=== PATIENT | female | born 1945 | race Caucasian/White ===

== ENCOUNTER 2018-11-23 05:51 | Inpatient (IN) | payer OTHER ==
--- OUTSIDE RECORDS SUMMARY | 2018-11-23 06:02 | XMS REPORT ---
:1945 Author Organization e[employer]Works Care Team Providers Name Role Phone Kamlesh Najera Provider Role Unavailable Allergies No Known Allergies Problems Problem Type Condition Code Onset Dates Condition Status Problem Primary osteoarthritis of right knee M17.11 Active Problem Piriformis syndrome of left side G57.02 Active Problem Piriformis syndrome of right side G57.01 Active Medications No Known Medications Results No Known Results Summary Purpose eClinicalWorks Submission
--- OUTSIDE RECORDS SUMMARY | 2018-11-23 06:02 | XMS REPORT ---
:1945 Author Organization [employer] Care Team Providers Name Role Phone Kamlesh Najera Provider Role Unavailable Allergies, Adverse Reactions, Alerts Substance Reaction Event Type MORPHINE Info Not Available Drug Allergy Problems Problem Type Condition Code Onset Dates Condition Status Problem Primary osteoarthritis of right M17.11 Active knee Problem Piriformis syndrome of left side G57.02 Active Problem Piriformis syndrome of right side G57.01 Active Assessment Primary osteoarthritis of right M17.11 Active knee Assessment Pain in joint of right knee M25.561 Active Medications Medication Code System Code Instructions Start End Date Status Dosage Date [place] [facility] [id number] 5-325 MG Orally Active 1 tablet as every 6 hrs needed Nexium [facility] [id number] 40 MG Orally Active 1 capsule Once a day Results No Known Results Summary Purpose eClinicalWorks Submission
--- OUTSIDE RECORDS SUMMARY | 2018-11-23 06:02 | XMS REPORT ---
[...] syndrome of right side G57.01 Active Assessment Acute pain of right knee M25.561 Active Assessment Primary osteoarthritis of right M17.11 Active knee Medications Medication Code System Code Instructions Start End Date Status Dosage Date [place] [facility] 2001 [id number] 5-325 MG Orally Active 1 tablet as every 6 hrs needed Nexium [facility] 79307011432 40 MG Orally Active 1 capsule Once a day Results No Known Results Summary Purpose eClinicalWorks Submission
--- OUTSIDE RECORDS SUMMARY | 2018-11-23 06:03 | XMS REPORT ---
[...] syndrome of right side G57.01 Active Assessment Contusion of right foot, initial S90.31XA Active encounter Assessment Primary osteoarthritis of right M17.11 Active knee Assessment Pain, joint, foot, right M25.571 Active Medications Medication Code Code Instructions Start End Date Status Dosage System Date [place]taren [facility] [id number] 1 % Transdermal Active apply small qid amount to affected joint [place] [facility] [id number] 5-325 MG Orally Active 1 tablet as every 6 hrs needed Nexium [facility] [id number] 40 MG Orally Active 1 capsule Once a day Results No Known Results Summary Purpose eClinicalWorks Submission
--- OUTSIDE RECORDS SUMMARY | 2018-11-23 06:03 | XMS REPORT ---
[...] right M17.11 Active knee Medications Medication Code Code Instructions Start End Date Status Dosage System Date Voltaren [facility] [id number] 1 % Transdermal Active apply small qid amount to affected joint [place] [facility] [id number] 5-325 MG Orally Active 1 tablet as every 6 hrs needed Nexium [facility] [id number] 40 MG Orally Active 1 capsule Once a day Results No Known Results Summary Purpose eClinicalWorks Submission
[2018-11-23] MEDS ORDERED: Ringers Lactate 1,000 ML IV ONE ×2 (06:30→08:40)
[2018-11-23] MEDS ORDERED: VANCOMYCIN 1 GM/VIAL ONE (06:32)
[2018-11-23] MEDS ORDERED: MIDAZOLAM HCL 2 MG/2 ML INJ ONE (06:53)
[2018-11-23] MEDS ORDERED: LIDOCAINE 2% MPF 5 ML VIAL ONE ×2 (06:53)
[2018-11-23] MEDS ORDERED: PROPOFOL 200 MG/20 ML VIAL IV ONE (06:53)
[2018-11-23] MEDS ORDERED: FENTANYL CITR 100 MCG/2 ML ONE (06:53)
[2018-11-23] MEDS ORDERED: ROCURONIUM 50 MG/5 ML VIAL IV ONE (06:53)
[2018-11-23] MEDS ORDERED: NS 0.9% VIAL 10 ML ONE ×2 (06:55→08:12)
[2018-11-23] MEDS ORDERED: DEXAMETHASONE 10 MG/ML VIAL ONE (07:01)
[2018-11-23] MEDS ORDERED: ROPIVACAINE HCL 20 ML ONE (07:02)
[2018-11-23] MEDS ORDERED: ROPLVACAINE HCL 20 ML ONE (07:02)
[2018-11-23] MEDS ORDERED: BUPIVACA 0.5%/EPI 0.0005%/PF 30 ML VIAL ONE (07:18)
[2018-11-23] MEDS ORDERED: NA CHLORIDE 0.9% 250 ML ONE (07:34)
[2018-11-23] MEDS ORDERED: EPHEDRINE SULF 50 MG/ML VIAL ONE (07:59)
[2018-11-23] MEDS ORDERED: KETAMINE HCL 500 MG/5 ML VIAL ONE (07:59)
[2018-11-23] MEDS ORDERED: TRANEXAMIC ACID 1,000 MG in NA CHLORIDE 0.9% 50 ML IV ONE (08:00)
[2018-11-23] MEDS ORDERED: HYDROMORPHONE HCL 2 MG/ML inj ONE (08:09)
[2018-11-23] MEDS ORDERED: GLYCOPYRROLATE 0.2 MG/ML SYR ONE (09:37)
[2018-11-23] MEDS ORDERED: NEOSTIGMINE 1 MG/ML -10 ML VIAL ONE (09:38)
--- NOTE | 2018-11-23 10:19 | P.BOP ---
Preoperative diagnosis: right knee osteoarthritis Postoperative diagnosis: same Primary procedure: right total knee arthroplasty [employer] Associate: NONE,NONE Estimated blood loss: 20 cc Specimen: right knee bone remnants Findings: see dictation Anesthesia: General Complications: None Implants: Scott Persona Size 6 STD femur, D tibia, 10 mm CR poly Fluids & blood products: per anesthesia; TT: 74 mins @ 250 mmHg Transferred to: Recovery Room Condition: Good
[2018-11-23] MEDS ORDERED: DOCUSATE NA 100 MG CAP PO PRN (10:20)
[2018-11-23] MEDS ORDERED: ONDANSETRON 4 MG/2 ML VIAL IV PRN (10:20)
[2018-11-23] MEDS ORDERED: HYDROMORPHONE HCL 0.5 MG/0.5 ML INJ IV PRN (10:45)
[2018-11-23] MEDS: HYDROMORPHONE HCL 1 MG/ML INJ ONE ×2 (10:50→10:57)
[2018-11-23 10:57] LABS: Hematocrit 37.2 % (36.0-45.0)
--- NOTE | 2018-11-23 11:02 | RAD REPORT ---
EXAM DESCRIPTION: RAD - Knee Right 2 View - 11/23/2018 10:49 am CLINICAL HISTORY: Right knee surgery FINDINGS: Postoperative changes of a right knee arthroplasty. Prosthesis is in good position. No fracture or dislocation seen
[2018-11-23] MEDS: HYDROCODONE/APAP 7.5/325 MG TAB PO PRN ×3 (14:05→22:26)
[2018-11-23] MEDS ORDERED: CEFAZOLIN/NS 1gm 1 GM/50 ML BAG IVPB SCH (17:00)
[2018-11-23] MEDS: CEFAZOLIN/SWI 1gm 1 GM/10 ML SYR IV SCH (17:15)
--- NOTE | 2018-11-23 20:24 | P.OP ---
Preoperative diagnosis: right knee osteoarthritis Postoperative diagnosis: same Primary procedure: right total knee arthroplasty Anesthesia: general Estimated blood loss: 20 cc Specimen: right knee bone remnants Findings: see dictation Operative Technique: Indication For Procedure: Dennis is a 73-year-old female, who presented to my clinic with right knee pain due to right knee osteoarthritis. The patient failed conservative treatment measures including home exercises, corticosteroid injections and viscosupplementation injections. She reported continued pain that affect her activities of daily living. She was recommended for total knee arthoplasty. Description Of Procedure: After informed consent was obtained, the patient was identified in preop holding area. The right lower extremity was marked. The patient underwent a femoral nerve block performed by Anesthesia. She was then taken back to the operative room and transferred to the operating table in supine fashion and placed under general endotracheal anesthesia. The right lower extremity was then prepped and draped in usual sterile fashion. A time- out was initiated. Correct patient and procedure were confirmed and identified. The patient had received preoperative prophylactic antibiotics. The right lower extremity was exsanguinated and the tourniquet was inflated to 250 mmHg. Approximately, a 20 cm longitudinal incision was made over the anterior aspect of the knee centered over the patella. A standard median parapatellar approach was taken. The dissection was taken to the extensor mechanism. A median parapatellar arthrotomy was then performed. The patella was then everted and the fat pad and medial and lateral meniscus were excised. A lateral release was performed of the patella and osteophytes were removed using a rongeur. There was minimal cartilage wear on the undersurface of the patella and it was decided to not resurface the patella. Next, attention was taken to the femur, retractors were placed within the knee and the knee was held in flexion. A partial synovectomy was performed over the anterior aspect of the distal femur. A cutting block has been created preoperatively using MRI imaging and the block was then placed over the distal femur and then positioned and was stacked into place and pins were placed within the guide hole in the block. The distal femoral cutting guide was then placed over the pre-placed guide pin and the distal femur was cut after proper confirming using an [place] wing. After this was performed, the anterior-posterior distal femoral cuts were made as well as the chamfer cut without complication. MCL and lateral collateral were protected as well as patellar tendon with knee retractors. Bone remnants were then removed and sent to Pathology. Next attention was taken to the proximal tibia. The soft tissue medially was then elevated off the proximal tibia directly off bone using Bovie electrocautery. Pre-made cutting block was placed over the proximal tibia and once locked into position, pin were placed as well as the alignment william was used to ensure proper placement of the cutting guide. There was overall good alignment and position of the cutting guide. Pins were then placed. The cutting block was removed. The cutting guide was placed on the proximal tibia and again the nixon wing was then used to ensure proper depth of the cut. An osteotome then used to make cuts around the PCL and the saw was used to cut the proximal tibia and the proximal tibial cut was then removed with the meniscal grasper. Bone fragments were then removed and meniscectomies were completed. Next, the knee was held in 90 degrees of flexion and forward extension and a 10-mm guide was then selected and there was good overall fit and stability in flexion and extension. Next, the trials were placed, size 6 CR standard femur was placed and a size D tibia with a 10 mm poly. The knee was then ranged and had good stability, both in forward flexion and extension and had full range of motion. The knee was ranged and there was good stability of the patella as well as the rest of the knee. The tibia was marked with the Bovie electrocautery. The femur was drilled and once in proper position and the tibia was punched. Trial implants were then removed. The knee was then irrigated thoroughly with pulsed lavage normal saline. A 0.5% Marcaine with epinephrine was then used 30 cc for local anesthetic and to aid with postoperative pain control. The cement was prepared as well as the implant. Size D tibia was then placed followed by the size 6 standard CR femur. Excess cement was then removed using [place] elevator. A 10- mm trial poly was then placed and the knee was held in full extension as the cement hardened. Once the cement was completely hardened, the knee was ranged with good overall stability as well as good flexion and extension. Trial poly ethylene liner was removed and a final 10 mm CR poly was placed and locked in position. The knee was again irrigated thoroughly with normal saline. The tourniquet was let down. Hemostasis was achieved with Bovie electrocautery. The extensor mechanism was closed with #1 Vicryl in an interrupted fashion followed by #1 Vicryl in a running fashion. Fascia was then approximated using 0 Vicryl. Subcutaneous tissue was approximated used 2-0 Vicryl and the skin was approximated using a skin staple. Sterile dressings were applied. The patient was awakened and transferred to PACU in stable condition. Postoperative Plan: She will be weightbearing as tolerated. Physical therapy will be consulted to aid with mobilization and she will be admitted for pain management and blood pressure monitoring given her history of uncontrolled hypertension. She will stay at least 2 midnights while in the hospital. CPM machine will be placed in the PACU postoperatively. Complications: None Implants: Scott Persona Size 6 Standard CR femur, Size D Tibia, 10 mm poly Fluids & blood products: per anesthesia record; TT: 74 mins @ 250 mmHg Transferred to: Recovery Room Condition: Good
[2018-11-24] MEDS: CEFAZOLIN/SWI 1gm 1 GM/10 ML SYR IV SCH ×2 (00:25→07:54)
[2018-11-24] MEDS: HYDROCODONE/APAP 7.5/325 MG TAB PO PRN ×4 (03:29→20:01)
[2018-11-24] MEDS: PANTOPRAZOLE 40MG TABLET PO SCH (05:10)
[2018-11-24] MEDS: ENOXAPARIN 30 MG/0.3 ML SQ SCH ×2 (05:10→20:01)
[2018-11-24] MEDS: TRAMADOL HCL 50 MG TAB PO PRN ×4 (05:10→23:50)
[2018-11-24 06:06] LABS: Absolute Lymphocytes (CBC) 1.7 K/uL (0.7-4.9); Absolute Monocytes 1.6 K/uL (0.1-1.3); Absolute Neutrophil 6.6 K/uL (1.8-8.0); Basophils % 0.3 % (0-1.3); Lymphocytes % 17.4 % (15.3-44.8); MPV 8.9 fL (7.6-11.3); Monocytes % 16.3 % (3.3-12.3); RBC Red Blood Cell Count 4.08 M/uL (3.86-4.86)
[2018-11-24 06:25] LABS: BUN Blood Urea Nitrogen 11 mg/dL (7-18); Bicarbonate 25 mmol/L (21-32); Glucose Level 100 mg/dL (74-106); Potassium 4.4 mmol/L (3.5-5.1); Sodium Level 142 mmol/L (136-145)
[2018-11-24] MEDS: CELECOXIB 100 MG CAPSULE PO SCH (07:54)
--- NOTE | 2018-11-24 07:57 | P.PN ---
Subjective Date of Service: 11/24/18 Chief Complaint: s/p R TKA some breakthrough pain this AM as block has worn off; feels better with CPM moving Physical Examination - Vital Signs Temperature: 97.9 F Blood Pressure: 111/61 Pulse: 51 Respirations: 12 Pulse Ox (%): 94 - Physical Exam General: Alert, In no apparent distress Musculoskeletal: Other (RLE: dressing c/d/i; +EHL/FHL/GSC/TA; sensation grossly intact distally) - Studies Laboratory Data (last 24 hrs) 11/24/18 05:38: Sodium 142, Potassium 4.4, BUN 11, Creatinine 0.62, Glucose 100 11/24/18 05:38: WBC 10.1 D, Hgb 12.0, Hct 36.0, Plt Count 256 11/23/18 10:44: Hgb 12.4, Hct 37.2 Assessment And Plan - Plan Dennis is a 73 yo female s/p R TKA POD#1 -PT to continue to mobilize; WBAT RLE -H/H stable -pain control with [place], tramadol as needed -lovenox for DVT prophylaxis
[2018-11-24 08:06] LABS: Blood Morphology Comment NOT SEEN (NOT SEEN); Platelet Estimate ADEQ; Urine White Blood Cell Casts OK
[2018-11-24] MEDS: BRIMONIDINE TARTRATE EACH EYE SCH (09:00)
[2018-11-25] MEDS: HYDROCODONE/APAP 7.5/325 MG TAB PO PRN ×3 (04:04→14:52)
[2018-11-25] MEDS: PANTOPRAZOLE 40MG TABLET PO SCH (05:55)
[2018-11-25] MEDS: TRAMADOL HCL 50 MG TAB PO PRN ×3 (06:11→18:11)
[2018-11-25] MEDS: CELECOXIB 100 MG CAPSULE PO SCH (08:00)
[2018-11-25] MEDS: BRIMONIDINE TARTRATE EACH EYE SCH (08:00)
[2018-11-25] MEDS: ENOXAPARIN 30 MG/0.3 ML SQ SCH ×2 (08:00→21:08)
[2018-11-26] MEDS: PANTOPRAZOLE 40MG TABLET PO SCH (05:47)
[2018-11-26] MEDS: HYDROCODONE/APAP 7.5/325 MG TAB PO PRN ×2 (05:47→10:28)
[2018-11-26] MEDS: ENOXAPARIN 30 MG/0.3 ML SQ SCH (08:51)
[2018-11-26] MEDS: CELECOXIB 100 MG CAPSULE PO SCH (08:51)
[2018-11-26] MEDS: BRIMONIDINE TARTRATE EACH EYE SCH (08:52)
--- NOTE | 2018-11-26 10:04 | P.PN ---
Subjective Date of Service: 11/25/18 Chief Complaint: s/p R TKA Subjective: Working w/ PT some breakthrough pain this AM; states she is not ready to go home today; having difficulty getting up to use the bathroom Physical Examination - Vital Signs Temperature: 98.0 F Blood Pressure: 109/65 Pulse: 89 Respirations: 16 Pulse Ox (%): 93 - Physical Exam General: Alert, In no apparent distress Musculoskeletal: Other (LLE: dressing c/d/i; +EHL/FHL/GSC/TA; sensation grossly intact distally) - Studies Microbiology Data (last 24 hrs): 11/24/18 03:20 Clean Catch Urine [place] Count - Final 11/24/18 03:20 Clean Catch Urine - Final No growth. Assessment And Plan - Plan Dennis is a 73 yo female s/p R TKA POD#2 -PT to continue to mobilize; WBAT RLE -pain control with [place], tramadol as needed -lovenox for DVT prophylaxis -with difficulty with getting up, will consult inpatient rehab for possible placement
--- NOTE | 2018-11-26 10:07 | P.PN ---
Subjective Date of Service: 11/26/18 Chief Complaint: s/p R TKA Subjective: Ambulating, Improving, Working w/ PT Feeling better this AM. A lot of improvement with PT yesterday. Feels safe and ready to go home. Physical Examination - Vital Signs Temperature: 98.0 F Blood Pressure: 109/65 Pulse: 89 Respirations: 16 Pulse Ox (%): 93 - Physical Exam General: Alert, In no apparent distress Musculoskeletal: Other (RLE: incision c/d/i; +EHL/FHL/GSC/TA; sensation grossly intact distally) - Studies Microbiology Data (last 24 hrs): 11/24/18 03:20 Clean Catch Urine [place] Count - Final 11/24/18 03:20 Clean Catch Urine - Final No growth. Assessment And Plan - Plan Dennis is a 73 yo female s/p R TKA POD#3 -PT to continue to mobilize; WBAT RLE -pain control with [place], tramadol as needed -lovenox for DVT prophylaxis; begin Xarelto tomorrow -mobilizing better at this time; d/c home today with HHPT
--- NOTE | 2018-11-26 10:19 | P.DS ---
Admission Date: 11/23/18 Discharge Date: 11/26/18 Disposition: DC HOME/HOME HEALTH CARE Discharge Condition: GOOD Reason for Admission: s/p R TKA Consultations: none Procedures: right total knee arthroplasty Brief History of Present Illness: Dennis is a 73 yo female that underwent right total knee arthroplasty on 2018 without complication. She was admitted to the floor postoperatively for pain control, physical therapy and monitoring. Hospital Course: Dennis underwent R TKA on 11/23 and was admitted to the floor in stable condition. She has history of left upper extremity infection and nonunion and has weakness affecting her mobilization. Physical therapy was consulted and aided with mobilization postoperatively. She reported continued weakness and difficulty with getting out of bed on 11/25 and inpatient rehabilitation was consulted. We were informed that it would take at least 48 hours ( ) that it would take to have approval. She continued to work with physical therapy and on the morning of 11/26/2018 she reports significant improvement with strength and mobility and was ready for d/c home. Her pain is controlled at discharge and her vital signs have remained stable. She will begin Xarelto for DVT propylaxis on 11/27/2018 and has been taking Lovenox while in house. Vital Signs/Physical Exam: Temp Pulse Resp BP Pulse Ox 98.0 F 89 16 109/65 93 11/26/18 10:07 11/26/18 10:07 11/26/18 10:07 11/26/18 10:07 11/26/18 10:07 Laboratory Data at Discharge: WBC 10.1 K/uL (4.3-10.9) D 11/24/18 05:38 Hgb 12.0 g/dL (12.0-15.0) 11/24/18 05:38 Hct 36.0 % (36.0-45.0) 11/24/18 05:38 Plt Count 256 K/uL (152-406) 11/24/18 05:38 Sodium 142 mmol/L (136-145) 11/24/18 05:38 Potassium 4.4 mmol/L (3.5-5.1) 11/24/18 05:38 BUN 11 mg/dL (7-18) 11/24/18 05:38 Creatinine 0.62 mg/dL (0.55-1.3) 11/24/18 05:38 Glucose 100 mg/dL (74-106) 11/24/18 05:38 Home Medications: Brimonidine Tartrate [Lumify] 1 gtt EACH EYE DAILY 11/22/18 Esomeprazole Magnesium [Nexium] 20 mg PO DAILY 11/22/18 Hydrocodone Bit/Acetaminophen [Hydrocodon-Acetaminoph 7.5-325] 0.5 each PO Q6HP PRN 11/22/18 Promethazine HCl 25 mg PO TID PRN 11/24/18 Hydrocodone 7.5/APAP 325 [[place] 7.5/325 mg*] 1 tab PO Q4H PRN tab 11/26/18 Patient Discharge Instructions: change dressing to right knee as needed with aquacell dressing; begin Xarelto on 11.27.2018; WBAT RLE Diet: Regular Activity: Weight bearing as tolerated Followup: Kamlesh Najera MD [ACTIVE - CAN ADMIT] - 12/07/18
== END 2018-11-26 13:07 | disposition home health service (06) | DRG 470 ==
LOC: OR 05:51 → 2ND 10:21
PROVIDERS: ADMIT Orthopaedic Surgery Sports Medicine; ATTEND Orthopaedic Surgery Sports Medicine
PROC: 0SRC069 Replacement of Right Knee Joint with Oxidized Zirconium on Polyethylene Synthetic Substitute, Cemented, Open Approach (ICD-10-PCS; principal; 2018-11-23 07:30)
DX: M17.11 Unilateral primary osteoarthritis, right knee (principal)
CPT/HCPCS: 36415; 80048; 85014; 85018; 85025; 87086; 87088; 88305; 88311; 97110; 97116; 97139; 97162; 97530; J0690; J1100; J1170; J1650; J2250; J2704; J2710; J2795; J3010

== ENCOUNTER 2020-04-23 14:33 | Emergency (ER) | payer OTHER ==
--- OUTSIDE RECORDS SUMMARY | 2020-04-23 14:46 | XMS REPORT | Continuity of Care Document ---
:1945 Author Organization [facility] t Address [address] [place] [address] Care Team Providers Name Role Phone Pa Rodriguez MD Attending Clinician Thierry Harrison CRNA Attending Clinician 1, Lab Attending Clinician Unavailable Pa Rodriguez MD Admitting Clinician Problems Condition Condition Condition Status Onset Resolution Last Treating Co mments Source Name Details Category Date Date Treatment Clinician Date Primary Primary Problem Active [facility] osteoarthr osteoarthr Haydee kes - itis of itis of [facility] right [facility] Piriformis Piriformis Problem Active [facility] syndrome syndrome [facility] left of left [facility] side side [facility] Piriformis Piriformis Problem Active [facility] syndrome syndrome [facility] right of right [facility] a side side l [facility] Status Status Problem Active [facility] post total post total Haydee kes - right knee right knee Me moria replacemen replacemen l t t [facility] Aftercare Aftercare Problem Active [facility] following following [facility] - joint joint Memoria replacemen replacemen l t surgery t surgery Outp at ent Clinics Pain, Pain, Diagnosis Active [facility] joint, joint, [facility] - knee, knee, [facility] right right l [facility] Allergies, Adverse Reactions, Alerts Allergy Allergy Status Severity Reaction(s) Onset Inactive Treating Comm ents Source Name Type Date Date Clinician MORPHINE Adverse Active Info Not [facility] Reaction Available [facility] Medications Ordered Filled Start Stop Current Ordering Indication Dosage Frequency Signature Comments Components Source Medication Medication Date Date Medication? Clinician (SIG) Name Name Tramadol Tramadol 2019-0 2019- No Kamlesh [address] [facility] HCl HCl 7-15 03-15 [place] as needed [facility] 00:[facility]: 00:00 [facility] 00 :[facility] l [facility] Nexium Nexium Yes Kamlesh [address] [facility] Symbicort Symbicort Yes Kamlesh INAHLE [address] [facility] [place] PUFFS [facility] - TWICE A [facility] DAY l Outpati ent Clinics Methocarbam Methocarbam Yes Kamlesh TAKE [address] [facility] [place] TABLET BY [facility] - MOUTH Memoria EVERY 8 l HOURS Outpati NEEDED FOR ent MUSCLE Clinics SPASMS Ilevro Ilevro Yes Kamlesh LOCATION: [facility] LEFT EYE. [facility] - APPLY 1 Memoria DROP IN l SURGERY Outpati EYE AT ent BEDTIME Clinics FOR 2 WEEKS Xarelto Xarelto Yes Kamlesh TAKE [address] [facility] [place] TABLET BY [facility] - MOUTH [facility]oria EVERY DAY l WITH FOOD Outpati ent Clinics Amoxicillin Amoxicillin Yes Kamlesh TAKE [address] [facility] [place] CAPS BY [facility] - MOUTH 1 Memoria HOUR PRIOR l TO DENTAL Outpati PROCEDURE ent Clinics Durezol Durezol Yes Kamlesh PLEASE SEE [facility] ATTACHED [facility] - FOR Memoria DETAILED l DIRECTIONS Outpati ent Clinics Promethazin Promethazin Yes Kamlesh TAKE [address] [facility] e HCl e HCl [place] TABLET BY [facility] - MOUTH Memoria EVERY DAY l NEEDED Outpati ent Clinics Ofloxacin Ofloxacin Yes Kamlesh APPLY [address] [facility] [place] DROP 3 [facility] - TIMES A Memoria DAY FOR 1 l WEEK IN Outpati SURGERY ent EYE Clinics Hydrocodone Hydrocodone Yes Kamlesh (Schedule [facility] -Acetaminop -Acetaminop [place] II Drug) [facility]ukes - hen hen TAKE 1 Memoria TABLET BY l MOUTH Outpati EVERY DAY ent X 28 DAYS Clinics Procedures This patient has no known procedures. Encounters Start End Encounter Admission Attending Care Care Encounter Source Date/Time Date/Time Type Type Clinicians Facility Department ID 2019-11-16 2019-11-16 [facility] [id number] [facility] [address] 08:00:00 08:00:00 t [facility] 2019-08-17 2019-08-17 [facility] [id number] 08:50:00 11:10:00 Encounter Killian Stein [id number] Pa Berrios [id number] Surgical [id number] [place] 071 2019-07-13 2019-07-13 Hospital Michael, [facility] [id number] 09:06:00 11:35:00 Encounter Killian Stein [id number] Pa Berrios [id number] Surgical [id number] [place] [id number] 2019-07-13 2019-07-13 Anesthesia Harrison, [facility] [id number] 10:38:00 11:02:00 Gio Stein [id number] Yash [id number] Surgical [id number] [place] 020 2019-07-06 2019-07-06 Instrument Technician 1, Adc Lab [facility] [id number] 16:31:52 16:46:52 Visit Sarita [id number] Yash [id number] [place] [id number] 2019-05-15 2019-05-15 [facility] [id number] [facility] [address] 08:00:00 08:00:00 t [facility] 2019-03-30 2019-03-30 [facility] [id number] [facility] [address] 11:09:00 11:09:00 t [facility] Clinics 2019-02-13 2019-02-13 [facility] [id number] [address] 08:00:00 08:00:00 t [facility] Clinics 2019-01-05 2019-01-05 [facility] [id number] [address] 09:30:00 09:30:00 t [facility] 2019-01-02 2019-01-02 [facility] [id number] [address] 08:00:00 08:00:00 t [facility] 2018-12-19 2018-12-19 [facility] [id number] 16:26:00 16:26:00 t Bone [facility] 2018-12-19 2018-12-19 [facility] [id number] [address] 11:40:00 11:40:00 t [facility] 2018-12-15 2018-12-15 [facility] [id number] [address] 13:35:00 13:35:00 t [facility] 2018-12-12 2018-12-12 [facility] [id number] 08:30:00 08:30:00 t Bone [facility] 2018-12-08 2018-12-08 [facility] [id number] 08:39:00 08:39:00 t Bone [facility] 2018-12-07 2018-12-07 [facility] [id number] 09:40:00 09:40:00 t Bone [facility] 2018-12-07 2018-12-07 [facility] [id number] 08:00:00 08:00:00 t Bone [facility] 2018-11-03 2018-11-03 [facility] [id number] [address] 09:40:00 09:40:00 t Bone [facility] 2018-10-25 2018-10-25 [facility] [id number] 08:00:00 08:00:00 t Bone [facility] 2018-10-24 2018-10-24 [facility] [id number] 09:37:00 09:37:00 t Bone [facility] and [facility] 2018-10-24 2018-10-24 [facility] [id number] 08:25:00 08:25:00 t Bone [facility] 2018-10-20 2018-10-20 [facility] [id number] 13:30:00 13:30:00 t Bone [facility] 2018-08-22 2018-08-22 [facility] [id number] 11:03:00 11:03:00 t Bone [facility] 2018-08-18 2018-08-18 [facility] [id number] 15:59:00 15:59:00 t Bone [facility] 2018-08-15 2018-08-15 [facility] [id number] 08:00:00 08:00:00 t Bone [facility] 2018-02-17 2018-02-17 [facility] [id number] 09:00:00 09:00:00 t Bone [facility] Results This patient has no known results.
[2020-04-23 15:10] LABS: Absolute Lymphocytes (CBC) 1.8 K/uL (0.7-4.9); Basophils % 0.6 % (0-1.3); Lymphocytes % 15.8 % (15.3-44.8); MPV 8.7 fL (7.6-11.3)
[2020-04-23 15:11] LABS: Protime INR 0.99
[2020-04-23 15:21] LABS: Potassium 3.7 mmol/L (3.5-5.1)
[2020-04-23] MEDS ORDERED: FENTANYL CITR 100 MCG/2 ML ONE (15:22)
--- NOTE | 2020-04-23 16:29 | RAD REPORT ---
EXAM DESCRIPTION: CT - CTHCSPWOC - 04/23/2020 3:58 pm CLINICAL HISTORY: fallfall, head and neck injury, facial injury COMPARISON: <Comparisons> TECHNIQUE: Axial 5 mm thick images of the head were obtained. Axial 2 mm thick images of the cervic al spine were obtained with sagittal and coronal reconstruction images generated and reviewed. All CT scans are performed using dose optimization technique as appropriate and may include automated exposure control or mA/KV adjustment according to patient size. FINDINGS: No intracranial hemorrhage, mass, edema or acute intracranial finding. No suspicion for ac shahzad infarction. No extra-axial fluid collections. Atrophy changes are present primarily bifrontal. Ch ronic ischemic changes are mild. Mastoid air cells are clear. Orbits, facial bones and sinuses are se parately detailed. Cervical bodies are normal in height. There is a slight retrolisthesis of C4 on C5. C4-5 disc space n arrowing present. There is degenerative change at C6-7. No other significant disc space narrowing. Ad vanced degenerative change present at the dens anterior C1 level. Facet joint degenerative changes ar e present. Mild left foraminal encroachment at C3-4 with moderate bilateral foraminal stenosis at C4- 5 and on the left at C5-6. No fracture or acute bony abnormality. Central canal detail is inherently limited. No paraspinal mass or hematoma. IMPRESSION: No hemorrhage, edema or acute intracranial finding. Facial bones, sinuses and orbits ar e separately detailed. Prominent cervical spine degenerative change as detailed. No acute finding identifiable.
--- NOTE | 2020-04-23 16:32 | RAD REPORT ---
EXAM DESCRIPTION: CT - Facial Bones W/ Mpr - 04/23/2020 3:58 pm CLINICAL HISTORY: Fall, facial trauma COMPARISON: None. TECHNIQUE: Axial 2 millimeter thick images of the facial bones were obtained with sagittal and coron al reconstruction imaging. All CT scans are performed using dose optimization technique as appropriate and may include automated exposure control or mA/KV adjustment according to patient size. FINDINGS: Comminuted nasal bone fractures are present. No significant distraction or angulation. Brennan al septum is fractured at the anterior margin with the nasal bone. No significant nasal septum deviat ion. There is contusion and edema around the soft tissues of the nasal bone. Hemorrhage or edema stone ges are present in the nasal passages. Mucosal thickening is seen in the left maxillary sinus. There is a trace air-fluid level in the sinus but no evidence for a sinus wall fracture. . Bilateral antral window surgical defects are present. N o other facial bone fractures confirmed. Mastoid air cells are clear. No fracture of the skullbase. C ondyles of the mandible are normally positioned. No foreign body in the soft tissues. IMPRESSION: Comminuted nasal bone fractures and anterior nasal septum fracture. No displacement or a ngulation deformities. Trace air-fluid level in the left maxillary sinus with additional mucosal thickening. No sinus wall f racture identified.
--- NOTE | 2020-04-23 16:53 | RAD REPORT ---
EXAM DESCRIPTION: Nancy Single View04/23/2020 3:39 pm CLINICAL HISTORY: Chest pain COMPARISON: 2010 FINDINGS: The lungs are mildly hazy. This could simply represent prominence of overlying soft tissue or mild bilateral infiltrates. The heart is normal size. Aorta is tortuous/ectatic An avulsion fracture involves lateral aspect of t he left humeral head and neck.
--- NOTE | 2020-04-23 17:16 | RAD REPORT ---
EXAM DESCRIPTION: RAD - Forearm Left - 04/23/2020 3:40 pm CLINICAL HISTORY: fall;Pain;Deformity COMPARISON: None. FINDINGS: No prior imaging available or prior history of elbow and forearm deformities. Patient has underlying osteopenia. At the elbow joint there is near complete dislocation of the radial head. A large marginal spur is pr esent. There is remodeling of the articular surface with a flattened and broadened surface. Degenerat miguel change present at the humerus ulna articulation. Fusion or restricted movement is likely. Calcifi cations are present at the triceps attachment to the olecranon. No acute findings in the shaft of the radius. 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 The proximal ulna has tapered to a narrow diameter at the fracture site. The distal fracture has shown a cup like remodeling with marginal spurring. This creates a pseudoarthrosi s. This would suggest that the ulna may be fused at the elbow joint. There is angulation at the pseud oarthrosis with the baseline for the patient unknown. No foreign body or other soft tissue abnormality. IMPRESSION: No acute fractures seen. 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 Basel ine positioning is unknown. Significant degenerative change to the radial head with near complete dislocation from the humerus.
--- NOTE | 2020-04-23 17:17 | RAD REPORT ---
EXAM DESCRIPTION: RAD - Humerus Left - 04/23/2020 3:40 pm CLINICAL HISTORY: Fall, shoulder and arm pain COMPARISON: None. FINDINGS: Fracture of the left humerus greater tuberosity is present without distraction or angulati on. Fracture of the surgical neck is also suspected but not definitive. Bones are osteopenic. No pat hologic bone process seen. Elbow and proximal forearm findings are separately detailed. IMPRESSION: Left humerus greater tuberosity fracture without distraction. Suspected left humerus surgical neck fracture.
--- NOTE | 2020-04-23 18:53 | EDPHYS ---
Physician Documentation [facility] Name: Dennis Dawn Age: 74 yrs Sex: Female : 1945 Arrival Date: 04/23/2020 Time: 14:[address] Private MD: ED Physician Deni Feliz HPI: 04/23 14:56 This 74 yrs old Female presents to ER via Unassigned with complaints of fall. cp 14:56 Details of fall: The patient fell from an upright position, while walking, and struck a cp tile surface. Onset: The symptoms/episode began/occurred just prior to arrival. Associated injuries: The patient sustained injury to the head, contusion, left arm, decreased range of motion, deformity, painful injury. Patient reports fall while walking from bathroom at home. No reported LOC, denies syncope, denies chest pain. Historical: - Allergies: 15:00 Morphine; jl7 - Home Meds: 15:00 [place] 7.5-325 mg Oral tab 1 tab as needed [Active]; Nexium 40 mg Oral cpDR 1 cap once jl7 daily [Active]; - PMHx: 15:00 GERD; herniated disc in neck; hiatal hernia; jl7 - PSHx: 15:00 Hysterectomy; Tonsillectomy; Appendectomy; Cholecystectomy; Knee surgery; Mastectomy, jl7 Right; Mastectomy, Left; foot sx; arm sx; - Immunization history:: Adult Immunizations unknown. - Social history:: Smoking status: Patient denies any tobacco usage or history of. ROS: 14:58 Constitutional: Negative for fever. cp 14:58 Neck: Negative for stiffness. 14:58 Cardiovascular: Negative for chest pain, palpitations. 14:58 Respiratory: Negative for cough, shortness of breath, wheezing. 14:58 Back: Negative for pain at rest, pain with movement. 14:58 MS/extremity: Positive for injury or acute deformity, decreased range of motion, pain, of the left arm, Negative for paresthesias. 14:58 Neuro: Negative for altered mental status, headache, syncope, weakness. 14:58 All other systems are negative. Exam: 15:05 Constitutional: The patient appears in no acute distress, alert, awake, cp non-diaphoretic, non-toxic, well developed, well nourished. 15:05 Head/face: Noted is ecchymosis, that is mild, of the nose, swelling, that is mild, of cp the nose, tenderness, that is moderate, of the nose, Sinus tenderness, is not appreciated. 15:05 Eyes: Periorbital structures: appear normal, Pupils: equal, round, and reactive to light and accomodation, Extraocular movements: intact throughout, Conjunctiva: normal, no exudate, no injection, Lids and lashes: appear normal, bilaterally. 15:05 ENT: External ear(s): are unremarkable, Ear canal(s): are normal, clear, TM's: dullness, bilaterally, Nose: Nasal septum: is midline, bleeding, is noted from both nares, and is minimal, no septal hematoma is appreciated, Mouth: Lips: moist, Oral mucosa: moist, Posterior pharynx: Airway: no evidence of obstruction, patent, Dental exam: no acute changes. 15:05 Neck: C-spine: vertebral tenderness, is not appreciated, crepitus, is not appreciated, cp ROM/movement: is normal, is supple, without pain, no range of motions limitations. 15:05 Chest/axilla: Inspection: normal, Palpation: is normal, no crepitus, no tenderness. 15:05 Cardiovascular: Rate: normal, Rhythm: regular, Pulses: Pulses are 2+ in right radial artery and left radial artery. 15:05 Respiratory: the patient does not display signs of respiratory distress, Respirations: normal, no use of accessory muscles, no retractions, labored breathing, is not present, Breath sounds: are clear throughout, no decreased breath sounds, no stridor, no wheezing. 15:05 Abdomen/GI: Inspection: abdomen appears normal, Palpation: abdomen is soft and non-tender, in all quadrants. 15:05 Back: pain, is absent, ROM is normal. 15:05 Musculoskeletal/extremity: Extremities: grossly normal except: noted in the left shoulder: pain, tenderness, There is no evidence of deformity, noted in the left forearm: decreased ROM, deformity, pain, ROM: limited passive range of motion due to pain, in the left shoulder. 15:05 Neuro: Orientation: to person, place \T\ time. Mentation: is normal, Motor: moves all cp fours, strength is normal, Sensation: no obvious gross deficits. Vital Signs: 14:40 BP 137 / 91; Pulse 90; Resp 19; Temp 98.7; Pulse Ox 99% ; Weight 77.11 kg; jl7 15:30 BP 136 / 88; Pulse 90; Resp 15; Pulse Ox 100% ; jl7 17:00 BP 118 / 77; Pulse 99; Resp 17; Pulse Ox 100% ; jl7 17:44 BP 127 / 95; Pulse 98; Resp 15; Pulse Ox 100% ; jl7 18:30 BP 121 / 80; Pulse 90; Resp 17; Pulse Ox 100% ; jl7 Procedures: 19:30 Splinting: Splint applied to left arm using sling, posterior long arm orthoglass. cp applied by tech. Examined by me, post splint application: neurovascular intact, Patient tolerated well. MDM: 14:45 Patient medically screened. cp 16:00 Differential diagnosis: closed head injury, contusion, fracture, laceration, multiple cp trauma. 16:25 Physician consultation: Coleman De Santiago MD was contacted at 16:26, regarding consult, cp patient's condition, discussion of xray results for left forearm, wants patient splinted in position and will f/u in clinic in 2 days to discuss possible surgery for reduction of radial head and fracture of ulna. 18:52 Data reviewed: vital signs, nurses notes, lab test result(s), radiologic studies, plain cp films, I have discussed the patient's presentation/case with the attending Emergency Department Physician; and as a result, I will discharge patient. 04/23 14:44 Order name: Basic Metabolic Panel; Complete Time: 16:14 04/23 16:14 Interpretation: Normal except: CL 110; GLUC 112; BUN 22; GFR 58. 04/23 14:44 Order name: CBC with Diff; Complete Time: 16:14 04/23 14:44 Order name: CT Facial Bones W/O Con; Complete Time: 18:35 04/23 18:36 Interpretation: Report reviewed. 04/23 14:44 Order name: Type And Screen; Complete Time: 16:14 04/23 14:44 Order name: PT-INR; Complete Time: 16:14 04/23 14:44 Order name: Ptt, Activated; Complete Time: 16:14 04/23 14:44 Order name: CT Head C Spine; Complete Time: 18:35 04/23 18:36 Interpretation: Reviewed report. 04/23 14:44 Order name: Labs collected and sent; Complete Time: 15:02 04/23 14:44 Order name: XRAY Chest (1 view); Complete Time: 18:35 04/23 14:44 Order name: XRAY Humerus LEFT; Complete Time: 18:35 04/23 14:44 Order name: XRAY Forearm LEFT; Complete Time: 18:35 04/23 16:47 Order name: Upper Ext Wo Con W/ Mpr; Complete Time: 19:25 [facility] 04/23 16:30 Order name: Splint: posterior long left arm splint; Complete Time: 17:13 04/23 16:30 Order name: Sling; Complete Time: 17:13 Administered Medications: 15:21 Drug: fentaNYL (PF) 25 mcg Route: IVP; Site: right hand; jl7 15:40 Follow up: Response: No adverse reaction; Pain is decreased jl7 17:00 Drug: fentaNYL (PF) 25 mcg Route: IVP; Site: right hand; jl7 17:13 Follow up: Response: No adverse reaction; Pain is decreased jl7 Disposition: 04/24 06:01 Co-signature as Attending Physician, Deni Feliz MD. rn Disposition: 04/23/20 18:53 Discharged to Home. Impression: Monteggia's fracture of left ulna, Nondisplaced fracture of greater tuberosity of left humerus, Fracture of nasal bones, Fall on same level from slipping, tripping and stumbling. - Condition is Stable. - Discharge Instructions: Forearm Fracture, Fall Prevention in the Home, Humerus Fracture Treated With Immobilization, Nasal Fracture. - Prescriptions for Augmentin 875- 125 mg Oral Tablet - take 1 tablet by ORAL route every 12 hours for 10 days; 20 tablet. - Medication Reconciliation Form, Thank You Letter, Antibiotic Education, Prescription Opioid Use form. - Follow up: Gaby Lance MD; When: 2 - 3 days; Reason: nasal bone fracture. Follow up: Cloeman De Santiago MD; When: 1 - 2 days; Reason: left forearm fracture and left humerus fracture. - Problem is new. - Symptoms have improved. Signatures: Dispatcher [employer] EDDeni Burns MD MD rn Albert Castillo PA PA cp Leal, Jahala, RN RN jl7 Corrections: (The following items were deleted from the chart) 04/23 19:32 18:53 04/23/2020 18:53 Discharged to Home. Impression: Monteggia's fracture of left jl7 ulna; Nondisplaced fracture of greater tuberosity of left humerus; Fracture of nasal bones; Fall on same level from slipping, tripping and stumbling. Condition is Stable. Forms are Medication Reconciliation Form, Thank You Letter, Antibiotic Education, Prescription Opioid Use. Follow up: Gaby Lance; When: 2 - 3 days; Reason: nasal bone fracture. Follow up: Coleman De Santiago; When: 1 - 2 days; Reason: left forearm fracture and left humerus fracture. Problem is new. Symptoms have improved. cp
--- NOTE | 2020-04-23 18:53 | ER ---
Nurse's Notes [facility] Name: Dennis Dawn Age: 74 yrs Sex: Female : 1945 Arrival Date: 04/23/2020 Time: 14:[address] Private MD: Diagnosis: Monteggia's fracture of left ulna;Nondisplaced fracture of greater tuberosity of left humerus;Fracture of nasal bones;Fall on same level from slipping, tripping and stumbling Presentation: 04/23 14:40 Chief complaint: EMS states: Lost footing while trying to go to bathroom, fell and hit jl7 face and left shoulder/arm at 1330 today. Obvious deformity noted to left forearm, pt c/o left shoulder pain. Pt took Wall 7.5 mg/325 mg x2 REJECT [employer] F[employer]ER. 14:40 Method Of Arrival: EMS: [facility] jl7 14:40 Coronavirus screen: Client denies travel out of the [place] in the last 14 days. At this jl7 time, the client does not indicate any symptoms associated with coronavirus-19. Ebola Screen: No symptoms or risks identified at this time. Initial Sepsis Screen: Does the patient meet any 2 criteria? No. Patient's initial sepsis screen is negative. Does the patient have a suspected source of infection? No. Patient's initial sepsis screen is negative. Risk Assessment: Do you want to hurt yourself or someone else? Patient reports no desire to harm self or others. Onset of symptoms was April 23, 2020 at 13:30. Care prior to arrival: Splint applied. Transition of care: patient was not received from another setting of care. 14:40 Acuity: ZAYNAB 3 jl7 Triage Assessment: 14:40 General: Appears in no apparent distress. uncomfortable, Behavior is calm, cooperative, jl7 appropriate for age. Pain: Complains of pain in left arm. EENT: Nares with bleeding noted bilaterally. Neuro: Level of Consciousness is awake, alert, obeys commands, Oriented to person, place, time, situation. Cardiovascular: Patient's skin is warm and dry. Pulses are palpable in right radial artery and left radial artery. Respiratory: Airway is patent Respiratory effort is even, unlabored, Respiratory pattern is regular, symmetrical. Derm: Skin is pink, warm \T\ dry. Musculoskeletal: Swelling present in bridge of nose. Historical: - Allergies: 15:00 Morphine; jl7 - Home Meds: 15:00 Wall 7.5-325 mg Oral tab 1 tab as needed [Active]; Nexium 40 mg Oral cpDR 1 cap once jl7 daily [Active]; - PMHx: 15:00 GERD; herniated disc in neck; hiatal hernia; jl7 - PSHx: 15:00 Hysterectomy; Tonsillectomy; Appendectomy; Cholecystectomy; Knee surgery; Mastectomy, jl7 Right; Mastectomy, Left; foot sx; arm sx; - Immunization history:: Adult Immunizations unknown. - Social history:: Smoking status: Patient denies any tobacco usage or history of. Screenin:00 Abuse screen: Denies threats or abuse. Denies injuries from another. Nutritional jl7 screening: No deficits noted. Tuberculosis screening: No symptoms or risk factors identified. Fall Risk Fall in past 12 months (25 points). IV access (20 points). Total Bernal Fall Scale indicates High Risk Score (45 or more points). Fall prevention measures have been instituted. Side Rails Up X 2 Placed Close to Nursing Station Frequent Obs/Assessments Occuring As available patient and family educated on Fall Prevention Program and Strategies. Assessment: 14:40 General: See triage assessment. jl7 15:40 Reassessment: Patient appears in no apparent distress at this time. No changes from jl7 previously documented assessment. Patient and/or family updated on plan of care and expected duration. Pain level reassessed. Patient is alert, oriented x 3, equal unlabored respirations, skin warm/dry/pink. 16:40 Reassessment: Patient appears in no apparent distress at this time. No changes from jl7 previously documented assessment. Patient and/or family updated on plan of care and expected duration. Pain level reassessed. Patient is alert, oriented x 3, equal unlabored respirations, skin warm/dry/pink. 17:10 Reassessment: Splint and sling placed as ordered. jl7 18:00 Reassessment: Patient appears in no apparent distress at this time. No changes from jl7 previously documented assessment. Patient and/or family updated on plan of care and expected duration. Pain level reassessed. Patient is alert, oriented x 3, equal unlabored respirations, skin warm/dry/pink. Vital Signs: 14:40 BP 137 / 91; Pulse 90; Resp 19; Temp 98.7; Pulse Ox 99% ; Weight 77.11 kg; jl7 15:30 BP 136 / 88; Pulse 90; Resp 15; Pulse Ox 100% ; jl7 17:00 BP 118 / 77; Pulse 99; Resp 17; Pulse Ox 100% ; jl7 17:44 BP 127 / 95; Pulse 98; Resp 15; Pulse Ox 100% ; jl7 18:30 BP 121 / 80; Pulse 90; Resp 17; Pulse Ox 100% ; jl7 ED Course: 14:39 Patient arrived in ED. jl7 14:40 Arm band placed on right wrist. jl7 14:40 Patient has correct armband on for positive identification. Bed in low position. Call jl7 light in reach. Side rails up X2. groundwater monitoring technician on. Pulse ox on. NIBP on. Warm blanket given. 14:41 Albert Castillo PA is PHCP. cp 14:41 Deni Feliz MD is Attending Physician. cp 14:59 Triage completed. jl7 15:00 Sandra Dyer RN is Primary Nurse. jl7 15:02 Initial lab(s) drawn, by dc, sent to lab. T\T\S collected, blood band applied to patient. jl7 Inserted saline lock: 22 gauge in right hand, using aseptic technique. Blood collected. 15:40 XRAY Chest (1 view) In Process Unspecified. EDMS 15:40 XRAY Humerus LEFT In Process Unspecified. EDMS 15:40 XRAY Forearm LEFT In Process Unspecified. EDMS 15:59 CT Facial Bones W/O Con In Process Unspecified. EDMS 15:59 CT Head C Spine In Process Unspecified. EDMS 17:10 Nj wrap to left arm Orthoglass splint: posterior long arm splint applied to the left jp3 arm. Sling applied to left arm. 18:27 Upper Ext Wo Con W/ Mpr In Process Unspecified. EDMS 18:48 Gaby Lance MD is Referral Physician. cp 18:48 Coleman De Santiago MD is Referral Physician. cp 19:31 No provider procedures requiring assistance completed. IV discontinued, intact, jl7 bleeding controlled, No redness/swelling at site. Pressure dressing applied. Administered Medications: 15:21 Drug: fentaNYL (PF) 25 mcg Route: IVP; Site: right hand; jl7 15:40 Follow up: Response: No adverse reaction; Pain is decreased jl7 17:00 Drug: fentaNYL (PF) 25 mcg Route: IVP; Site: right hand; jl7 17:13 Follow up: Response: No adverse reaction; Pain is decreased jl7 Outcome: 18:53 Discharge ordered by MD. cp 19:31 Discharged to home via wheelchair, with family. jl7 19:31 Condition: stable 19:31 Discharge instructions given to patient, Instructed on discharge instructions, follow up and referral plans. medication usage, Demonstrated understanding of instructions, follow-up care, medications, Prescriptions given X 1. 19:32 Patient left the ED. jl7 Signatures: Dispatcher [employer] EDMS Albert Castillo PA PA cp Leal, Jahala, RN RN jl7 Mansoor Russell jp3 Corrections: (The following items were deleted from the chart) 17:15 17:14 Nj wrap to left arm Orthoglass splint: posterior long arm splint applied to the jp3 left arm. Shoulder immobilizer applied on left shoulder, Sling applied to left arm. jp3
--- NOTE | 2020-04-23 19:09 | RAD REPORT ---
EXAM DESCRIPTION: CT - Upper Ext Wo Con W/ Mpr - 04/23/2020 6:27 pm CLINICAL HISTORY: arm pain from fall COMPARISON: Forearm Left dated 04/23/2020 TECHNIQUE: Noncontrast 2 millimeter thick images of the left upper extremity were obtained primarily in a sagittal plane relative to the forearm. Axial and coronal reformatted images were generated and reviewed. The CT scan was performed using dose optimization techniques as appropriate to a performed exam incl uding one or more of the following: Automated exposure control, adjustment of the mA and/or kV accord ing to patient size (this includes techniques or standardized protocols for targeted exams where dose is matched to indication/reason for exam) and use of iterative reconstruction technique. FINDINGS: Left humerus from distal shaft elbow joint shows no acute fracture. Degenerative changes a re present at the humerus ulna articulation. Joint space is narrowed with sclerosis and marginal spur ring changes. No bony union across the joint. Fibrous union is possible. Correlation is needed with r sharon of motion. There is degenerative deformity of the articular surface radial head at the capitellum. The radial he ad has a flattened, broad articular surface with marginal spurring. The radial head is partially disl ocated from the capitellum. No fracture of the radius present. There is an ununited fracture proximal shaft of the ulna. The proximal fracture fragment shows taperi ng of the ulna near the fracture site. The distal fracture fragment has a broadened, cup like appeara nce. There is spurring along the margin. This has the appearance of, and may behave as, a pseudoarthr osis. No pathologic or destructive bone process. No foreign body in the soft tissues. IMPRESSION: Ununited fracture of the proximal ulna shaft as detailed.This has the appearance of, and may behave as, a pseudoarthrosis. Prominent degenerative change to the articular surface of the radial head with partial dislocation. N o acute radius finding. Prominent degenerative change at the humerus ulna articulation. No bony fusion of this joint though a fibrous union or restricted range of motion is possible.
[2020-04-23 20:13] VITALS: TEMP 98.7
[2020-04-23 20:15] VITALS: O2SAT 100
[2020-04-23 20:19] VITALS: BP 121/80
== END 2020-04-23 19:32 | disposition home or self-care (01) ==
LOC: ER 14:33
PROC: 2W39X1Z Immobilization of Left Upper Extremity using Splint (ICD-10-PCS; principal; 2020-04-23)
DX: S52.272A Monteggia's fracture of left ulna, initial encounter for closed fracture (principal); S42.255A Nondisplaced fracture of greater tuberosity of left humerus, initial encounter for closed fracture; S02.2XXA Fracture of nasal bones, initial encounter for closed fracture; W19.XXXA Unspecified fall, initial encounter; Y93.01 Activity, walking, marching and hiking; Y92.002 Bathroom of unspecified non-institutional (private) residence as the place of occurrence of the external cause; Z88.5 Allergy status to narcotic agent; Z90.13 Acquired absence of bilateral breasts and nipples
CPT/HCPCS: 85025; 80048; 36415; 86900; 86850; 85610; 86901; 85730; 70450; 72125; 70486; 73200; 76377 ×2; 71045; 73090; 73060; 29105; J3010; 96374; 99285

== ENCOUNTER 2021-10-03 12:50 | Emergency (ER) | payer OTHER ==
--- OUTSIDE RECORDS SUMMARY | 2021-10-03 12:54 | XMS REPORT | Continuity of Care Document ---
:1945 Author Organization [facility] t Address [address] [place] [address] Care Team Providers Name Role Phone PA RODRIGUEZ Attending Clinician Unavailable Kory LUKE Attending Clinician Unavailable Pa Rodriguez MD Attending Clinician Thierry Harrison CRNA Attending Clinician 1, Lab Attending Clinician Unavailable Doctor Unassigned, Name Attending Clinician Unavailable PA RODRIGUEZ Admitting Clinician Unavailable Pa Rodriguez MD Admitting Clinician Payers Payer Name Policy Type Policy Number Effective Date Expiration Date [place] [employer] [id number] 2018 00:00:00 Problems Condition Condition Condition Status Onset Resolution Last Treating Co mments Source Name Details Category Date Date Treatment Clinician Date Snake bite Snake bite Disease Active 2014-06 U nivers 0-01 ity of 00:00: [address] Right hand Right hand Disease Active 2014-06 U nivers pain pain 0-01 ity of 00:00: [address] Right Right Disease Active 2014-06 Univers wrist pain wrist pain 0-01 it y of 00:00: [address] Allergies, Adverse Reactions, Alerts Allergy Allergy Status Severity Reaction(s) Onset Inactive Treating Comm ents Source Name Type Date Date Clinician Morphine Propensi Active Nausea 2014-06 Univer s ty to and/or 0-01 ity of adverse Vomiting 00:00: [place] reaction 00 [facility] s Branch MORPHINE DRUG Active N/V 2014-06 [facility] ity of 00:00: 00 Medical [place] MORPHINE Adverse Active Info Not [facility] Reaction Available Jono inman [facility] ent Clinics Social History Social Habit Start Date Stop Date Quantity Comments Source Sex Assigned At [facility]it [facility] of [facility] Alcohol intake 2019-07-14 2019-07-14 University of 00:00:00 00:00:00 [facility] Tobacco Comment 2019-07-10 2019-07-[address] [facility] sity of 00:00:00 00:00:00 ago [facility] Smoking Status Start Date Stop Date Source Former smoker 2019-07-14 00:00:00 2019-07-14 00:00:00 [facility] ty of [facility] Never smoker [facility] Medications Ordered Filled Start Stop Current Ordering Indication Dosage Frequency Signature Comments Components Source Medication Medication Date Date Medication? Clinician (SIG) Name Name esomeprazol Yes 40mg Take 40 mg Univers e (NEXIUM) 2 by mouth ity o f 40 mg 17:10: daily. [place] capsule 11 [facility] water for 2019-0 Yes PRN, Univers irrigation 2 Starting ity o f irrigation 16:18: Yuliya [place] solution 08/17/19 at Medic al [facility], [place] Until Discontinu ed, Routine, Intra-op tetracaine 2019-0 Yes PRN, Univers (PONTOCAINE 2- Starting ity of ) 0.5 % 16:18: Yuliya [place] ophthalmic 08/17/19 at [facility] ical drops [facility], [place] Until Discontinu ed, Routine, Intra-op neomycin-po 2019-0 Yes PRN, [facility] lymyxin-dex - Starting ity of amethasone 16:18: Yuliya [place] (MAXITROL) 08/17/19 at [facility] 3.[address] [facility], [place] mg/g-10,000 Until unit/g-0.1 Discontinu % ed, ophthalmic Routine, ointment Intra-op lidocaine-e 2019-0 Yes PRN, [facility] pinephrine 08-17 Starting ity o f (XYLOCAINE 16:18: Yuliya [place] W/EPINEPHRI 08/17/19 at Me dical NE) 2 1018, Branch %-1:200,000 Until injection Discontinu ed, Routine, Intra-op gentamicin 2020-0 Yes PRN, Univers injection 08-17 Starting ity of 16:18: Yuliya [place] 00 08/17/19 at [facility] 1018, Branch Until Discontinu ed, TOAN, Intra-op EPINEPHrine 2020-0 Yes PRN, Univer s (PF) 08-17 Starting ity of 1:1,000 (1 16:17: Yuliya [place] mg/mL) 08/17/19 at [facility] (ADRENALIN 1017, Branch (PF)) Until injection Discontinu ed, Routine, Intra-op DUOVISC 2020-0 Yes PRN, Univers (DUOVISC 08-17 Starting ity of VISCO 16:17: Yuliya [place] ELASTIC) 3 08/17/19 at [facility] %-4 %(0.5 1017, Branch mL) 1 % Until (0.55 mL) Discontinu intraocular ed, injection Routine, Intra-op dexamethaso 2020-0 Yes PRN, Univer s ne 08-17 Starting ity of (DECADRON 16:17: Yuliya [place] PHOSPHATE) 08/17/19 at [facility] ical injection 1017, Branch Until Discontinu ed, Routine, Intra-op ceFAZolin 2020-0 Yes PRN, Univers (ANCEF) 08-17 Starting ity of injection 16:16: Yuliya [place] 00 08/17/19 at [facility] 1016, Branch Until Discontinu ed, TOAN, Intra-op bupivacaine 2020-0 Yes PRN, Univer s (preserv 08-17 Starting ity of free) 16:16: Yuliya [place] (SENSORCAIN 08/17/19 at [place] MPF) 0.75 1016, Branch % (7.5 Until mg/mL) Discontinu injection ed, Routine, Intra-op balanced 2020-0 Yes PRN, Univers salt irrig 08-17 Starting ity o f soln comb1 16:16: Yuliya [place] (BSS PLUS) 00 08/17/19 at [facility] ica ophthalmic 1016, Branch solution Until 500 mL bag Discontinu ed, Routine, Intra-op mydriatic 2020-0 2020- No .5mL 0.5 mL, Univ ers #5 08-17 Right Eye, ity of ophthalmic 15:00: 15:08 ONCE, 1 [place] solution 00 :00 dose, Yuliya Medica l 0.5 mL 08/17/19 at [place] syringe 0900, Routine, DSU Pre-op lactated 2020-0 2020- No 500mL at 20 [facility] s ringers IV 08-17 mL/hr, 500 it y of infusion 15:00: 15:22 mL, IV [place] 500 mL 00 :00 Infusion, [facility] ONCE, 1 [place] dose, Yuliya 08/17/19 at 0900, Routine, DSU Pre-op esomeprazol 2020-0 Yes 40mg Take 40 mg Univers e (NEXIUM) 23 by mouth ity o f 40 mg 17:35: daily. [place] capsule 21 [facility] esomeprazol 2020-0 Yes 40mg Take 40 mg Univers e (NEXIUM) 07-13 by mouth ity o f 40 mg 17:03: daily. [place] capsule 40 [facility] tetracaine 2020-0 Yes PRN, Univers (PONTOCAINE 07-13 Starting ity of ) 0.5 % 16:53: Yuliya [place] ophthalmic 07/13/19 at [facility] ica drops [facility] Until Discontinu ed, Routine, Intra-op water for 2020-0 Yes PRN, Univers irrigation 07-13 Starting ity o f irrigation 16:53: Yuliya [place] solution 07/13/19 at Medic al [facility] Until Discontinu ed, Routine, Intra-op sodium 2020-0 Yes PRN, Univers chloride 07-13 Starting ity of (NS) 16:52: Yuliya [place] injection 07/13/19 at [facility] gretchen 1052[facility] Until Discontinu ed, Routine, Intra-op neomycin-po 2020-0 Yes PRN, [facility] lymyxin-dex 07-13 Starting ity of amethasone 16:52: Yuliya [place] (MAXITROL) 07/13/19 at [facility] [address] [place] [address] mg/g-10,000 Until unit/g-0.1 Discontinu % ed, ophthalmic Routine, ointment Intra-op lidocaine-e 2020-0 Yes PRN, [facility] pinephrine 07-13 Starting ity o f (XYLOCAINE 16:52: Yuliya [place] W/EPINEPHRI 00 07/13/19 at [place]) 2 1052, Branch %-1:200,000 Until injection Discontinu ed, Routine, Intra-op gentamicin 2020-0 Yes PRN, Univers injection 07-13 Starting ity of 16:52: Yuliya [place] 00 07/13/19 at [facility] 1052, Branch Until Discontinu ed, TOAN, Intra-op EPINEPHrine 2020-0 Yes PRN, Univer s (PF) 07-13 Starting ity of 1:1,000 (1 16:51: Yuliya [place] mg/mL) 07/13/19 at [facility] (ADRENALIN 1051, Branch (PF)) Until injection Discontinu ed, Routine, Intra-op DUOVISC 2020-0 Yes PRN, Univers (DUOVISC 07-13 Starting ity of VISCO 16:51: Yuliya [place] ELASTIC) 3 07/13/19 at [facility] %-4 %(0.5 1051, Branch mL) 1 % Until (0.55 mL) Discontinu intraocular ed, injection Routine, Intra-op dexamethaso 2020-0 Yes PRN, Univer s ne 07-13 Starting ity of (DECADRON 16:51: Yuliya [place] PHOSPHATE) 07/13/19 at [facility] ical injection 1051, Branch Until Discontinu ed, Routine, Intra-op ceFAZolin 2020-0 Yes PRN, Univers (ANCEF) 07-13 Starting ity of injection 16:51: Yuliya [place] 00 07/13/19 at [facility] 1051, Branch Until Discontinu ed, TOAN, Intra-op bupivacaine 2020-0 Yes PRN, Univer s (preserv 07-13 Starting ity of free) 16:51: Yuliya [place] (SENSORCAIN 07/13/19 at [place] dicde E MPF) 0.75 1051, Branch % (7.5 Until mg/mL) Discontinu injection ed, Routine, Intra-op balanced 2020-0 Yes PRN, Univers salt irrig 07-13 Starting ity o f soln comb1 16:50: Yuliya [place] (BSS PLUS) 07/13/19 at [facility] ical ophthalmic 1050, Branch solution Until 500 mL bag Discontinu ed, Routine, Intra-op eye block 2019-0 2020- No CONTINUOUS U nivers syringe 11 1-23 01-23 PRN, ity of mL 16:45: 17:02 Starting [place] 00 :25 Yuliya Medical 07/13/19 at Branch 1045, Until Yuliya 07/13/19 at 1102, Intra-op propofol IV 2019- No ONCE INTRA Univers infusion 07-13 PROCEDURE, ity of 16:43: 17:02 Starting [place] 00 :25 Yuliya Medical 07/13/19 at Branch 1043, Until Yuliya 07/13/19 at 1102, Routine, Intra-op lidocaine 2019- No ONCE INTRA U nivers 1% 07-13 PROCEDURE, ity of (XYLOCAINE) 16:43: 17:02 Starting [place] 100 mg/10 00 :25 Yuliya Medical mL (1 %) 07/13/19 at [facility] h injection 1043, Until Yuliya 07/13/19 at 1102, Routine, Intra-op lactated 2019- No 500mL at 20 Univer s ringers IV 07-13 mL/hr, 500 it y of infusion 15:15: 16:35 mL, IV [place] 500 mL 00 :00 Infusion, Medical ONCE, 1 Branch dose, Yuliya 07/13/19 at 0915, Routine, DSU Pre-op Tramadol Tramadol 2018- No Kamlesh [address] HCl HCl 01-02 Najera as needed [facility] - 00:[facility]: 00:00 [facility]oria 00 :00 l Outpat[facility] ent Clinics esomeprazol 2014-06 Yes 40mg Take 40 mg Univers e (NEXIUM) 0-02 by mouth ity o f 40 mg 20:00: daily. [address] esomeprazol 2014-06 Yes 40mg Take 40 mg Univers e (NEXIUM) 0-02 by mouth ity o f 40 mg 20:00: daily. [place] capsule [address] [place] [address] esomeprazol 2014-06 Yes 40mg Take 40 mg Univers e (NEXIUM) 0-02 by mouth ity o f 40 mg 20:00: daily. [address] acetaminoph 2014-06 Yes 1{tbl} Take 1 Tab Univers en-codeine 0-02 by mouth ity o f (TYLENOL 00:00: every 4 [place] #3) 300-30 00 (four) Medical mg tablet hours as Branch needed for Pain (scale 4-6). acetaminoph 2014-06 Yes 1{tbl} Take 1 Tab Univers en-codeine 0-02 by mouth ity o f (TYLENOL 00:00: every 4 [place] #3) 300-30 00 (four) Medical mg tablet hours as Branch needed for Pain (scale 4-6). acetaminoph 2014-06 Yes 1{tbl} Take 1 Tab Univers en-codeine 0-02 by mouth ity o f (TYLENOL 00:00: every 4 [place] #3) 300-30 00 (four) Medical mg tablet hours as Branch needed for Pain (scale 4-6). acetaminoph 2014-06 2020- No 1{tbl} Take 1 Tab Univers en-codeine 0-02 01-22 by mouth ity of (TYLENOL 00:00: 00:00 every 4 [place] #3) 300-30 00 :00 (four) Medical mg tablet hours as Branch needed for Pain (scale 4-6). Nexium Nexium Yes Kamlesh 1 capsule [facility] [...] Clinics FOR 2 WEEKS Xarelto Xarelto Yes aKmlesh TAKE [address] Najera TABLET BY [...] [facility] -Acetaminop -Acetaminop Najera II Drug) Jono mccoy TAKE 1 Memoria TABLET BY l MOUTH Outpati EVERY DAY ent X 28 DAYS Clinics Vital Signs Vital Name Observation Time Observation Value Comments Source Systolic blood 2019-08-17 16:37:00 120 mm[Hg] Univer sity of pressure [facility] Diastolic blood 2019-08-17 16:37:00 66 mm[Hg] Unive rsity of pressure [facility] Heart rate 2019-08-17 16:37:00 78 /min Universi ty of [facility] Respiratory rate 2019-08-17 16:37:00 16 /min Univ ersity of [facility] Oxygen saturation in 2019-08-17 16:37:00 100 /min University of Arterial blood by [facility] Pulse oximetry Branch Body temperature 2019-08-17 16:30:00 36.89 Teodora Univ ersity of [facility] Body height 2019-08-15 02:23:00 162.6 cm [facility] [place] [facility] [place] Body weight 2019-08-15 02:23:00 77.111 kg [facility] [place] [facility] BMI 2019-08-15 02:23:00 29.17 kg/m2 Universi ty of [facility] Systolic blood 2019-08-17 16:37:00 120 mm[Hg] Univer sity of [facility] Diastolic blood 2019-08-17 16:37:00 66 mm[Hg] Unive rsity of [facility] Heart rate 2019-08-17 16:37:00 78 /min [facility] [place] [facility] Respiratory rate 2019-08-17 16:37:00 16 /min Univ ersity [facility] [place] [facility] Oxygen saturation in 2019-08-17 16:37:00 100 /min University of Arterial blood by [facility] Pulse oximetry Branch Body temperature 2019-08-17 16:30:00 36.89 Teodora Univ ersity of [facility] Body height 2019-08-15 02:23:00 162.6 cm [facility] [place] [facility] [place] Body weight 2019-08-15 02:23:00 77.111 kg [facility] [place] [facility] BMI 2019-08-15 02:23:00 29.17 kg/m2 Universi ty of [facility] Systolic blood 2019-07-13 17:17:00 144 mm[Hg] Univer sity of pressure [facility] Diastolic blood 2019-07-13 17:17:00 94 mm[Hg] Unive rsity of pressure [facility] Heart rate 2019-07-13 17:17:00 79 /min [facility] [place] [facility] Respiratory rate 2019-07-13 17:17:00 18 /min Univ ersity of [facility] Oxygen saturation in 2019-07-13 17:17:00 100 /min University of Arterial blood by [facility] gretchen Pulse oximetry Branch Body temperature 2019-07-13 17:07:00 36.56 Teodora Univ ersity [facility] [place] [facility] Body height 2019-07-12 18:00:00 162.6 cm [facility] [place] [facility] [place] Body weight 2019-07-12 18:00:00 77.111 kg [facility] [place] [facility] BMI 2019-07-12 18:00:00 29.18 kg/m2 [facility] [place] [facility] Systolic blood 2019-07-13 17:17:00 144 mm[Hg] Univer sity of pressure [facility] Diastolic blood 2019-07-13 17:17:00 94 mm[Hg] Unive rsity of pressure [facility] Heart rate 2019-07-13 17:17:00 79 /min [facility] [place] [facility] Respiratory rate 2019-07-13 17:17:00 18 /min Univ ersity [facility] [place] [facility] Oxygen saturation in 2019-07-13 17:17:00 100 /min University of Arterial blood by [facility] Pulse oximetry Branch Body temperature 2019-07-13 17:07:00 36.56 Teodora Univ ersity of [facility] Body height 2019-07-12 18:00:00 162.6 cm [facility] [place] [facility] Body weight 2019-07-12 18:00:00 77.111 kg [facility] [place] [facility] BMI 2019-07-12 18:00:00 29.18 kg/m2 [facility] [place] [facility] Procedures Procedure Date / Time Performed Performing Clinician [facility] e CONSENT/REFUSAL FOR 2019-08-16 15:08:04 Doctor Unassigned, No [facility] DIAGNOSIS AND [facility] Medical Branch TREATMENT ASSIGNMENT OF BENEFITS 2019-08-16 15:07:46 Doctor Unassigned, No [facility] Branch POTASSIUM SERUM 2019-07-13 15:55:00 Karley Michele [facility] COMP. METABOLIC PANEL 2019-07-06 22:51:00 Adrian Rodriguez [facility] ([id number]) [facility] CONSENT/REFUSAL FOR 2019-07-06 22:29:03 Doctor Unassigned, No Un [facility] DIAGNOSIS AND Name [facility] TREATMENT ASSIGNMENT OF BENEFITS 2019-07-06 22:28:43 Doctor Unassigned, No [facility] Encounters Start End Encounter Admission Attending Care Care Encounter Source Date/Time Date/Time Type Type Clinicians Facility Department ID 2021-07-16 [facility] [id number] [facility] [address] 13:13:58 [id number] [facility] ent Clinics 2021-04-17 Outpatient Thierry RODRIGUEZ [facility] T[place] [id number] Univers 10:47:31 ADRIAN [facility] 2020-12-02 2020-12-02 [id number]00 [facility] ent Clinics 2020-09-15 2020-09-15 Outpatient [facility] [id number] Univers 12:25:00 12:25:00 [facility] 2020-08-18 2020-08-18 Outpatient Thierry LUKE [facility] [id number] Univers 12:15:00 12:15:00 FLORI [facility] 2019-11-16 2019-11-16 [facility] [id number] 08:00:00 08:00:00 t [facility] [place] 2019-08-17 2019-08-17 [facility] [id number] 08:50:00 11:10:00 Encounter Adrian Stein [id number] Pa Berrios [id number] Surgical [id number] [place] 071 2019-08-17 2019-08-17 [facility] [id number] Univers 08:50:00 11:10:00 Encounter Adrian Stein [id number] ity Joseluis Ber[place] 4.2.7.2.686 [place] [id number] [place] [id number] [place] 2019-07-13 2019-07-13 [facility] [id number] 09:06:00 11:35:00 Encounter Adrian Sarita [id number] Pa Yash [id number] Surgical [id number] [place] [address] 2019-07-13 2019-07-13 [facility] [id number] Univers 09:06:00 11:35:00 Encounter Adrian Sarita [id number] ity of [place] [id number] [place] [id number] [address] 2019-07-13 2019-07-13 Anesthesia [place], [facility] [id number] [facility] 10:38:00 11:02:00 Gio Stein [id number] ity of [place] 4.2.7.2.686 [place] [id number] [facility] 020 [place] 2019-07-13 2019-07-13 Anesthesia [facility] [id number] 10:38:00 11:02:00 Gio Stein [id number] [place] [id number] Surgical [id number] [place] [address] 2019-07-06 2019-07-06 Accounting Manager 1, Adc Lab [facility] [id number] [facility] 16:31:52 16:46:52 Visit Adrian Rodriguez Pa Stein 350.1.1 3.10 ity of [place] 4.2.7.2.686 [place] [id number] [address] 2019-07-06 2019-07-06 Accounting Manager 1, Adc Lab [facility] 1.2.840.114 [id number] 16:31:52 16:46:52 Visit Sarita [id number] [place] 4.2.7.2.686 [place] [id number] [facility] 2019-07-06 2019-07-06 Orders Doctor ALEXANDR [id number] Univers 00:00:00 00:00:00 Only Unassigned, JADA [id number] ity of [place] [facility] 4.2.7.2.686 [place] [id number] [place] [address] Branch 2019-05-15 2019-05-15 [facility] [id number] 08:00:00 08:00:00 t [facility] of [facility] ent [facility] 2019-03-30 2019-03-30 [facility] [id number] 11:09:00 11:09:00 t Bone [facility] 2019-02-13 2019-02-13 [facility] [id number] 08:00:00 08:00:00 t Bone [facility] of [facility] ent [facility] 2019-01-05 2019-01-05 [facility] [id number] 09:30:00 09:30:00 t Bone [facility] [place] 2019-01-02 2019-01-02 [facility] [id number] 08:00:00 08:00:00 t Bone [facility] of [facility] ent [facility] 2018-12-19 2018-12-19 [facility] [id number] 16:26:00 16:26:00 t Bone [facility] [place] 2018-12-19 2018-12-19 [facility] [id number] 11:40:00 11:40:00 t Bone [facility] [place] 2018-12-15 2018-12-15 [facility] [id number] 13:35:00 13:35:00 t Bone [facility] [place] ent Clinics 2018-12-12 2018-12-12 [facility] [id number] 08:30:00 08:30:00 t Bone [facility] [place] ent Clinics 2018-12-08 2018-12-08 [facility] [id number] 08:39:00 08:39:00 t Bone [facility] [place] 2018-12-07 2018-12-07 [facility] [id number] 09:40:00 09:40:00 t Bone [facility] [place] 2018-12-07 2018-12-07 [facility] [id number] 08:00:00 08:00:00 t Bone [facility] [place] 2018-11-03 2018-11-03 [facility] [id number] 09:40:00 09:40:00 t Bone [facility] [place] 2018-10-25 2018-10-25 [facility] [id number] 08:00:00 08:00:00 t Bone [facility] of [facility] of [facility] ent [facility] 2018-10-24 2018-10-24 [facility] [id number] [facility] 09:37:00 09:37:00 t Bone [facility] of [facility] ent [facility] 2018-10-24 2018-10-24 [facility] [id number] 08:25:00 08:25:00 t Bone [facility] [place] ent Clinics 2018-10-20 2018-10-20 [facility] [id number] 13:30:00 13:30:00 t Bone [facility] [place] ent Clinics 2018-08-22 2018-08-22 [facility] [id number] 11:03:00 11:03:00 t Bone [facility] [place] ent Clinics 2018-08-18 2018-08-18 [facility]patient [facility] [id number] 15:59:00 15:59:00 t Bone [facility] [place] ent Clinics 2018-08-15 2018-08-15 [facility]patient [facility] [id number] 08:00:00 08:00:00 t Bone [facility] ent Clinics 2018-02-17 2018-02-17 Outpatient Ryan Davist [id number] 09:00:00 09:00:00 t Bone [facility] [place] Results Test Description Test Time Test Comments Results Result Comments Source POTASSIUM SERUM 2019-07-13 16:41:00 Test Item Value Reference Range Interpretation Comme nts K (test code = [id number]) 4.7 mmol/L 3.5-5 S light hemolysis Lab Interpretation (test code = 78955-9) Normal [place] [facility] (08642)2019-07-07 00:03:00 Test Item Value Reference Range Interpretation Comments NA (test code = 139 mmol/L 135-145 [id number]) K (test code = 5.7 mmol/L 3.5-5 H [id number]) CL (test code = 102 mmol/L 98-108 6407637441) CO2 TOTAL (test code = 22 mmol/L 23-31 L [id number]) AGAP (test code = 2-16 5998366389) BUN (test code = 24 mg/dL 7-23 H 5406747259) GLUCOSE (test code = 89 mg/dL 70-110 [id number]) CREATININE (test code = 0.64 mg/dL 0.5-1.04 [id number]) TOTAL BILI (test code = 0.4 mg/dL 0.1-1.6 7106073944) CALCIUM (test code = 10.4 mg/dL 8.6-10.6 [id number]) T PROTEIN (test code = 8.3 g/dL 6.3-8.2 H [id number]) ALBUMIN (test code = 4.8 g/dL 3.5-5 4690999532) ALK PHOS (test code = 137 U/L 34-122 H 1500863042) ALTv (test code = 34 U/L 5-35 1742-6) AST(SGOT) (test code = 45 U/L 13-40 H 5003500743) eGFR Calculation mL/min/1.73m2 (Non-) (test code = 0852171896) eGFR Calculation mL/min/1.73m2 () (test code = 3867691379) MAGALI (test code = MAGALI) Association of Glomerular Filtration Rate (GFR) and Staging of Kidney Disease* + --+ --+ ------+| GFR (mL/min/1.73 m2) ?| With Kidney Damage ?| ?Without Kidney Damage+ --------+ --------+ +| ?>90 ?| ?Stage one ?| ? Normal ?+ ---+ ---+ -------+| ?60-89 ?| ?Stage two ?| ? Decreased GFR ? + --+ --+ ------+| ?30-59 ?| ?Stage three ?| ? Stage three ? + --+ --+ ------+| ?15-29 ?| ?Stage four ? | ? Stage four ?+ ---+ ---+ -------+| ?<15 (or dialysis) ? ?| ?Stage five ? | ? Stage five ?+ ---+ ---+ -------+ *Each stage assumes the associated GFR level has been in effect for at least three months. ?Stages 1 to 5, with or without kidney disease, indicate chronic kidney disease. Notes: Determination of stages one and two (with eGFR >59mL/min/1.73 m2) requires estimation of kidney damage for at least three months as defined by structural or functional abnormalities of the kidney, manifested by either:Pathological abnormalities or Markers of kidney damage (including abnormalities in the composition of the blood or urine or abnormalities in imaging tests). Lab Interpretation Abnormal (test code = 13203-1) [facility]"
[2021-10-03] MEDS ORDERED: NA CHLORIDE 0.9% 1,000 ML ONE (13:31)
[2021-10-03 13:36] LABS: Absolute Lymphocytes (CBC) 2.2 K/uL (0.7-4.9); Hematocrit 36.9 % (36.0-45.0); Lymphocytes % 33.1 % (15.3-44.8); MPV 8.4 fL (7.6-11.3); RBC Red Blood Cell Count 4.17 M/uL (3.86-4.86)
[2021-10-03 13:51] LABS: ALT/SGPT 23 U/L (12-78); AST/SGOT 15 U/L (15-37); Albumin 3.2 g/dL (3.4-5.0); Alkaline Phosphatase 98 U/L (45-117); BUN Blood Urea Nitrogen 13 mg/dL (7-18); Bicarbonate 22 mmol/L (21-32); Bilirubin Total 0.8 mg/dL (0.2-1.0); Glucose Level 102 mg/dL (74-106); Lipase 170 U/L (73-393); Magnesium 1.7 mg/dL (1.8-2.4); Potassium 3.6 mmol/L (3.5-5.1); Protein, Total 6.9 g/dL (6.4-8.2); Sodium Level 140 mmol/L (136-145)
--- NOTE | 2021-10-03 13:55 | RAD REPORT ---
EXAM DESCRIPTION: CT - Head Brain Wo Cont - 10/03/2021 1:46 pm CLINICAL HISTORY: AMS Headache, drowsiness COMPARISON: Head Brain Wo Cont dated 01/16/2021; Facial Bones W/ Mpr dated 04/23/2020 TECHNIQUE: All CT scans are performed using dose optimization technique as appropriate and may inclu de automated exposure control or mA/KV adjustment according to patient size. FINDINGS: No intracranial hemorrhage, hydrocephalus or extra-axial fluid collection.Mild brain atrop hy.No areas of brain edema or evidence of midline shift. Mild mucosal thickening left maxillary antrum. The paranasal sinuses and mastoids are otherwise clear . The calvarium is intact. IMPRESSION: No acute intracranial abnormality.
[2021-10-03] MEDS ORDERED: Magnesium Sulfate 2gm IVPB 2 G/50 ML BAG IV ONE (14:10)
[2021-10-03 14:14] LABS: Urine Blood Negative (Negative); Urine Glucose Negative (Negative); Urine Protein Negative (Negative); Urine Specific Gravity 1.025 (1.005-1.030)
--- NOTE | 2021-10-03 15:31 | ER ---
Nurse's Notes [facility] Name: Dennis Dawn Age: 76 yrs Sex: Female : 1945 Arrival Date: 10/03/2021 Time: 12:53 Bed 6 Private MD: Diagnosis: Weakness;Hypomagnesemia Presentation: 10/03 12:54 Chief complaint: Patient states: pt presented with weakness. pt was seen for UTI. after rodriguez being d/c pt has been in bed not wanting to get up. Coronavirus screen: Vaccine status: Patient reports receiving the 2nd dose of the covid vaccine. Ebola Screen: Patient denies travel to an Ebola-affected area in the 21 days before illness onset. No acute neurological deficit is noted. Initial Sepsis Screen: Does the patient meet any 2 criteria? No. Patient's initial sepsis screen is negative. Does the patient have a suspected source of infection? No. Patient's initial sepsis screen is negative. Risk Assessment: Do you want to hurt yourself or someone else? Patient reports no desire to harm self or others. Onset of symptoms was October 03, 2021. 12:54 Method Of Arrival: EMS: [facility] 12:54 Acuity: ZAYNAB 3 rodriguez Triage Assessment: 14:39 General: Appears in no apparent distress. Behavior is calm, cooperative. rodriguez Historical: - Allergies: 12:59 Morphine; rodriguez - Home Meds: 12:59 Nexium 40 mg Oral cpDR 1 cap once daily [Active]; rodriguez - PMHx: 12:59 Chronic obstructive lung disease; GERD; herniated disc in neck; hiatal hernia; rodriguez - Immunization history:: Adult Immunizations up to date. - Social history:: Smoking status: Patient/guardian denies using tobacco. Screenin:59 Abuse screen: Denies threats or abuse. Denies injuries from another. Nutritional rodriguez screening: No deficits noted. Tuberculosis screening: No symptoms or risk factors identified. Fall Risk Gait- Weak (10 pts.). Assessment: 12:59 Pain: Denies pain. Neuro: No deficits noted. Cardiovascular: Reports lightheadedness. rodriguez Musculoskeletal: Reports weakness in right arm, left arm, right leg and left leg. Vital Signs: 12:54 BP 152 / 94; Pulse 61; Resp 18; Temp 97.4; Pulse Ox 100% ; Weight 72.57 kg; Height 5 rodriguez ft. 4 in. (162.56 cm); 14:36 BP 146 / 80; Pulse 62; Resp 17; Pulse Ox 99% on R/A; rodriguez 12:54 Body Mass Index 27.46 (72.57 kg, 162.56 cm) rodriguez NIH Stroke Scale Scores: 13:21 NIHSS Score: 2 [facility] ED Course: 12:53 Patient arrived in ED. 12:54 Arminda Nino FNP is [facility] 12:54 Emery Mena DO is Attending Physician. [facility] 12:57 Triage completed. rodriguez 12:58 Darby Deleon, RN is Primary Nurse. rodriguez 13:48 Head Brain Wo Cont In Process Unspecified. EDMS 14:15 Urine Microscopic Only Sent. rodriguez 14:39 Inserted saline lock: 20 gauge in right EJ, using aseptic technique. ,using aseptic rodriguez technique. placed by provider. 14:39 Arm band placed on. rodriguez 14:40 No provider procedures requiring assistance completed. rodriguez 14:40 Patient has correct armband on for positive identification. Bed in low position. rodriguez Administered Medications: 13:35 Drug: NS 0.9% 1000 ml Route: IV; Rate: 1 bolus; Site: Other; rodriguez 14:18 Drug: Magnesium Sulfate 1 grams Route: IVPB; Infused Over: 1 hrs; Site: Other; rodriguez Outcome: 15:30 Discharge ordered by . [facility] 16:27 Patient left the ED. NIH Stroke Scale - NIH Stroke Score Date: 10/03/2021 Time: 13:21 Total Score = 2 1a. Level of Consciousness (LOC) - 0(Alert) 1b. Level of Consciousness (LOC) (Month \T\ Age) - 0(Both) 1c. LOC Commands (Open \T\ Closes Eyes/Poultry Feed Supervisor) - 0(Both) 2. Best Gaze (Lateral Gaze Paresis) - 0(Normal) 3. Visual Field Loss - 0(No visual loss) 4. Facial Palsy - 0(Normal) 5a. Left Arm: Motor (10-second hold) - 0(No drift) 5b. Right Arm: Motor (10-second hold) - 0(No drift) 6a. Left Leg: Motor (5-second hold - always test supine) - 0(No drift) 6b. Right Leg: Motor (5-second hold - always test supine) - 0(No drift) 7. Limb Ataxia (finger/nose \T\ heel/wyatt - test with eyes open) - 0(Absent) 8. Sensory Loss (pinprick arms/legs/face) - 0(Normal) 9. Best Language: Aphasia (description/naming/reading) - 1(Mild to moderate aphasia) 10. Dysarthria (speech clarity - read or repeat words) - 1(Mild to Moderate) 11. Extinction and Inattention (visual/tactile/auditory/spatial/personal) - 0(No abnormality) Initials: [facility] Signatures: Dispatcher [employer] Bridgett Burrows RN RN iw Au-Stager, Heather, RN RN ha Kleinhenz, Jennifer, FNP HONEY LIQUEFIER [facility] Corrections: (The following items were deleted from the chart) 12:58 12:54 Chief complaint: Patient states: pt presented with weakness rodriguez jennifer
--- NOTE | 2021-10-03 15:31 | EDPHYS ---
Physician Documentation [facility] Name: Dennis Dawn Age: 76 yrs Sex: Female : 1945 Arrival Date: 10/03/2021 Time: 12:53 Bed 6 Private MD: ED Physician Emery Mena HPI: 10/03 13:21 This 76 yrs old Female presents to ER via EMS with complaints of Weakness. jh7 13:21 The patient presents to the emergency department with weakness of the entire body, jh7 generalized weakness, that is moderate, confusion. Onset: The symptoms/episode began/occurred this morning. 76-year-old female presents for weakness and altered mental status beginning this morning per . He states that she was discharged from the ER yesterday with a UTI, and was doing well last night. States that this morning she woke up confused and stating that she wanted to . He reports that she has not eaten anything today and feels dehydrated.. Historical: - Allergies: 12:59 Morphine; rodriguez - Home Meds: 12:59 Nexium 40 mg Oral cpDR 1 cap once daily [Active]; rodriguez - PMHx: 12:59 Chronic obstructive lung disease; GERD; herniated disc in neck; hiatal hernia; rodriguez - Immunization history:: Adult Immunizations up to date. - Social history:: Smoking status: Patient/guardian denies using tobacco. ROS: 13:21 Cardiovascular: Negative for chest pain, palpitations, and edema, Respiratory: Negative jh7 for shortness of breath, cough, wheezing, and pleuritic chest pain, Abdomen/GI: Negative for abdominal pain, nausea, vomiting, diarrhea, and constipation. 13:21 Constitutional: Positive for fatigue. 13:21 Neuro: Positive for altered mental status, weakness. 13:21 All other systems are negative. Exam: 13:21 Cardiovascular: Regular rate and rhythm with a normal S1 and S2. No gallops, murmurs, jh7 or rubs. Normal PMI, no JVD. No pulse deficits. Respiratory: Lungs have equal breath sounds bilaterally, clear to auscultation and percussion. No rales, rhonchi or wheezes noted. No increased work of breathing, no retractions or nasal flaring. Abdomen/GI: Soft, non-tender, with normal bowel sounds. No distension or tympany. No guarding or rebound. No evidence of tenderness throughout. 13:21 Constitutional: The patient appears alert, awake, restless. 13:21 Neuro: Orientation: to person, place \T\ time. Motor: is normal, Sensation: is normal. 13:21 Neuro: slight aphasia and dysarthria at baseline. Vital Signs: 12:54 BP 152 / 94; Pulse 61; Resp 18; Temp 97.4; Pulse Ox 100% ; Weight 72.57 kg; Height 5 rodriguez ft. 4 in. (162.56 cm); 14:36 BP 146 / 80; Pulse 62; Resp 17; Pulse Ox 99% on R/A; rodriguez 12:54 Body Mass Index 27.46 (72.57 kg, 162.56 cm) rodriguez NIH Stroke Scale Scores: 13:21 NIHSS Score: 2 [facility] MDM: 12:54 Patient medically screened. [facility] 15:32 Data reviewed: vital signs, nurses notes, lab test result(s), EKG, radiologic studies, [facility] CT scan. Data interpreted: laboratory monitor: rate is 62 beats/min, rhythm is normal sinus rhythm, Interpretation: normal rate, normal rhythm, Pulse oximetry: is 99 %. Interpretation: normal. ED course: The patient symptoms significantly improved after IV fluid administration. She was alert and oriented x4 and denied any pain. She denied any suicidal ideation, and just said that she felt like dying when she was feeling sick. Her labs and CT scan were unremarkable. The patient and were educated on signs and symptoms of when to return to the ER. She will follow-up with her PCP as discussed.. 10/03 13:15 Order name: Head Brain Wo Cont; Complete Time: 13:57 EDMS 10/03 13:15 Order name: CBC with Automated Diff; Complete Time: 13:50 EDMS 10/03 13:15 Order name: Comprehensive Metabolic Panel; Complete Time: 13:57 EDMS 10/03 13:15 Order name: Lipase; Complete Time: 13:57 EDMS 10/03 13:15 Order name: Magnesium; Complete Time: 13:57 EDMS 10/03 14:14 Order name: Urine Dipstick-Ancillary; Complete Time: 14:20 EDMS 10/03 13:06 Order name: IV Saline Lock; Complete Time: 13:36 [facility] 04/15 13:06 Order name: Labs collected and sent; Complete Time: 13:36 7 10/03 13:14 Order name: Urine Dipstick-Ancillary (obtain specimen); Complete Time: 14:15 jr Administered Medications: 13:35 Drug: NS 0.9% 1000 ml Route: IV; Rate: 1 bolus; Site: Other; rodriguez 14:18 Drug: Magnesium Sulfate 1 grams Route: IVPB; Infused Over: 1 hrs; Site: Other; Disposition: 18:27 Co-signature as Attending Physician, Emery GUZMAN was immediately available on-site ms3 in the Emergency Department for consultation in the care of the patient.. Disposition Summary: 10/03/21 15:30 Discharge Ordered Location: Home [facility] Problem: new [facility] Symptoms: have improved [facility] Condition: Stable [facility] Diagnosis - Weakness [facility] - Hypomagnesemia [facility] Followup: [facility] - With: Private Physician - When: 2 - 3 days - Reason: If symptoms return, Recheck today's complaints, Re-evaluation by your physician Discharge Instructions: - Discharge Summary Sheet [facility] - Hypomagnesemia [facility] - Weakness [facility] Forms: - Medication Reconciliation Form [facility] - Thank You Letter [facility] - Antibiotic Education [facility] - Prescription Opioid Use [facility] NIH Stroke Scale - NIH Stroke Score Date: 10/03/2021 Time: 13:21 Total Score = 2 1a. Level of Consciousness (LOC) - 0(Alert) 1b. Level of Consciousness (LOC) (Month \T\ Age) - 0(Both) 1c. LOC Commands (Open \T\ Closes Eyes/Personal Fitness Trainer) - 0(Both) 2. Best Gaze (Lateral Gaze Paresis) - 0(Normal) 3. Visual Field Loss - 0(No visual loss) 4. Facial Palsy - 0(Normal) 5a. Left Arm: Motor (10-second hold) - 0(No drift) 5b. Right Arm: Motor (10-second hold) - 0(No drift) 6a. Left Leg: Motor (5-second hold - always test supine) - 0(No drift) 6b. Right Leg: Motor (5-second hold - always test supine) - 0(No drift) 7. Limb Ataxia (finger/nose \T\ heel/wyatt - test with eyes open) - 0(Absent) 8. Sensory Loss (pinprick arms/legs/face) - 0(Normal) 9. Best Language: Aphasia (description/naming/reading) - 1(Mild to moderate aphasia) 10. Dysarthria (speech clarity - read or repeat words) - 1(Mild to Moderate) 11. Extinction and Inattention (visual/tactile/auditory/spatial/personal) - 0(No abnormality) Initials: jh7 Signatures: Dispatcher [employer] EDDiogo Mai PA PA jr8 Emery Mena, DO ms3 Darby Deleon RN RN ha Kleinhenz, Jennifer, MILLINERY TEACHER MILLINERY TEACHER jh7
[2021-10-03 17:06] VITALS: TEMP 97.4
[2021-10-03 17:08] VITALS: BP 146/80; O2SAT 99
== END 2021-10-03 16:27 | disposition home or self-care (01) ==
LOC: ER 12:50
DX: E83.42 Hypomagnesemia (principal); J44.9 Chronic obstructive pulmonary disease, unspecified; K21.9 Gastro-esophageal reflux disease without esophagitis; Z88.5 Allergy status to narcotic agent
CPT/HCPCS: 85025; 36415; 83735; 81003; 83690; 80053; 70450; 96374; 99284; J3475; J7030

== ENCOUNTER 2022-03-20 16:26 | Emergency (ER) | payer OTHER ==
--- OUTSIDE RECORDS SUMMARY | 2022-03-20 16:31 | XMS REPORT | Continuity of Care Document ---
:1945 Author Organization [facility] t Address [address] [place] [address] Care Team Providers Name Role Phone ADRIAN DAVIS Attending Clinician Unavailable Julian Mendez Attending Clinician FLORI LUKE Attending Clinician Unavailable Adrian Davis MD Attending Clinician Gio Harrison CRNA Attending Clinician 1, [facility] Attending Clinician Unavailable Doctor Unassigned, [place] Attending Clinician Unavailable ADRIAN DAVIS Admitting Clinician Unavailable Adrian Davis MD Admitting Clinician Payers Payer Name Policy Type Policy Number Effective Date Expiration Date S [facility] MEDICARE [id number] 2018 00:00:00 Problems Condition Condition Condition Status Onset Resolution Last Treating Co mments Source Name Details Category Date Date Treatment Clinician Date Snake bite Snake bite Disease Active 2014-06 U nivers 0-01 ity of 00:00: [place] [address] Medical Branch Right hand Right hand Disease Active 2014-06 U nivers pain pain 0-01 ity of 00:00: [place] [facility] Right Right Disease Active 2014-06 Univers wrist pain wrist pain 0-01 it y of 00:00: [place] [facility] Amnesia Amnesia Problem Active 2022-01-30 Me moria (finding) (finding) 04:44:55 l Active Rigoberto Problem 01/30/2022 [facility] Ataxia Ataxia Problem Active 2022-01-30 Oj deshaun (finding) (finding) 04:44:55 l Active Rigoberto Problem 01/30/2022 [facility] Dysarthria Dysarthri Problem Active 2022-01-30 Memoria (finding) a 04:44:55 l (finding) Quinn Active Problem 01/30/2022 [facility] Pseudobulb Problem Active 2022-01-30 M emoria ar affect Pseudobulb 04:44:55 l (finding) ar affect Herm narcisa (finding) Active Problem 01/30/2022 [facility] Anxiety Anxiety Problem Active 2022-01-30 Me moria (finding) (finding) 04:44:55 l Active Quinn Problem 01/30/2022 [facility] Allergies, Adverse Reactions, Alerts Allergy Allergy Status Severity Reaction(s) Onset Inactive Treating Comm ents Source Name Type Date Date Clinician Morphine Propensi Active Nausea 2014-06 Univer s ty to and/or 0-01 ity of adverse Vomiting 00:00: [place] reaction 00 Medical s Branch MORPHINE DRUG Active N/V 2014-06 Univers INGREDI 0-01 ity of 00:00: [place] 00 Medical Branch morphine morphine Active Memori a l Rigoberto MORPHINE Adverse Active Info Not Commo n Reaction Available [facility] Social History Social Habit Start Date Stop Date Quantity Comments Source Sex Assigned At [facility] Social History 2021-02-28 2021-02-28 [facility] Job sanchez 15:56:29 15:56:29 Alcohol intake 2019-07-14 2019-07-14 University of 00:00:00 00:00:00 [facility] Tobacco Comment 2019-07-10 2019-07-10 Quit 21 years Univer sity of 00:00:00 00:00:00 ago [facility] Smoking Status Start Date Stop Date Source Former smoker 2019-07-14 00:00:00 2019-07-14 00:00:00 [facility]i ty of [facility] Never smoker [facility] Medications Ordered Filled Start Stop Current Ordering Indication Dosage Frequency Signature Comments Components Source Medication Medication Date Date Medication? Clinician (SIG) Name Name Memantine Yes 10 mg = 1 Mem oria hydrochlori 2-01 tab, PO, l de 10 MG 16:31: BID, # 180 Her arndt Oral Tablet 00 tab, 1 [Namenda] Refill(s), Pharmacy: [id number], 157.48, cm, 04/07/21 13:22:00 CDT, Height, 77.273, kg, 04/07/21 13:22:00 CDT, Weight Paroxetine Yes 10 mg = 1 Me moria Hydrochlori 2-01 tab, PO, l de 10 MG 16:07: Daily, # Marla nn Oral Tablet 00 90 tab, 0 Refill(s) Memantine 2020-06 Yes 10 mg = 1 Mem oria hydrochlori 1-30 tab, PO, l de 10 MG 16:45: BID, # 180 Her arndt Oral Tablet 00 tab, 1 [Namenda] Refill(s), Pharmacy: [facility] #[id number], 157.48, cm, 04/07/21 13:22:00 CDT, Height, 77.273, kg, 04/07/21 13:22:00 CDT, Weight Memantine 2020-06 No 5 mg = 1 Oj deshaun hydrochlori 1-10 tab, PO, l de 5 MG 18:03: BID, # 180 Herm narcisa Oral Tablet 00 tab, 3 [Namenda] Refill(s), Pharmacy: [facility] #[id number], 157.48, cm, 04/07/21 13:22:00 CDT, Height, 77.273, kg, 04/07/21 13:22:00 CDT, Weight Memantine 2020-06 Yes 5 mg = 1 Oj deshaun hydrochlori 0-18 tab, PO, l de 5 MG 18:41: BID, # 60 Marla nn Oral Tablet 00 tab, 3 [Namenda] Refill(s), Pharmacy: [facility] #[id number], 157.48, cm, 04/07/21 13:22:00 CDT, Height, 77.273, kg, 04/07/21 13:22:00 CDT, Weight Symbicort Yes 2 puff, Memor ia 160/4.5 9-10 INHALER, l inhalation 15:45: BID, # 1 Her arndt aerosol 00 ea, 3 with Refill(s) adapter 24 HR 2020-0 Yes 25 mg = 1 Akosua mirabegron 9-10 tab, PO, l 25 MG 15:45: Daily, # Rigoberto Extended 00 30 tab, 5 Release Refill(s) Tablet [Myrbetriq] esomeprazol 2020-0 Yes 40mg Take 40 mg Univers e (NEXIUM) 08-17 by mouth ity o f 40 mg 17:10: daily. [place] capsule 11 [facility] water for 2019-0 Yes PRN, Univers irrigation 08-17 Starting ity o f irrigation 16:18: Yuliya [place] solution 08/17/[address] [facility] 1018, [facility] Until Discontinu ed, Routine, Intra-op tetracaine 2019-0 Yes PRN, Univers (PONTOCAINE 08-17 Starting ity of ) 0.5 % 16:18: Yuliya [place] ophthalmic 08/17/19 at [facility] ical drops 1018, [facility] Until Discontinu ed, Routine, Intra-op neomycin-po 2019-0 Yes [facility]17 Starting ity of amethasone 16:18: Yuliya [place] (MAXITROL) 08/17/19 at [facility] 3.5 1018, [facility] mg/g-10,000 Until unit/g-0.1 Discontinu % ed, ophthalmic Routine, ointment Intra-op lidocaine-e 2019-0 Yes PRN, Univer s pinephrine 08-17 Starting ity o f (XYLOCAINE 16:18: Yuliya [place] W/EPINEPHRI 08/17/19 at [facility]) 2 1018, [facility] %-1:200,000 Until injection Discontinu ed, Routine, Intra-op gentamicin 2020-0 Yes PRN, Univers injection 08-17 Starting ity of 16:18: Yuliya [place] 08/17/19 at [facility] 1018, [facility] Until Discontinu ed, TOAN, Intra-op EPINEPHrine 2020-0 Yes PRN, Univer s (PF) 08-17 Starting ity of 1:1,000 (1 16:17: Yuliya [place] mg/mL) 08/17/19 at [facility] (ADRENALIN 1017, Branch (PF)) Until injection Discontinu ed, Routine, Intra-op DUOVISC 2020-0 Yes PRN, Univers (DUOVISC 08-17 Starting ity of VISCO 16:17: [facility] ELASTIC) 3 00 08/17/19 at [facility] %-4 %(0.5 1017, Branch mL) 1 % Until (0.55 mL) Discontinu intraocular ed, injection Routine, Intra-op dexamethaso 2020-0 Yes PRN, [facility] [place] [facility] ne 08-17 Starting ity of (DECADRON 16:17: [facility] PHOSPHATE) 08/17/19 at [facility] injection 1017, [facility] Until Discontinu ed, Routine, Intra-op ceFAZolin 2020-0 Yes PRN, Univers (ANCEF) 08-17 Starting ity of injection 16:16: [facility] 00 08/17/19 at [place] [address], [facility] Until Discontinu ed, TOAN, Intra-op bupivacaine 2020-0 Yes PRN, [facility] [place] [facility] (preserv 08-17 Starting ity of free) 16:16: [facility] (SENSORCAIN 00 08/17/19 at Hi dical E MPF) 0.75 1016, Branch % (7.5 Until mg/mL) Discontinu injection ed, Routine, Intra-op balanced 2020-0 Yes PRN, Univers salt irrig 08-17 Starting ity o f soln comb1 16:16: [facility] (BSS PLUS) 00 08/17/19 at [facility] ophthalmic 1016, [facility] solution Until 500 mL bag Discontinu ed, Routine, Intra-op mydriatic 2019-0 2020- No .5mL 0.5 mL, [facility] ers #5 08-17 Right Eye, ity of ophthalmic 15:00: 15:08 ONCE, 1 Mele as solution 00 :00 dose, Yuliya Medica l 0.5 mL 08/17/19 at [facility] syringe 0900, Routine, DSU Pre-op lactated 2020-0 2020- No 500mL at 20 [facility] [place] [facility] ringers IV 08-17 mL/hr, 500 it y of infusion 15:00: 15:22 mL, IV [place] 500 mL 00 :00 Infusion, Medical ONCE, 1 Branch dose, Yuliya 08/17/19 at 0900, Routine, DSU Pre-op esomeprazol 2020-0 Yes 40mg Take 40 mg Univers e (NEXIUM) 07-13 by mouth ity o f 40 mg 17:35: daily. [place] capsule 21 [facility] esomeprazol 2020-0 Yes 40mg Take 40 mg Univers e (NEXIUM) 07-13 by mouth ity o f 40 mg 17:03: daily. [place] capsule 40 [facility] tetracaine 2020-0 Yes PRN, Univers (PONTOCAINE 07-13 Starting ity of ) 0.5 % 16:53: Yuliya [place] ophthalmic 07/13/19 at [facility] ical drops 1053, [facility] Until Discontinu ed, Routine, Intra-op water for 2019-0 Yes PRN, Univers irrigation 07-13 Starting ity o f irrigation 16:53: Yuliya [place] solution 07/13/19 at [facility] al 1053, [facility] Until Discontinu ed, Routine, Intra-op sodium 2020-0 Yes PRN, Univers chloride 07-13 Starting ity of (NS) 16:52: Yuliya [place] injection 07/13/19 at [facility] 1052, [facility] Until Discontinu ed, Routine, Intra-op neomycin-po 2019-0 Yes PRN, Univer s lymyxin-dex 07-13 Starting ity of amethasone 16:52: Yuliya [place] (MAXITROL) 07/13/19 at [facility] 3.5 1052, [facility] mg/g-10,000 Until unit/g-0.1 Discontinu % ed, ophthalmic Routine, ointment Intra-op lidocaine-e 2019-0 Yes PRN, Univer s pinephrine 07-13 Starting ity o f (XYLOCAINE 16:52: Yuliya [place] W/[facility]INEPHRI [facility]13/[facility] 1052, [facility] %-1:200,000 Until injection Discontinu ed, Routine, Intra-op gentamicin 2020-0 Yes PRN, Univers injection 07-13 Starting ity of 16:52: Yuliya [place] 07/13/19 at [facility] 1052, [facility] Until Discontinu ed, TOAN, Intra-op EPINEPHrine 2020-0 Yes PRN, Univer s (PF) 07-13 Starting ity of 1:1,000 (1 16:51: Yuliya [place] mg/mL) 07/13/19 at [facility] (ADRENALIN 1051, Branch (PF)) Until injection Discontinu ed, Routine, Intra-op DUOVISC 2020-0 Yes PRN, Univers (DUOVISC 07-13 Starting ity of VISCO 16:51: Yuliya [place] ELASTIC) 3 00 07/13/19 at [facility] %-4 %(0.5 1051, Branch mL) 1 % Until (0.55 mL) Discontinu intraocular ed, injection Routine, Intra-op dexamethaso 2020-0 Yes PRN, Univer s ne 07-13 Starting ity of (DECADRON 16:51: Yuliya [place] PHOSPHATE) 07/13/19 at [facility] injection 1051, Branch Until Discontinu ed, Routine, Intra-op ceFAZolin 2020-0 Yes PRN, Univers (ANCEF) 07-13 Starting ity of injection 16:51: Yuliya [place] 00 07/13/19 at [facility] 1051, Branch Until Discontinu ed, TOAN, Intra-op bupivacaine 2020-0 Yes PRN, Univer s (preserv 07-13 Starting ity of free) 16:51: Yuliya [place] (SENSORCAIN 00 07/13/19 at Hi dical E MPF) 0.75 1051, Branch % (7.5 Until mg/mL) Discontinu injection ed, Routine, Intra-op balanced 2020-0 Yes PRN, Univers salt irrig 07-13 Starting ity o f soln comb1 16:50: Yuliya [place] (BSS PLUS) 07/13/19 at [facility] ophthalmic 1050, Branch solution Until 500 mL bag Discontinu ed, Routine, Intra-op eye block 2020-0 2020- No CONTINUOUS U nivers syringe 11 07-13 PRN, ity of mL 16:45: 17:02 Starting [place] 00 :25 Yuliya Medical 07/13/19 at Branch 1045, Until Yuliya 07/13/19 at 1102, Intra-op propofol IV 2020-0 2020- No ONCE INTRA Univers infusion 07-13 PROCEDURE, ity of 16:43: 17:02 Starting [place] 00 :25 Yuliya Medical 07/13/19 at Branch 1043, Until Yuliya 07/13/19 at 1102, Routine, Intra-op lidocaine 2020-0 2020- No ONCE INTRA U nivers 1% 07-13 PROCEDURE, ity of (XYLOCAINE) 16:43: 17:02 Starting [place] 100 mg/10 00 :25 Yuliya Medical mL (1 %) 07/13/19 at [facility] h injection 1043, Until Yuliya 07/13/19 at 1102, Routine, Intra-op lactated 2019- No 500mL at 20 Univer s ringers IV 07-13 01-23 mL/hr, 500 it y of infusion 15:15: 16:35 mL, IV [place] 500 mL 00 :00 Infusion, Medical ONCE, 1 Branch dose, Yuliya 07/13/19 at 0915, Routine, DSU Pre-op Tramadol Tramadol 2019- No Kamlesh 1 tablet Common HCl HCl 7-15 09 Najera as needed Spirit 00:00: 00:00 - [facility] 00 :00 [facility] esomeprazol 2014-06 Yes 40mg Take 40 mg Univers e (NEXIUM) 0-02 by mouth ity o f 40 mg 20:00: daily. [place] capsule [address] [place] [address] esomeprazol 2014-06 Yes 40mg Take 40 mg Univers e (NEXIUM) 0-02 by mouth ity o f 40 mg 20:00: daily. [place] capsule [address] [place] [address] esomeprazol 2014-06 Yes 40mg Take 40 mg Univers e (NEXIUM) 0-02 by mouth ity o f 40 mg 20:00: daily. [place] capsule [address] [place] [address] acetaminoph 2014-06 Yes 1{tbl} Take 1 Tab Univers en-codeine 0-02 by mouth ity o f (TYLENOL 00:00: every 4 [place] #3) 300-30 00 (four) Medical mg tablet hours as Branch needed for Pain (scale 4-6). acetaminoph 2014-06 Yes 1{tbl} Take 1 Tab Univers en-codeine 0-02 by mouth ity o f (TYLENOL 00:00: every 4 [place] #3) 300-30 00 (four) Medical mg tablet hours as Branch needed for Pain (scale 4-6). acetaminoph 2014-06 Yes 1{tbl} Take 1 Tab Univers en-codeine 0-02 by mouth ity o f (TYLENOL 00:00: every 4 [place] #3) 300-30 00 (four) Medical mg tablet hours as Branch needed for Pain (scale 4-6). acetaminoph 2015-1 2020- No 1{tbl} Take 1 Tab Univers en-codeine 0-02 - by mouth ity of (TYLENOL 00:00: 00:00 every 4 [place] #3) 300-30 00 :00 (four) Medical mg tablet hours as Branch needed for Pain (scale 4-6). Nexium Nexium Yes Kamlesh 1 capsule Com mon [place] Spirit - [facility] Symbicort Symbicort Yes Kamlesh INAHLE 2 Common [place] PUFFS Spirit TWICE A - CHI DAY [facility] Methocarbam Methocarbam Yes Kamlesh TAKE 1 Common ol ol [place] TABLET BY Spirit MOUTH - [facility] EVERY [facility] HOURS [facility] NEEDED FOR Medical MUSCLE Center SPASMS Ilevro Ilevro Yes Kamlesh LOCATION: Com mon [place] LEFT EYE. Spirit APPLY 1 - CHI DROP IN [facility] EYE AT Medical BEDTIME Center FOR 2 WEEKS Xarelto Xarelto Yes Kamlesh TAKE 1 Comm on [place] TABLET BY Spirit MOUTH - CHI EVERY DAY St WITH FOOD [facility] Amoxicillin Amoxicillin Yes Kamlesh TAKE 4 Common [place] CAPS BY Spirit MOUTH 1 - CHI HOUR PRIOR St TO DENTAL [facility] Durezol Durezol Yes Kamlesh PLEASE SEE Common Najera ATTACHED Spirit FOR - CHI DETAILED [facility] Promethazin Promethazin Yes Kamlesh TAKE 1 Common e HCl e HCl [place] TABLET BY Spirit MOUTH - CHI EVERY DAY St NEEDED [facility] Ofloxacin Ofloxacin Yes Kamlesh APPLY 1 Common [place] DROP 3 Spirit TIMES A - CHI DAY FOR 1 St WEEK IN [facility] EYE Center Hydrocodone Hydrocodone Yes Kamlesh (Schedule Common -Acetaminop -Acetaminop [place]ajera II Drug) Spirit hen hen TAKE 1 - CHI TABLET BY St MOUTH [facility] EVERY DAY Medical X 28 DAYS Center Vital Signs Vital Name Observation Time Observation Value Comments Source Systolic blood 2019-08-17 16:37:00 120 mm[Hg] Univer sity of pressure [facility] Diastolic blood 2019-08-17 16:37:00 66 mm[Hg] Unive rsity of pressure [facility] Heart rate 2019-08-17 16:37:00 78 /min [facility] Respiratory rate 2019-08-17 16:37:00 16 /min [facility] saturation in 2019-08-17 16:37:00 100 /min [facility] Arterial blood by [facility] Pulse oximetry Branch Body temperature 2019-08-17 16:30:00 36.89 Teodora Univ ersity of [place] [facility] Body height 2019-08-15 02:23:00 162.6 cm Universi ty of [place] [facility] Body weight 2019-08-15 02:23:00 77.111 kg [facility]i ty [facility] [place] [facility] BMI 2019-08-15 02:23:00 29.17 kg/m2 [facility]i [facility] [place] [facility] Systolic blood 2019-08-17 16:37:00 120 mm[Hg] Univer sity of pressure [place] [facility] Diastolic blood 2019-08-17 16:37:00 66 mm[Hg] Unive rsity of pressure [place] [facility] Heart rate 2019-08-17 16:37:00 78 /min Universi ty of [facility] Branch Respiratory rate 2019-08-17 16:37:00 16 /min Univ ersity of [place] [facility] Oxygen saturation in 2019-08-17 16:37:00 100 /min University of Arterial blood by [facility] Pulse oximetry Branch Body temperature 2019-08-17 16:30:00 36.89 Teodora Univ ersity of [place] [facility] Body height 2019-08-15 02:23:00 162.6 cm Universi ty [facility] [place] [facility] Body weight 2019-08-15 02:23:00 77.111 kg [facility]i ty [facility] [place] [facility] BMI 2019-08-15 02:23:00 29.17 kg/m2 [facility]i ty [facility] [place] [facility] Systolic blood 2019-07-13 17:17:00 144 mm[Hg] Univer sity of pressure [facility] Branch Diastolic blood 2019-07-13 17:17:00 94 mm[Hg] Unive rsity of pressure [facility] Branch Heart rate 2019-07-13 17:17:00 79 /min Universi ty [facility] [place] [facility] Respiratory rate 2019-07-13 17:17:00 18 /min Univ ersity of [place] [facility] Oxygen saturation in 2019-07-13 17:17:00 100 /min University of Arterial blood by [facility] Pulse oximetry Branch Body temperature 2019-07-13 17:07:00 36.56 Teodora Univ ersity of [place] [facility] Body height 2019-07-12 18:00:00 162.6 cm Universi ty [facility] [place] [facility] Body weight 2019-07-12 18:00:00 77.111 kg [facility] BMI 2019-07-12 18:00:00 29.18 kg/m2 [facility] Systolic blood 2019-07-13 17:17:00 144 mm[Hg] Univer sity of pressure [facility] Diastolic blood 2019-07-13 17:17:00 94 mm[Hg] Unive rsity of pressure [facility] Heart rate 2019-07-13 17:17:00 79 /min [facility] Respiratory rate 2019-07-13 17:17:00 18 /min [facility] Oxygen saturation in 2019-07-13 17:17:00 100 /min [facility] Arterial blood by [facility] Pulse oximetry [facility] Body temperature 2019-07-13 17:07:00 36.56 Teodora [facility] Body height 2019-07-12 18:00:00 162.6 cm [facility] Body weight 2019-07-12 18:00:00 77.111 kg [facility] BMI 2019-07-12 18:00:00 29.18 kg/m2 [facility] Systolic (mm Hg) 2022-01-27 14:44:00 Oj rial Rigoberto Diastolic (mm Hg) 2022-01-27 14:44:00 Mem orial Rigoberto Heart Rate 2022-01-27 14:44:00 [facility] Rigoberto Respitory Rate 2022-01-27 14:44:00 Memori al [place] Systolic (mm Hg) 2021-07-22 15:41:00 Oj rial [place] Diastolic (mm Hg) 2021-07-22 15:41:00 Mem orial Rigoberto Heart Rate 2021-07-22 15:41:00 [facility] Rigoberto Respitory Rate 2021-07-22 15:41:00 Memori al [place] Systolic (mm Hg) 2021-05-20 16:43:00 Oj rial [place] Diastolic (mm Hg) 2021-05-20 16:43:00 Mem orial [place] Systolic (mm Hg) 2021-05-20 16:22:00 Oj rial Rigoberto Diastolic (mm Hg) 2021-05-20 16:22:00 Mem orial Rigoberto Heart Rate 2021-05-20 16:22:00 [facility] Rigoberto Respitory Rate 2021-05-20 16:22:00 Memori al [place] Systolic (mm Hg) 2021-04-07 18:14:00 Oj rial [place] Diastolic (mm Hg) 2021-04-07 18:14:00 Mem orial Rigoberto Heart Rate 2021-04-07 18:14:00 [facility] Quinn Respitory Rate 2021-04-07 18:14:00 Memori al Rigoberto Height 2021-04-07 18:14:00 157.48 cm [facility] Quinn Weight 2021-04-07 18:14:00 [facility] Rigoberto BMI Calculated 2021-04-07 18:14:00 Memori al [place] Systolic (mm Hg) 2021-02-28 15:27:00 Oj rial [place] Diastolic (mm Hg) 2021-02-28 15:27:00 Mem orial Quinn Heart Rate 2021-02-28 15:27:00 [facility] Rigoberto Respitory Rate 2021-02-28 15:27:00 Memori al [place] Height 2021-02-28 15:27:00 157.48 cm [facility] Quinn Weight 2021-02-28 15:27:00 [facility] Rigoberto BMI Calculated 2021-02-28 15:27:00 Memori al Quinn Procedures Procedure Date / Time Performing Clinician Source Performed CONSENT/REFUSAL FOR 2019-08-16 15:08:04 Doctor Unassigned, No [facility] [place] [facility] DIAGNOSIS AND TREATMENT Name Medical Branch ASSIGNMENT OF BENEFITS 2019-08-16 15:07:46 Doctor Unassigned, No [facility] POTASSIUM SERUM 2019-07-13 15:55:00 Karley Michele [facility] COMP. METABOLIC PANEL 2019-07-06 22:51:00 Adrian Davis [facility] ([id number]) Medical Branch CONSENT/REFUSAL FOR 2019-07-06 22:29:03 Doctor Unassigned, No Un iversity [facility] DIAGNOSIS AND TREATMENT Name Medical Branch ASSIGNMENT OF BENEFITS 2019-07-06 22:28:43 Doctor Unassigned, No [facility] Mastectomy [facility] Gallbladder operation [facility] Hyste[facility] Rafa n Encounters Start End Encounter Admission Attending Care Care Encounter Source Date/Time Date/Time Type Type Clinicians Facility Department ID 2022-01-09 Outpatient STLMLC STLMLC [id number] Common 08:35:01 [facility] 2021-07-16 Outpatient STLMLC STLMLC [id number] Common 13:13:[address] [facility] 2021-04-17 Outpatient Thierry DAVIS WAARLEEN CAMILO [id number] Univers 10:47:31 ADRIAN perez [facility] 2022-10-20 2022-10-20 Outpatient MHIE MHIE [id number] Memoria 09:45:00 09:45:00 05 storm CamposQuinn 2022-01-27 2022-01-28 Outpatient nullFlavo MNA [id number] Memoria 14:45:00 04:59:59 r Neurology 04 l Dewayne Franklin 2022-01-27 2022-01-27 Outpatient Vanessa MHMISCHER MHMISCHER [id number] 09:45:00 23:59:59 Julian Mckayla Marcial 2022-01-27 2022-01-27 Outpatient MHIE MHIE [id number] Memoria 09:45:00 09:45:00 04 storm CamposQuinn 2022-01-08 2022-01-08 ambulatory STLMLC STLMLC [id number] Common 00:00:00 00:00:00 [facility] 2021-10-16 2021-10-16 ambulatory STLMLC STLMLC [id number] Common 00:00:00 00:00:00 [facility] 2021-07-22 2021-07-23 Outpatient nullFlavo MNA [id number] Memoria 15:45:00 05:59:59 r Neurology 03 l Dewayne [place] 2021-07-22 2021-07-22 Outpatient RICHARD MendezMISCHER MHMISCHER [id number] 09:45:00 23:59:59 Julian Danita Marcial 2021-07-22 2021-07-22 Outpatient MHIE MHIE [id number] Memoria 09:45:00 09:45:00 03 storm [place] 2021-05-20 2021-05-21 Outpatient nullFlavo MNA [id number] Memoria 16:30:00 05:59:59 r Neurology 02 l Grannis Rigoberto 2021-05-20 2021-05-20 Outpatient Vanessa, MHMISCHER MHMISCHER [id number] 10:30:00 23:59:59 Julian 02 Aniket 2021-05-20 2021-05-20 Outpatient MHIE MHIE [id number] Memoria 10:30:00 10:30:00 02 storm [place] 2021-04-07 2021-04-08 Outpatient nullFlavo MNA [id number] Memoria 18:00:00 04:59:59 r Neurology 01 l Dewayne [place] 2021-04-07 2021-04-07 Outpatient Vanessa, MHMISCHER MHMISCHER [id number] 13:00:00 23:59:59 Julian 01 Aniket 2021-04-07 2021-04-07 Outpatient MHIE MHIE [id number] Memoria 13:00:00 13:00:00 01 storm [place] 2021-02-28 2021-03-01 Outpatient nullFlavo MNA [id number] Memoria 15:30:00 04:59:59 r Neurology 00 l Dewayne [place] 2021-02-28 2021-02-28 Outpatient Vanessa, MHMISCHER MHMISCHER [id number] 10:30:00 23:59:59 Julian 00 Aniket 2021-02-28 2021-02-28 Outpatient MHIE MHIE [id number] Memoria 10:30:00 10:30:00 00 storm Rigoberto 2020-12-02 2020-12-[address] [facility] [id number] Common 00:00:00 00:00:00 [facility] 2020-09-15 2020-09-15 Outpatient [facility] [id number] Univers 12:25:00 12:25:00 [facility] 2020-08-18 2020-08-18 Outpatient Thierry [facility] [id number] Univers 12:15:00 12:15:00 FLORI [facility] 2019-11-16 2019-11-16 [facility] [id number] Common 08:00:00 08:00:00 [facility] 2019-08-17 2019-08-17 [facility] [id number] Univers 08:50:00 11:10:00 Encounter Adrian Stein [id number] ity of [place] [id number] [place] [id number] [place] [id number] [facility] 2019-08-17 2019-08-17 [facility] [id number] 08:50:00 11:10:00 Encounter Adrian Stein [id number] [place] [id number] Surgical [id number] [place] [id number] 2019-07-13 2019-07-13 [facility] [id number] Univers 09:06:00 11:35:00 Encounter Adrian Stein 350.1.13.10 [place]y of [place].686 [place] [id number] [address] 2019-07-13 2019-07-13 [facility] 1.2.840.114 [id number] 09:06:00 11:35:00 Encounter Adrian Stein 350.1.13.10 [place] 4.2.7.2.686 Surgical [id number] [place] [address] 2019-07-13 2019-07-13 Anesthesia [facility] 1.2.840.114 [id number] Univers 10:38:00 11:02:00 Gio Stein 350.1.13.10 ity of [place] [id number] [address] 2019-07-13 2019-07-13 Anesthesia [facility] 1.2.840.114 [id number] 10:38:00 11:02:00 Gio Stein 350.1.13.10 [place] 4.2.7.2.686 Surgical [id number] [place] 020 2019-07-06 2019-07-06 [employer] 1, Adc Lab [facility] 1.2.840.114 [id number] Univers 16:31:52 16:46:52 Visit Adrian Davis 350.1.1 3.10 ity of [place] 4.2.7.2.686 [place] [id number] [facility] [address] 2019-07-06 2019-07-06 [place] [employer] Fighter 1, Adc Lab [facility] 1.2.840.114 [id number] 16:31:52 16:46:52 Visit Sarita 350.1.13.10 [place] 4.2.7.2.686 [place] [id number] [facility] 2019-07-06 2019-07-06 Orders Doctor ALEXANDR 1.2.840.114 [id number] Univers 00:00:00 00:00:00 Only Unassigned, JADA 350.1.13.10 ity of [facility] 4.2.7.2.686 [facility] [phone] [facility] [address] 2019-05-15 2019-05-15 [facility] [id number] Common 08:00:00 08:00:00 t [facility] 2019-03-30 2019-03-30 [facility] [id number] Common 11:09:00 11:09:00 t Bone Bone and Spiri t and Joint [facility] 2019-02-13 2019-02-13 [facility] [id number] Common 08:00:00 08:00:00 t Bone Bone and Spiri t and Joint [facility] 2019-01-05 2019-01-05 [facility] [id number] Common 09:30:00 09:30:00 t Bone Bone and Spiri t and Joint [facility] 2019-01-02 2019-01-02 [facility] [id number] Common 08:00:00 08:00:00 t Bone Bone and Spiri t and Joint [facility] 2018-12-19 2018-12-19 [facility] [id number] Common 16:26:00 16:26:00 t Bone Bone and Spiri t and Joint [facility] 2018-12-19 2018-12-19 [facility] [id number] Common 11:40:00 11:40:00 t Bone Bone and Spiri t and Joint [facility] 2018-12-15 2018-12-15 [facility] [id number] Common 13:35:00 13:35:00 t Bone Bone and Spiri t and Joint [facility] 2018-12-12 2018-12-12 [facility] [id number] Common 08:30:00 08:30:00 t Bone Bone and Spiri t and Joint [facility] 2018-12-08 2018-12-08 [facility] [id number] Common 08:39:00 08:39:00 t Bone Bone and Spiri t and Joint [facility] 2018-12-07 2018-12-07 [facility] [id number] Common 09:40:00 09:40:00 t Bone Bone and Spiri t and Joint [facility] 2018-12-07 2018-12-07 [facility] [id number] Common 08:00:00 08:00:00 t Bone Bone and Spiri t and Joint [facility] 2018-11-03 2018-11-03 [facility] [id number] Common 09:40:00 09:40:00 t Bone Bone and Spiri t and Joint [facility] 2018-10-25 2018-10-25 [facility] [id number] Common 08:00:00 08:00:00 t Bone Bone and Spiri t and Joint [facility] 2018-10-24 2018-10-24 [facility] [id number] Common 09:37:00 09:37:00 t Bone Bone and Spiri t and Joint [facility] 2018-10-24 2018-10-24 [facility] [id number] Common 08:25:00 08:25:00 t Bone Bone and Spiri t and Joint [facility] 2018-10-20 2018-10-20 [facility] [id number] Common 13:30:00 13:30:00 t Bone Bone and Spiri t and Joint [facility] 2018-08-22 2018-08-22 [facility] [id number] Common 11:03:00 11:03:00 t Bone Bone and Spiri t and Joint [facility] 2018-08-18 2018-08-18 [facility] [id number] Common 15:59:00 15:59:00 t Bone Bone and Spiri t and Joint [facility] 2018-08-15 2018-08-15 [facility] [id number] Common 08:00:00 08:00:00 t Bone Bone and Spiri t and Joint [facility] 2018-02-17 2018-02-17 [facility] [id number] Common 09:00:00 09:00:00 t Bone Bone and Spiri t and Joint [facility] Results Test Description Test Time Test Comments Results Result Comments Source [facility]EMIA [facility] 2021-03-01 13:39:00 Test Item Value Reference Range Interpretation Comme nts Vitamin B12 Lvl (test code = Vitamin B12 Lvl) 473 046-9617 [facility]2021-09-11 13:39:00 Test Item Value Reference Range Interpretation Comments Glucose Lvl (test code = Glucose Lvl) 99 65-99 [facility]2021-09-11 13:39:00 Test Item Value Reference Range Interpretation Comments BUN (test code = BUN) 16 7-25 [facility]2021-09-11 13:39:00 Test Item Value Reference Range Interpretation Comments Creatinine Lvl (test code = Creatinine 0.65 0.60-0.93 Lvl) [place] 038101-09-11 13:39:00 Test Item Value Reference Range Interpretation Comments eGFR NON-AFR. CITIZEN OF [place] (test code = 87 eGFR NON-AFR. CITIZEN OF [place]) [place] 038101-09-11 13:39:00 Test Item Value Reference Range Interpretation Comments eGFR (test code = eGFR 101 ) [place] 038101-09-11 13:39:00 Test Item Value Reference Range Interpretation Comments B/C Ratio (test code = B/C NOT APPLICABLE 6-22 Ratio) [place] 038101-09-11 13:39:00 Test Item Value Reference Range Interpretation Comments Sodium Lvl (test code = Sodium Lvl) 137 135-146 [place] 038101-09-11 13:39:00 Test Item Value Reference Range Interpretation Comments Potassium Lvl (test code = Potassium 4.2 3.5-5.3 Lvl) [place] 038101-09-11 13:39:00 Test Item Value Reference Range Interpretation Comments Chloride Lvl (test code = Chloride Lvl) 102 98-110 [place] 038101-09-11 13:39:00 Test Item Value Reference Range Interpretation Comments CO2 (test code = CO2) 22 20-32 [place] 038101-09-11 13:39:00 Test Item Value Reference Range Interpretation Comments Calcium Lvl (test code = Calcium Lvl) 9.2 8.6-10.4 [place] 038101-09-11 13:39:00 Test Item Value Reference Range Interpretation Comments Total Protein (test code = Total 6.9 6.1-8.1 Protein) [place] 038101-09-11 13:39:00 Test Item Value Reference Range Interpretation Comments Albumin Lvl (test code = Albumin Lvl) 3.9 3.6-5.1 [place] 038101-09-11 13:39:00 Test Item Value Reference Range Interpretation Comments Globulin (test code = Globulin) 3.0 1.9-3.7 [place] 038101-09-11 13:39:00 Test Item Value Reference Range Interpretation Comments A/G Ratio (test code = A/G Ratio) 1.3 1.0-2.5 [facility]2021-09-11 13:39:00 Test Item Value Reference Range Interpretation Comments Bili Total (test code = Bili Total) 0.9 0.2-1.2 [place] 038101-09-11 13:39:00 Test Item Value Reference Range Interpretation Comments Alk Phos (test code = Alk Phos) 111 37-153 [place] 038101-09-11 13:39:00 Test Item Value Reference Range Interpretation Comments ASPARTATE TRANSAMINASE (test code = 23 10-35 ASPARTATE TRANSAMINASE) [facility]2021-09-11 13:39:00 Test Item Value Reference Range Interpretation Comments ALANINE AMINOTRANSFERASE (test code = 20 6-29 ALANINE AMINOTRANSFERASE) [place] 734121-09-11 13:39:00 Test Item Value Reference Range Interpretation Comments WBC X 10x3 (test code = WBC X 10x3) 6.4 3.8-10.8 [place] 734121-09-11 13:39:00 Test Item Value Reference Range Interpretation Comments RBC X 10x6 (test code = RBC X 10x6) 4.32 3.80-5.10 [place] 734121-09-11 13:39:00 Test Item Value Reference Range Interpretation Comments Hgb (test code = Hgb) 12.6 11.7-15.5 [place] 734121-09-11 13:39:00 Test Item Value Reference Range Interpretation Comments Hct (test code = Hct) 38.5 35.0-45.0 [place] 734121-09-11 13:39:00 Test Item Value Reference Range Interpretation Comments MCV (test code = MCV) 89.1 80.0-100.0 [place] 734121-09-11 13:39:00 Test Item Value Reference Range Interpretation Comments MCH (test code = MCH) 29.2 pg 27.0-33.0 [place] 734121-09-11 13:39:00 Test Item Value Reference Range Interpretation Comments MCHC (test code = MCHC) 32.7 32.0-36.0 [place] 734121-09-11 13:39:00 Test Item Value Reference Range Interpretation Comments RDW (test code = RDW) 13.1 11.0-15.0 [facility]KblaqhiYPLTJSSCDR4209-24-40 13:39:00 Test Item Value Reference Range Interpretation Comments Platelet (test code = Platelet) 290 140-400 [facility] HospitalUnkuyznAEAPRBZKSP5250-71-68 13:39:00 Test Item Value Reference Range Interpretation Comments MPV (test code = MPV) 10.6 7.5-12.5 [facility] HospitalBsouqvlVAQELPBVLD6790-37-32 13:39:00 Test Item Value Reference Range Interpretation Comments Neutrophils # (test code = Neutrophils 3430 5525-5369 #) [facility] HospitalTeiqtmxAJWGINLRTF7468-91-16 13:39:00 Test Item Value Reference Range Interpretation Comments Lymphocytes # (test code = Lymphocytes 2061 850-3900 #) [facility] HospitalGbrfmjwHCBYUOUOQD6106-70-33 13:39:00 Test Item Value Reference Range Interpretation Comments Monocytes # (test code = Monocytes #) 646 200-950 [facility] HospitalReufybbAHGFMKWYWL0635-69-64 13:39:00 Test Item Value Reference Range Interpretation Comments Eosinophils # (test code = Eosinophils 192 15-500 #) [facility] HospitalCekkqbpKPLKEIIZUM6402-28-91 13:39:00 Test Item Value Reference Range Interpretation Comments Basophils # (test code 70 See_Comment [Aut omated message] The = Basophils #) system which generated this result tra nsmitted reference range : <=200. The reference r sharon was not used to int erpret this result as normal/abnormal . [facility] HospitalVjrvyfvFNDORCAZFJ8884-11-72 13:39:00 Test Item Value Reference Range Interpretation Comments Segs (test code = Segs) 53.6 [place] 734121-09-11 13:39:00 Test Item Value Reference Range Interpretation Comments Lymphocytes (test code = Lymphocytes) 32.2 [facility] HospitalEzkumjkTWHKHGVIIY7930-21-85 13:39:00 Test Item Value Reference Range Interpretation Comments Monocytes (test code = Monocytes) 10.1 [place] 734121-09-11 13:39:00 Test Item Value Reference Range Interpretation Comments Eosinophils (test code = Eosinophils) 3.0 [place] 734121-09-11 13:39:00 Test Item Value Reference Range Interpretation Comments Basophils (test code = Basophils) 1.1 [facility] HospitalAdpgdqjKTUADWTBPF2392-08-51 13:39:00 Test Item Value Reference Range Interpretation Comments Sed Rate (test code = Sed Rate) 22 [facility] YLZVU5287-84-21 16:41:00 Test Item Value Reference Range Interpretation Comments K (test code = 5724223601) 4.7 mmol/L 3.5-5 S light hemolysis Lab Interpretation (test Normal code = 47403-8) [facility]. METABOLIC PANEL (22557)2019-07-07 00:03:00 Test Item Value Reference Range Interpretation Comments NA (test code = 139 mmol/L 135-145 0184651534) K (test code = 5.7 mmol/L 3.5-5 H 1003205775) CL (test code = 102 mmol/L 98-108 9998317180) CO2 TOTAL (test code = 22 mmol/L 23-31 L 7748183191) AGAP (test code = 2-16 9059116568) BUN (test code = 24 mg/dL 7-23 H 5984883903) GLUCOSE (test code = 89 mg/dL 70-110 0120074680) CREATININE (test code = 0.64 mg/dL 0.5-1.04 1758940445) TOTAL BILI (test code = 0.4 mg/dL 0.1-1.6 9863901504) CALCIUM (test code = 10.4 mg/dL 8.6-10.6 8089345177) T PROTEIN (test code = 8.3 g/dL 6.3-8.2 H 8239296721) ALBUMIN (test code = 4.8 g/dL 3.5-5 0514360172) ALK PHOS (test code = 137 U/L 34-122 H 7692700631) ALTv (test code = 34 U/L 5-35 1742-6) AST(SGOT) (test code = 45 U/L 13-40 H 3744220289) eGFR Calculation mL/min/1.73m2 (Non-) (test code = 1583063519) eGFR Calculation mL/min/1.73m2 () (test code = 4085127406) MAGALI (test code = MAGALI) Association of [...] tests). Lab Interpretation Abnormal (test code = 12369-8) [facility]"
--- NOTE | 2022-03-20 17:49 | RAD REPORT ---
EXAM DESCRIPTION: CT - Head Brain Wo Cont - 03/20/2022 5:33 pm CLINICAL HISTORY: Weakness and low blood pressure. COMPARISON: Head Brain Wo Cont dated 10/03/2021; Head Brain Wo Cont dated 01/16/2021 TECHNIQUE: All CT scans are performed using dose optimization technique as appropriate and may inclu de automated exposure control or mA/KV adjustment according to patient size. FINDINGS: No intracranial hemorrhage, hydrocephalus or extra-axial fluid collection.No areas of brai n edema or evidence of midline shift. Cerebral atrophy. Air-fluid levels in the maxillary sinuses. The calvarium is intact. IMPRESSION: No acute intracranial abnormality.
[2022-03-20] MEDS ORDERED: NA CHLORIDE 0.9% 1,000 ML ONE (18:12)
[2022-03-20 18:53] LABS: Absolute Lymphocytes (CBC) 1.9 K/uL (0.7-4.9); Hematocrit 36.2 % (36.0-45.0); Lymphocytes % 25.2 % (15.3-44.8); MCV 88.5 fL (80-100); MPV 7.7 fL (7.6-11.3); RBC Red Blood Cell Count 4.09 M/uL (3.86-4.86)
[2022-03-20 19:06] LABS: Potassium 3.4 mmol/L (3.5-5.1); Troponin High Sensitivity 3.5 pg/mL (<58.9)
[2022-03-20 19:10] LABS: Urine Blood Negative (Negative); Urine Glucose Negative (Negative); Urine Protein Negative (Negative); Urine Specific Gravity 1.025 (1.005-1.030); Urine pH 6.5 (5.0-7.0)
--- NOTE | 2022-03-20 19:33 | ER ---
Nurse's Notes [facility] Name: Dennis Dawn Age: 76 yrs Sex: Female : 1945 Arrival Date: 03/20/2022 Time: 16:32 Bed 7 Private MD: Diagnosis: Muscle weakness (generalized) Presentation: 03/20 16:30 Chief complaint: EMS states: Brought in by EMS called for weakness. Has low BPs 95/60 db prior to arrival for EMS. Patient reports took husbands amitriptyline for restless leg syndrome. Patient appears sleepy. EMS reports BS138. Coronavirus screen: Vaccine status: Patient reports receiving the 2nd dose of the covid vaccine. Client denies travel out of the [place] in the last 14 days. At this time, the client does not indicate any symptoms associated with coronavirus-19. Ebola Screen: Patient negative for fever greater than or equal to 101.5 degrees Fahrenheit, and additional compatible Ebola Virus Disease symptoms Patient denies exposure to infectious person. Patient denies travel to an Ebola-affected area in the 21 days before illness onset. No symptoms or risks identified at this time. Initial Sepsis Screen: Does the patient meet any 2 criteria? No. Patient's initial sepsis screen is negative. Does the patient have a suspected source of infection? No. Patient's initial sepsis screen is negative. Risk Assessment: Do you want to hurt yourself or someone else? Patient reports no desire to harm self or others. Onset of symptoms was March 20, 2022. 16:30 Method Of Arrival: EMS: [facility] db 16:30 Acuity: ZAYNAB 2 db Triage Assessment: 16:30 General: Appears in no apparent distress. comfortable, Behavior is calm, cooperative, db drowsy, quiet. Pain: Denies pain. Historical: - Allergies: 16:30 Morphine; db - PMHx: 16:30 Chronic obstructive lung disease; GERD; herniated disc in neck; hiatal hernia; db - PSHx: 16:30 Cholecystectomy; db - Immunization history:: Client reports receiving the 2nd dose of the Covid vaccine. - Social history:: Smoking status: Patient denies any tobacco usage or history of. Patient/guardian denies using alcohol, street drugs, IV drugs. Screenin:45 Abuse screen: Denies threats or abuse. Denies injuries from another. Nutritional db screening: No deficits noted. Tuberculosis screening: No symptoms or risk factors identified. Fall Risk None identified. No fall in past 12 months (0 pts). No secondary diagnosis (0 pts). IV access (20 points). Ambulatory Aid- Crutches/Cane/Walker (15 pts). Gait- Weak (10 pts.). Mental Status- Oriented to own ability (0 pts). Total Bernal Fall Scale indicates High Risk Score (45 or more points). Assessment: 16:45 Reassessment: Patient appears in no apparent distress at this time. Patient is alert, db oriented x 3, equal unlabored respirations, skin warm/dry/pink. General: Appears in no apparent distress. comfortable, Behavior is calm, cooperative, drowsy, quiet. Pain: Denies pain. 17:30 Reassessment: Patient appears in no apparent distress at this time. No changes from db previously documented assessment. Patient is alert, oriented x 3, equal unlabored respirations, skin warm/dry/pink. 18:00 Reassessment: Patient appears in no apparent distress at this time. No changes from db previously documented assessment. 19:01 Reassessment: Patient appears in no apparent distress at this time. No changes from db previously documented assessment. Patient and/or family updated on plan of care and expected duration. Pain level reassessed. Patient is alert, oriented x 3, equal unlabored respirations, skin warm/dry/pink. General: Appears in no apparent distress. comfortable. Neuro: No deficits noted. Cardiovascular: No deficits noted. Respiratory: No deficits noted. GI: No deficits noted. : No deficits noted. 19:29 General: Appears in no apparent distress. comfortable, Behavior is calm, cooperative. aa9 Pain: Denies pain. Neuro: Level of Consciousness is awake, alert, obeys commands. Cardiovascular: No deficits noted. Respiratory: Airway is patent Respiratory effort is even, unlabored. Vital Signs: 16:30 BP 103 / 71; Pulse 102; Resp 15; Temp 98(O); Pulse Ox 98% on R/A; Weight 70.31 kg; db Height 5 ft. 2 in. (157.48 cm); Pain 0/10; 18:09 BP 94 / 68; Pulse 96; Resp 18; Pulse Ox 99% ; db 18:31 BP 116 / 67; Pulse 81; Resp 15; Pulse Ox 99% ; jl7 16:30 Body Mass Index 28.35 (70.31 kg, 157.48 cm) db ED Course: 16:30 Arm band placed on. db 16:32 Patient arrived in ED. eb 16:37 Lucia Soriano, RN is Primary Nurse. db 16:41 Triage completed. db 16:45 Patient has correct armband on for positive identification. Placed in gown. Bed in low db position. Call light in reach. Side rails up X 1. 17:05 Kar Resendiz is PHCP. jl9 17:05 Saud Blackwell MD is Attending Physician. jl9 18:00 Inserted saline lock: 22 gauge in right wrist, using aseptic technique. db 18:00 Initial lab(s) drawn, by ED staff, sent to lab. EKG done, by ED staff, reviewed by jl7 Saud Blackwell MD. 18:55 Straight cath inserted, using sterile technique, 16 Fr. Specimen obtained. Patient db tolerated well. puriwick placed after in and out catheter. Patient tolerated well. 18:55 Urine collected: straight cath specimen, clear. jl7 18:59 Primary Nurse role handed off by Lucia Soriano, RN as6 18:59 Pavan Friedman, WINSOME is Primary Nurse. as6 19:04 Report given to WINSOME Browne. db 19:04 SARS-COV-2 RT PCR (Document "Date of Onset" if Symptomatic) Sent. aa9 20:18 No provider procedures requiring assistance completed. IV discontinued, intact, aa9 bleeding controlled, No redness/swelling at site. Pressure dressing applied. Administered Medications: 18:17 Drug: NS 0.9% 1000 ml Route: IV; Rate: 1000 ml; Site: right wrist; db 19:05 Follow up: Response: No adverse reaction db 19:53 Drug: Potassium Effervescent Tablet 50 mEq Route: PO; as6 Medication: 16:45 VIS not applicable for this client. db Outcome: 19:32 Discharge ordered by . jl9 20:19 Discharged to home via wheelchair, with family. aa9 20:19 Condition: stable 20:19 Discharge instructions given to patient, family, Instructed on discharge instructions, follow up and referral plans. Demonstrated understanding of instructions, follow-up care. 20:19 Patient left the ED. aa9 Signatures: Sandra Dyer RN RN jl7 Bessie Luna Ashby, RN RN as6 Kar Resendiz jl9 Clover Dumont RN RN aa9 Lucia Soriano RN RN db Corrections: (The following items were deleted from the chart) 16:45 16:30 Chief complaint: EMS states: Brought in by EMS called for weakness. Has low BPs db 95/60 prior to arrival for EMS. Patient reports took husbands amitriptyline for restless leg syndrome. Patient appears sleepy db
--- NOTE | 2022-03-20 19:33 | EDPHYS ---
Physician Documentation [facility] Name: Dennis Dawn Age: 76 yrs Sex: Female : 1945 Arrival Date: 03/20/2022 Time: 16:32 Bed 7 Private MD: ED Physician Saud Blackwell HPI: 03/20 18:03 This 76 yrs old Female presents to ER via EMS with complaints of generalized jl9 weakness/ feeling sleepy. Patient took her husbands medication today for RLS and also did not check her BP today before taking her BP medication the states. . 18:03 Onset: The symptoms/episode began/occurred this morning. Severity of symptoms: Pain is jl9 currently a 0 / 10. The patient has experienced a previous episode. Historical: - Allergies: 16:30 Morphine; db - PMHx: 16:30 Chronic obstructive lung disease; GERD; herniated disc in neck; hiatal hernia; db - PSHx: 16:30 Cholecystectomy; db - Immunization history:: Client reports receiving the 2nd dose of the Covid vaccine. - Social history:: Smoking status: Patient denies any tobacco usage or history of. Patient/guardian denies using alcohol, street drugs, IV drugs. ROS: 18:03 Constitutional: Negative for fever, chills, and weight loss, Eyes: Negative for injury, jl9 pain, redness, and discharge, ENT: Negative for injury, pain, and discharge, Neck: Negative for injury, pain, and swelling, Cardiovascular: Negative for chest pain, palpitations, and edema, Respiratory: Negative for shortness of breath, cough, wheezing, and pleuritic chest pain, Abdomen/GI: Negative for abdominal pain, nausea, vomiting, diarrhea, and constipation, Back: Negative for injury and pain, : Negative for injury, bleeding, discharge, and swelling, MS/Extremity: Negative for injury and deformity, Skin: Negative for injury, rash, and discoloration. 18:03 Psych: Negative for depression, anxiety, suicide ideation, homicidal ideation, and hallucinations, Allergy/Immunology: Negative for hives, rash, and allergies, Endocrine: Negative for neck swelling, polydipsia, polyuria, polyphagia, and marked weight changes, Hematologic/Lymphatic: Negative for swollen nodes, abnormal bleeding, and unusual bruising. 18:03 Neuro: Positive for weakness. Exam: 18:04 Constitutional: This is a well developed, well nourished patient who is awake, alert, jl9 and in no acute distress. Head/Face: Normocephalic, atraumatic. Eyes: Pupils equal round and reactive to light, extra-ocular motions intact. Lids and lashes normal. Conjunctiva and sclera are non-icteric and not injected. Cornea within normal limits. Periorbital areas with no swelling, redness, or edema. ENT: Mucous membranes moist. Neck: Trachea midline, no thyromegaly or masses palpated, and no cervical lymphadenopathy. Supple, full range of motion without nuchal rigidity, or vertebral point tenderness. No Meningismus. Chest/axilla: Normal chest wall appearance and motion. Nontender with no deformity. No lesions are appreciated. Cardiovascular: Regular rate and rhythm with a normal S1 and S2. No gallops, murmurs, or rubs. Normal PMI, no JVD. No pulse deficits. Respiratory: Lungs have equal breath sounds bilaterally, clear to auscultation and percussion. No rales, rhonchi or wheezes noted. No increased work of breathing, no retractions or nasal flaring. Abdomen/GI: Soft, non-tender, with normal bowel sounds. No distension or tympany. No guarding or rebound. No evidence of tenderness throughout. Back: No spinal tenderness. No costovertebral tenderness. Full range of motion. Skin: Warm, dry with normal turgor. Normal color with no rashes, no lesions, and no evidence of cellulitis. MS/ Extremity: Pulses equal, no cyanosis. Neurovascular intact. Full, normal range of motion. Neuro: Awake and alert, GCS 15, oriented to person, place, time, and situation. Cranial nerves II-XII grossly intact. Motor strength 5/5 in all extremities. Sensory grossly intact. Cerebellar exam normal. Normal gait. Psych: Awake, alert, with orientation to person, place and time. Behavior, mood, and affect are within normal limits. Vital Signs: 16:30 BP 103 / 71; Pulse 102; Resp 15; Temp 98(O); Pulse Ox 98% on R/A; Weight 70.31 kg; db Height 5 ft. 2 in. (157.48 cm); Pain 0/10; 18:09 BP 94 / 68; Pulse 96; Resp 18; Pulse Ox 99% ; db 18:31 BP 116 / 67; Pulse 81; Resp 15; Pulse Ox 99% ; jl7 16:30 Body Mass Index 28.35 (70.31 kg, 157.48 cm) db MDM: 17:05 Patient medically screened. 17:08 Data reviewed: vital signs, nurses notes. Test interpretation: by ED physician or [facility] midlevel provider: ECG. 19:31 Counseling: I had a detailed discussion with the patient and/or guardian regarding: the [facility] historical points, exam findings, and any diagnostic results supporting the discharge/admit diagnosis, lab results, radiology results, the need for outpatient follow up, to return to the emergency department if symptoms worsen or persist or if there are any questions or concerns that arise at home. Response to treatment: the patient's symptoms have resolved after treatment, the patient's condition has returned to base line, the patient is now symptom free, Patient reports feeling much better and is asymptomatic. . 03/20 17:07 Order name: BMP [facility] 03/20 17:07 Order name: CBC with Diff [facility] 03/20 17:07 Order name: SARS-COV-2 RT PCR (Document "Date of Onset" if Symptomatic) [facility] 03/20 17:07 Order name: Troponin High Sensitivity [facility] 03/20 18:52 Order name: SARS-COV-2 RT PCR; Complete Time: 18:58 [facility] 03/20 18:59 Order name: CBC with Automated Diff; Complete Time: 19:05 [facility] 03/20 17:07 Order name: EKG; Complete Time: 17:07 [facility] 03/20 17:07 Order name: CT Head Brain wo Cont [facility] 03/20 17:50 Order name: CT; Complete Time: 17:55 [facility] 03/20 19:06 Order name: Basic Metabolic Panel; Complete Time: 19:27 [facility] 03/20 19:06 Order name: Troponin High Sensitivity; Complete Time: 19:27 [facility] 03/20 19:10 Order name: Urine Dipstick-Ancillary; Complete Time: 19:27 [facility] 03/20 17:07 Order name: Urine Dipstick-Ancillary (obtain specimen); Complete Time: 19:07 [facility] 03/20 18:19 Order name: Labs - recollect needed: recollect the cbc and chemistry/ hemolyzed; eb Complete Time: 18:37 Administered Medications: 18:17 Drug: NS 0.9% 1000 ml Route: IV; Rate: 1000 ml; Site: right wrist; db 19:05 Follow up: Response: No adverse reaction db 19:53 Drug: Potassium Effervescent Tablet 50 mEq Route: PO; as6 Disposition Summary: 03/20/22 19:32 Discharge Ordered Location: Home jl9 Condition: Stable jl9 Diagnosis - Muscle weakness (generalized) jl9 Followup: jl9 - With: Private Physician - When: 1 - 2 days - Reason: Recheck today's complaints, Continuance of care, Re-evaluation by your physician Discharge Instructions: - Discharge Summary Sheet jl9 - Weakness, [id number] jl9 Forms: - Medication Reconciliation Form jl9 - Thank You Letter jl9 - Antibiotic Education jl9 - Prescription Opioid Use jl9 Signatures: Dispatcher [employer] EDMS Brandon Reece, ZABRINA-C [employer]-Cla1 Bessie Luna Ashby, RN RN as6 Kar Resendiz jl9 Lucia Soriano RN RN db Corrections: (The following items were deleted from the chart) 19:31 18:03 This 76 yrs old Female presents to ER via EMS with complaints of jl9 generalized weakness. Patient took her husbands medication today for RLS and also did not check her BP today before taking her BP medication the states. . jl9
[2022-03-20] MEDS ORDERED: POTASSIUM 25 MEQ EFFERV TAB ONE (19:34)
[2022-03-21 08:43] VITALS: TEMP 98
[2022-03-21 08:44] VITALS: O2SAT 99
[2022-03-21 08:45] VITALS: BP 116/67
--- NOTE | 2022-03-22 07:46 | EKG ---
Test Date: 2022-03-20 Test Time: 16:46:12 Well Surveying Engineer: BERTO MEASUREMENT RESULTS: Intervals: Rate: 99 IA: 156 QRSD: 76 QT: 352 QTc: 451 [place]: P: 38 IA: 156 QRS: 209 T: 31 INTERPRETIVE STATEMENTS: Normal sinus rhythm Possible Right ventricular hypertrophy Possible Lateral infarct, age undetermined Inferior infarct, age undetermined Abnormal ECG Compared to ECG 10/02/2021 11:41:42 Myocardial infarct finding now present Sinus bradycardia no longer present Sinus arrhythmia no longer present Electronically Signed On 03-22-22 07:44:15 CDT by Jaxson Anderson
== END 2022-03-20 20:19 | disposition home or self-care (01) ==
LOC: ER 16:26
DX: M62.81 Muscle weakness (generalized) (principal); Z20.822 Contact with and (suspected) exposure to COVID-19; J44.9 Chronic obstructive pulmonary disease, unspecified; Z88.5 Allergy status to narcotic agent
CPT/HCPCS: 93005; 85025; 80048; 36415; 81003; 84484; 70450; 51702; 99284; U0003; J7030

== ENCOUNTER 2022-06-21 13:44 | Emergency (ER) | payer OTHER ==
--- OUTSIDE RECORDS SUMMARY | 2022-06-21 13:49 | XMS REPORT | Continuity of Care Document ---
:1945 Author Organization [facility] t Address [address] [place] [address] Care Team Providers Name Role Phone ADRIAN DAVIS Attending Clinician Unavailable Julian Mendez Attending Clinician FLORI LUKE Attending Clinician Unavailable Adrian Davis MD Attending Clinician Gio Harrison CRNA Attending Clinician 1, [facility] Attending Clinician Unavailable Doctor Unassigned, [place] Attending Clinician Unavailable ADRIAN DAVIS Admitting Clinician Unavailable Adrian Davis MD Admitting Clinician Payers Payer Name Policy Type Policy Number Effective Date Expiration Date S [facility] MEDICARE [id number] 2018 00:00:00 Problems Condition Condition Condition Status Onset Resolution Last Treating Co mments Source Name Details Category Date Date Treatment Clinician Date Snake bite Snake bite Disease Active 2014-06 U nivers 0-01 ity of 00:00: [facility] Right hand Right hand Disease Active 2014-06 U nivers pain pain 0-01 ity of 00:00: [facility] Right Right Disease Active 2014-06 Univers wrist pain wrist pain 0-01 it y of 00:00: [facility] Amnesia Amnesia Problem Active 2022-01-30 Me moria (finding) (finding) 04:44:55 l Active Rigoberto Problem 01/30/2022 [facility] Ataxia Ataxia Problem Active 2022-01-30 Oj deshaun (finding) (finding) 04:44:55 l Active Rigoberto Problem 01/30/2022 [facility] Dysarthria Dysarthri Problem Active 2022-01-30 Memoria (finding) a 04:44:55 l (finding) [place] Active Problem 01/30/2022 [facility] Pseudobulb Problem Active 2022-01-30 M emoria ar affect Pseudobulb 04:44:55 l (finding) ar affect Herm narcisa (finding) Active Problem 01/30/2022 [facility] Anxiety Anxiety Problem Active 2022-01-30 Me moria (finding) (finding) 04:44:55 l Active Rigoberto Problem 01/30/2022 [facility] [id number] Piriformis Problem Active Co mmon syndrome Spirit of right - [facility]I side [facility] [id number] Status Problem Active Commo n 105 post total [id number] Pain, Problem Active Commo n [id number] joint, Spirit shoulder, - [facility] right [facility] [id number] Piriformis Problem Active C ommon syndrome Spirit of left - CHI side [facility] [id number] Primary Problem Active Comm on osteoarthr Spirit itis of - [facility] right knee [facility] [id number] 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 [facility] [id number] Aftercare Problem Active Com wed Spirit joint - [facility] replacemen [facility] [id number] Acute pain Problem Active Com mon of right Spirit shoulder - CHI [facility] Allergies, Adverse Reactions, Alerts Allergy Allergy Status [...] morphine morphine Active Memori a l Rigoberto morphine morphine Active Unknown Commo n Spirit - [facility]I [facility] Social History Social Habit Start Date Stop Date Quantity Comments Source History of Common Spirit - Tobacco Use [facility] Sex Assigned At Common Sp jean claude - [facility] Social History 2021-02-28 2021-02-28 Pawan sanchez 15:56:29 15:56:29 Alcohol intake 2019-07-14 2019-07-14 University 00:00:00 00:00:00 [facility] Tobacco Comment 2019-07-10 2019-07-10 Quit 21 years Univer sity of 00:00:00 00:00:00 ago [facility] Smoking Status Start Date Stop Date Source Former Smoker 2022-01-09 00:00:00 2022-01-09 00:00:00 Common S pirit - [facility] Never smoker [facility] Medications Ordered Filled Start Stop Current Ordering Indication Dosage Frequency Signature Comments Components Source Medication Medication Date Date Medication? Clinician (SIG) Name Name Bupivicaine Bupivicaine No 2.5mg Common [place] - Spirit 00:00: - [facility] Kenalog Kenalog No 40mg Common (Triamcinol (Triamcinol 7-21 S pirit one) one) 00:00: - [facility] Lidocaine Lidocaine 0 No 10mg Com mon 10-16 Spirit 00:00: - [facility] Kenalog Kenalog No 40mg Common (Triamcinol (Triamcinol 4-28 S pirit one) one) 00:00: - [facility] Lidocaine Lidocaine 2021-0 No 10mg Com mon 10-16 Spirit 00:00: - [facility] Kenalog Kenalog No 40mg Common (Triamcinol (Triamcinol 4-28 S pirit one) one) 00:00: - [facility] Memantine Yes 10 mg = 1 Mem oria hydrochlori 2-01 tab, PO, l de 10 MG 16:31: BID, # 180 Her arndt Oral Tablet 00 tab, 1 [Namenda] Refill(s), Pharmacy: [facility] #[id number], 157.48, cm, 04/07/21 13:22:00 CDT, Height, 77.273, kg, 04/07/21 13:22:00 CDT, Weight Memantine 0 Yes 10 mg = 1 Mem oria hydrochlori 2-01 tab, PO, l de 10 MG 16:31: BID, # 180 Her arndt Oral Tablet 00 tab, 1 [Namenda] Refill(s), Pharmacy: [facility] #[id number], 157.48, cm, 04/07/21 13:22:00 CDT, Height, 77.273, kg, 04/07/21 13:22:00 CDT, Weight Paroxetine 0 Yes 10 mg = 1 Me moria Hydrochlori 2-01 tab, PO, l de 10 MG 16:07: Daily, # Marla nn Oral Tablet 00 90 tab, 0 Refill(s) Paroxetine Yes 10 mg = 1 Me moria Hydrochlori 2-01 tab, PO, l de 10 MG 16:07: Daily, # Marla nn Oral Tablet 00 90 tab, 0 Refill(s) Memantine 2020-06 Yes 10 mg = 1 Mem oria hydrochlori 1-30 tab, PO, l de 10 MG 16:45: BID, # 180 Her arndt Oral Tablet 00 tab, 1 [Namenda] Refill(s), Pharmacy: [facility] #[id number], 157.48, cm, 04/07/21 13:22:00 CDT, Height, 77.273, kg, 04/07/21 13:22:00 CDT, Weight Memantine 2020-06 Yes 10 mg = 1 Mem oria hydrochlori 1-30 tab, PO, l de 10 MG 16:45: BID, # 180 Her arndt Oral Tablet 00 tab, 1 [Namenda] Refill(s), Pharmacy: [facility] #[id number], 157.48, cm, 04/07/21 13:22:00 CDT, Height, 77.273, kg, 04/07/21 13:22:00 CDT, Weight Memantine 2020-06 No 5 mg = 1 Oj deshaun hydrochlori 1-10 tab, PO, l de 5 MG 18:03: BID, # 180 Herm narcisa Oral Tablet 00 tab, 3 [Namenda] Refill(s), Pharmacy: [facility] #[id number], 157.48, cm, 04/07/21 13:22:00 CDT, Height, 77.273, kg, 04/07/21 13:22:00 CDT, Weight Memantine 2020-06 No 5 mg = 1 Oj deshaun hydrochlori 1-10 tab, PO, l de 5 MG 18:03: BID, # 180 Herm narcisa Oral Tablet 00 tab, 3 [Namenda] Refill(s), Pharmacy: [facility] #[id number], 157.48, cm, 04/07/21 13:22:00 CDT, Height, 77.273, kg, 04/07/21 13:22:00 CDT, Weight Memantine 2020-06 Yes 5 mg = 1 Oj deshaun hydrochlori 0-18 tab, PO, l de 5 MG 18:41: BID, # 60 Marla nn Oral Tablet 00 tab, 3 [Namenda] Refill(s), Pharmacy: [facility] #[id number], 157.48, cm, 04/07/21 13:22:00 CDT, Height, 77.273, kg, 04/07/21 13:22:00 CDT, Weight Memantine 2020-06 Yes 5 mg = 1 Oj deshaun hydrochlori 0-18 tab, PO, l de 5 MG 18:41: BID, # 60 Marla nn Oral Tablet 00 tab, 3 [Namenda] Refill(s), Pharmacy: [facility] #[id number], 157.48, cm, 04/07/21 13:22:00 CDT, Height, 77.273, kg, 04/07/21 13:22:00 CDT, Weight Symbicort Yes 2 puff, Memor ia 160/4.5 9-10 INHALER, l inhalation 15:45: BID, # 1 Her arndt aerosol 00 ea, 3 with Refill(s) adapter 24 HR Yes 25 mg = 1 Memoria mirabegron 9-10 tab, PO, l 25 MG 15:45: Daily, # [place] Extended 00 30 tab, 5 Release Refill(s) Tablet [Myrbetriq] Symbicort Yes 2 puff, Memor ia 160/4.5 [...] ity o f 40 mg 17:10: daily. [place] capsule 11 [facility] Branch water for 2020-0 Yes PRN, Univers irrigation 08-17 Starting ity o f irrigation 16:18: Yuliya [place] solution 08/17/19 at [place] [id number], [place] Until Discontinu ed, Routine, Intra-op tetracaine 2019-0 Yes PRN, Univers (PONTOCAINE 08-17 Starting ity of ) 0.5 % 16:18: Yuliya [place] ophthalmic 08/17/[address] [facility] drops 1018, [place] Until Discontinu ed, Routine, Intra-op neomycin-po 2019-0 Yes PRN, Univer s lymyxin-dex 08-17 Starting ity of amethasone 16:18: Yuliya [place] (MAXITROL) 08/17/[address] [facility] 3.5 1018, [place] mg/g-10,000 Until unit/g-0.1 Discontinu % ed, ophthalmic Routine, ointment Intra-op lidocaine-e 2019-0 Yes PRN, Univer s pinephrine 08-17 Starting ity o f (XYLOCAINE 16:18: Yuliya [place] W/EPINEPHRI 08/17/19 at [facility]) 1018, [place] %-1:200,000 Until injection Discontinu ed, Routine, Intra-op gentamicin 2020-0 Yes PRN, Univers injection 08-17 Starting ity of 16:18: Yuliya [place] 08/17/19 at [place] [id number], [place] Until Discontinu ed, TOAN, Intra-op EPINEPHrine 2020-0 Yes PRN, Univer s (PF) 08-17 Starting ity of 1:1,000 (1 16:17: Yuliya [place] mg/mL) 08/17/19 at [facility] [place] [facility] (ADRENALIN 1017, [place] (PF)) Until injection Discontinu ed, Routine, Intra-op DUOVISC 2020-0 Yes PRN, Univers (DUOVISC 08-17 Starting ity of VISCO 16:17: [facility] ELASTIC) 3 00 08/17/[address] [facility] %-4 %(0.5 1017, Branch mL) 1 % Until (0.55 mL) Discontinu intraocular ed, injection Routine, Intra-op dexamethaso 2020-0 Yes PRN, Univer s ne 08-17 Starting ity of (DECADRON 16:17: [facility] PHOSPHATE) 00 08/17/[address] [facility] injection 1017, [place] Until Discontinu ed, Routine, Intra-op ceFAZolin 2020-0 Yes PRN, Univers (ANCEF) 08-17 Starting ity of injection 16:16: Yuliya [place] 00 08/17/19 at [facility] 1016, Branch Until Discontinu ed, TOAN, Intra-op bupivacaine 2020-0 Yes PRN, [facility] (preserv 08-17 Starting ity of free) 16:16: [facility] (SENSORCAIN 00 08/17/19 at [facility]) 0.75 1016, Branch % (7.5 Until mg/mL) Discontinu injection ed, Routine, Intra-op balanced 2020-0 Yes PRN, Univers salt irrig 08-17 Starting ity o f soln comb1 16:16: Yuliya [place] (BSS PLUS) 00 08/17/[address] [facility] ophthalmic 1016, Branch solution Until 500 mL bag Discontinu ed, Routine, Intra-op mydriatic 2019-0 2020- No .5mL 0.5 mL, [facility] ers #5 08-17 Right Eye, ity of ophthalmic 15:00: 15:08 ONCE, 1 [place] as solution 00 :00 dose, Yuliya Medica l 0.5 mL 08/17/19 at [place] syringe 0900, Routine, DSU Pre-op lactated 2020-0 2020- No 500mL at 20 [facility] ringers IV 08-17 mL/hr, 500 it y of infusion 15:00: 15:22 mL, IV [place] 500 mL 00 :00 Infusion, [facility] ONCE, 1 Branch dose, Yuliya 08/17/19 at 0900, Routine, DSU Pre-op esomeprazol 2020-0 Yes 40mg Take 40 mg Univers e (NEXIUM) 07-13 by mouth ity o f 40 mg 17:35: daily. [place] capsule 21 [facility] esomeprazol 2020-0 Yes 40mg Take 40 mg Univers e (NEXIUM) 07-13 by mouth ity o f 40 mg 17:03: daily. [place] capsule 40 [facility] tetracaine 2020-0 Yes PRN, Univers (PONTOCAINE 07-13 Starting ity of ) 0.5 % 16:53: Yuliya [place] ophthalmic 07/13/19 at [facility] ica drops 1053, [place] Until Discontinu ed, Routine, Intra-op water for 2020-0 Yes PRN, Univers irrigation 07-13 Starting ity o f irrigation 16:53: Yuliya [place] solution 07/13/[address] [facility] 1053, [place] Until Discontinu ed, Routine, Intra-op sodium 2020-0 Yes PRN, Univers chloride 07-13 Starting ity of (NS) 16:52: Yuliya [place] injection 07/13/19 at [facility] 1052, [place] Until Discontinu ed, Routine, Intra-op neomycin-po 2020-0 Yes PRN, Univer s lymyxin-dex 07-13 Starting ity of amethasone 16:52: Yuliya [place] (MAXITROL) 07/13/[address] [facility] 3.5 1052, [place] mg/g-10,000 Until unit/g-0.1 Discontinu % ed, ophthalmic Routine, ointment Intra-op lidocaine-e 2020-0 Yes PRN, Univer s pinephrine 07-13 Starting ity o f (XYLOCAINE 16:52: Yuliya [place] W/EPINEPHRI 07/13/19 at [facility]) 2 1052, [place] %-1:200,000 Until injection Discontinu ed, Routine, Intra-op gentamicin 2020-0 Yes PRN, Univers injection 07-13 Starting ity of 16:52: Yuliya [place] 07/13/19 at [facility] [place] [facility] 1052, [place] Until Discontinu ed, TOAN, Intra-op EPINEPHrine 2020-0 Yes PRN, Univer s (PF) 07-13 Starting ity of 1:1,000 (1 16:51: Yuliya [place] mg/mL) 07/13/19 at [facility] [place] [facility] (ADRENALIN 1051, [place] (PF)) Until injection Discontinu ed, Routine, Intra-op DUOVISC 2020-0 Yes PRN, Univers (DUOVISC 07-13 Starting ity of VISCO 16:51: Yuliya [place] ELASTIC) 3 07/13/[address] [facility] %-4 %(0.5 1051, Branch mL) 1 % Until (0.55 mL) Discontinu intraocular ed, injection Routine, Intra-op dexamethaso 2020-0 Yes PRN, Univer s ne 07-13 Starting ity of (DECADRON 16:51: Yuliya [place] PHOSPHATE) 07/13/[address] [facility] injection 1051, Branch Until Discontinu ed, Routine, Intra-op ceFAZolin 2020-0 Yes PRN, Univers (ANCEF) 07-13 Starting ity of injection 16:51: Yuliya [place] 00 07/13/19 at [facility] 1051, Branch Until Discontinu ed, TOAN, Intra-op bupivacaine 2020-0 Yes PRN, Univer s (preserv 07-13 Starting ity of free) 16:51: Yuliya [place] (SENSORCAIN 07/13/19 at [facility]) 0.75 1051, Branch % (7.5 Until mg/mL) Discontinu injection ed, Routine, Intra-op balanced 2020-0 Yes PRN, Univers salt irrig 07-13 Starting ity o f soln comb1 16:50: Yuliya [place] (BSS PLUS) 00 07/13/[address] [facility] ophthalmic 1050, Branch solution Until 500 mL bag Discontinu ed, Routine, Intra-op eye block 2020-0 2020- No CONTINUOUS U nivers syringe 11 07-13 PRN, ity of mL 16:45: 17:02 Starting [place] 00 :25 Yuliya Medical 07/13/19 at Branch 1045, Until Yuliya 07/13/19 at 1102, Intra-op propofol IV 2020-0 2020- No ONCE INTRA Univers infusion 07-13 PROCEDURE, ity of 16:43: 17:02 Starting [place] 00 :25 Yuliya Medical 07/13/19 at Branch 1043, Until Yuliya 07/13/19 at 1102, Routine, Intra-op lidocaine 2020-0 2020- No ONCE INTRA U nivers 1% 07-13 PROCEDURE, ity of (XYLOCAINE) 16:43: 17:02 Starting [place] 100 mg/10 00 :25 Yuliya Medical mL (1 %) 07/13/19 at [facility] h injection 1043, Until Yuliya 07/13/19 at 1102, Routine, Intra-op lactated 0 2020- No 500mL at 20 Univer s ringers IV 07-13 01-23 mL/hr, 500 it y of infusion 15:15: 16:35 mL, IV [place] 500 mL 00 :00 Infusion, Medical ONCE, 1 Branch dose, Yuliya 07/13/19 at 0915, Routine, DSU Pre-op Tramadol Tramadol 2019- No Kamlesh 1 tablet Common HCl HCl 7 09 [place] as needed Spirit 00:00: 00:00 - CHI 00 :00 [facility] LIDOCAINE LIDOCAINE 2017- No 10mg Com mon HCL 10MG/ML HCL 10MG/ML 1-26 S pirit 00:00: - CHI 00 [facility] Betamethaso Betamethaso 2018-1 No 1mL Common ne Sodium ne Sodium 1-26 Spiri t Phosphate Phosphate 00:00: - C HI 00 [facility] LIDOCAINE LIDOCAINE 2017-1 No 10mg Com mon HCL 10MG/ML HCL 10MG/ML 1-26 S pirit 00:00: - CHI 00 [facility] Betamethaso Betamethaso 2018-1 No 1mL Common ne Sodium ne Sodium 1-26 Spiri t Phosphate Phosphate 00:00: - C HI 00 [facility] Betamethaso Betamethaso 2018-0 No 1mL Common ne Sodium ne Sodium 8-30 Spiri t Phosphate Phosphate 00:00: - C HI 00 [facility] LIDOCAINE LIDOCAINE 2018-0 No 10ug Com mon HCL 10MG/ML HCL 10MG/ML 8-30 S pirit 00:00: - CHI 00 [facility] LIDOCAINE LIDOCAINE 2018-0 No 10ug Com mon HCL 10MG/ML HCL 10MG/ML 8-30 S pirit 00:00: - CHI 00 [facility] Betamethaso Betamethaso 2018-0 No 1mL Common ne Sodium ne Sodium 8-30 Spiri t Phosphate Phosphate 00:00: - C HI 00 [facility] esomeprazol 2015- Yes 40mg Take 40 mg Univers e (NEXIUM) 0-02 by mouth ity o f 40 mg 20:00: daily. [place] capsule Medical [place] esomeprazol 2014-06 Yes 40mg Take 40 mg Univers e (NEXIUM) 0-02 by mouth ity o f 40 mg 20:00: daily. [place] capsule [facility] esomeprazol 2014-06 Yes 40mg Take 40 mg Univers e (NEXIUM) 0-02 by mouth ity o f 40 mg 20:00: daily. [facility] [place] [facility] acetaminoph 2014-06 Yes 1{tbl} Take 1 Tab Univers en-codeine 0-02 by mouth ity o f (TYLENOL 00:00: every 4 [place] #3) 300-30 00 (four) Medical mg tablet hours as Branch needed for Pain (scale 4-6). [facility] 2014-06 Yes 1{tbl} Take 1 Tab Univers en-codeine 0-02 by mouth ity o f (TYLENOL 00:00: every 4 [place] #3) 300-30 00 (four) Medical mg tablet hours as Branch needed for Pain (scale 4-6). [facility] 2014-06 Yes 1{tbl} Take 1 Tab Univers en-codeine 0-02 by mouth ity o f (TYLENOL 00:00: every 4 [place] #3) 300-30 00 (four) Medical mg tablet hours as Branch needed for Pain (scale 4-6). [facility] 2014-06 2020- No 1{tbl} Take 1 Tab Univers en-codeine 0-02 -22 by mouth ity of (TYLENOL 00:00: 00:00 every 4 [place] #3) 300-30 00 :00 (four) Medical mg tablet hours as Branch needed for Pain (scale 4-6). Nexium Nexium Yes Kamlesh 1 capsule Com mon [place] Spirit - CHI [facility] Symbicort Symbicort Yes Kamlesh GRUBBS 2 Common [place] PUFFS Spirit TWICE A - CHI DAY [facility] Methocarbam Methocarbam Yes Kamlesh TAKE 1 Common ol ol [place] TABLET BY Spirit MOUTH - CHI EVERY [facility] HOURS [facility] NEEDED FOR [facility] SPASMS Ilevro Ilevro Ruba [place] LOCATION: Com mon [place] LEFT EYE. Spirit APPLY 1 - CHI DROP IN [facility] EYE AT [facility] BEDTIME Center FOR 2 WEEKS Xarelto Xarelto Yes Kamlesh TAKE 1 Comm on [place] TABLET BY Spirit MOUTH - CHI EVERY DAY St WITH FOOD [facility] Amoxicillin Amoxicillin Yes Kamlesh TAKE 4 Common [place] CAPS BY Spirit MOUTH 1 - CHI HOUR PRIOR St TO DENTAL [facility] Durezol Durezol Yes Kamlesh PLEASE SEE Common [place] ATTACHED Spirit FOR - CHI DETAILED St DIRECTIONS [facility] Promethazin Promethazin Yes Kamlesh TAKE 1 Common e HCl e HCl [place] TABLET BY Spirit MOUTH - CHI EVERY DAY St NEEDED [facility] Ofloxacin Ofloxacin Yes Kamlesh APPLY 1 Common [place] DROP 3 Spirit TIMES A - CHI DAY FOR [address] [facility] SURGERY [facility] EYE Center Hydrocodone Hydrocodone Yes Kamlesh (Schedule Common -Acetaminop -Acetaminop [place] II Drug) Spirit hen hen TAKE 1 - CHI TABLET BY St MOUTH [facility] EVERY DAY Medical X 28 DAYS Center Zinc Zinc No Zinc Symbicort Symbicort No Symbicort Vit D-Vit Vit D-Vit No Vit D-Vit E-Safflower E-Safflower E-Safflowe Oil Oil r Oil Meloxicam Meloxicam No Meloxicam Probiotic Probiotic No Probiotic Mupirocin Mupirocin No Mupirocin Promethazin Promethazin No Promethazi e HCl e HCl ne HCl Biotin Biotin No Biotin Triamcinolo Triamcinolo No Triamcinol ne ne one Acetonide Acetonide Acetonide HYDROcodone HYDROcodone No HYDROcodon -Acetaminop -Acetaminop e-Acetamin hen 7.5-325 hen 7.5-325 ophen MG MG 7.5-325 MG Cephalexin Cephalexin No Cephalexin Myrbetriq Myrbetriq No Myrbetriq Amoxicillin Amoxicillin No Amoxicilli -Pot -Pot n-Pot Clavulanate Clavulanate Clavulanat e Fish Oil + Fish Oil + No Fish Oil + D3 D3 D3 Metoprolol Metoprolol No Metoprolol Succinate Succinate Succinate NexIUM 40 NexIUM 40 No 1{capsu QD NexIUM 40 MG MG le} MG Triamcinolo Triamcinolo No Triamcinol ne ne one Acetonide Acetonide Acetonide Vit D-Vit Vit D-Vit No Vit D-Vit E-Safflower E-Safflower E-Safflowe Oil Oil r Oil Cephalexin Cephalexin No Cephalexin Zinc Zinc No Zinc Probiotic Probiotic No Probiotic Mupirocin Mupirocin No Mupirocin Promethazin Promethazin No Promethazi e HCl e HCl ne HCl Symbicort Symbicort No Symbicort NexIUM 40 NexIUM 40 No 1{capsu QD NexIUM 40 MG MG le} MG Biotin Biotin No Biotin Metoprolol Metoprolol No Metoprolol Succinate Succinate Succinate Amoxicillin Amoxicillin No Amoxicilli -Pot -Pot n-Pot Clavulanate Clavulanate Clavulanat e HYDROcodone HYDROcodone No HYDROcodon -Acetaminop -Acetaminop e-Acetamin hen 7.5-325 hen 7.5-325 ophen MG MG 7.5-325 MG Fish Oil + Fish Oil + No Fish Oil + D3 D3 D3 Meloxicam Meloxicam No Meloxicam Myrbetriq Myrbetriq No Myrbetriq Vital Signs Vital Name Observation Time Observation Value Comments Source height 2022-01-08 09:45:00 64 [in_i] [facility] weight 2022-01-08 09:45:00 162 [lb_av] [facility] bmi 2022-01-08 09:45:00 27.8 kg/m2 [facility] blood pressure 2022-01-08 09:45:00 124 mm[Hg] Common Spirit - systolic [facility] blood pressure 2022-01-08 09:45:00 82 mm[Hg] Common [facility] - diastolic [facility] height 2021-10-16 14:00:00 64 [in_i] Common [facility] weight 2021-10-16 14:00:00 162 [lb_av] Common [facility] bmi 2021-10-16 14:00:00 27.8 kg/m2 Common [facility] blood pressure 2021-10-16 14:00:00 126 mm[Hg] Common [facility] - systolic [facility] blood pressure 2021-10-16 14:00:00 84 mm[Hg] Common [facility] - diastolic [facility] Systolic blood 2019-08-17 16:37:00 120 mm[Hg] Univer sity of pressure [place] [facility] Diastolic blood 2019-08-17 16:37:00 66 mm[Hg] Unive rsity of pressure [place] [facility] Heart rate 2019-08-17 16:37:00 78 /min [facility] [place] [facility] Respiratory rate 2019-08-17 16:37:00 16 /min Univ ersity of [place] [facility] Oxygen saturation in 2019-08-17 16:37:00 100 /min University of Arterial blood by [place] [employer] gretchen Pulse oximetry Branch Body temperature 2019-08-17 16:30:00 36.89 Teodora Univ ersity of [place] [facility] Body height 2019-08-15 02:23:00 162.6 cm [facility] [place] [facility] Body weight 2019-08-15 02:23:00 77.111 kg [facility] [place] [facility] BMI 2019-08-15 02:23:00 29.17 kg/m2 [facility] [place] [facility] Systolic blood 2019-08-17 16:37:00 120 mm[Hg] Univer sity of pressure [place] [facility] Diastolic blood 2019-08-17 16:37:00 66 mm[Hg] Unive rsity of pressure [place] [facility] Heart rate 2019-08-17 16:37:00 78 /min [facility] [place] [facility] Respiratory rate 2019-08-17 16:37:00 16 /min Univ ersity of [place] [facility] Oxygen saturation in 2019-08-17 16:37:00 100 /min University of Arterial blood by [place] [employer] gretchen Pulse oximetry Branch Body temperature 2019-08-17 16:30:00 36.89 Teodora Univ ersity of [place] [facility] Body height 2019-08-15 02:23:00 162.6 cm [facility] [place] [facility] Body weight 2019-08-15 02:23:00 77.111 kg [facility] [place] [facility] BMI 2019-08-15 02:23:00 29.17 kg/m2 [facility] [place] [facility] Systolic blood 2019-07-13 17:17:00 144 mm[Hg] Univer sity of pressure [place] [facility] Diastolic blood 2019-07-13 17:17:00 94 mm[Hg] Unive rsity of pressure [place] [facility] Heart rate 2019-07-13 17:17:00 79 /min [facility] [place] [facility] Respiratory rate 2019-07-13 17:17:00 18 /min Univ ersity of [facility] Oxygen saturation in 2019-07-13 17:17:00 100 /min University of Arterial blood by [facility] Pulse oximetry Branch Body temperature 2019-07-13 17:07:00 36.56 Teodora [facility] ersity of [place] [facility] [place] Body height 2019-07-12 18:00:00 162.6 cm Universi ty [facility] [place] [facility] [place] Body weight 2019-07-12 18:00:00 77.111 kg [facility] [place] [facility] BMI 2019-07-12 18:00:00 29.18 kg/m2 [facility] [place] [facility] Systolic blood 2019-07-13 17:17:00 144 mm[Hg] Univer sity of [facility] Diastolic blood 2019-07-13 17:17:00 94 mm[Hg] Unive rsity of pressure [facility] Heart rate 2019-07-13 17:17:00 79 /min [facility] Respiratory rate 2019-07-13 17:17:00 18 /min [facility] ersity of [facility] Oxygen saturation in 2019-07-13 17:17:00 100 /min [facility] of Arterial blood by [facility] Pulse oximetry Branch Body temperature 2019-07-13 17:07:00 36.56 Teodora [facility]ity of [facility] Body height 2019-07-12 18:00:00 162.6 cm [facility] Body weight 2019-07-12 18:00:00 77.111 kg [facility] BMI 2019-07-12 18:00:00 29.18 kg/m2 [facility] Systolic (mm Hg) 2022-01-27 14:44:00 [facility] [place] Diastolic (mm Hg) 2022-01-27 14:44:00 [facility] [place] Heart Rate 2022-01-27 14:44:00 [facility] [place] Respitory Rate 2022-01-27 14:44:00 Memori [facility] Systolic (mm Hg) 2021-07-22 15:41:00 [facility] [place] Diastolic (mm Hg) 2021-07-22 15:41:00 [facility] Heart Rate 2021-07-22 15:41:00 [facility] [place] Respitory Rate 2021-07-22 15:41:00 [facility] [place] Systolic (mm Hg) 2021-05-20 16:43:00 Oj [facility] Diastolic (mm Hg) 2021-05-20 16:43:00 [facility] [place] Systolic (mm Hg) 2021-05-20 16:22:00 Oj rial [facility] Diastolic (mm Hg) 2021-05-20 16:22:00 [facility] [place] Heart Rate 2021-05-20 16:22:00 [facility] [place] Respitory Rate 2021-05-20 16:22:00 [facility] [place] Systolic (mm Hg) 2021-04-07 18:14:00 Oj [facility] Diastolic (mm Hg) 2021-04-07 18:14:00 [facility] [place] Heart Rate 2021-04-07 18:14:00 [facility] Respitory Rate 2021-04-07 18:14:00 [facility] [place] Height 2021-04-07 18:14:00 157.48 cm [facility] Weight 2021-04-07 18:14:00 [facility] BMI Calculated 2021-04-07 18:14:00 [facility] [place] Systolic (mm Hg) 2021-02-28 15:27:00 [facility] Diastolic (mm Hg) 2021-02-28 15:27:00 Mem [facility] Heart Rate 2021-02-28 15:27:00 [facility] Respitory Rate 2021-02-28 15:27:00 [facility] [place] Height 2021-02-28 15:27:00 157.48 cm [facility] Weight 2021-02-28 15:27:00 [facility] BMI Calculated 2021-02-28 15:27:00 [facility] [place] Procedures Procedure Date / Time Performing Clinician Source Performed CONSENT/REFUSAL FOR 2019-08-16 15:08:04 Doctor Unassigned, No [facility] DIAGNOSIS AND TREATMENT Name Medical Branch ASSIGNMENT OF BENEFITS 2019-08-16 15:07:46 Doctor Unassigned, No [facility] Name [facility] POTASSIUM SERUM 2019-07-13 15:55:00 Karley Michele [facility] COMP. METABOLIC PANEL 2019-07-06 22:51:00 Adrian Davis [facility] ([id number]) Medical Branch CONSENT/REFUSAL FOR 2019-07-06 22:29:03 Doctor Unassigned, No Un [facility] DIAGNOSIS AND TREATMENT Name [facility] ASSIGNMENT OF BENEFITS 2019-07-06 22:28:43 Doctor Unassigned, No [facility] Name [facility] Mastectomy [facility] [place] Gallbladder operation [facility] H ermann Hysterectomy [facility] Knee replacement [facility] n Encounters Start End Encounter Admission Attending Care Care Encounter Source Date/Time Date/Time Type Type Clinicians Facility Department ID 2022-01-[address] [facility] [id number] Common 08:35:01 [facility] 2021-07-[address] [facility] [id number] Common 13:13:58 [id number] [facility] 2021-04-17 Outpatient Thierry DAVIS MTARLEEN CAMILO [id number] Univers 10:47:31 ADRIAN perez [facility] 2022-10-20 2022-10-20 Outpatient MHIE MHIE [id number] Memoria 09:45:00 09:45:00 05 storm [place] 2022-10-20 2022-10-20 Outpatient MHIE MHIE [id number] Memoria 09:45:00 09:45:00 05 storm [place] 2022-01-27 2022-01-28 Outpatient nullFlavo MNA [id number] Memoria 14:45:00 04:59:59 r Neurology 04 l Dewayne [place] 2022-01-27 2022-01-28 Outpatient nullFlavo MNA [id number] Memoria 14:45:00 04:59:59 r Neurology 04 l Dewayne [place] 2022-01-27 2022-01-27 Outpatient YI Mendez MHMISCHER [id number] 09:45:00 23:59:59 Julian 04 Aniket 2022-01-27 2022-01-27 Outpatient MHIE MHIE [id number] Memoria 09:45:00 09:45:00 04 [place] 2022-01-08 2022-01-[address] [facility] [id number] mmon 00:00:00 00:00:00 VISIT EST Spir it PT LEVEL 3 - [facility] 2021-10-16 2021-10-16 OFFICE [facility] [id number] Co mmon 00:00:00 00:00:00 VISIT EST Spir it PT LEVEL 3 - [facility] 2021-07-22 2021-07-23 Outpatient nullFlavo MNA [id number] Memoria 15:45:00 05:59:59 r Neurology 03 tsorm [place] 2021-07-22 2021-07-23 Outpatient nullFlavo MNA [id number] Memoria 15:45:00 05:59:59 r Neurology 03 l Dewayne [place] 2021-07-22 2021-07-22 Outpatient Vanessa MHMISCHER MHMISCHER [id number] 09:45:00 23:59:59 Julian 03 Aniket 2021-07-22 2021-07-22 Outpatient MHIE MHIE [id number] Memoria 09:45:00 09:45:00 03 storm [place] 2021-05-20 2021-05-21 Outpatient nullFlavo MNA [id number] Memoria 16:30:00 05:59:59 r Neurology 02 storm [place] 2021-05-20 2021-05-21 Outpatient nullFlavo MNA [id number] Memoria 16:30:00 05:59:59 r Neurology 02 [place] 2021-05-20 2021-05-20 Outpatient RICHARD MendezARSCHER MISCHER [id number] 10:30:00 23:59:59 Julian 02 Aniket 2021-05-20 2021-05-20 Outpatient MHIE MHIE [id number] Memoria 10:30:00 10:30:00 02 [place] 2021-04-07 2021-04-08 Outpatient nullFlavo MNA [id number] Memoria 18:00:00 04:59:59 r Neurology 01 storm [place] 2021-04-07 2021-04-08 Outpatient nullFlavo MNA [id number] Memoria 18:00:00 04:59:59 r Neurology 01 storm [place] 2021-04-07 2021-04-07 Outpatient Vanessa MHMISCHER MHMISCHER [id number] 13:00:00 23:59:59 Julian Aniket 2021-04-07 2021-04-07 Outpatient MHIE MHIE [id number] Memoria 13:00:00 13:00:00 01 l Rigoberto 2021-02-28 2021-03-01 Outpatient nullFlavo MNA [id number] Memoria 15:30:00 04:59:59 r Neurology 00 l Dewayne Camposann 2021-02-28 2021-03-01 Outpatient nullFlavo MNA [id number] Memoria 15:30:00 04:59:59 r Neurology 00 l Dewayne Rigoberto 2021-02-28 2021-02-28 Outpatient Vanessa, MISCHER MHMISCHER [id number] 10:30:00 23:59:59 Julian 00 Aniket 2021-02-28 2021-02-28 Outpatient MHIE MHIE [id number] Memoria 10:30:00 10:30:00 00 l Rigoberto 2020-12-02 2020-12-02 Outpatient STLMLC STLMLC [id number] Common 00:00:00 00:00:00 Spirit - [facility] 2020-09-15 2020-09-15 Outpatient [facility] [id number] Univers 12:25:00 12:25:00 [facility] 2020-08-18 2020-08-18 Outpatient Thierry LUKE, [facility] [id number] Univers 12:15:00 12:15:00 FLORI [facility] 2019-11-16 2019-11-16 [facility] [id number] Common 08:00:00 08:00:00 t Bone Bone and Spiri t and Joint Joint - [facility] 2019-08-17 2019-08-17 [facility] [id number] 08:50:00 11:10:00 Encounter Adrian Stein [id number] [place] 4.2.7.2.686 Surgical [id number] Marydel 071 2019-08-17 2019-08-17 [facility] [id number] Univers 08:50:00 11:10:00 Encounter Adrian Stein [id number] [place] [id number] [facility] 071 [place] 2019-07-13 2019-07-13 [facility] [id number] Univers 09:06:00 11:35:00 Encounter Adrian Stein [id number] [place]y [place] [id number] [address] 2019-07-13 2019-07-13 [facility] 1.2.840.114 [id number] 09:06:00 11:35:00 Encounter Adrian Stein 350.1.13.10 [place] 4.2.7.2.686 Surgical [id number] [place] [address] 2019-07-13 2019-07-13 Anesthesia Harrison, [facility] 1.2.840.114 [id number] [facility] 10:38:00 11:02:00 Gio Stein 350.1.13.10 [place]y [place] [id number] [facility] 020 [place] 2019-07-13 2019-07-13 Anesthesia [facility] 1.2.840.114 [id number] 10:38:00 11:02:00 Gio Stein 350.1.13.10 [place] 4.2.7.2.686 Surgical [id number] [place] [address] 2019-07-06 2019-07-06 Insole Doubler 1, Adc Lab [facility] 1.2.840.114 [id number] [facility] 16:31:52 16:46:52 Visit MichaelAdrian geiger 350.1.1 3.10 [place] [id number] [address] 2019-07-06 2019-07-06 Insole Doubler 1, Adc Lab [facility] 1.2.840.114 [id number] 16:31:52 16:46:52 Visit Sarita 350.1.13.10 [place] 4.2.7.2.686 [place] [id number] [facility] 2019-07-06 2019-07-06 Orders Doctor ALEXANDR 1.2.840.114 [id number] Univers 00:00:00 00:00:00 Only Unassigned, JADA 350.1.13.10 ity [place] [facility] 4.2.7.2.686 [place] [id number] [place] [address] Branch 2019-05-15 2019-05-15 Outpatient [facility] [id number] Common 08:00:00 08:00:00 t Bone Bone and Spiri t and Joint Joint - [facility] 2019-03-30 2019-03-30 [facility] [id number] Common 11:09:00 11:09:00 t Bone Bone and Spiri t and Joint Joint - [facility] 2019-02-13 2019-02-13 Out[facility] [id number] Common 08:00:00 08:00:00 t Bone Bone and Spiri t and Joint Joint - [facility] 2019-01-05 2019-01-05 Out[facility] [id number] Common 09:30:00 09:30:00 t Bone Bone and Spiri t and Joint Joint - [facility] 2019-01-02 2019-01-02 Out[facility] [id number] Common 08:00:00 08:00:00 t Bone Bone and Spiri t and Joint Joint - [facility] 2018-12-19 2018-12-19 Out[facility] [id number] Common 16:26:00 16:26:00 t Bone Bone and Spiri t and Joint Joint - [facility] 2018-12-19 2018-12-19 [facility] [id number] Common 11:40:00 11:40:00 t Bone Bone and Spiri t and Joint Joint - [facility] 2018-12-15 2018-12-15 [facility] [id number] Common 13:35:00 13:35:00 t Bone Bone and Spiri t and Joint [facility] - [facility] 2018-12-12 2018-12-12 Out[facility] [id number] Common 08:30:00 08:30:00 t Bone Bone and Spiri t and Joint Joint - [facility] 2018-12-08 2018-12-08 Out[facility] [id number] Common 08:39:00 08:39:00 t Bone Bone and Spiri t and Joint Joint - [facility] 2018-12-07 2018-12-07 Out[facility] [id number] Common 09:40:00 09:40:00 t Bone Bone and Spiri t and Joint Joint - [facility] 2018-12-07 2018-12-07 [facility] [id number] Common 08:00:00 08:00:00 t Bone Bone and Spiri t and Joint Joint - [facility] 2018-11-03 2018-11-03 Out[facility] [id number] Common 09:40:00 09:40:00 t Bone Bone and Spiri t and Joint Joint - [facility] 2018-10-25 2018-10-25 Out[facility] [id number] Common 08:00:00 08:00:00 t Bone Bone and Spiri t and Joint Joint - [facility] 2018-10-24 2018-10-24 Out[facility] [id number] Common 09:37:00 09:37:00 t Bone Bone and Spiri t and Joint [facility] - [facility] 2018-10-24 2018-10-24 Out[facility] [id number] Common 08:25:00 08:25:00 t Bone Bone and Spiri t and Joint Joint - [facility] 2018-10-20 2018-10-20 Out[facility] [id number] Common 13:30:00 13:30:00 t Bone Bone and Spiri t and Joint Joint - [facility] 2018-08-22 2018-08-22 Out[facility] [id number] Common 11:03:00 11:03:00 t Bone Bone and Spiri t and Joint Joint - [facility] 2018-08-18 2018-08-18 Out[facility] [id number] Common 15:59:00 15:59:00 t Bone Bone and Spiri t and Joint Joint - [facility] 2018-08-15 2018-08-15 Out[facility] [id number] Common 08:00:00 08:00:00 t Bone Bone and Spiri t and Joint Joint - [facility] 2018-02-17 2018-02-17 Outpatient [facility] [id number] Common 09:00:00 09:00:00 t Bone Bone and Spiri t and Joint Joint - [facility] Results Test Description Test Time Test Comments Results Result Comments Source HEMATOLOGY 2021-03-01 13:39:00 Test Item Value Reference Range Interpretation Comme nts Neutrophils # (test code = Neutrophils #) 3430 7305-[address] [facility] [facility]mucpqmDQJLDXPQVJ6508-55-75 13:39:00 Test Item Value Reference Range Interpretation Comments Lymphocytes # (test code = Lymphocytes 2061 850-3900 #) [facility] HospitalCcucownCUGCBRPCQO9265-17-05 13:39:00 Test Item Value Reference Range Interpretation Comments Monocytes # (test code = Monocytes #) 646 200-[address] [facility] [facility] HospitalTjreahhCBYPNEJMEW3010-68-29 13:39:00 Test Item Value Reference Range Interpretation Comments Eosinophils # (test code = Eosinophils 192 15-500 #) [facility] HospitalPmusfppQKFULMXGUL9899-42-28 13:39:00 Test Item Value Reference Range Interpretation Comments Basophils # (test code 70 See_Comment [Aut omated message] The = Basophils #) system which generated this result tra nsmitted reference range : <=200. The reference r sharon was not used to int erpret this result as normal/abnormal . [facility] HospitalOaqbetfMYLWTJQTFV0176-60-89 13:39:00 Test Item Value Reference Range Interpretation Comments Segs (test code = Segs) 53.6 [place] 937511-09-11 13:39:00 Test Item Value Reference Range Interpretation Comments Lymphocytes (test code = Lymphocytes) 32.2 [place] 937511-09-11 13:39:00 Test Item Value Reference Range Interpretation Comments Monocytes (test code = Monocytes) 10.1 [place] 937511-09-11 13:39:00 Test Item Value Reference Range Interpretation Comments Eosinophils (test code = Eosinophils) 3.0 [place] 937511-09-11 13:39:00 Test Item Value Reference Range Interpretation Comments Basophils (test code = Basophils) 1.1 [place] 15[address]-09-11 13:39:00 Test Item Value Reference Range Interpretation Comments Sed Rate (test code = Sed Rate) 22 [facility]2021-09-11 13:39:00 Test Item Value Reference Range Interpretation Comments Vitamin B12 Lvl (test code = Vitamin 573 116-3171 B12 Lvl) [place] 634501-09-11 13:39:00 Test Item Value Reference Range Interpretation Comments Glucose Lvl (test code = Glucose Lvl) 99 65-99 [place] 634501-09-11 13:39:00 Test Item Value Reference Range Interpretation Comments BUN (test code = BUN) 16 7-25 [place] 634501-09-11 13:39:00 Test Item Value Reference Range Interpretation Comments Creatinine Lvl (test code = Creatinine 0.65 0.60-0.93 Lvl) [place] 634501-09-11 13:39:00 Test Item Value Reference Range Interpretation Comments eGFR NON-AFR. CANADIAN (test code = 87 eGFR NON-AFR. CANADIAN) [place] 634501-09-11 13:39:00 Test Item Value Reference Range Interpretation Comments eGFR (test code = eGFR 101 ) [place] 634501-09-11 13:39:00 Test Item Value Reference Range Interpretation Comments B/C Ratio (test code = B/C NOT APPLICABLE 12-10 Ratio) [place] 634501-09-11 13:39:00 Test Item Value Reference Range Interpretation Comments Sodium Lvl (test code = Sodium Lvl) 137 135-146 [place] 448751-09-11 13:39:00 Test Item Value Reference Range Interpretation Comments Vitamin B12 Lvl (test code = Vitamin 052 653-4868 B12 Lvl) [place] 634501-09-11 13:39:00 Test Item Value Reference Range Interpretation Comments Glucose Lvl (test code = Glucose Lvl) 99 65-99 [place] 634501-09-11 13:39:00 Test Item Value Reference Range Interpretation Comments BUN (test code = BUN) 16 7-25 [place] 634501-09-11 13:39:00 Test Item Value Reference Range Interpretation Comments Creatinine Lvl (test code = Creatinine 0.65 0.60-0.93 Lvl) [place] 634501-09-11 13:39:00 Test Item Value Reference Range Interpretation Comments eGFR NON-AFR. CANADIAN (test code = 87 eGFR NON-AFR. [place]DIAN) [place] 634501-09-11 13:39:00 Test Item Value Reference Range Interpretation Comments eGFR (test code = eGFR 101 ) [place] 634501-09-11 13:39:00 Test Item Value Reference Range Interpretation Comments B/C Ratio (test code = B/C NOT APPLICABLE 622 Ratio) [place] 634501-09-11 13:39:00 Test Item Value Reference Range Interpretation Comments Sodium Lvl (test code = Sodium Lvl) 137 135-146 [place] 634501-09-11 13:39:00 Test Item Value Reference Range Interpretation Comments Potassium Lvl (test code = Potassium 4.2 3.5-5.3 Lvl) [place] 634501-09-11 13:39:00 Test Item Value Reference Range Interpretation Comments Chloride Lvl (test code = Chloride Lvl) 102 98-110 [place] 634501-09-11 13:39:00 Test Item Value Reference Range Interpretation Comments CO2 (test code = CO2) 22 20-32 [place] 634501-09-11 13:39:00 Test Item Value Reference Range Interpretation Comments Calcium Lvl (test code = Calcium Lvl) 9.2 8.6-10.4 [place] 634501-09-11 13:39:00 Test Item Value Reference Range Interpretation Comments Potassium Lvl (test code = Potassium 4.2 3.5-5.3 Lvl) [place] 634501-09-11 13:39:00 Test Item Value Reference Range Interpretation Comments Total Protein (test code = Total 6.9 6.1-8.1 Protein) [place] 634501-09-11 13:39:00 Test Item Value Reference Range Interpretation Comments Albumin Lvl (test code = Albumin Lvl) 3.9 3.6-5.1 [place] 634501-09-11 13:39:00 Test Item Value Reference Range Interpretation Comments Globulin (test code = Globulin) 3.0 1.9-3.7 [place] 634501-09-11 13:39:00 Test Item Value Reference Range Interpretation Comments A/G Ratio (test code = A/G Ratio) 1.3 1.0-2.5 [place] 634501-09-11 13:39:00 Test Item Value Reference Range Interpretation Comments Bili Total (test code = Bili Total) 0.9 0.2-1.2 [place] 634501-09-11 13:39:00 Test Item Value Reference Range Interpretation Comments Alk Phos (test code = Alk Phos) 111 37-153 [place] 634501-09-11 13:39:00 Test Item Value Reference Range Interpretation Comments ASPARTATE TRANSAMINASE (test code = 23 10-35 ASPARTATE TRANSAMINASE) [place] 634501-09-11 13:39:00 Test Item Value Reference Range Interpretation Comments ALANINE AMINOTRANSFERASE (test code = 20 6-29 ALANINE AMINOTRANSFERASE) [place] 937511-09-11 13:39:00 Test Item Value Reference Range Interpretation Comments WBC X 10x3 (test code = WBC X 10x3) 6.4 3.8-10.8 [place] 937511-09-11 13:39:00 Test Item Value Reference Range Interpretation Comments RBC X 10x6 (test code = RBC X 10x6) 4.32 3.80-5.10 [place] 937511-09-11 13:39:00 Test Item Value Reference Range Interpretation Comments Hgb (test code = Hgb) 12.6 11.7-15.5 [place] 937511-09-11 13:39:00 Test Item Value Reference Range Interpretation Comments Hct (test code = Hct) 38.5 35.0-45.0 [place] [address]-09-11 13:39:00 Test Item Value Reference Range Interpretation Comments MCV (test code = MCV) 89.1 80.0-100.[address] [facility] HospitalJycjwudLQYKMPJTQA9429-94-39 13:39:00 Test Item Value Reference Range Interpretation Comments MCH (test code = MCH) 29.2 pg 27.0-33.[address] [facility] HospitalNopjllmUFATWXDOAM8111-66-78 13:39:00 Test Item Value Reference Range Interpretation Comments MCHC (test code = MCHC) 32.7 32.0-36.[address] [facility] HospitalEqslkweORQNHCAGKB8246-92-93 13:39:00 Test Item Value Reference Range Interpretation Comments RDW (test code = RDW) 13.1 11.0-15.[address] [facility] [facility] HospitalDpmzsbdORCSERVJKS3359-88-57 13:39:00 Test Item Value Reference Range Interpretation Comments Platelet (test code = Platelet) 290 140-[address] [facility] HospitalJcdrjqoAZWSKSILOB6325-46-80 13:39:00 Test Item Value Reference Range Interpretation Comments MPV (test code = MPV) 10.6 7.5-12.[address] [facility] [facility] HospitalCawnqbhLFDAQGSIIE5645-06-79 13:39:00 Test Item Value Reference Range Interpretation Comments Neutrophils # (test code = Neutrophils 3430 3900-1498 #) [facility] HospitalZrpdlqiKIXIPRGOBT9641-17-53 13:39:00 Test Item Value Reference Range Interpretation Comments Lymphocytes # (test code = Lymphocytes 2061 850-3900 #) [facility] HospitalOehtoecNZXHQLHKAO0395-85-97 13:39:00 Test Item Value Reference Range Interpretation Comments Monocytes # (test code = Monocytes #) 646 200-[address] [facility] [facility] HospitalDfwboqsHQFRZRVYKS7923-62-70 13:39:00 Test Item Value Reference Range Interpretation Comments Eosinophils # (test code = Eosinophils 192 15-500 #) [facility] HospitalVzxqveaKQKVZVRSVL2216-09-86 13:39:00 Test Item Value Reference Range Interpretation Comments Basophils # (test code 70 See_Comment [Aut omated message] The = Basophils #) system which generated this result tra nsmitted reference range : <=200. The reference r sharon was not used to int erpret this result as normal/abnormal . [facility] HospitalMuetmweEERZOGKUHQ8280-90-47 13:39:00 Test Item Value Reference Range Interpretation Comments Segs (test code = Segs) 53.6 [place] [address]-09-11 13:39:00 Test Item Value Reference Range Interpretation Comments Lymphocytes (test code = Lymphocytes) 32.2 [place] 937511-09-11 13:39:00 Test Item Value Reference Range Interpretation Comments Monocytes (test code = Monocytes) 10.1 [place] 937511-09-11 13:39:00 Test Item Value Reference Range Interpretation Comments Eosinophils (test code = Eosinophils) 3.0 [place] 937511-09-11 13:39:00 Test Item Value Reference Range Interpretation Comments Basophils (test code = Basophils) 1.1 [place] 937511-09-11 13:39:00 Test Item Value Reference Range Interpretation Comments Sed Rate (test code = Sed Rate) 22 [place] 634501-09-11 13:39:00 Test Item Value Reference Range Interpretation Comments Chloride Lvl (test code = Chloride Lvl) 102 98-110 [facility]2021-09-11 13:39:00 Test Item Value Reference Range Interpretation Comments CO2 (test code = CO2) 22 20-32 [facility]2021-09-11 13:39:00 Test Item Value Reference Range Interpretation Comments Calcium Lvl (test code = Calcium Lvl) 9.2 8.6-10.4 [facility]2021-09-11 13:39:00 Test Item Value Reference Range Interpretation Comments Total Protein (test code = Total 6.9 6.1-8.1 Protein) [facility]2021-09-11 13:39:00 Test Item Value Reference Range Interpretation Comments Albumin Lvl (test code = Albumin Lvl) 3.9 3.6-5.1 [facility]2021-09-11 13:39:00 Test Item Value Reference Range Interpretation Comments Globulin (test code = Globulin) 3.0 1.9-3.7 [place] 634501-09-11 13:39:00 Test Item Value Reference Range Interpretation Comments A/G Ratio (test code = A/G Ratio) 1.3 1.0-2.5 [place] 634501-09-11 13:39:00 Test Item Value Reference Range Interpretation Comments Bili Total (test code = Bili Total) 0.9 0.2-1.2 [place] 634501-09-11 13:39:00 Test Item Value Reference Range Interpretation Comments Alk Phos (test code = Alk Phos) 111 37-153 [facility]2021-09-11 13:39:00 Test Item Value Reference Range Interpretation Comments ASPARTATE TRANSAMINASE (test code = 23 10-35 ASPARTATE TRANSAMINASE) [place] 634501-09-11 13:39:00 Test Item Value Reference Range Interpretation Comments ALANINE AMINOTRANSFERASE (test code = 20 6-29 ALANINE AMINOTRANSFERASE) [facility] [id number] 13:39:00 Test Item Value Reference Range Interpretation Comments WBC X 10x3 (test code = WBC X 10x3) 6.4 3.8-10.8 [place] [id number] 13:39:00 Test Item Value Reference Range Interpretation Comments RBC X 10x6 (test code = RBC X 10x6) 4.32 3.80-5.[address] [facility] [id number] 13:39:00 Test Item Value Reference Range Interpretation Comments Hgb (test code = Hgb) 12.6 11.7-15.[address] [facility] HospitalEecgodhFHHCCSKHHD9813-04-03 13:39:00 Test Item Value Reference Range Interpretation Comments Hct (test code = Hct) 38.5 35.0-45.[address] [facility] [id number] 13:39:00 Test Item Value Reference Range Interpretation Comments MCV (test code = MCV) 89.1 80.0-100.0 [place] [id number] 13:39:00 Test Item Value Reference Range Interpretation Comments MCH (test code = MCH) 29.2 pg 27.0-33.[address] [facility] [id number] 13:39:00 Test Item Value Reference Range Interpretation Comments MCHC (test code = MCHC) 32.7 32.0-36.0 [place] [id number] 13:39:00 Test Item Value Reference Range Interpretation Comments RDW (test code = RDW) 13.1 11.0-15.0 [place] [id number] 13:39:00 Test Item Value Reference Range Interpretation Comments Platelet (test code = Platelet) 290 140-[address] [facility] [id number] 13:39:00 Test Item Value Reference Range Interpretation Comments MPV (test code = MPV) 10.6 7.5-12.5 [facility] [id number] 16:41:00 Test Item Value Reference Range Interpretation Comments K (test code = 4240338441) 4.7 mmol/L 3.5-5 S light hemolysis Lab Interpretation (test Normal code = 14221-5) [facility]. METABOLIC PANEL (29306)2019-07-07 00:03:00 Test Item Value Reference Range Interpretation Comments NA (test code = 139 mmol/L 135-145 0137613816) K (test code = 5.7 mmol/L 3.5-5 H 5046295555) CL (test code = 102 mmol/L 98-108 4851804977) CO2 TOTAL (test code = 22 mmol/L 23-31 L 1950208757) AGAP (test code = 2-16 8926949740) BUN (test code = 24 mg/dL 7-23 H 8744573211) GLUCOSE (test code = 89 mg/dL 70-110 2497184479) CREATININE (test code = 0.64 mg/dL 0.5-1.04 9651167941) TOTAL BILI (test code = 0.4 mg/dL 0.1-1.4 3285643462) CALCIUM (test code = 10.4 mg/dL 8.6-10.6 5622876106) T PROTEIN (test code = 8.3 g/dL 6.3-8.2 H 2863189559) ALBUMIN (test code = 4.8 g/dL 3.5-5 6724767290) ALK PHOS (test code = 137 U/L 34-122 H 8553348276) ALTv (test code = 34 U/L 5-35 1742-6) AST(SGOT) (test code = 45 U/L 13-40 H 3626462633) eGFR Calculation mL/min/1.73m2 (Non-) (test code = 2211284374) eGFR Calculation mL/min/1.73m2 () (test code = 4644031067) MAGALI (test code = MAGALI) Association of [...] tests). Lab Interpretation Abnormal (test code = 01910-3) [facility]"
[2022-06-21] MEDS ORDERED: ACETAMINOPHEN 325 MG TABLET ONE (14:16)
--- NOTE | 2022-06-21 15:06 | RAD REPORT ---
EXAM DESCRIPTION: CT - CTHCSPWOC - 06/21/2022 2:34 pm CLINICAL HISTORY: fall, head injury COMPARISON: Head C Spine Mpr Wo Con dated 04/23/2020 TECHNIQUE: Axial 5 mm thick images of the head were obtained. Axial 2 mm thick images of the cervic al spine were obtained with sagittal and coronal reconstruction images generated and reviewed. All CT scans are performed using dose optimization technique as appropriate and may include automated exposure control or mA/KV adjustment according to patient size. FINDINGS: No intracranial hemorrhage, mass, edema or acute intracranial finding. No acute cortical b ased infarction, cortical edema or sulcal effacement. Mild to moderate bifrontal atrophy changes are present. Ventricles are in proportion to any volume loss. Chronic ischemic changes in the cerebral wh ite matter are minimal. No extra-axial fluid collections. Mastoid air cells are clear. There appear t o be postsurgical changes to the right-side mastoid air cells. Mucosal thickening with minimal air-fl uid level seen in the left maxillary sinus. Facial bones, orbits and sinuses are separately detailed. Moderate-sized right supraorbital scalp hematoma. Underlying bone is intact. Cervical bodies are normal in height. There is minimal anterior subluxation of C2 on C3 secondary to prominent facet joint degenerative change. Alignment is otherwise normal. C3-4 through C6-7 disc spac es are narrowed. Endplate spurring is seen. Bony foraminal encroachment is minimal. No fracture or ac shahzad bony abnormality. Central canal detail is inherently limited. No paraspinal mass or hematoma. IMPRESSION: No hemorrhage, edema or acute intracranial finding identifiable. Moderately large right lateral super orbital scalp hematoma present with underlying bone intact. Faci al bones, orbits and sinuses are separately detailed. Cervical spine degenerative change with no acute finding.
--- NOTE | 2022-06-21 15:12 | RAD REPORT ---
EXAM DESCRIPTION: CT - Orbits Wo Con W/ Mpr - 06/21/2022 2:33 pm CLINICAL HISTORY: Fall, facial trauma COMPARISON: CT head and cervical same date TECHNIQUE: Axial 2 mm thick images of the orbits were obtained. Coronal and sagittal reformatted geraldine ges were reviewed. All CT scans are performed using dose optimization technique as appropriate and may include automated exposure control or mA/KV adjustment according to patient size. FINDINGS: A moderately large scalp hematoma is seen along the superolateral right periorbital soft t issues. Underlying bone is intact. No globe or orbital content abnormality identifiable. Bony orbits are intact. Mucosal thickening seen in the left maxillary sinus. A small air-fluid level is present. The air-fluid level is not suspected to be trauma related. No displaced nasal bone fracture. Imaged p ortions of the facial bones are intact. Left mandibular condyle abuts the articular eminence rather t harper the fossa. This positioning was seen on prior imaging as well. No acute mastoid air cell finding. Right-side mastoid air cells are very small there is a normal vari ant or has surgically altered. No acute process seen. IMPRESSION: Moderately large right superior lateral supraorbital scalp hematoma with intact underlyi ng bone. No globe or orbital content injury identifiable.
--- NOTE | 2022-06-21 15:26 | ER ---
Nurse's Notes [facility] Name: Dennis Dawn Age: 76 yrs Sex: Female : 1945 Arrival Date: 06/21/2022 Time: 13:44 Bed 16 Private MD: Diagnosis: facial contusion;frequent falls Presentation: 06/21 14:01 Chief complaint: EMS states: client fell in the bathroom and hit her head. no LOC, no kc6 blood thinners. Care prior to arrival: IV initiated. 22 GA, in the right hand. Mechanism of Injury: Fall from standing position. Trauma event details: Injury occurred in the [facility], Injury occurred: at home. Injury occurred: June 21, 2022. 14:01 Acuity: ZAYNAB 3 kc6 14:01 Method Of Arrival: EMS: [facility] kc6 14:11 Coronavirus screen: Vaccine status: Patient reports receiving the 2nd dose of the covid kc6 vaccine. At this time, the client does not indicate any symptoms associated with coronavirus-19. Ebola Screen: No symptoms or risks identified at this time. Initial Sepsis Screen: Does the patient meet any 2 criteria? No. Patient's initial sepsis screen is negative. Does the patient have a suspected source of infection? No. Patient's initial sepsis screen is negative. Risk Assessment: Do you want to hurt yourself or someone else? Patient reports no desire to harm self or others. Onset of symptoms was June 21, 2022. Trauma Activation: Alert Physician: ED Physician; Name: Tray; Notified At: ; Arrived At: Physician: General Surgeon; Name: ; Notified At: ; Arrived At: Physician: Radiology; Name: ; Notified At: ; Arrived At: Physician: Respiratory; Name: ; Notified At: ; Arrived At: Physician: Lab; Name: ; Notified At: ; Arrived At: Historical: - Allergies: 14:00 Morphine; kc6 - Home Meds: 14:16 omeprazole 40 mg oral cpDR [Active]; promethazine 25 mg oral tab [Active]; aspirin 81 kc6 mg oral cap [Active]; Myrbetriq 25 mg oral Tb24 [Active]; paroxetine 10mg [Active]; sucralfate 1 gram oral tab [Active]; losartan 50 mg oral tab [Active]; memantine 10 mg oral tab [Active]; - PMHx: 14:00 Chronic obstructive lung disease; GERD; herniated disc in neck; hiatal hernia; kc6 Hypertensive disorder; Gastroesophageal reflux disease; osteomyelitis; 14:16 Anxiety; kc6 - PSHx: 14:00 Cholecystectomy; kc6 - Immunization history: Last tetanus immunization: - up to date. - Social history:: Smoking status: Patient denies any tobacco usage or history of. Screenin:10 Abuse screen: Denies threats or abuse. Denies injuries from another. Tuberculosis kc6 screening: No symptoms or risk factors identified. 14:12 [facility] ED Fall Risk Assessment (Adult) History of falling in the last 3 months, kc6 including since admission Yes- single mechanical fall (1 pt) Confusion or Disorientation No (0 pts) Intoxicated or Sedated No (0 pts) Impaired Gait No (0 pts) Mobility Assist Device Used No (0 pt) Altered Elimination No (0 pt) Score/Fall Risk Level 0 - 2 = Low Risk Oriented to surroundings, Maintained a safe environment, Educated pt \T\ family on fall prevention, incl call for assistance when getting out of bed, Assessed \T\ reinforced patient's understanding of fall precautions, Provided non-skid footwear, Hourly rounding (assess needs \T\ fall precautionary measures) done, Used ambulatory aids as needed (educated on \T\ assisted with), Used gait belt as appropriate. Nutritional screening: No deficits noted. Primary Survey: 14:06 NO uncontrolled hemorrhage observed. A: The client is awake and alert. The airway is kc6 patent. Airway: patent, No supplemental oxygen in use on arrival. Oral cavity: clear, Trachea midline. Breathing/Chest: Spontaneous respiratory effort, equal unlabored respirations, breath sounds clear bilaterally, regular pattern, symmetrical chest rise and fall. Circulation: No external hemorrhage present. Regular and strong central pulse, skin warm/dry/normal color. Disability Pupils are equal, round, reactive to light and accommodation. Exposure/Environment: There is no evidence of uncontrolled external bleeding. No obvious injuries are noted at this time. A warming method has been applied: A warm blanket has been provided to the patient. Reassessment Breathing: Spontaneous respiratory effort, equal unlabored respirations, breath sounds clear bilaterally, regular pattern with symmetrical chest rise and fall. Circulation: No external hemorrhage noted. Regular and strong central pulse, skin warm/dry/normal color. Disability: Pupils Pupils are equal, round, reactive to light and accomodation. Secondary Survey: 14:08 HEENT: Head Other bruise noted to the right forehead Eyes: No injury or deformity kc6 noted. to bilateral eyes. Ears: clear bilaterally. Nose: clear to bilateral nares. Throat: No injury or deformity noted. is clear. Gastrointestinal: No deficits noted. : No signs and/or symptoms were reported regarding the genitourinary system. Musculoskeletal: No signs and/or symptoms reported regarding the musculoskeletal system. Assessment: 13:42 General: Appears in no apparent distress. comfortable, Behavior is calm, cooperative, kc6 appropriate for age. Pain: Complains of pain in right forehead. Neuro: Parisi Agitation-Sedation Scale (RASS): 0 - Alert and Calm Level of Consciousness is awake, alert, obeys commands, Oriented to person, place, time, situation, Appropriate for age. EENT: No signs and/or symptoms were reported regarding the EENT system. Cardiovascular: Heart tones S1 S2 present Capillary refill < 3 seconds. Respiratory: Airway is patent Trachea midline Respiratory effort is even, unlabored, Respiratory pattern is regular, symmetrical, Breath sounds are clear bilaterally. GI: No signs and/or symptoms were reported involving the gastrointestinal system. : No signs and/or symptoms were reported regarding the genitourinary system. Derm: No signs and/or symptoms reported regarding the dermatologic system. Skin is intact, Skin is pink, warm \T\ dry. Musculoskeletal: No signs and/or symptoms reported regarding the musculoskeletal system. Circulation, motion, and sensation intact. Capillary refill < 3 seconds, Range of motion: intact in all extremities. Injury Description: Bruise sustained to right forhead. 14:42 Reassessment: Patient appears in no apparent distress at this time. No changes from kc6 previously documented assessment. Patient and/or family updated on plan of care and expected duration. Pain level reassessed. Patient is alert, oriented x 3, equal unlabored respirations, skin warm/dry/pink. Vital Signs: 14:09 BP 126 / 73; Pulse 60; Resp 18 S; Temp 97.9(O); Pulse Ox 98% on R/A; Weight 77.11 kg kc6 (R); Height 5 ft. 4 in. (162.56 cm) (R); Pain 6/10; 14:09 Body Mass Index 29.18 (77.11 kg, 162.56 cm) kc6 Redmon Coma Score: 14:09 Eye Response: spontaneous(4). Verbal Response: oriented(5). Motor Response: obeys kc6 commands(6). Total: 15. Trauma Score (Adult): 14:09 Eye Response: spontaneous(1); Verbal Response: oriented(1); Motor Response: obeys kc6 commands(2); Systolic BP: 50 to 75 mm Hg(2); Respiratory Rate: 10 to 29 per min(4); Haresh Score: 15; Trauma Score: 10 NIH Stroke Scale Scores: 14:38 NIHSS Score: 3 en ED Course: 13:44 Patient arrived in ED. rn 13:44 Deni Feliz MD is Attending Physician. rn 13:47 Bessie Yu PA is PHCP. en 13:59 Belén Cedeno, WINSOME is Primary Nurse. kc6 14:04 Triage completed. kc6 14:11 Maintain EMS IV. Dressing intact. Good blood return noted. Site clean \T\ dry. Gauge \T\ christina 6 site: 22G right hand. Patient maintains SpO2 saturation greater than 95% on room air. 14:11 Arm band placed on. kc6 14:11 Patient has correct armband on for positive identification. Bed in low position. Call kc6 light in reach. Side rails up X2. 14:12 Thermoregulation: warm blanket given to patient. kc6 14:35 Orbits Wo Con W/ Mpr In Process Unspecified. EDMS 14:36 CT Head C Spine In Process Unspecified. EDMS 15:48 No provider procedures requiring assistance completed. IV discontinued, intact, kc6 bleeding controlled, No redness/swelling at site. Pressure dressing applied. Administered Medications: 14:21 Drug: Tylenol 650 mg Route: PO; kc6 15:49 Follow up: Response: No adverse reaction kc6 Medication: 15:48 VIS not applicable for this client. kc6 Outcome: 15:26 Discharge ordered by . en 15:48 Discharged to home via wheelchair, with significant other. kc6 15:48 Condition: stable 15:48 Discharge instructions given to patient, significant other, Instructed on discharge instructions, Demonstrated understanding of instructions. 15:48 Patient's length of stay was not longer than 2 hours. kc6 15:49 Patient left the ED. kc6 NIH Stroke Scale - NIH Stroke Score Date: 06/21/2022 Time: 14:38 Total Score = 3 1a. Level of Consciousness (LOC) - 0(Alert) 1b. Level of Consciousness (LOC) (Month \T\ Age) - 0(Both) 1c. LOC Commands (Open \T\ Closes Eyes/Customs Investigator) - 0(Both) 2. Best Gaze (Lateral Gaze Paresis) - 0(Normal) 3. Visual Field Loss - 0(No visual loss) 4. Facial Palsy - 1(Minor Paralysis) 5a. Left Arm: Motor (10-second hold) - 0(No drift) 5b. Right Arm: Motor (10-second hold) - 0(No drift) 6a. Left Leg: Motor (5-second hold - always test supine) - 0(No drift) 6b. Right Leg: Motor (5-second hold - always test supine) - 0(No drift) 7. Limb Ataxia (finger/nose \T\ heel/wyatt - test with eyes open) - 0(Absent) 8. Sensory Loss (pinprick arms/legs/face) - 0(Normal) 9. Best Language: Aphasia (description/naming/reading) - 1(Mild to moderate aphasia) 10. Dysarthria (speech clarity - read or repeat words) - 1(Mild to Moderate) 11. Extinction and Inattention (visual/tactile/auditory/spatial/personal) - 0(No abnormality) Initials: en Signatures: Dispatcher [employer] EDDeni Burns MD MD rn Newkirk, Elizabeth, PA PA en Campbell, Kaitlyn RN RN kc6
--- NOTE | 2022-06-21 15:26 | EDPHYS ---
Physician Documentation [facility] Name: Dennis Dawn Age: 76 yrs Sex: Female : 1945 Arrival Date: 06/21/2022 Time: 13:44 Bed 16 Private MD: ED Physician Deni Feliz HPI: 06/21 14:30 This 76 yrs old Female presents to ER via EMS with complaints of fall. 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 Pt has a h/o HTN, GERD , ambulates with en a walker. She got tangled in her feet this morning and fell to the ground. Hit her head on the ground. No LOC. Called EMS for assistance via life alert. Reports right sided YU with bruising around eye. No neck or back pain. Denies vision changes, N/V. No pain in neck, back, or extremities. Denies preceding pre-syncopal sxs. . Historical: - Allergies: 14:00 Morphine; kc6 - Home Meds: 14:16 omeprazole 40 mg oral cpDR [Active]; promethazine 25 mg oral tab [Active]; aspirin 81 kc6 mg oral cap [Active]; Myrbetriq 25 mg oral Tb24 [Active]; paroxetine 10mg [Active]; sucralfate 1 gram oral tab [Active]; losartan 50 mg oral tab [Active]; memantine 10 mg oral tab [Active]; - PMHx: 14:00 Chronic obstructive lung disease; GERD; herniated disc in neck; hiatal hernia; kc6 Hypertensive disorder; Gastroesophageal reflux disease; osteomyelitis; 14:16 Anxiety; kc6 - PSHx: 14:00 Cholecystectomy; kc6 - Immunization history: Last tetanus immunization: - up to date. - Social history:: Smoking status: Patient denies any tobacco usage or history of. ROS: 14:30 Constitutional: Negative for fever, chills, and weight loss. en 14:30 Eyes: Positive for right periorbital bruising and swelling, Negative for blurry vision. 14:30 Neck: Negative for pain with movement. 14:30 Cardiovascular: Negative for chest pain, palpitations. 14:30 Respiratory: Negative for cough, dyspnea on exertion, shortness of breath. 14:30 Back: Negative for decreased range of motion. 14:30 MS/extremity: Negative for decreased range of motion, pain, swelling. 14:30 Neuro: Positive for headache, Negative for loss of consciousness, syncope, near syncope. 14:30 All other systems are negative. Exam: 14:30 Constitutional: This is a well developed, well nourished patient who is awake, alert, en and in no acute distress. 14:30 Constitutional: The patient appears in no acute distress, alert, awake. 14:30 Head/face: Right sided periorbital swelling and ecchymosis with TTP. . 14:30 Eyes: Periorbital structures: swelling, ecchymosis, Pupils: equal, round, and reactive to light and accomodation, Extraocular movements: intact throughout, Conjunctiva: no acute changes. 14:30 Neck: ROM/movement: no acute changes, limited range of motion, is not appreciated. 14:30 Chest/axilla: Inspection: normal, Palpation: tenderness, is not appreciated. 14:30 Cardiovascular: Rate: normal, Pulses: no pulse deficits are appreciated, Heart sounds: normal. 14:30 Respiratory: the patient does not display signs of respiratory distress, Respirations: normal, Breath sounds: are clear throughout. 14:30 Abdomen/GI: Inspection: abdomen appears normal, Bowel sounds: normal. 14:30 Back: pain, is absent, ROM is normal, vertebral tenderness, is not appreciated. 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 14:30 Skin: small skin tear to right wrist. 14:30 Neuro: GCS 15, NIH 3 with mild right facial droop (normal per patient) and slurred speech (also at baseline per pt and EMS) At baseline. . 14:38 Neuro: Orientation: appropriate for stated age, no acute changes, to person, place \\T\\ en time. Mentation: appropriate for stated age, Motor: Vital Signs: 14:09 BP 126 / 73; Pulse 60; Resp 18 S; Temp 97.9(O); Pulse Ox 98% on R/A; Weight 77.11 kg [facility] (R); Height 5 ft. 4 in. (162.56 cm) (R); Pain 6/10; 14:09 Body Mass Index 29.18 (77.11 kg, 162.56 cm) kc6 NIH Stroke Scale Scores: 14:38 NIHSS Score: 3 en Haresh Coma Score: 14:09 Eye Response: spontaneous(4). Verbal Response: oriented(5). Motor Response: obeys kc6 commands(6). Total: 15. Trauma Score (Adult): 14:09 Eye Response: spontaneous(1); Verbal Response: oriented(1); Motor Response: obeys kc6 commands(2); Systolic BP: 50 to 75 mm Hg(2); Respiratory Rate: 10 to 29 per min(4); Wilson Score: 15; Trauma Score: 10 MDM: 13:44 Patient medically screened. rn 14:10 Patient medically screened. en 14:38 Differential diagnosis: closed head injury, C spine fracture, facial fracture. en Mechanical fall without pre-syncopal sxs. Labs were considered but not warranted at this time. Data reviewed: vital signs, nurses notes, old medical records, Pt reports frequent fall and ambulates with a walker. No previous CVA noted in chart. radiologic studies, CT scan. ED course: Additional hx obtained from EMS that reports pt's speech and limited ROM on left are at baseline. . 15:24 ED course: 1500: CT head interpretation" No acute intracranial finding. Will await RADS en read. ED course: CT head, orbits, c-spine reviewed and negative. Will d/c home with fall precautions. 06/21 13:50 Order name: CT Head C Spine; Complete Time: 15:23 en 06/21 14:02 Order name: Orbits Wo Con W/ Mpr; Complete Time: 15:23 EDMS Administered Medications: 14:21 Drug: Tylenol 650 mg Route: PO; kc6 15:49 Follow up: Response: No adverse reaction kc6 Disposition: 15:52 Co-signature as Attending Physician, Deni Feliz MD. rn Disposition Summary: 06/21/22 15:26 Discharge Ordered Location: Home en Problem: new en Symptoms: are unchanged en Condition: Stable en Diagnosis - facial contusion en - frequent falls en Followup: en - With: Private Physician - When: As needed - Reason: Discharge Instructions: - Discharge Summary Sheet en - Facial or Scalp Contusion en - Fall Prevention in the Home, Adult en Forms: - Medication Reconciliation Form en - Thank You Letter en - Antibiotic Education en - Prescription Opioid Use en NIH Stroke Scale - NIH Stroke Score Date: 06/21/2022 Time: 14:38 Total Score = 3 1a. Level of Consciousness (LOC) - 0(Alert) 1b. Level of Consciousness (LOC) (Month \\T\\ Age) - 0(Both) 1c. LOC Commands (Open \\T\\ Closes Eyes/Legal Biller) - 0(Both) 2. Best Gaze (Lateral Gaze Paresis) - 0(Normal) 3. Visual Field Loss - 0(No visual loss) 4. Facial Palsy - 1(Minor Paralysis) 5a. Left Arm: Motor (10-second hold) - 0(No drift) 5b. Right Arm: Motor (10-second hold) - 0(No drift) 6a. Left Leg: Motor (5-second hold - always test supine) - 0(No drift) 6b. Right Leg: Motor (5-second hold - always test supine) - 0(No drift) 7. Limb Ataxia (finger/nose \\T\\ heel/wyatt - test with eyes open) - 0(Absent) 8. Sensory Loss (pinprick arms/legs/face) - 0(Normal) 9. Best Language: Aphasia (description/naming/reading) - 1(Mild to moderate aphasia) 10. Dysarthria (speech clarity - read or repeat words) - 1(Mild to Moderate) 11. Extinction and Inattention (visual/tactile/auditory/spatial/personal) - 0(No abnormality) Initials: en Signatures: Dispatcher [employer] EDMS Deni Feliz MD MD rn Newkirk, Elizabeth, PA PA en Campbell, Kaitlyn, RN RN kc6 Corrections: (The following items were deleted from the chart) 14:02 13:55 Orbit W/Wo ordered. EDMS EDMS 14:40 14:30 Neuro: GCS 15, NIH not applicable. residual right sided weakness and en facial droop from previous CVA. At baseline. 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 Pt has a h/o CVA with en residual weakness and ambulates with a walker. She got tangled in her feet this morning and fell to the ground. Hit her head on the ground. No LOC. Called EMS for assistance via life alert. Reports right sided YU with bruising around eye. No neck or back pain. Denies vision changes, N/V. No pain in neck, back, or extremities. Denies preceding pre-syncopal sxs. . en 14:44 14:30 Neuro: GCS 15, NIH 3 with mild right facial droop (normal per patient) en and slurred speech (also at baseline per pt and EMS) residual right sided weakness and facial droop from previous CVA. At baseline. , en
[2022-06-21 15:53] VITALS: BP 126/73; TEMP 97.9; O2SAT 98
== END 2022-06-21 15:49 | disposition home or self-care (01) ==
LOC: ER 13:44
DX: S00.83XA Contusion of other part of head, initial encounter (principal); R29.6 Repeated falls; I10 Essential (primary) hypertension; J44.9 Chronic obstructive pulmonary disease, unspecified; Z88.5 Allergy status to narcotic agent
CPT/HCPCS: 70450; 70480; 72125; 76377; 99284

== ENCOUNTER 2022-08-03 14:12 | Inpatient (IN) | payer OTHER ==
--- OUTSIDE RECORDS SUMMARY | 2022-08-03 14:17 | XMS REPORT | Continuity of Care Document ---
:1945 Author Organization [facility] t Address [address] [place] [address] Care Team Providers Name Role Phone ADRIAN DAVIS Attending Clinician Unavailable Julian Mendez Attending Clinician FLORI LUKE Attending Clinician Unavailable Adrian Davis MD Attending Clinician Gio Harrison CRNA Attending Clinician 1, [facility] Attending Clinician Unavailable Doctor Unassigned, [place] Attending Clinician Unavailable ADRIAN DAVIS Admitting Clinician Unavailable Adrian Davis MD Admitting Clinician Payers Payer Name Policy Type Policy Number Effective Date Expiration Date S [facility] MEDICARE [id number] 2018 00:00:00 Problems Condition Condition Condition Status Onset Resolution Last Treating Co mments Source Name Details Category Date Date Treatment Clinician Date Snake bite Snake bite Disease Active 2014-06 U nivers 0-01 ity of 00:00: [address] Right hand Right hand Disease Active 2014-06 U nivers pain pain 0-01 ity of 00:00: [place] [address] Medical Branch Right Right Disease Active 2014-06 Univers wrist pain wrist pain 0-01 it y of 00:00: [place] [facility] Amnesia Amnesia Problem Active 2022-01-30 Me moria (finding) (finding) 04:44:55 l Active Rigoberto Problem 01/30/2022 [facility] Ataxia Ataxia Problem Active 2022-01-30 Oj deshaun (finding) (finding) 04:44:55 l Active Rigoberto Problem 01/30/2022 [facility] Dysarthria Dysarthri Problem Active 2022-01-30 Memoria (finding) a 04:44:55 l (finding) [place] Active Problem 01/30/2022 [facility] Pseudobulb Problem Active 2022-01-30 M emoria ar affect Pseudobulb 04:44:55 l (finding) ar affect Herm narcisa (finding) Active Problem 01/30/2022 [facility] Anxiety Anxiety Problem Active 2022-01-30 Me moria (finding) (finding) 04:44:55 l Active Rigoberto Problem 01/30/2022 [facility] [id number] Piriformis Problem Active Co mmon syndrome Spirit of right - [facility] side [facility] [id number] Status Problem Active Commo n 105 post total [id number] Pain, Problem Active Commo n [id number] joint, Spirit shoulder, - [facility] right [facility] [id number] Piriformis Problem Active C ommon syndrome Spirit of left - [facility] side [facility] [id number] Primary Problem Active Comm on osteoarthr Spirit itis of - [facility] right knee [facility] [id number] 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 [facility] [id number] Aftercare Problem Active Com wed following Spirit [id number] Acute pain Problem Active Com mon of right Spirit shoulder - [facility] Allergies, Adverse Reactions, Alerts Allergy Allergy Status Severity Reaction(s) Onset Inactive Treating Comm ents Source Name Type Date Date Clinician Morphine Propensi Active Nausea 2014-06 Univer s ty to and/or 0-01 ity of adverse Vomiting 00:00: [place] reaction 00 Medical s Branch MORPHINE DRUG Active N/V 2014-06 Univers INGREDI 0-01 ity of 00:00: [place] 00 Medical Branch morphine morphine Active Unknown Commo n Spirit - [facility] morphine morphine Active Memori a l [place] Social History Social Habit Start Date Stop Date Quantity Comments Source History of Common Spirit - Tobacco Use [facility] Sex Assigned At Common Sp jean claude - [facility] Social History 2021-02-28 2021-02-28 Pawan sanchez 15:56:29 15:56:29 Alcohol intake 2019-07-14 2019-07-14 University 00:00:00 00:00:00 [facility] Tobacco Comment 2019-07-10 2019-07-10 Quit 21 years Univer sity of 00:00:00 00:00:00 ago [facility] Smoking Status Start Date Stop Date Source Former Smoker 2022-01-09 00:00:00 2022-01-09 00:00:00 Common S pirit - [facility] Never smoker [facility] Medications Ordered Filled Start Stop Current Ordering Indication Dosage Frequency Signature Comments Components Source Medication Medication Date Date Medication? Clinician (SIG) Name Name Bupivicaine Bupivicaine No 2.5mg Common Lowman Lowman - Spirit 00:00: - [facility] Kenalog Kenalog No 40mg Common (Triamcinol (Triamcinol 7-21 S pirit one) one) 00:00: - [facility] Lidocaine Lidocaine 0 No 10mg Com 10-16 Spirit 00:00: [facility] Kenalog Kenalog No 40mg Common (Triamcinol (Triamcinol 4-28 S pirit one) one) 00:00: - [facility] Lidocaine Lidocaine 0 No 10mg Com 10-16 Spirit 00:00: - [facility] Kenalog Kenalog No 40mg Common (Triamcinol (Triamcinol 4-28 S pirit one) one) 00:00: - [facility] Memantine Yes 10 mg = 1 Mem oria hydrochlori 2-01 tab, PO, l de 10 MG 16:31: BID, # 180 Her arndt Oral Tablet 00 tab, 1 [Namenda] Refill(s), Pharmacy: [facility] #[id number], 157.48, cm, 04/07/21 13:22:00 CDT, Height, 77.273, kg, 04/07/21 13:22:00 CDT, Weight Memantine Yes 10 mg = 1 Mem oria hydrochlori 2-01 tab, PO, l de 10 MG 16:31: BID, # 180 Her arndt Oral Tablet 00 tab, 1 [Namenda] Refill(s), [id number], 157.48, cm, 04/07/21 13:22:00 CDT, Height, 77.273, kg, 04/07/21 13:22:00 CDT, Weight Memantine Yes 10 mg = 1 Mem oria hydrochlori 2-01 tab, PO, l de 10 MG 16:31: BID, # 180 Her arndt Oral Tablet 00 tab, 1 [Namenda] Refill(s), Pharmacy: [facility] #[id number], 157.48, cm, 04/07/21 13:22:00 CDT, Height, 77.273, kg, 04/07/21 13:22:00 CDT, Weight Paroxetine Yes 10 mg = 1 Me moria Hydrochlori 2-01 tab, PO, l de 10 MG 16:07: Daily, # Marla nn Oral Tablet 00 90 tab, 0 Refill(s) Paroxetine 0 Yes 10 mg = 1 Me moria Hydrochlori 2-01 tab, PO, l de 10 MG 16:07: Daily, # Marla nn Oral Tablet 00 90 tab, 0 Refill(s) Paroxetine 0 Yes 10 mg = 1 Me moria Hydrochlori 2-01 tab, PO, l de 10 MG 16:07: Daily, # Marla nn Oral Tablet 00 90 tab, 0 Refill(s) Memantine 2020-06 Yes 10 mg = 1 Mem oria hydrochlori 1-30 tab, PO, l de 10 MG 16:45: BID, # 180 Her arndt Oral Tablet 00 tab, 1 [Namenda] Refill(s), Pharmacy: [facility] #[id number], 157.48, cm, 04/07/21 13:22:00 CDT, Height, 77.273, kg, 04/07/21 13:22:00 CDT, Weight Memantine 2020-06 Yes 10 mg = 1 Mem oria hydrochlori 1-30 tab, PO, l de 10 MG 16:45: BID, # 180 Her arndt Oral Tablet 00 tab, 1 [Namenda] Refill(s), Pharmacy: [facility] #[id number], 157.48, cm, 04/07/21 13:22:00 CDT, Height, 77.273, kg, 04/07/21 13:22:00 CDT, Weight Memantine 2020-06 Yes 10 mg = 1 Mem oria hydrochlori 1-30 tab, PO, l de 10 MG 16:45: BID, # 180 Her arndt Oral Tablet 00 tab, 1 [Namenda] Refill(s), Pharmacy: [facility] #[id number], 157.48, cm, 04/07/21 13:22:00 CDT, Height, 77.273, kg, 04/07/21 13:22:00 CDT, Weight Memantine 2020-06 No 5 mg = 1 Oj deshaun hydrochlori 1-10 tab, PO, l de 5 MG 18:03: BID, # 180 Herm narcisa Oral Tablet 00 tab, 3 [Namenda] Refill(s), Pharmacy: [facility] #[id number], 157.48, cm, 04/07/21 13:22:00 CDT, Height, 77.273, kg, 04/07/21 13:22:00 CDT, Weight Memantine 2020-06 No 5 mg = 1 Oj deshaun hydrochlori 1-10 tab, PO, l de 5 MG 18:03: BID, # 180 Herm narcisa Oral Tablet 00 tab, 3 [Namenda] Refill(s), Pharmacy: [facility] #[id number], 157.48, cm, 04/07/21 13:22:00 CDT, Height, 77.273, kg, 04/07/21 13:22:00 CDT, Weight Memantine 2020-06 No 5 mg = 1 Oj deshaun hydrochlori 1-10 tab, PO, l de 5 MG 18:03: BID, # 180 Herm narcisa Oral Tablet 00 tab, 3 [Namenda] Refill(s), Pharmacy: [facility] #6704, 157.48, cm, 04/07/21 13:22:00 CDT, Height, 77.273, kg, 04/07/21 13:22:00 CDT, Weight Memantine 2020-06 Yes 5 mg = 1 Oj deshaun hydrochlori 0-18 tab, PO, l de 5 MG 18:41: BID, # 60 Marla nn Oral Tablet 00 tab, 3 [Namenda] Refill(s), Pharmacy: [facility] #6704, 157.48, cm, 04/07/21 13:22:00 CDT, Height, 77.273, kg, 04/07/21 13:22:00 CDT, Weight Memantine 2020-06 Yes 5 mg = 1 Oj deshaun hydrochlori 0-18 tab, PO, l de 5 MG 18:41: BID, # 60 Marla nn Oral Tablet 00 tab, 3 [Namenda] Refill(s), Pharmacy: [facility] #6704, 157.48, cm, 04/07/21 13:22:00 CDT, Height, 77.273, kg, 04/07/21 13:22:00 CDT, Weight Memantine 2020-06 Yes 5 mg = 1 Oj deshaun hydrochlori 0-18 tab, PO, l de 5 MG 18:41: BID, # 60 Marla nn Oral Tablet 00 tab, 3 [Namenda] Refill(s), Pharmacy: [facility] #6704, 157.48, cm, 04/07/21 13:22:00 CDT, Height, 77.273, kg, 04/07/21 13:22:00 CDT, Weight Symbicort Yes 2 puff, Memor ia 160/4.5 9-10 INHALER, l inhalation 15:45: BID, # 1 Her arndt aerosol 00 ea, 3 with Refill(s) adapter 24 HR Yes 25 mg = 1 Memoria mirabegron 9-10 tab, PO, l 25 MG 15:45: Daily, # [place] Extended 00 30 tab, 5 Release Refill(s) Tablet [Myrbetriq] Symbicort Yes 2 puff, Memor ia 160/4.5 9-10 INHALER, l inhalation 15:45: BID, # 1 Her arndt aerosol 00 ea, 3 with Refill(s) adapter 24 HR Yes 25 mg = 1 Memoria mirabegron 9-10 tab, PO, l 25 MG 15:45: Daily, # Rigoberto Extended 30 tab, 5 Release Refill(s) Tablet [Myrbetriq] Symbicort Yes 2 puff, Memor ia 160/4.5 9-10 INHALER, l inhalation 15:45: BID, # 1 Her arndt aerosol 00 ea, 3 with Refill(s) adapter 24 HR Yes 25 mg = 1 Memoria mirabegron 9-10 tab, PO, l 25 MG 15:45: Daily, # [place] Extended 30 tab, 5 Release Refill(s) Tablet [Myrbetriq] esomeprazol Yes 40mg Take 40 mg Univers e (NEXIUM) 08-17 by mouth ity o f 40 mg 17:10: daily. [address] water for 2019-0 Yes PRN, Univers irrigation 08-17 Starting ity o f irrigation 16:18: Yuliya [place] solution 08/17/19 at [place] [address], [place] Until Discontinu ed, Routine, Intra-op tetracaine 2019-0 Yes PRN, Univers (PONTOCAINE 08-17 Starting ity of ) 0.5 % 16:18: [facility] ophthalmic 08/17/19 at [facility] drops [facility], [place] Until Discontinu ed, Routine, Intra-op neomycin-po 2019-0 Yes PRN, [facility] lymyxin-dex 08-17 Starting ity of amethasone 16:18: [facility] (MAXITROL) 08/17/19 at [facility] 3.5 [facility], [place] mg/g-10,000 Until unit/g-0.1 Discontinu % ed, ophthalmic Routine, ointment Intra-op lidocaine-e 2019-0 Yes PRN, [facility] pinephrine 08-17 Starting ity o f (XYLOCAINE 16:18: Yuliya [place] W[facility]PHRI [facility], [place] %-1:200,000 Until injection Discontinu ed, Routine, Intra-op gentamicin 2019-0 Yes PRN, Univers injection 08-17 Starting ity of 16:18: [facility] 08/17/19 at Medical 1018, Branch Until Discontinu ed, TOAN, Intra-op EPINEPHrine 2020-0 Yes PRN, [facility] 08-17 Starting ity of 1:1,000 (1 16:17: Yuliya [place] mg/mL) 08/17/19 at [facility] (ADRENALIN 1017, Branch (PF)) Until injection Discontinu ed, Routine, Intra-op DUOVISC 2020-0 Yes PRN, Univers (DUOVISC 08-17 Starting ity of VISCO 16:17: Yuliya [place] ELASTIC) 3 08/17/19 at [facility] %-4 %(0.5 1017, Branch mL) 1 % Until (0.55 mL) Discontinu intraocular ed, injection Routine, Intra-op dexamethaso 2020-0 Yes PRN, [facility] [facility] s ne 08-17 Starting ity of (DECADRON 16:17: [facility] PHOSPHATE) 08/17/19 at [facility] ica injection 1017, [place] Until Discontinu ed, Routine, Intra-op ceFAZolin 2020-0 Yes PRN, Univers (ANCEF) 08-17 Starting ity of injection 16:16: Yuliya [place] 00 08/17/19 at [facility] 1016, Branch Until Discontinu ed, TOAN, Intra-op bupivacaine 2020-0 Yes PRN, [facility] [facility] s (preserv 08-17 Starting ity of free) 16:16: Yuliya [place] (SENSORCAIN 00 08/17/19 at [facility]fl E MPF) 0.75 1016, Branch % (7.5 Until mg/mL) Discontinu injection ed, Routine, Intra-op balanced 2020-0 Yes PRN, Univers salt irrig 08-17 Starting ity o f soln comb1 16:16: Yuliya [place] (BSS PLUS) 00 08/17/19 at [facility] ica ophthalmic 1016, [place] solution Until 500 mL bag Discontinu ed, Routine, Intra-op mydriatic 2020-0 2020- No .5mL 0.5 mL, Univ ers #5 08-17 Right Eye, ity of ophthalmic 15:00: 15:08 ONCE, 1 [place] as solution 00 :00 dose, Yuliya Medica l 0.5 mL 08/17/19 at [place] syringe 0900, Routine, DSU Pre-op lactated 2020-0 2020- No 500mL at [address] [place] [address] ringers IV 08-17 02-27 mL/hr, 500 it y of infusion 15:00: 15:22 mL, IV [place] 500 mL 00 :00 Infusion, [facility] ONCE, 1 [place] dose, Yuliya 08/17/19 at 0900, Routine, DSU Pre-op esomeprazol 2020-0 Yes 40mg Take 40 mg Univers e (NEXIUM) 23 by mouth ity o f 40 mg 17:35: daily. [place] capsule 21 [facility] esomeprazol 2020-0 Yes 40mg Take 40 mg Univers e (NEXIUM) 07-13 by mouth ity o f 40 mg 17:03: daily. [place] capsule 40 [facility] tetracaine 2020-0 Yes PRN, Univers (PONTOCAINE 07-13 Starting ity of ) 0.5 % 16:53: Yuliya [place] ophthalmic 07/13/19 at [facility] drops 1053, [place] Until Discontinu ed, Routine, Intra-op water for 2020-0 Yes PRN, Univers irrigation 07-13 Starting ity o f irrigation 16:53: [facility] solution 07/13/19 at [facility] al 1053, [place] Until Discontinu ed, Routine, Intra-op sodium 2020-0 Yes PRN, Univers chloride 07-13 Starting ity of (NS) 16:52: Yuliya [place] injection 07/13/19 at [facility] 1052, [place] Until Discontinu ed, Routine, Intra-op neomycin-po 2020-0 Yes PRN, [facility] lymyxin-dex 07-13 Starting ity of amethasone 16:52: [facility] (MAXITROL) 07/13/19 at [facility] 3.5 1052, [place] mg/g-10,000 Until unit/g-0.1 Discontinu % ed, ophthalmic Routine, ointment Intra-op lidocaine-e 2020-0 Yes PRN, [facility] pinephrine 07-13 Starting ity o f (XYLOCAINE 16:52: [facility] W/EPINEPHRI 07/13/[facility] 2 1052, Branch %-1:200,000 Until injection Discontinu ed, Routine, Intra-op gentamicin 2020-0 Yes PRN, Univers injection - Starting ity of 16:52: Yuliya [place] 07/13/19 at [facility] 1052, Branch Until Discontinu ed, OTAN, Intra-op EPINEPHrine 2020-0 Yes PRN, Univer s (PF) 07-13 Starting ity of 1:1,000 (1 16:51: Yuliya [place] mg/mL) 07/13/19 at [facility] (ADRENALIN 1051, Branch (PF)) Until injection Discontinu ed, Routine, Intra-op DUOVISC 2020-0 Yes PRN, Univers (DUOVISC 07-13 Starting ity of VISCO 16:51: Yuliya [place] ELASTIC) 3 07/13/19 at [facility] %-4 %(0.5 1051, Branch mL) 1 % Until (0.55 mL) Discontinu intraocular ed, injection Routine, Intra-op dexamethaso 2020-0 Yes PRN, Univer s ne 07-13 Starting ity of (DECADRON 16:51: Yuliya [place] PHOSPHATE) 00 07/13/19 at [facility] ical injection 1051, Branch Until Discontinu ed, Routine, Intra-op ceFAZolin 2020-0 Yes PRN, Univers (ANCEF) 07-13 Starting ity of injection 16:51: Yuliya [place] 00 07/13/19 at [facility] 1051, Branch Until Discontinu ed, TOAN, Intra-op bupivacaine 2020-0 Yes PRN, Univer s (preserv 07-13 Starting ity of free) 16:51: Yuliya [place] (SENSORCAIN 00 07/13/19 at Ut dical E MPF) 0.75 1051, Branch % (7.5 Until mg/mL) Discontinu injection ed, Routine, Intra-op balanced 2020-0 Yes PRN, Univers salt irrig 07-13 Starting ity o f soln comb1 16:50: Yuliya [place] (BSS PLUS) 00 07/13/19 at [facility] ica ophthalmic 1050, [place] solution Until 500 mL bag Discontinu ed, Routine, Intra-op eye block 2020-0 2020- No CONTINUOUS U nivers syringe 11 07-13 PRN, ity of mL 16:45: 17:02 Starting [place] 00 :25 Yulyia Medical 07/13/19 at Branch 1045, Until Yuliya [...] Yuliya Medical mL (1 %) 07/13/19 at [facility] h injection 1043, Until Yuliya 07/13/19 at 1102, Routine, Intra-op lactated 2019- No 500mL at 20 Univer s ringers IV 07-13 mL/hr, 500 it y of infusion 15:15: 16:35 mL, IV [place] 500 mL 00 :00 Infusion, Medical ONCE, 1 Branch dose, Yuliya 07/13/19 at 0915, Routine, DSU Pre-op Tramadol Tramadol 2019- No Kamlesh 1 tablet Common HCl HCl 7-15 03-15 [place] as needed Spirit 00:00: 00:00 - [facility] 00 :00 [facility] LIDOCAINE LIDOCAINE 2017- No 10mg Com mon HCL 10MG/ML HCL 10MG/ML 1-26 S pirit 00:00: - [facility] Betamethaso Betamethaso 2017-1 No 1mL Common ne Sodium ne Sodium 1-26 Spiri t Phosphate Phosphate 00:00: - C HI [facility] LIDOCAINE LIDOCAINE 2017- No 10mg Com mon HCL 10MG/ML HCL 10MG/ML 1-26 S pirit 00:00: - [facility] Betamethaso Betamethaso 2018-1 No 1mL Common ne Sodium ne Sodium 1-26 Spiri t Phosphate Phosphate 00:00: - C [place] 00 [facility] Betamethaso Betamethaso 2017-0 No 1mL Common ne Sodium ne Sodium 8-30 Spiri t Phosphate Phosphate 00:00: - C [place] 00 [facility] LIDOCAINE LIDOCAINE 2017-0 No 10ug Com mon HCL 10MG/ML HCL 10MG/ML 8-30 S pirit 00:00: - [facility] LIDOCAINE LIDOCAINE 2017- No 10ug Com mon HCL 10MG/ML HCL 10MG/ML 8-30 S pirit 00:00: - CHI 00 [facility] Betamethaso Betamethaso 2018-0 No 1mL Common ne Sodium ne Sodium 8-30 Spiri t Phosphate Phosphate 00:00: - C [place] 00 [facility] esomeprazol 2014-06 Yes 40mg Take 40 mg Univers e (NEXIUM) 0-02 by mouth ity o f 40 mg 20:00: daily. [facility] esomeprazol 2014-06 Yes 40mg Take 40 mg Univers e (NEXIUM) 0-02 by mouth ity o f 40 mg 20:00: daily. [facility] esomeprazol 2014-06 Yes 40mg Take 40 mg Univers e (NEXIUM) 0-02 by mouth ity o f 40 mg 20:00: daily. [address] acetaminoph 2014-06 Yes 1{tbl} Take 1 Tab Univers en-codeine 0-02 by mouth ity o f (TYLENOL 00:00: every 4 [place] #3) 300-30 00 (four) Medical mg tablet hours as Branch needed for Pain (scale 4-6). acetaminoph 2014-06 Yes 1{tbl} Take 1 Tab Univers en-codeine 0-02 by mouth ity o f (TYLENOL 00:00: every 4 [place] #3) 300-30 00 (four) Medical mg tablet hours as Branch needed for Pain (scale 4-6). acetaminoph 2014-06 Yes 1{tbl} Take 1 Tab Univers en-codeine 0-02 by mouth ity o f (TYLENOL 00:00: every 4 [place] #3) 300-30 00 (four) Medical mg tablet hours as Branch needed for Pain (scale 4-6). acetaminoph 2014-06 2020- No 1{tbl} Take 1 Tab Univers en-codeine 0-02 -22 by mouth ity of (TYLENOL 00:00: 00:00 every 4 [place] #3) 300-30 00 :00 (four) Medical mg tablet hours as Branch needed for Pain (scale 4-6). Nexium Nexium Yes Kamlesh 1 capsule Com mon [place] Spirit - [facility] Symbicort Symbicort Yes Kamlesh GRUBBS 2 Common [place] PUFFS Spirit TWICE A - CHI DAY [facility] Methocarbam Methocarbam Yes Kamlesh TAKE 1 Common ol ol [place] TABLET BY Spirit MOUTH - [facility] EVERY [facility]RS [facility] NEEDED FOR Medical MUSCLE Center SPASMS Ilevro Ilevro Yes Kamlesh LOCATION: Com mon [place] LEFT EYE. Spirit APPLY 1 - CHI DROP IN SURGERY [facility] EYE AT Medical BEDTIME Center FOR 2 WEEKS Xarelto Xarelto Yes Kamlesh TAKE 1 Comm on [place] TABLET BY Spirit MOUTH - CHI EVERY DAY St WITH FOOD [facility] Amoxicillin Amoxicillin Yes Kamlesh TAKE 4 Common [place] CAPS BY Spirit MOUTH 1 - CHI HOUR PRIOR St TO DENTAL [facility] Durezol Durezol Yes Kamlesh PLEASE SEE Common [place] ATTACHED Spirit FOR - CHI DETAILED [facility] Promethazin Promethazin Yes Kamlesh TAKE 1 Common e HCl e HCl [place] TABLET BY Spirit MOUTH - CHI EVERY DAY St NEEDED [facility] Ofloxacin Ofloxacin Yes Kamlesh APPLY 1 Common [place] DROP 3 Spirit TIMES A - CHI DAY FOR 1 St WEEK IN [facility] Hydrocodone Hydrocodone Yes Kamlesh (Schedule Common -Acetaminop -Acetaminop [place] II Drug) Sunday hen hen TAKE 1 - CHI TABLET BY St MOUTH [facility] EVERY DAY Medical X 28 DAYS Center [...] Comments Source height 2022-01-08 09:45:00 64 [in_i] [facility] weight 2022-01-08 09:45:00 162 [lb_av] [facility] bmi 2022-01-08 09:45:00 27.8 kg/m2 Common S [facility] blood pressure 2022-01-08 09:45:00 124 mm[Hg] Common Spirit - systolic [facility] blood pressure 2022-01-08 09:45:00 82 mm[Hg] Common Spirit - diastolic [facility] height 2021-10-16 14:00:00 64 [in_i] [facility] weight 2021-10-16 14:00:00 162 [lb_av] [facility] bmi 2021-10-16 14:00:00 27.8 kg/m2 [facility] blood pressure 2021-10-16 14:00:00 126 mm[Hg] Common Spirit - systolic [facility] blood pressure 2021-10-16 14:00:00 84 mm[Hg] Common Spirit - diastolic [facility] Systolic blood 2019-08-17 16:37:00 120 mm[Hg] Univer sity of pressure [facility] Diastolic blood 2019-08-17 16:37:00 66 mm[Hg] Unive rsity of pressure [facility] Heart rate 2019-08-17 16:37:00 78 /min [facility] [place] [facility] Respiratory rate 2019-08-17 16:37:00 16 /min Univ ersity of [facility] Oxygen saturation in 2019-08-17 16:37:00 100 /min University of Arterial blood by [facility] gretchen Pulse oximetry Branch Body temperature 2019-08-17 16:30:00 36.89 Teodora Univ ersity of [place] [facility] Body height 2019-08-15 02:23:00 162.6 cm [facility] [place] [facility] Body weight 2019-08-15 02:23:00 77.111 kg [facility] [place] [facility] BMI 2019-08-15 02:23:00 29.17 kg/m2 [facility] [place] [facility] Systolic blood 2019-08-17 16:37:00 120 mm[Hg] Univer sity of pressure [facility] Diastolic blood 2019-08-17 16:37:00 66 mm[Hg] Unive rsity of pressure [place] [facility] Heart rate 2019-08-17 16:37:00 78 /min [facility] [place] [facility] Respiratory rate 2019-08-17 16:37:00 16 /min Univ ersity [facility] [place] [facility] Oxygen saturation in 2019-08-17 16:37:00 100 /min University of Arterial blood by [place] Medi gretchen Pulse oximetry Branch Body temperature 2019-08-17 16:30:00 36.89 Teodora Univ ersity [facility] [place] [facility] Body height 2019-08-15 02:23:00 162.6 cm [facility] [place] [facility] Body weight 2019-08-15 02:23:00 77.111 kg [facility] [place] [facility] BMI 2019-08-15 02:23:00 29.17 kg/m2 Universi ty of [facility] Systolic blood 2019-07-13 17:17:00 144 mm[Hg] Univer sity of pressure [place] [facility] Diastolic blood 2019-07-13 17:17:00 94 mm[Hg] Unive rsity of pressure [place] [facility] Heart rate 2019-07-13 17:17:00 79 /min [facility] [place] [facility] Respiratory rate 2019-07-13 17:17:00 18 /min Univ ersity of [place] [facility] Oxygen saturation in 2019-07-13 17:17:00 100 /min University of Arterial blood by [facility] Pulse oximetry Branch Body temperature 2019-07-13 17:07:00 36.56 Teodora Univ [facility] [place] [facility] Body height 2019-07-12 18:00:00 162.6 cm [facility] [place] [facility] Body weight 2019-07-12 18:00:00 77.111 kg [facility] [place] [facility] BMI 2019-07-12 18:00:00 29.18 kg/m2 [facility] [place] [facility] Systolic blood 2019-07-13 17:17:00 144 mm[Hg] Univer sity of pressure [place] [facility] Diastolic blood 2019-07-13 17:17:00 94 mm[Hg] Unive rsity of pressure [place] [facility] Heart rate 2019-07-13 17:17:00 79 /min [facility] [place] [facility] Respiratory rate 2019-07-13 17:17:00 18 /min Univ ersity [facility] [place] [facility] Oxygen saturation in 2019-07-13 17:17:00 100 /min [facility] Arterial blood by [facility] Pulse oximetry Branch Body temperature 2019-07-13 17:07:00 36.56 [facility] Body height 2019-07-12 18:00:00 162.6 cm [facility] Body weight 2019-07-12 18:00:00 77.111 kg [facility] BMI 2019-07-12 18:00:00 29.18 kg/m2 [facility] Systolic (mm Hg) 2022-01-27 14:44:00 Oj mendez [place] Diastolic (mm Hg) 2022-01-27 14:44:00 Mem [facility] Heart Rate 2022-01-27 14:44:00 [facility] Respitory Rate 2022-01-27 14:44:00 Memori al [facility]to Systolic (mm Hg) 2021-07-22 15:41:00 Oj rial [place] Diastolic (mm Hg) 2021-07-22 15:41:00 Mem orial Rigoberto Heart Rate 2021-07-22 15:41:00 [facility] Respitory Rate 2021-07-22 15:41:00 Memori al Rigboerto Systolic (mm Hg) 2021-05-20 16:43:00 Oj rial [place] Diastolic (mm Hg) 2021-05-20 16:43:00 Mem orial [place] Systolic (mm Hg) 2021-05-20 16:22:00 Oj rial [place] Diastolic (mm Hg) 2021-05-20 16:22:00 Mem orial Rigoberto Heart Rate 2021-05-20 16:22:00 [facility] [place] Respitory Rate 2021-05-20 16:22:00 Memori al Rigoberto Systolic (mm Hg) 2021-04-07 18:14:00 Oj rial [place] Diastolic (mm Hg) 2021-04-07 18:14:00 Mem orial [facility]oberto Heart Rate 2021-04-07 18:14:00 [facility] [place] Respitory Rate 2021-04-07 18:14:00 Memori al [place] Height 2021-04-07 18:14:00 157.48 cm [facility] Weight 2021-04-07 18:14:00 [facility] BMI Calculated 2021-04-07 18:14:00 Memori al [facility]to Systolic (mm Hg) 2021-02-28 15:27:00 Oj rial Rigoberto Diastolic (mm Hg) 2021-02-28 15:27:00 Mem orial Rigoberto Heart Rate 2021-02-28 15:27:00 [facility] [place] Respitory Rate 2021-02-28 15:27:00 Memori al [place] Height 2021-02-28 15:27:00 157.48 cm [facility] Weight 2021-02-28 15:27:00 [facility] BMI Calculated 2021-02-28 15:27:00 Memori al Rig[facility]to Procedures Procedure Date / Time Performing Clinician Source Performed CONSENT/REFUSAL FOR 2019-08-16 15:08:04 Doctor Unassigned, No Un [facility] DIAGNOSIS AND TREATMENT Name Medical Branch ASSIGNMENT OF BENEFITS 2019-08-16 15:07:46 Doctor Unassigned, No [facility] POTASSIUM SERUM 2019-07-13 15:55:00 Karley Michele [facility] COMP. METABOLIC PANEL 2019-07-06 22:51:00 Adrian Davis [facility] ([id number]) [facility] CONSENT/REFUSAL FOR 2019-07-06 22:29:03 Doctor Unassigned, No [facility] DIAGNOSIS AND TREATMENT Name [facility] Branch ASSIGNMENT OF BENEFITS 2019-07-06 22:28:43 Doctor Unassigned, No [facility] Mastectomy [facility] Gallbladder operation [facility] Knee replacement [facility] Encounters Start End Encounter Admission Attending Care Care Encounter Source Date/Time Date/Time Type Type Clinicians Facility Department ID 2022-07-24 [facility] [id number] Common 10:18:00 [id number] [facility] 2022-01-09 [facility] [id number] Common 08:35:01 [id number] [facility] 2021-07-16 [facility] [id number] Common 13:13:58 [id number] [facility] 2021-04-17 Outpatient Thierry [facility] TON [id number] Univers 10:47:31 ADRIAN [facility] 2022-10-20 2022-10-20 Outpatient MHIE MHIE [id number] Memoria 09:45:00 09:45:00 05 storm [place] 2022-10-20 2022-10-20 Outpatient MHIE MHIE [id number] Memoria 09:45:00 09:45:00 05 storm [place] 2022-01-27 2022-01-28 Outpatient nullFlavo MNA [id number] Memoria 14:45:00 04:59:59 r Neurology 04 l Dewayne Emigrant 2022-01-27 2022-01-28 Outpatient nullFlavo MNA [id number] Memoria 14:45:00 04:59:59 r Neurology 04 l Dewayne [place]igrant 2022-01-27 2022-01-27 Outpatient YI Mendez MISCHER [id number] 09:45:00 23:59:59 Julian 04 Aniket 2022-01-27 2022-01-27 Outpatient MHIE MHIE [id number] Memoria 09:45:00 09:45:00 04 storm [place] 2022-01-08 2022-01-08 OFFICE STLMLC STLMLC [id number] Co mmon 00:00:00 00:00:00 VISIT EST Spir it PT LEVEL 3 - [facility] 2021-10-16 2021-10-16 OFFICE STLMLC STLC [id number] Co mmon 00:00:00 00:00:00 VISIT EST Spir it PT LEVEL 3 - [facility] 2021-07-22 2021-07-23 Outpatient nullFlavo MNA [id number] Memoria 15:45:00 05:59:59 r Neurology 03 storm Woodsonjadyn Camposann 2021-07-22 2021-07-23 Outpatient nullFlavo MNA [id number] Memoria 15:45:00 05:59:59 r Neurology 03 storm Woodson Rigoberto 2021-07-22 2021-07-22 Outpatient FROILAN MendezSCHHERIBERTO MISCHER [id number] 09:45:00 23:59:59 Julian Danita Marcial 2021-07-22 2021-07-22 Outpatient MHIE MHIE [id number] Memoria 09:45:00 09:45:00 03 storm [place] 2021-05-20 2021-05-21 Outpatient nullFlavo MNA [id number] Memoria 16:30:00 05:59:59 r Neurology 02 storm Woodson Rigoberto 2021-05-20 2021-05-21 Outpatient nullFlavo MNA [id number] Memoria 16:30:00 05:59:59 r Neurology 02 storm Woodson Rigoberto 2021-05-20 2021-05-20 Outpatient RICHARD MendezMISCHER MHMISCHER [id number] 10:30:00 23:59:59 Julian Bry Marcial 2021-05-20 2021-05-20 Outpatient MHIE MHIE [id number] Memoria 10:30:00 10:30:00 02 storm Rigoberto 2021-04-07 2021-04-08 Outpatient nullFlavo MNA [id number] Memoria 18:00:00 04:59:59 r Neurology 01 l Dewayne [place] 2021-04-07 2021-04-08 Outpatient nullFlavo MNA [id number] Memoria 18:00:00 04:59:59 r Neurology 01 l Dewayne [place] 2021-04-07 2021-04-07 Outpatient FROILAN MendezSCHER MISCHER [id number] 13:00:00 23:59:59 Julian 01 Aniket 2021-04-07 2021-04-07 Outpatient MHIE MHIE [id number] Memoria 13:00:00 13:00:00 01 storm [place] 2021-02-28 2021-03-01 Outpatient nullFlavo MNA [id number] Memoria 15:30:00 04:59:59 r Neurology 00 l Dewayne [place] 2021-02-28 2021-03-01 Outpatient nullFlavo MNA [id number] Memoria 15:30:00 04:59:59 r Neurology 00 l Dewayne Camposann 2021-02-28 2021-02-28 [id number] 10:30:00 23:59:59 Julian 00 Aniket 2021-02-28 2021-02-28 Outpatient MHIE MHIE [id number] Memoria 10:30:00 10:30:00 00 storm [place] 2020-12-02 2020-12-02 Outpatient STLMLC STLMLC [id number] Common 00:00:00 00:00:00 Spirit - [facility] 2020-09-15 2020-09-15 Outpatient [facility] [id number] Univers 12:25:00 12:25:00 [facility] 2020-08-18 2020-08-18 Outpatient Thierry [facility] [id number] Univers 12:15:00 12:15:00 [facility] 2019-11-16 2019-11-16 [facility] [id number] Common 08:00:00 08:00:00 t Bone Bone and Spiri t and Joint [facility] 2019-08-17 2019-08-17 [facility] [id number] Univers 08:50:00 11:10:00 Encounter Adrian Stein [id number] [place] [id number] [address] 2019-08-17 2019-08-17 [facility] [id number] 08:50:00 11:10:00 Encounter Adrian Stein [id number] [place] 4.2.7.2.686 Surgical [id number] [place] [address] 2019-07-13 2019-07-13 [facility] [id number] Univers 09:06:00 11:35:00 Encounter Adrian Stein [id number] [place] [id number] [address] 2019-07-13 2019-07-13 [facility] [id number] 09:06:00 11:35:00 Encounter Adrian Stein [id number] [place] 4.2.7.2.686 Surgical [id number] [place] [address] 2019-07-13 2019-07-13 Anesthesia [facility] 1.2.840.114 [id number] Univers 10:38:00 11:02:00 Gio Stein 350.1.13.10 [place]y [place] [id number] [address] 2019-07-13 2019-07-13 Anesthesia [facility] 1.2.840.114 [id number] 10:38:00 11:02:00 Gio Stein 350.1.13.10 [place] 4.2.7.2.686 Surgical [id number] [place] 020 2019-07-06 2019-07-06 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2.7.2.686 [facility] [id number] [facility] 009 Branch 2019-05-15 2019-05-15 Outpatient Brazedouard Del Rosario [id number] Common 08:00:00 08:00:00 t Bone Bone and Spiri t and Joint [facility] - [facility] 2019-03-30 2019-03-30 [facility] [id number] Common 11:09:00 11:09:00 t Bone Bone and Spiri t and Joint Joint - [facility] 2019-02-13 2019-02-13 [facility] [id number] Common 08:00:00 08:00:00 t Bone Bone and Spiri t and Joint Joint - [facility] 2019-01-05 2019-01-05 [facility] [id number] Common 09:30:00 09:30:00 t Bone Bone and Spiri t and Joint [facility] - [facility] 2019-01-02 2019-01-02 [facility] [id number] Common 08:00:00 08:00:00 t Bone Bone and Spiri t and Joint [facility] - [facility] 2018-12-19 2018-12-19 Outpatient [facility] [id number] Common 16:26:00 16:26:00 t Bone Bone and Spiri t and Joint [facility] - [facility] 2018-12-19 2018-12-19 [facility] [id number] Common 11:40:00 11:40:00 t Bone Bone and Spiri t and Joint [facility] - [facility] 2018-12-15 2018-12-15 [facility] [id number] Common 13:35:00 13:35:00 t Bone Bone and Spiri t and Joint Joint - [facility] 2018-12-12 2018-12-12 [facility] [id number] Common 08:30:00 08:30:00 t Bone Bone and Spiri t and Joint [facility] - [facility] 2018-12-08 2018-12-08 Out[facility] [id number] Common 08:39:00 08:39:00 t Bone Bone and Spiri t and Joint [facility] - [facility] 2018-12-07 2018-12-07 Out[facility] [id number] Common 09:40:00 09:40:00 t Bone Bone and Spiri t and Joint [facility] - [facility] 2018-12-07 2018-12-07 [facility] [id number] Common 08:00:00 08:00:00 t Bone Bone and Spiri t and Joint [facility] - [facility] 2018-11-03 2018-11-03 [facility] [id number] Common 09:40:00 09:40:00 t Bone Bone and Spiri t and Joint [facility] - [facility] 2018-10-25 2018-10-25 [facility] [id number] Common 08:00:00 08:00:00 t Bone Bone and Spiri t and Joint Joint - [facility] 2018-10-24 2018-10-24 [facility] [id number] Common 09:37:00 09:37:00 t Bone Bone and Spiri t and Joint Joint - [facility] 2018-10-24 2018-10-24 [facility] [id number] Common 08:25:00 08:25:00 t Bone Bone and Spiri t and Joint Joint - [facility] 2018-10-20 2018-10-20 [facility] [id number] Common 13:30:00 13:30:00 t Bone Bone and Spiri t and Joint [facility] - [facility] 2018-08-22 2018-08-22 [facility] [id number] Common 11:03:00 11:03:00 t Bone Bone and Spiri t and Joint [facility] - [facility] 2018-08-18 2018-08-18 [facility] [id number] Common 15:59:00 15:59:00 t Bone Bone and Spiri t and Joint [facility] - [facility] 2018-08-15 2018-08-15 [facility] [id number] Common 08:00:00 08:00:00 t Bone Bone and Spiri t and Joint [facility] - [facility] 2018-02-17 2018-02-17 Out[facility] [id number] Common 09:00:00 09:00:00 t Bone Bone and Spiri t and Joint [facility] - [facility] Results Test Description Test Time Test Comments Results Result Comments Source CHEM PANEL 2021-03-01 13:39:00 Test Item Value Reference Range Interpretation Comme nts Glucose Lvl (test code = Glucose Lvl) 99 65-99 [facility]7213-79-14 13:39:00 Test Item Value Reference Range Interpretation Comments Basophils # (test code 70 See_Comment [Aut omated message] The = Basophils #) system which generated this result tra nsmitted reference range : <=200. The reference r sharon was not used to int erpret this result as normal/abnormal . [facility] Paso[facility]vaeclkTDZQLTVTPY7645-12-76 13:39:00 Test Item Value Reference Range Interpretation Comments Segs (test code = Segs) 53.6 [place] 209511-09-11 13:39:00 Test Item Value Reference Range Interpretation Comments Lymphocytes (test code = Lymphocytes) 32.2 [place] 676001-09-11 13:39:00 Test Item Value Reference Range Interpretation Comments BUN (test code = BUN) 16 7-25 [place] [address]-09-11 13:39:00 Test Item Value Reference Range Interpretation Comments Monocytes (test code = Monocytes) 10.1 [place] 209511-09-11 13:39:00 Test Item Value Reference Range Interpretation Comments Eosinophils (test code = Eosinophils) 3.0 [place] [address]-09-11 13:39:00 Test Item Value Reference Range Interpretation Comments Basophils (test code = Basophils) 1.1 [place] 209511-09-11 13:39:00 Test Item Value Reference Range Interpretation Comments Sed Rate (test code = Sed Rate) 22 [place] 676001-09-11 13:39:00 Test Item Value Reference Range Interpretation Comments Creatinine Lvl (test code = Creatinine 0.65 0.60-0.93 Lvl) [place] 676001-09-11 13:39:00 Test Item Value Reference Range Interpretation Comments eGFR NON-AFR. MAURITIAN (test code = 87 eGFR NON-AFR. MAURITIAN) [place] 676001-09-11 13:39:00 Test Item Value Reference Range Interpretation Comments eGFR (test code = eGFR 101 ) [place] 676001-09-11 13:39:00 Test Item Value Reference Range Interpretation Comments B/C Ratio (test code = B/C NOT APPLICABLE 12-10 Ratio) [place] 676001-09-11 13:39:00 Test Item Value Reference Range Interpretation Comments Sodium Lvl (test code = Sodium Lvl) 137 135-146 [place] 676001-09-11 13:39:00 Test Item Value Reference Range Interpretation Comments Potassium Lvl (test code = Potassium 4.2 3.5-5.3 Lvl) [place] 676001-09-11 13:39:00 Test Item Value Reference Range Interpretation Comments Chloride Lvl (test code = Chloride Lvl) 102 98-110 [place] 676001-09-11 13:39:00 Test Item Value Reference Range Interpretation Comments CO2 (test code = CO2) 22 20-32 [place] 676001-09-11 13:39:00 Test Item Value Reference Range Interpretation Comments Calcium Lvl (test code = Calcium Lvl) 9.2 8.6-10.4 [place] 676001-09-11 13:39:00 Test Item Value Reference Range Interpretation Comments Total Protein (test code = Total 6.9 6.1-8.1 Protein) [place] 676001-09-11 13:39:00 Test Item Value Reference Range Interpretation Comments Albumin Lvl (test code = Albumin Lvl) 3.9 3.6-5.1 [place] 676001-09-11 13:39:00 Test Item Value Reference Range Interpretation Comments Globulin (test code = Globulin) 3.0 1.9-3.7 [place] 676001-09-11 13:39:00 Test Item Value Reference Range Interpretation Comments A/G Ratio (test code = A/G Ratio) 1.3 1.0-2.5 [place] 676001-09-11 13:39:00 Test Item Value Reference Range Interpretation Comments Bili Total (test code = Bili Total) 0.9 0.2-1.2 [place] 676001-09-11 13:39:00 Test Item Value Reference Range Interpretation Comments Alk Phos (test code = Alk Phos) 111 37-153 [place] 676001-09-11 13:39:00 Test Item Value Reference Range Interpretation Comments ASPARTATE TRANSAMINASE (test code = 23 10-35 ASPARTATE TRANSAMINASE) [place] 676001-09-11 13:39:00 Test Item Value Reference Range Interpretation Comments ALANINE AMINOTRANSFERASE (test code = 20 6-29 ALANINE AMINOTRANSFERASE) [place] 209511-09-11 13:39:00 Test Item Value Reference Range Interpretation Comments WBC X 10x3 (test code = WBC X 10x3) 6.4 3.8-10.8 [place] 209511-09-11 13:39:00 Test Item Value Reference Range Interpretation Comments RBC X 10x6 (test code = RBC X 10x6) 4.32 3.80-5.10 [place] 209511-09-11 13:39:00 Test Item Value Reference Range Interpretation Comments Hgb (test code = Hgb) 12.6 11.7-15.5 [facility]IptqpdpZFUQKCZAXF9383-65-67 13:39:00 Test Item Value Reference Range Interpretation Comments Hct (test code = Hct) 38.5 35.0-45.0 [facility] PasoAfkpseqCZVPLBGYNT2943-29-00 13:39:00 Test Item Value Reference Range Interpretation Comments MCV (test code = MCV) 89.1 80.0-100.0 [facility] PasoGzkutepJCCRQHKHHO1631-88-63 13:39:00 Test Item Value Reference Range Interpretation Comments MCH (test code = MCH) 29.2 pg 27.0-33.0 [facility] PasoAalyjutIBTMORTCSZ3476-59-67 13:39:00 Test Item Value Reference Range Interpretation Comments MCHC (test code = MCHC) 32.7 32.0-36.0 [facility] PasoCcclaevETHNGDOQUC4415-08-63 13:39:00 Test Item Value Reference Range Interpretation Comments RDW (test code = RDW) 13.1 11.0-15.0 [facility] PasoRgluzfyWGAZVVBARD4174-17-54 13:39:00 Test Item Value Reference Range Interpretation Comments Platelet (test code = Platelet) 290 140-400 [facility] PasoNlmmguzJAAJHMPTCZ4984-11-59 13:39:00 Test Item Value Reference Range Interpretation Comments MPV (test code = MPV) 10.6 7.5-12.5 [facility]2021-09-11 13:39:00 Test Item Value Reference Range Interpretation Comments Vitamin B12 Lvl (test code = Vitamin 532 753-1862 B12 Lvl) [facility]2021-09-11 13:39:00 Test Item Value Reference Range Interpretation Comments Glucose Lvl (test code = Glucose Lvl) 99 65-99 [facility]2021-09-11 13:39:00 Test Item Value Reference Range Interpretation Comments BUN (test code = BUN) 16 7-25 [facility] PasoVmvzlayASZMVBFMAU2870-55-41 13:39:00 Test Item Value Reference Range Interpretation Comments Neutrophils # (test code = Neutrophils 3430 2934-5185 #) [facility]2021-09-11 13:39:00 Test Item Value Reference Range Interpretation Comments Creatinine Lvl (test code = Creatinine 0.65 0.60-0.93 Lvl) [facility]2021-09-11 13:39:00 Test Item Value Reference Range Interpretation Comments eGFR NON-AFR. MAURITIAN (test code = 87 eGFR NON-AFR. MAURITIAN) [place] 676001-09-11 13:39:00 Test Item Value Reference Range Interpretation Comments eGFR (test code = eGFR 101 ) [place] 676001-09-11 13:39:00 Test Item Value Reference Range Interpretation Comments B/C Ratio (test code = B/C NOT APPLICABLE 6-22 Ratio) [place] 676001-09-11 13:39:00 Test Item Value Reference Range Interpretation Comments Sodium Lvl (test code = Sodium Lvl) 137 135-146 [place] 676001-09-11 13:39:00 Test Item Value Reference Range Interpretation Comments Potassium Lvl (test code = Potassium 4.2 3.5-5.3 Lvl) [facility]2021-09-11 13:39:00 Test Item Value Reference Range Interpretation Comments Chloride Lvl (test code = Chloride Lvl) 102 98-110 [facility]2021-09-11 13:39:00 Test Item Value Reference Range Interpretation Comments CO2 (test code = CO2) 22 20-32 [place] 676001-09-11 13:39:00 Test Item Value Reference Range Interpretation Comments Calcium Lvl (test code = Calcium Lvl) 9.2 8.6-10.4 [place] 676001-09-11 13:39:00 Test Item Value Reference Range Interpretation Comments Total Protein (test code = Total 6.9 6.1-8.1 Protein) [facility]673[facility] 13:39:00 Test Item Value Reference Range Interpretation Comments Lymphocytes # (test code = Lymphocytes 2061 850-3900 #) [facility]2021-09-11 13:39:00 Test Item Value Reference Range Interpretation Comments Albumin Lvl (test code = Albumin Lvl) 3.9 3.6-5.1 [facility]2021-09-11 13:39:00 Test Item Value Reference Range Interpretation Comments Globulin (test code = Globulin) 3.0 1.9-3.7 [place] 676001-09-11 13:39:00 Test Item Value Reference Range Interpretation Comments A/G Ratio (test code = A/G Ratio) 1.3 1.0-2.5 [place] 676001-09-11 13:39:00 Test Item Value Reference Range Interpretation Comments Bili Total (test code = Bili Total) 0.9 0.2-1.2 [place] 676001-09-11 13:39:00 Test Item Value Reference Range Interpretation Comments Alk Phos (test code = Alk Phos) 111 37-153 [facility]2021-09-11 13:39:00 Test Item Value Reference Range Interpretation Comments ASPARTATE TRANSAMINASE (test code = 23 10-35 ASPARTATE TRANSAMINASE) [place] 676001-09-11 13:39:00 Test Item Value Reference Range Interpretation Comments ALANINE AMINOTRANSFERASE (test code = 20 6-29 ALANINE AMINOTRANSFERASE) [place] 209511-09-11 13:39:00 Test Item Value Reference Range Interpretation Comments WBC X 10x3 (test code = WBC X 10x3) 6.4 3.8-10.8 [place] 209511-09-11 13:39:00 Test Item Value Reference Range Interpretation Comments RBC X 10x6 (test code = RBC X 10x6) 4.32 3.80-5.10 [place] 209511-09-11 13:39:00 Test Item Value Reference Range Interpretation Comments Hgb (test code = Hgb) 12.6 11.7-15.5 [place] 209511-09-11 13:39:00 Test Item Value Reference Range Interpretation Comments Monocytes # (test code = Monocytes #) 646 200-950 [facility] PasoBfakjbwFEUYIVBDIS3051-15-96 13:39:00 Test Item Value Reference Range Interpretation Comments Hct (test code = Hct) 38.5 35.0-45.0 [place] 209511-09-11 13:39:00 Test Item Value Reference Range Interpretation Comments MCV (test code = MCV) 89.1 80.0-100.0 [place] 209511-09-11 13:39:00 Test Item Value Reference Range Interpretation Comments MCH (test code = MCH) 29.2 pg 27.0-33.0 [place] 209511-09-11 13:39:00 Test Item Value Reference Range Interpretation Comments MCHC (test code = MCHC) 32.7 32.0-36.0 [facility] PasoQyaccnuTKMIGOYMFR6441-12-96 13:39:00 Test Item Value Reference Range Interpretation Comments RDW (test code = RDW) 13.1 11.0-15.0 [facility] PasoEpsvuixSFMSMHCOEB9601-61-72 13:39:00 Test Item Value Reference Range Interpretation Comments Platelet (test code = Platelet) 290 140-400 [facility] PasoUngekplGOMVNXCRGM1736-49-32 13:39:00 Test Item Value Reference Range Interpretation Comments MPV (test code = MPV) 10.6 7.5-12.5 [facility] PasoZovgduoZRNLEFFJWY5527-09-19 13:39:00 Test Item Value Reference Range Interpretation Comments Neutrophils # (test code = Neutrophils 3430 2127-9625 #) [facility] PasoNkagtwoHAJTBKRSMU1819-50-87 13:39:00 Test Item Value Reference Range Interpretation Comments Lymphocytes # (test code = Lymphocytes 2061 850-3900 #) [facility] PasoUtevfugYONMBBVPVM0573-48-79 13:39:00 Test Item Value Reference Range Interpretation Comments Monocytes # (test code = Monocytes #) 646 200-950 [facility] PasoXkzksutWWKRYQHVCR5054-38-75 13:39:00 Test Item Value Reference Range Interpretation Comments Eosinophils # (test code = Eosinophils 192 15-500 #) [facility] PasoFqjyiqxIIQLSTAFSU6092-99-43 13:39:00 Test Item Value Reference Range Interpretation Comments Basophils # (test code 70 See_Comment [Aut omated message] The = Basophils #) system which generated this result tra nsmitted reference range : <=200. The reference r sharon was not used to int erpret this result as normal/abnormal . [facility] PasoEjzqpfiSZYKRKZSMD9624-95-41 13:39:00 Test Item Value Reference Range Interpretation Comments Segs (test code = Segs) 53.6 [facility] PasoQndeieaSCPCKVOKRU0074-38-39 13:39:00 Test Item Value Reference Range Interpretation Comments Lymphocytes (test code = Lymphocytes) 32.2 [place] 209511-09-11 13:39:00 Test Item Value Reference Range Interpretation Comments Monocytes (test code = Monocytes) 10.1 [facility] PasoPqvbsoqJLDTMDTZNQ6349-73-42 13:39:00 Test Item Value Reference Range Interpretation Comments Eosinophils (test code = Eosinophils) 3.0 [facility] PasoEunqtcfYFEZZKFZWO3878-61-28 13:39:00 Test Item Value Reference Range Interpretation Comments Basophils (test code = Basophils) 1.1 [facility] PasoEonfykvNFUSLMRKKS5645-84-61 13:39:00 Test Item Value Reference Range Interpretation Comments Sed Rate (test code = Sed Rate) 22 [facility] PasoXoavmdhKVFLXDGXHC4450-50-52 13:39:00 Test Item Value Reference Range Interpretation Comments Eosinophils # (test code = Eosinophils 192 15-500 #) [facility] PasoXviyvvnSGQHHRUKAW5995-82-59 13:39:00 Test Item Value Reference Range Interpretation Comments Basophils # (test code 70 See_Comment [Aut omated message] The = Basophils #) system which generated this result tra nsmitted reference range : <=200. The reference r sharon was not used to int erpret this result as normal/abnormal . [facility] PasoRnqhjglGWHCUYYIRS9584-90-72 13:39:00 Test Item Value Reference Range Interpretation Comments Segs (test code = Segs) 53.6 [facility] PasoQhjjupuKBZYBRJPPO8265-07-95 13:39:00 Test Item Value Reference Range Interpretation Comments Lymphocytes (test code = Lymphocytes) 32.2 [facility] PasoXoyyjpzCWXJTEGYDW7554-65-31 13:39:00 Test Item Value Reference Range Interpretation Comments Monocytes (test code = Monocytes) 10.1 [facility] PasoCjsixilREUFPZTBJB9532-13-48 13:39:00 Test Item Value Reference Range Interpretation Comments Eosinophils (test code = Eosinophils) 3.0 [facility] PasoWyiozmiLNQMBIWRPQ1646-98-35 13:39:00 Test Item Value Reference Range Interpretation Comments Basophils (test code = Basophils) 1.1 [facility] PasoUttulrpONTOMHAPRI7107-30-61 13:39:00 Test Item Value Reference Range Interpretation Comments Sed Rate (test code = Sed Rate) 22 [facility]2021-09-11 13:39:00 Test Item Value Reference Range Interpretation Comments Vitamin B12 Lvl (test code = Vitamin 368 524-5557 B12 Lvl) [facility]2021-09-11 13:39:00 Test Item Value Reference Range Interpretation Comments Glucose Lvl (test code = Glucose Lvl) 99 65-99 [facility]2021-09-11 13:39:00 Test Item Value Reference Range Interpretation Comments BUN (test code = BUN) 16 7-25 [facility]2021-09-11 13:39:00 Test Item Value Reference Range Interpretation Comments Creatinine Lvl (test code = Creatinine 0.65 0.60-0.93 Lvl) [place] 676001-09-11 13:39:00 Test Item Value Reference Range Interpretation Comments eGFR NON-AFR. MAURITIAN (test code = 87 eGFR NON-AFR. MAURITIAN) [place] 676001-09-11 13:39:00 Test Item Value Reference Range Interpretation Comments eGFR (test code = eGFR 101 ) [place] 676001-09-11 13:39:00 Test Item Value Reference Range Interpretation Comments B/C Ratio (test code = B/C NOT APPLICABLE 6-22 Ratio) [place] 676001-09-11 13:39:00 Test Item Value Reference Range Interpretation Comments Sodium Lvl (test code = Sodium Lvl) 137 135-146 [place] 676001-09-11 13:39:00 Test Item Value Reference Range Interpretation Comments Potassium Lvl (test code = Potassium 4.2 3.5-5.3 Lvl) [place] 676001-09-11 13:39:00 Test Item Value Reference Range Interpretation Comments Chloride Lvl (test code = Chloride Lvl) 102 98-110 [place] 676001-09-11 13:39:00 Test Item Value Reference Range Interpretation Comments CO2 (test code = CO2) 22 20-32 [place] 676001-09-11 13:39:00 Test Item Value Reference Range Interpretation Comments Calcium Lvl (test code = Calcium Lvl) 9.2 8.6-10.4 [place] 676001-09-11 13:39:00 Test Item Value Reference Range Interpretation Comments Total Protein (test code = Total 6.9 6.1-8.1 Protein) [place] 676001-09-11 13:39:00 Test Item Value Reference Range Interpretation Comments Albumin Lvl (test code = Albumin Lvl) 3.9 3.6-5.1 [place] 676001-09-11 13:39:00 Test Item Value Reference Range Interpretation Comments Globulin (test code = Globulin) 3.0 1.9-3.7 [place] 676001-09-11 13:39:00 Test Item Value Reference Range Interpretation Comments A/G Ratio (test code = A/G Ratio) 1.3 1.0-2.5 [facility]2021-09-11 13:39:00 Test Item Value Reference Range Interpretation Comments Bili Total (test code = Bili Total) 0.9 0.2-1.2 [facility]2021-09-11 13:39:00 Test Item Value Reference Range Interpretation Comments Alk Phos (test code = Alk Phos) 111 37-153 [facility]2021-09-11 13:39:00 Test Item Value Reference Range Interpretation Comments ASPARTATE TRANSAMINASE (test code = 23 10-35 ASPARTATE TRANSAMINASE) [place] 676001-09-11 13:39:00 Test Item Value Reference Range Interpretation Comments ALANINE AMINOTRANSFERASE (test code = 20 6-29 ALANINE AMINOTRANSFERASE) [place] 209511-09-11 13:39:00 Test Item Value Reference Range Interpretation Comments WBC X 10x3 (test code = WBC X 10x3) 6.4 3.8-10.8 [place] 209511-09-11 13:39:00 Test Item Value Reference Range Interpretation Comments RBC X 10x6 (test code = RBC X 10x6) 4.32 3.80-5.10 [place] 209511-09-11 13:39:00 Test Item Value Reference Range Interpretation Comments Hgb (test code = Hgb) 12.6 11.7-15.5 [place] 209511-09-11 13:39:00 Test Item Value Reference Range Interpretation Comments Hct (test code = Hct) 38.5 35.0-45.0 [place] 209511-09-11 13:39:00 Test Item Value Reference Range Interpretation Comments MCV (test code = MCV) 89.1 80.0-100.0 [place] 209511-09-11 13:39:00 Test Item Value Reference Range Interpretation Comments MCH (test code = MCH) 29.2 pg 27.0-33.0 [place] 209511-09-11 13:39:00 Test Item Value Reference Range Interpretation Comments MCHC (test code = MCHC) 32.7 32.0-36.0 [place] 209511-09-11 13:39:00 Test Item Value Reference Range Interpretation Comments RDW (test code = RDW) 13.1 11.0-15.0 [facility] PasoOzdkuxeAMTUEHRHMM8626-18-63 13:39:00 Test Item Value Reference Range Interpretation Comments Platelet (test code = Platelet) 290 140-400 [facility]2021-09-11 13:39:00 Test Item Value Reference Range Interpretation Comments Vitamin B12 Lvl (test code = Vitamin 850 854-3391 B12 Lvl) [facility] PasoFxncdsxSITCGOGJAW9068-63-50 13:39:00 Test Item Value Reference Range Interpretation Comments MPV (test code = MPV) 10.6 7.5-12.5 [facility] PasoOykgszmYGLNPCPKOM3844-87-29 13:39:00 Test Item Value Reference Range Interpretation Comments Neutrophils # (test code = Neutrophils 3430 6105-1456 #) [facility] PasoQpriromYPDBHHDKZK5433-99-89 13:39:00 Test Item Value Reference Range Interpretation Comments Lymphocytes # (test code = Lymphocytes 2061 850-3900 #) [facility] PasoAnnqiolYGTVPOELGS1247-47-70 13:39:00 Test Item Value Reference Range Interpretation Comments Monocytes # (test code = Monocytes #) 646 200-950 [facility] PasoWmrgqbbCXPDRJQYNA6680-40-86 13:39:00 Test Item Value Reference Range Interpretation Comments Eosinophils # (test code = Eosinophils 192 15-500 #) [facility] [place] [place]2020-01-23 16:41:00 Test Item Value Reference Range Interpretation Comments K (test code = 8683933130) 4.7 mmol/L 3.5-5 S light hemolysis Lab Interpretation (test Normal code = 03852-4) [facility]. METABOLIC PANEL (85957)2019-07-07 00:03:00 Test Item Value Reference Range Interpretation Comments NA (test code = 139 mmol/L 135-145 5875192726) K (test code = 5.7 mmol/L 3.5-5 H 2190395709) CL (test code = 102 mmol/L 98-108 2092927636) CO2 TOTAL (test code = 22 mmol/L 23-31 L 9045158228) AGAP (test code = 2-16 2245790576) BUN (test code = 24 mg/dL 7-23 H 8353299118) GLUCOSE (test code = 89 mg/dL 70-110 4075191774) CREATININE (test code = 0.64 mg/dL 0.5-1.04 0869029534) TOTAL BILI (test code = 0.4 mg/dL 0.1-1.4 2219503693) CALCIUM (test code = 10.4 mg/dL 8.6-10.6 2443133380) T PROTEIN (test code = 8.3 g/dL 6.3-8.2 H 9367015099) ALBUMIN (test code = 4.8 g/dL 3.5-5 5879880299) ALK PHOS (test code = 137 U/L 34-122 H 1720665794) ALTv (test code = 34 U/L 5-35 1742-6) AST(SGOT) (test code = 45 U/L 13-40 H 4000639317) eGFR Calculation mL/min/1.73m2 (Non-) (test code = 5461843633) eGFR Calculation mL/min/1.73m2 () (test code = 4422940038) MAGALI (test code = MAGALI) Association of [...] tests). Lab Interpretation Abnormal (test code = 56188-0) [facility]"
[2022-08-03] MEDS ORDERED: NA CHLORIDE 0.9% 500 ML ONE ×2 (14:43→18:07)
[2022-08-03 15:00] LABS: Absolute Lymphocytes (CBC) 0.9 K/uL (0.7-4.9); Hematocrit 36.3 % (36.0-45.0); Lymphocytes % 9.5 % (15.3-44.8); MCV 86.6 fL (80-100); MPV 7.7 fL (7.6-11.3); RBC Red Blood Cell Count 4.19 M/uL (3.86-4.86)
[2022-08-03 15:02] LABS: Urine Blood Trace-intact (Negative); Urine Glucose Negative (Negative); Urine Protein Negative (Negative); Urine Specific Gravity 1.015 (1.005-1.030)
[2022-08-03 15:15] LABS: Urine Bacteria None Seen /HPF (<20); Urine Crystals Unidentified Few /HPF (None Seen); Urine Mucus Slight /HPF (None Seen); Urine RBC <5 /HPF (None Seen)
[2022-08-03 15:19] LABS: Albumin 3.1 g/dL (3.4-5.0); Potassium 3.9 mmol/L (3.5-5.1)
--- NOTE | 2022-08-03 15:44 | RAD REPORT ---
EXAM DESCRIPTION: RAD - Chest Single View - 08/03/2022 3:12 pm CLINICAL HISTORY: Cough. Fever. History of hypertension COMPARISON: 06/03/2022 TECHNIQUE: PA and lateral views of the chest were obtained. FINDINGS: The lungs are clear. The overlying soft tissues slightly limiting evaluation along the cos tophrenic angles. Heart size is normal and central vasculature is within normal limits. No plueral ef fusion or pneumothorax seen. No acute bony finding noted. IMPRESSION: No acute cardiopulmonary process.
[2022-08-03 16:02] LABS: SARS-COV-2 RT PCR POSITIVE (NEGATIVE)
--- NOTE | 2022-08-03 17:34 | EDPHYS ---
Physician Documentation [facility] Name: Dennis Dawn Age: 77 yrs Sex: Female : 1945 Arrival Date: 08/03/2022 Time: 14:16 Bed 3 Private MD: ED Physician Deni Feliz HPI: 08/03 15:29 This 77 yrs old Female presents to ER via EMS with complaints of Fever. rn 15:29 The patient reports fever, that was measured at 102 degrees Fahrenheit. Onset: The rn symptoms/episode began/occurred this morning. Modifying factors: there are no obvious modifying factors. Associated signs and symptoms: Pertinent positives: chills, cough, diarrhea, runny nose, Pertinent negatives: abdominal pain, skin rash, vomiting. Severity of symptoms: At their worst the symptoms were moderate in the emergency department the symptoms are unchanged. The patient has not experienced similar symptoms in the past. The patient has not recently seen a physician. Historical: - Allergies: 14:29 Morphine; jl7 - Home Meds: 14:29 memantine 10 mg Oral tab [Active]; losartan 50 mg Oral tab [Active]; sucralfate 1 gram jl7 Oral tab [Active]; paroxetine 10mg [Active]; Myrbetriq 25 mg Oral Tb24 [Active]; promethazine 25 mg Oral tab [Active]; omeprazole 40 mg Oral cpDR [Active]; - PMHx: 14:29 Anxiety; Chronic obstructive lung disease; Gastroesophageal reflux disease; GERD; jl7 herniated disc in neck; hiatal hernia; Hypertensive disorder; osteomyelitis; - Immunization history:: Adult Immunizations unknown. - Social history:: Smoking status: Patient denies any tobacco usage or history of. - Family history:: not pertinent. - Hospitalizations: : No recent hospitalization is reported. 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 Exam: 15:29 Constitutional: This is a well developed, well nourished patient who is awake, alert, rn and in no acute distress. Head/Face: Normocephalic, atraumatic. ENT: dry MM Cardiovascular: Tachycardic, regular. No pulse deficits. Respiratory: + mild tachypnea, no retractions. Abdomen/GI: Soft, non-tender Skin: Warm, dry MS/ Extremity: Pulses equal, no cyanosis. Neuro: Awake, answers all questions, + slurred speech ( reports baseline after head injury in past), moves all 4 extremities with 4/5 strength, sensation intact. 15:41 ECG was reviewed by the Attending Physician. rn Vital Signs: 14:21 BP 129 / 83; Pulse 113; Resp 24; Temp 99.8; Pulse Ox 97% ; Weight 77.5 kg (M); jl7 19:02 BP 126 / 86; Pulse 102; Temp 98.5(O); Pulse Ox 100% on R/A; jl7 20:00 BP 135 / 89; Pulse 105; Resp 16; Pulse Ox 94% ; vc1 MDM: 14:16 Patient medically screened. rn 17:26 Differential diagnosis: viral Infection, bacterial infection, URI, bronchitis, rn pneumonia. Data reviewed: vital signs, nurses notes, lab test result(s), radiologic studies, and as a result, I will admit patient. Consideration of Admission/Observation Patient was admitted/placed on observation. Escalation of care including admission/observation considered. Management of patient was discussed with the following:. Counseling: I had a detailed discussion with the patient and/or guardian regarding: the historical points, exam findings, and any diagnostic results supporting the discharge/admit diagnosis, lab results, radiology results, the need for further work-up and treatment in the hospital. Response to treatment: the patient's symptoms have mildly improved after treatment, and as a result, I will admit patient. ED course: Pt with COVID, no pneumonia, but still abnormal vitals with tachypnea, COPD exacerbation, will admit to hospitalist service. . 08/03 14:22 Order name: Blood Culture Adult (2) rn 08/03 14:22 Order name: CBC with Diff rn 08/03 14:22 Order name: CMP rn 08/03 14:22 Order name: Lactate w/ 2H reflex if indic. rn 08/03 14:22 Order name: Protime (+inr) rn 08/03 14:22 Order name: Ptt, Activated rn 08/03 14:22 Order name: Urine Culture rn 08/03 14:22 Order name: Urine Microscopic Only rn 08/03 14:22 Order name: COVID-19/FLU A+B rn 08/03 14:22 Order name: BNP rn 08/03 15:02 Order name: Urine Dipstick-Ancillary; Complete Time: 15:17 EDWI 08/03 15:03 Order name: CBC with Automated Diff; Complete Time: 15:17 EDWI 08/03 15:08 Order name: Protime (+INR); Complete Time: 15:17 EDMS 08/03 15:08 Order name: PTT, Activated Partial Thromb; Complete Time: 15:17 EDWI 08/03 14:22 Order name: Chest Single View XRAY rn 08/03 14:22 Order name: EKG; Complete Time: 14:23 rn 08/03 14:22 Order name: Accucheck; Complete Time: 16:42 rn 08/03 14:22 Order name: Cardiac monitoring; Complete Time: 15:00 rn 08/03 15:15 Order name: Urine Microscopic Only; Complete Time: 15:17 EDWI 08/03 15:22 Order name: Comprehensive Metabolic Panel; Complete Time: 16:25 EDWI 08/03 15:22 Order name: NT PRO-BNP; Complete Time: 16:25 EDWI 08/03 15:24 Order name: Lactate w/ 2H reflex if indic.; Complete Time: 16:25 EDWI 08/03 15:45 Order name: RAD; Complete Time: 16:25 EDWI 08/03 16:02 Order name: COVID-19/FLU A+B; Complete Time: 16:25 EDWI 08/03 14:22 Order name: EKG - Nurse/Tech; Complete Time: 15:21 rn 08/03 14:22 Order name: IV Saline Lock - Large Bore; Complete Time: 15:00 rn 08/03 14:22 Order name: Labs collected and sent; Complete Time: 15:00 rn 08/03 14:22 Order name: O2 Per Protocol; Complete Time: 15:00 rn 08/03 14:22 Order name: O2 Sat Monitoring; Complete Time: 15:00 rn 08/03 14:22 Order name: Urine Dipstick-Ancillary (obtain specimen); Complete Time: 15:00 rn 08/03 14:22 Order name: Vital Signs; Complete Time: 15:00 rn EC:41 Rate is 101 beats/min. Rhythm is regular. QRS [place] is Normal. [place] interval is normal. rn QRS interval is normal. QT interval is normal. No Q waves. T waves are Normal. No ST changes noted. Clinical impression: Sinus tachycardia. Interpreted by me. Reviewed by me. 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 1000 mg PO once iw 14:42 Drug: NS 0.9% 500 ml Route: IV; Rate: bolus; Site: right forearm; ss 15:21 Follow up: IV Status: Completed infusion; IV Intake: 500ml ss 18:25 Drug: SOLU-Medrol (methylPrednisoLONE) 125 mg Route: IVP; Site: right antecubital; ss 18:25 Drug: Xopenex (levalbuterol) 1.25 mg Route: Inhalation; ss 18:25 Drug: NS 0.9% 500 ml Route: IV; Rate: bolus; Site: right antecubital; ss Disposition Summary: 08/03/22 17:33 Hospitalization Ordered Provider: Clemente Yadav rn Condition: Stable rn Problem: new rn Symptoms: have improved rn Bed/Room Type: Standard rn Hospitalization Status: Observation(08/03/22 17:34) rn Location: Telemetry/MedSurg (observation)(08/03/22 17:34) rn Room Assignment: [facility](08/03/22 18:58) Diagnosis - SARS-associated coronavirus as the cause of diseases classified elsewhere rn - COPD/ Chronic obstructive pulmonary disease with acute lower respiratory infection rn - Dehydration rn - Muscle weakness (generalized) rn Forms: - Medication Reconciliation Form rn - SBAR form rn Signatures: Dispatcher [employer] EDMS Joann Ellison RN RN mw Deni Feliz MD MD rn Smirch, Shelby, RN RN ss Sandra Dyer RN RN Bridgett Jack RN iw Corrections: (The following items were deleted from the chart) 14:32 14:29 PSHx: Cholecystectomy; jl7 kiki7 15:21 14:22 Owen ordered. rn ss 17:34 17:33 Inpatient Admission rn rn 17:34 17:33 Telemetry/MedSurg (Inpatient) ruthie hendricks 17:34 17:33 ruthie hendricks 18:58 17:34 rn ran
--- NOTE | 2022-08-03 17:34 | ER ---
Nurse's Notes [facility] Name: Dennis Dawn Age: 77 yrs Sex: Female : 1945 Arrival Date: 08/03/2022 Time: 14:16 Bed 3 Private MD: Diagnosis: SARS-associated coronavirus as the cause of diseases classified elsewhere;COPD/ Chronic obstructive pulmonary disease with acute lower respiratory infection;Dehydration;Muscle weakness (generalized) Presentation: 08/03 14:21 Chief complaint: EMS states: Toned out for fever at home, 102.4, caregiver gave 1 gram jl7 Tylenol PO, temp 98.6 for EMS, "bgl was good." VSS. Coronavirus screen: diarrhea, fever, Client presents with at least one sign or symptom that may indicate coronavirus-19. Ebola Screen: No symptoms or risks identified at this time. Initial Sepsis Screen: Does the patient meet any 2 criteria? RR > 20 per min. HR > 90 bpm. Yes Does the patient have a suspected source of infection? No. Patient's initial sepsis screen is negative. Risk Assessment: Do you want to hurt yourself or someone else? Patient reports no desire to harm self or others. Onset of symptoms is unknown. Care prior to arrival: None. 14:21 Method Of Arrival: EMS: [facility] 14:21 Acuity: ZAYNAB 3 jl7 Historical: - Allergies: 14:29 Morphine; jl7 - Home Meds: 14:29 memantine 10 mg Oral tab [Active]; losartan 50 mg Oral tab [Active]; sucralfate 1 gram jl7 Oral tab [Active]; paroxetine 10mg [Active]; Myrbetriq 25 mg Oral Tb24 [Active]; promethazine 25 mg Oral tab [Active]; omeprazole 40 mg Oral cpDR [Active]; - PMHx: 14:29 Anxiety; Chronic obstructive lung disease; Gastroesophageal reflux disease; GERD; jl7 herniated disc in neck; hiatal hernia; Hypertensive disorder; osteomyelitis; - Immunization history:: Adult Immunizations unknown. - Social history:: Smoking status: Patient denies any tobacco usage or history of. - Family history:: not pertinent. - Hospitalizations: : No recent hospitalization is reported. Screenin:10 Abuse screen: Denies threats or abuse. Denies injuries from another. Nutritional ss screening: No deficits noted. Tuberculosis screening: Never had TB. Assessment: 15:00 General: Appears uncomfortable, Behavior is cooperative, anxious, Pt states, "I have a ss pee problem! I need to pee!" assisted patient onto bedpan. Family member remains at bedside. . General: Reports fever for 12-24 hours. Neuro: Level of Consciousness is awake, alert, obeys commands. Respiratory: Airway is patent Respiratory effort is even, unlabored. GI: Patient currently denies nausea, vomiting. Derm: Skin is flushed. 15:10 Reassessment: assisted patient onto bedpan. CC urine sample obtained. ss 15:30 Reassessment: placed patient on bedpan again. offered pure wick. Pt states OK. ss 17:15 Reassessment: Patient appears in no apparent distress at this time. Patient and/or ss family updated on plan of care and expected duration. Pain level reassessed. 18:30 Reassessment: Patient states feeling better. Respiratory: Airway is patent Respiratory ss effort is even, unlabored. : No signs and/or symptoms were reported regarding the genitourinary system. 20:24 Reassessment: Patient and/or family updated on plan of care and expected duration. Pain vc1 level reassessed. Patient is alert, oriented x 3, equal unlabored respirations, skin warm/dry/pink. 20:26 Reassessment: attempted to call report. No one answered will try again. vc1 Vital Signs: 14:21 BP 129 / 83; Pulse 113; Resp 24; Temp 99.8; Pulse Ox 97% ; Weight 77.5 kg (M); jl7 19:02 BP 126 / 86; Pulse 102; Temp 98.5(O); Pulse Ox 100% on R/A; jl7 20:00 BP 135 / 89; Pulse 105; Resp 16; Pulse Ox 94% ; vc1 ED Course: 14:16 Patient arrived in ED. rn 14:16 Deni Feliz MD is Attending Physician. rn 14:29 Triage completed. jl7 14:29 Arm band placed on right wrist. jl7 14:45 Inserted saline lock: 20 gauge in right antecubital area, using aseptic technique. ss ,using aseptic technique. Insertion by WINSOME Urias Blood collected. 15:00 Smirch, Jenae, RN is Primary Nurse. ss 15:00 Patient has correct armband on for positive identification. Bed in low position. Call ss light in reach. 15:43 EKG done, by ED staff, reviewed by Deni Feliz MD. em1 17:32 Clemente Yadav MD is Hospitalizing Provider. rn 19:41 No provider procedures requiring assistance completed. Patient admitted, IV remains in ss place. 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 ss Intake: 15:21 IV: 500ml; Total: 500ml. ss Outcome: 17:33 Decision to Hospitalize by Provider. rn 19:41 Instructed on the need for admit. ss 22:01 Admitted to Tele accompanied by nurse, via stretcher, Report called to nadeem wise 22:01 Condition: good 22:01 Patient left the ED. vc1 Signatures: Deni Feliz MD MD rn Martinez, Eric em1 Jenae Parekh RN RN Sandra Dyer RN RN jl7 Lalito Allan mw2 Yue rFanco RN RN vc1 Bridgett Tong RN iw Corrections: (The following items were deleted from the chart) 14:32 14:29 PSHx: Cholecystectomy; lee howard
[2022-08-03] MEDS ORDERED: METHYLPREDNISOLONE 125 MG INJ ONE (18:07)
[2022-08-03] MEDS ORDERED: LEVALBUTEROL 1.25 MG/3 ML NEB ONE (18:07)
--- NOTE | 2022-08-03 18:48 | P.HP ---
Certification for Inpatient Patient admitted to: Inpatient With expected LOS: <2 Midnights Patient will require the following post-hospital care: None Practitioner: I am a practitioner with admitting privileges, knowledge of patient current condition, hospital course, and medical plan of care. Services: Services provided to patient in accordance with Admission requirements found in Title 42 Section 412.3 of the Code of Federal Regulations <Lisseth Chandler - Last Filed: 08/03/22 19:46> Patient History Date of Service: 08/03/22 Primary Care Provider: Rossy Reason for admission: Covid, Fever, COPD History of Present Illness: Patient is a 77-year-old female with past medical history of COPD, hypertension, GERD, and dementia who presented to the emergency department via EMS after requisition approver called for fever of 102.6. Tylenol was given prior to arrival and temp was 99.8 upon arrival to emergency department. She was noted to be tachycardic and tachypneic as well. Patient reports fever, chills, mild shortness of breath, and diarrhea. She denies any abdominal pain, nausea, or vomiting. Her chest x-ray is negative. Labs are significant for sodium 133, AST 309, ALT 283, alk phos 193, BNP 513, COVID-positive. Urine negative. In the emergency department, she was treated with Solu-Medrol, breathing treatment, and 1 L of fluid. ED provider wishes to admit patient for further management. Home medications list reviewed: Yes - Past Medical/Surgical History Diabetic: No -: Hypertension -: COPD -: GERD -: Dementia -: Right total knee -: Left forearm Psychosocial/ Personal History: Patient is . - Family History Family History: Reviewed- Non-Contributory - Social History Smoking Status: Former smoker Alcohol use: No CD- Drugs: No Caffeine use: No Place of Residence: Home <Lisseth Chandler - Last Filed: 08/03/22 19:46> Date of Service: 08/04/22 <Clemente Yadav - Last Filed: 08/04/22 19:23> Allergies morphine Allergy (Verified 11/23/18 07:01) severe n/v Home Medications: Brimonidine Tartrate [Lumify] 1 gtt EACH EYE DAILY 11/22/18 Esomeprazole Magnesium [Nexium] 20 mg PO DAILY 11/22/18 Hydrocodone Bit/Acetaminophen [Hydrocodon-Acetaminoph 7.5-325] 0.5 each PO Q6HP PRN 11/22/18 Promethazine HCl 25 mg PO TID PRN 11/24/18 Hydrocodone 7.5/APAP 325 [[place] 7.5/325 mg*] 1 tab PO Q4H PRN tab 11/26/18 Review of Systems General: Fever, Chills Respiratory: Shortness of Breath Gastrointestinal: Diarrhea <Lisseth Chandler - Last Filed: 08/03/22 19:46> Physical Examination - Vital Signs Temperature: 99.8 F Blood Pressure: 129/83 Pulse: 113 Respirations: 24 Pulse Ox (%): 97 (room air) - Physical Exam General: Alert, In no apparent distress HEENT: Atraumatic, EOMI, Sclerae nonicteric Neck: Supple, 2+ carotid pulse no bruit Respiratory: Clear to auscultation bilaterally, Normal air movement Cardiovascular: Regular rate/rhythm, Normal S1 S2 Gastrointestinal: Normal bowel sounds, No tenderness Musculoskeletal: No tenderness Integumentary: No rashes Neurological: Normal speech, Dementia - Studies Laboratory Data (last 24 hrs) 08/03/22 14:43: PT 11.0, INR 1.00, APTT 27.3 08/03/22 14:43: Sodium 133 L, Potassium 3.9, BUN 11, Creatinine 0.56, Glucose 107 H, Total Bilirubin 1.0, AST 309 H*, ALT 283 H, Alkaline Phosphatase 193 H 08/03/22 14:43: WBC 9.20, Hgb 12.3, Hct 36.3, Plt Count 282 <Lisseth Chandler - Last Filed: 08/03/22 19:46> - Studies Microbiology Data (last 24 hrs): 08/03/22 14:30 Blood - Blood Blood Culture Gram Stain - Final <Clemente Yadav - Last Filed: 08/04/22 19:23> Assessment and Plan - Problems (Diagnosis) (1) COVID-19 Current Visit: Yes Status: Acute (2) Hypertension Current Visit: Yes Status: Chronic Qualifiers: Hypertension type: primary hypertension Qualified Code(s): I10 - Essential (primary) hypertension (3) COPD (chronic obstructive pulmonary disease) Current Visit: Yes Status: Chronic Qualifiers: COPD type: unspecified COPD Qualified Code(s): J44.9 - Chronic obstructive pulmonary disease, unspecified (4) GERD (gastroesophageal reflux disease) Current Visit: Yes Status: Chronic Qualifiers: Esophagitis presence: without esophagitis Qualified Code(s): K21.9 - Gastro-esophageal reflux disease without esophagitis (5) Elevated liver enzymes Current Visit: Yes Status: Acute - Plan Patient is admitted for further management of COVID-19 superimposed on COPD with associated fever. Saturating appropriately on room air. Chest xray negative. Meeting sepsis criteria with tachycardia, tachypnea, and source being covid- though viral. Lactate negative. BP stable. Blood cultures obtained. Continue supportive measures with IV hydration, antitussives, breathing treatments, antipyretics. Vitamin C and zinc daily. Liver enzymes are elevated. Patient denies any abdominal pain. No tenderness on exam. No history of liver disease. Will recheck in AM. Monitor and replete electrolytes per protocol. Reconcile and continue home medications. VTE prophylaxis. Full code. Discharge Plan: Home Plan to discharge in: 48 Hours - Advance Directives Does patient have a Living Will: No Does patient have a Durable POA for Healthcare: No - Code Status/Comfort Care Code Status Assessed: Yes Code Status: Full Code Physician Review: Patient Assessed, Agree with Above Assessment and Plan Critical Care: No Time Spent Managing Pts Care (In Minutes): 50 <Lisseth Chandler - Last Filed: 08/03/22 19:46> Physician Review: Patient Assessed, Agree with Above Assessment and Plan <Clemente Yadav - Last Filed: 08/04/22 19:23>
[2022-08-03] MEDS ORDERED: IPRATROPIUM BROM 0.5MG/2.5ML NEB PRN (22:24)
[2022-08-03] MEDS ORDERED: BENZONATATE 100 MG CAP PO PRN (22:24)
[2022-08-03] MEDS ORDERED: ALBUTEROL 2.5 MG/3 ML NEB SOL NEB PRN (22:24)
[2022-08-03] MEDS ORDERED: ONDANSETRON 4 MG/2 ML VIAL IV PRN (22:24)
[2022-08-03] MEDS: NA CHLORIDE 0.9% 1,000 ML IV SCH (23:03)
[2022-08-03] MEDS: ACETAMINOPHEN 500 MG TAB PO PRN (23:12)
[2022-08-03 23:50] VITALS: BMI 29.3
[2022-08-04 05:31] LABS: Absolute Lymphocytes (CBC) 0.7 K/uL (0.7-4.9); Hematocrit 34.8 % (36.0-45.0); Lymphocytes % 10.7 % (15.3-44.8); MCV 86.7 fL (80-100); MPV 7.8 fL (7.6-11.3); RBC Red Blood Cell Count 4.01 M/uL (3.86-4.86)
[2022-08-04 05:57] LABS: Albumin 2.8 g/dL (3.4-5.0); Bilirubin Total 0.6 mg/dL (0.2-1.0); Magnesium 2.1 mg/dL (1.6-2.4); Phosphorus 3.2 mg/dL (2.5-4.9); Potassium 3.9 mmol/L (3.5-5.1); Protein, Total 6.4 g/dL (6.4-8.2)
--- NOTE | 2022-08-04 08:32 | RAD REPORT ---
EXAM DESCRIPTION: CTAbdomen Pelvis Wo Contrast - 08/04/2022 8:22 am CLINICAL HISTORY: gram negative bacteremia - unclear source COMPARISON: Abdomen Pelvis W Contrast dated 03/24/2016 TECHNIQUE: CT of the abdomen and pelvis was performed without contrast. All CT scans are performed using dose optimization technique as appropriate and may include automated exposure control or mA/KV adjustment according to patient size. FINDINGS: Lower chest: Bilateral breast prostheses. Small hiatal hernia. Liver: No acute abnormality or suspicious lesions. Biliary: Pneumobilia. Cholecystectomy. Dilated common bile duct measuring 14 millimeters, previously 8 millimeters. Stomach: No significant focal abnormality. Duodenum: No significant focal abnormality. Pancreas: No significant abnormality. Spleen: No significant abnormality. Adrenal: Unchanged small bilateral adrenal nodules which are benign. Kidney/ureter: No hydronephrosis. No renal calculi. Retroperitoneum: No retroperitoneal adenopathy. Vascular: No aneurysm. Bowel: No significant focal abnormality. Diverticulosis. No evidence of acute diverticulitis. Peritoneum: No ascites or free air. Bladder: Grossly unremarkable. Reproductive: No adnexal masses. Hysterectomy. Bones: No acute fracture. Other: n/a IMPRESSION: Increased biliary duct dilatation compared with 03/24/2016. Pneumobilia is again identif ied. Correlate with LFTs. If abnormal or additional evaluation is required, suggest MRCP. Otherwise, no definite findings to explain a gram-negative bacteremia.
--- NOTE | 2022-08-04 08:39 | P.CNS ---
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 Tylenol was given prior to arrival and temp was 99.8 upon arrival to emergency department. She was noted to be tachycardic and tachypneic as well. Patient reports fever, chills, mild shortness of breath, and diarrhea. She denies any abdominal pain, nausea, or vomiting. Her chest x- ray is negative. Labs are significant for sodium 133, AST 309, ALT 283, alk phos 193, BNP 513, COVID-positive. Urine negative. In the emergency department, she was treated with Solu-Medrol, breathing treatment, and 1 L of fluid. On 08/03 BC: Positive with Gram Neg Domingo. ID has been consulted for IV antibiotics recommendations and management for possible bacteremia Allergies morphine Allergy (Verified 11/23/18 07:01) severe n/v Home Medications: Brimonidine Tartrate [Lumify] 1 gtt EACH EYE DAILY 11/22/18 Esomeprazole Magnesium [Nexium] 20 mg PO DAILY 11/22/18 Hydrocodone Bit/Acetaminophen [Hydrocodon-Acetaminoph 7.5-325] 0.5 each PO Q6HP PRN 11/22/18 Promethazine HCl 25 mg PO TID PRN 11/24/18 Hydrocodone 7.5/APAP 325 [[place] 7.5/325 mg*] 1 tab PO Q4H PRN tab 11/26/18 - Past Medical/Surgical History Diabetic: No -: Hypertension -: COPD -: GERD -: Dementia -: Right total knee -: Left forearm Psychosocial/ Personal History: Patient is . - Social History Alcohol use: No CD- Drugs: No Caffeine use: No Place of Residence: Home Review of Systems 10-point ROS is otherwise unremarkable Physical Examination Temp Pulse Resp BP Pulse Ox 96.9 F 86 18 114/71 99 08/04/22 04:00 08/04/22 04:00 08/04/22 04:00 08/04/22 04:00 08/04/22 04:00 General: Alert, In no apparent distress, Demented (was able to follow commands) Respiratory: Crackles/rales (basal, b/l) Cardiovascular: No edema, Normal S1 S2 Gastrointestinal: Normal bowel sounds Musculoskeletal: No swelling, No tenderness Integumentary: No rashes, No breakdown Neurological: Normal speech, Normal tone, Normal affect, Dementia (was able to follow commands) Laboratory Data (last 24 hrs) 08/03/22 14:43: PT 11.0, INR 1.00, APTT 27.3 08/03/22 14:43: Sodium 133 L, Potassium 3.9, BUN 11, Creatinine 0.56, Glucose 107 H, Total Bilirubin 1.0, AST 309 H*, ALT 283 H, Alkaline Phosphatase 193 H 08/03/22 14:43: WBC 9.20, Hgb 12.3, Hct 36.3, Plt Count 282 Acetaminophen (Acetaminophen 500 Mg Tab) 1,000 mg PO Q6H PRN PRN Reason: TEMP > 100' F Last Admin: 08/03/22 23:12 Dose: 1,000 mg Albuterol Sulfate (Albuterol 2.5 Mg/3 Ml Neb Yesenia) 2.5 mg NEB Q6HP PRN PRN Reason: SHORTNESS OF BREATH Ascorbic Acid (Ascorbic Acid 500 Mg Tablet) 500 mg PO DAILY [facility] Benzonatate (Benzonatate 100 Mg Cap) 100 mg PO TID PRN PRN Reason: COUGH Sodium Chloride (Ns 1000 Ml Ivbag) 1,000 mls @ 75 mls/hr IV .[id number] [facility] Last Admin: 08/03/22 23:03 Dose: 1,000 mls Piperacillin Sod/Tazobactam (Sod 3.375 gm/ Sodium Chloride) 100 mls @ 25 mls/hr IV Q8HR [facility]; Protocol Ipratropium [place] (Ipratropium Brom 0.5mg/2.5ml) 0.5 mg NEB [id number] PRN PRN Reason: SHORTNESS OF BREATH Ondansetron HCl (Ondansetron 4 Mg/2 Ml Vial) 4 mg IV Q6HP PRN PRN Reason: NAUSEA / VOMITING Potassium Chloride (Potassium Cl Sa 10 Meq Tab) 20 meq PO 1X ONE Stop: 08/04/22 09:01 Sodium Chloride (Flush Normal Saline 10 Ml) 10 ml IV BID [facility] Last Admin: 02/13/23 23:03 Dose: 10 ml Zinc Sulfate (Zinc Sulfate 220 Mg Cap) 220 mg PO DAILY [facility] Microbiology 08/03/22 14:30 Blood - Blood Aerobic Blood Culture - Preliminary 08/03/22 14:30 Blood - Blood Blood Culture Gram Stain - Final Imagings Data: CTAbdomen Pelvis Wo Contrast - 08/04/2022 FINDINGS: Lower chest: Bilateral breast prostheses. Small hiatal hernia. Liver: No acute abnormality or suspicious lesions. Biliary: Pneumobilia. Cholecystectomy. Dilated common bile duct measuring 14 millimeters, previously 8 millimeters. Stomach: No significant focal abnormality. Duodenum: No significant focal abnormality. Pancreas: No significant abnormality. Spleen: No significant abnormality. Adrenal: Unchanged small bilateral adrenal nodules which are benign. Kidney/ureter: No hydronephrosis. No renal calculi. Retroperitoneum: No retroperitoneal adenopathy. Vascular: No aneurysm. Bowel: No significant focal abnormality. Diverticulosis. No evidence of acute diverticulitis. Peritoneum: No ascites or free air. Bladder: Grossly unremarkable. Reproductive: No adnexal masses. Hysterectomy. Bones: No acute fracture. Other: n/a IMPRESSION: Increased biliary duct dilatation compared with 03/24/2016. Pneumobilia is again identified. Correlate with LFTs. If abnormal or additional evaluation is required, suggest MRCP. Otherwise, no definite findings to explain a gram-negative bacteremia. RAD - Chest Single View - 08/03/2022 FINDINGS: The lungs are clear. The overlying soft tissues slightly limiting evaluation along the costophrenic angles. Heart size is normal and central vasculature is within normal limits. No plueral effusion or pneumothorax seen. No acute bony finding noted. IMPRESSION: No acute cardiopulmonary process. - Problems (1) Positive blood cultures Current Visit: Yes Status: Acute Plan: Cultures: - 08/03 BC: Gram Neg Domingo positive: Pending for cultures - 08/03 UC: Pending Antibiotics: - Current on IV Zosyn (08/04- ) Recommendations: - Continue IV Zosyn - ID will recommend the antibiotics drug of choice when cultures are available Conclusions/Impression: - COVID-19 - Blood cultures Gram Neg Domingo positive: Pending for cultures - Hypertension - COPD (chronic obstructive pulmonary disease) - GERD (gastroesophageal reflux disease) - Elevated liver enzymes - Hypertension - COPD - GERD - Dementia ID will closely monitor the patient for signs of infection with fever and WBC trends Case has been discussed with Woodrow Paul Thank you Dr. Yadav for consultation
[2022-08-04] MEDS ORDERED: POTASSIUM CL SA 10 MEQ TAB PO ONE (09:00)
[2022-08-04] MEDS: ASCORBIC ACID 500 MG TABLET PO SCH (10:01)
[2022-08-04] MEDS: PIPER TAZO 3.375 GM in NA CHLORIDE 0.9% 100 ML IV SCH ×2 (10:01→17:23)
[2022-08-04] MEDS: ZINC SULFATE 220 MG CAP PO SCH (10:01)
[2022-08-04] MEDS ORDERED: ALBUTEROL 2.5 MG/3 ML NEB SOL NEB PRN (12:00)
[2022-08-04] MEDS: NA CHLORIDE 0.9% 1,000 ML IV SCH (14:41)
--- NOTE | 2022-08-04 17:13 | EKG ---
Test Date: 2022-08-03 Test Time: 15:25:32 Hoe Worker: JORGITO MEASUREMENT RESULTS: Intervals: Rate: 101 NJ: 184 QRSD: 84 QT: 352 QTc: 456 [place]: P: 51 NJ: 184 QRS: 192 T: 29 INTERPRETIVE STATEMENTS: Sinus tachycardia Possible Lateral infarct, age undetermined Inferior-posterior infarct, age undetermined Abnormal ECG Compared to ECG 03/20/2022 16:46:12 Sinus rhythm no longer present Myocardial infarct finding still present Myocardial infarct finding still present Electronically Signed On 08-04-22 17:09:36 SKIN DIVING TEACHER by Joselo Taylor
--- NOTE | 2022-08-04 19:27 | P.PN ---
Subjective Date of Service: 08/04/22 Primary Care Provider: Rossy Chief Complaint: Covid, Fever, COPD No acute events since admission. She reports that her breathing is improved, but her cough is persistent. She denies any chest pain, abdominal pain, or palpitations. Review of Systems 10-point ROS is otherwise unremarkable Respiratory: Cough, Dry, Shortness of Breath Physical Examination - Vital Signs Temperature: 97.7 F Blood Pressure: 125/73 Pulse: 73 Respirations: 18 Pulse Ox (%): 96 - Physical Exam General: Alert, In no apparent distress, Oriented x3 HEENT: Atraumatic, EOMI, Sclerae nonicteric Neck: JVD not distended Respiratory: Clear to auscultation bilaterally, Diminished Cardiovascular: No edema, Regular rate/rhythm, Normal S1 S2, No gallops, No rubs, No murmurs Gastrointestinal: Normal bowel sounds, Soft and benign, Non-distended, No tenderness, No rebound, No guarding Musculoskeletal: No clubbing Integumentary: No rashes Neurological: Normal speech, Normal affect - Studies Microbiology Data (last 24 hrs): 08/03/22 14:30 Blood - Blood Blood Culture Gram Stain - Final Assessment And Plan - Plan # Possible Sepsis secondary to Gram-Negative Bacteremia - however, cannot exclude Viral Sepsis due to COVID-19 Infection # Elevated Liver Enzymes - possible due to COVID-19? She meets sepsis criteria based on HR > 90 bpm and RR > 20 breaths/min and the suspected source is bacteremia. - Sepsis order set was initiated - Initial Lactate was 1.2, trend - Blood cultures drawn before antibiotics were given - Broad spectrum antibiotics started: Piperacillin-Tazobactam - In regards to fluids: - 30 mL/kg of IV fluids was not administered given SBP > 90, MAP > 65, lactic acid < 4 - Infectious Diseases consulted - recommendations appreciated - Chest x-ray = "no acute cardiopulmonary process." - Urinalysis = not suspicious for infection - CT abdomen/pelvis = pending - PRN guaifenesin, benzonatate - Incentive spirometry # Chronic Obstructive Pulmonary Disease # Hypertension # Gastroesophageal Reflux Disease - Reconcile home medications once verified Clemente Yadav M.D.
[2022-08-04] MEDS ORDERED: guaiFENesin 100 MG/5 ML UCUP PO PRN (19:32)
--- NOTE | 2022-08-04 20:23 | RAD REPORT ---
EXAM DESCRIPTION: US - Abdomen Exam Limited - 08/04/2022 8:05 pm CLINICAL HISTORY: elevated LFTs COMPARISON: ABDOMINAL EXAM COMPLETE dated 07/15/2010 FINDINGS: Cholecystectomy. The common bile duct is mildly prominent measuring 11-12 mm. The liver demonstrates no findings of intrahepatic biliary dilatation. Normal appearance to right kid mati. IMPRESSION: Cholecystectomy with mildly prominent common bile duct.
[2022-08-05] MEDS: PIPER TAZO 3.375 GM in NA CHLORIDE 0.9% 100 ML IV SCH ×3 (00:15→16:55)
[2022-08-05 09:07] LABS: Absolute Lymphocytes (CBC) 1.7 K/uL (0.7-4.9); Hematocrit 34.1 % (36.0-45.0); Lymphocytes % 20.6 % (15.3-44.8); MCV 87.6 fL (80-100); MPV 7.7 fL (7.6-11.3); RBC Red Blood Cell Count 3.89 M/uL (3.86-4.86)
[2022-08-05 09:20] LABS: Bilirubin Total 0.8 mg/dL (0.2-1.0); Potassium 3.6 mmol/L (3.5-5.1); Protein, Total 6.6 g/dL (6.4-8.2)
--- NOTE | 2022-08-05 09:55 | P.PN ---
Subjective Date of Service: 08/05/22 Primary Care Provider: Rossy Chief Complaint: Covid, Fever, COPD Patient lying in bed with no major event upon examination Physical Examination - Vital Signs Temperature: 97.2 F Blood Pressure: 130/72 Pulse: 80 Respirations: 17 Pulse Ox (%): 98 - Physical Exam General: Alert, In no apparent distress, Demented Respiratory: Crackles/rales (b/l basal) Cardiovascular: No edema, Normal S1 S2 Gastrointestinal: Normal bowel sounds Musculoskeletal: Other (left arm deformity POA) Integumentary: No rashes, No breakdown Neurological: Normal speech, Normal tone, Normal affect, Dementia - Studies Acetaminophen (Acetaminophen 500 Mg Tab) 1,000 mg PO Q6H PRN PRN Reason: TEMP > 100' F Last Admin: 08/03/22 23:12 Dose: 1,000 mg Albuterol Sulfate (Albuterol 2.5 Mg/3 Ml Neb Yes[place]) 2.5 mg NEB [id number] PRN PRN Reason: SHORTNESS OF BREATH Ascorbic Acid (Ascorbic Acid 500 Mg Tablet) 500 mg PO DAILY [facility] Last Admin: 08/04/22 10:01 Dose: 500 mg Benzonatate (Benzonatate 100 Mg Cap) 100 mg PO TID PRN PRN Reason: COUGH Last Admin: 08/04/22 10:03 Dose: 100 mg Guaifenesin (Guaifenesin 100 Mg/5 Ml [place]) 100 mg PO QID PRN PRN Reason: COUGH Sodium Chloride (Ns 1000 Ml Ivbag) 1,000 mls @ 75 mls/hr IV .[id number] [facility] Last Admin: 08/04/22 14:41 Dose: 1,000 mls Piperacillin Sod/Tazobactam (Sod 3.375 gm/ Sodium Chloride) 100 mls @ 25 mls/hr IV Q8HR [facility]; Protocol Last Admin: 08/05/22 00:15 Dose: 100 mls Ipratropium [place] (Ipratropium Brom 0.5mg/2.5ml) 0.5 mg NEB [id number] PRN PRN Reason: SHORTNESS OF BREATH Ondansetron HCl (Ondansetron 4 Mg/2 Ml Vial) 4 mg IV Q6HP PRN PRN Reason: NAUSEA / VOMITING Sodium Chloride (Flush Normal Saline 10 Ml) 10 ml IV BID [facility] Last Admin: 08/04/22 21:00 Dose: 10 ml Zinc Sulfate (Zinc Sulfate 220 Mg Cap) 220 mg PO DAILY [facility] Last Admin: 08/04/22 10:01 Dose: 220 mg Microbiology 08/03/22 15:00 Catheterized Urine [place] Count - Preliminary BETWEEN 10,000 & 100,000 CFU/ML 08/03/22 15:00 Catheterized Urine - Preliminary MIXED CHRISTIANO. 08/03/22 14:30 Blood - Blood Aerobic Blood Culture - Preliminary 08/03/22 14:30 Blood - Blood Blood Culture Gram Stain - Final 08/03/22 14:30 Blood - Blood Anaerobic Blood Culture - Preliminary No growth in 24 hours. 08/03/22 14:43 Blood - Blood Aerobic Blood Culture - Preliminary No growth in 24 hours. 08/03/22 14:43 Blood - Blood Anaerobic Blood Culture - Preliminary No growth in 24 hours. Microbiology Data (last 24 hrs): 08/03/22 14:30 Blood - Blood Blood Culture Gram Stain - Final Assessment And Plan - Current Problems (Diagnosis) (1) Positive blood cultures Current Visit: Yes Status: Acute Plan: Cultures: - 08/03 BC: Gram Neg Domingo positive: No growth @ 24 hrs - 08/03 UC: Mixed christiano Antibiotics: - Current on IV Zosyn (08/04- ) Recommendations: - Stop IV Zosyn - Switch to PO Cefdinir for total of 7 days - Plan - COVID-19 - Blood cultures Gram Neg Domingo positive: No growth @ 24 hrs - Hypertension - COPD (chronic obstructive pulmonary disease) - GERD (gastroesophageal reflux disease) - Elevated liver enzymes - Hypertension - COPD - GERD - Dementia ID will closely monitor the patient for signs of infection with fever and WBC trends Case has been discussed with Dr. Zuleta, N Physician Review: Patient Assessed, Agree with Above Assessment and Plan
[2022-08-05] MEDS ORDERED: POTASSIUM CL SA 10 MEQ TAB PO ONE (10:32)
[2022-08-05] MEDS: ZINC SULFATE 220 MG CAP PO SCH (11:33)
[2022-08-05] MEDS: ASCORBIC ACID 500 MG TABLET PO SCH (11:33)
[2022-08-05] MEDS: NA CHLORIDE 0.9% 1,000 ML IV SCH ×2 (11:44→14:24)
[2022-08-05] MEDS: ACETAMINOPHEN 500 MG TAB PO PRN (12:18)
--- NOTE | 2022-08-05 14:49 | RAD REPORT ---
EXAM DESCRIPTION: MRI - Cholangiogram - 08/05/2022 11:45 am CLINICAL HISTORY: biliary dilitation on CT COMPARISON: Abdomen Exam Limited dated 08/04/2022; Abdomen Pelvis Wo Contrast dated 08/04/2022 TECHNIQUE: Multiplanar multisequence MRI of the abdomen performed without IV contrast. Acquired ser ies include heavily T2 weighted thin cut MRCP images. FINDINGS: Gallbladder has been surgically removed. The liver, spleen, and included aspects of the kidneys are unremarkable. A stable left adrenal ovoid 1.5 centimeter nodule, not well characterized on this exam, and could rep resent a small adenoma. No significant intrahepatic biliary ductal dilation. Moderate dilation of the common bile duct, as we ll as the common hepatic and right and left hepatic ducts, with the common bile duct measuring up to 1.8 centimeter in caliber. Filling defects noted along the mid to distal common bile duct, the larges t measuring 7 millimeter suggestive of nonobstructing stones. No other suspicious masses in the abdomen or adenopathy. The included aspects of the lower lungs are unremarkable on MRI. Partially visualized breast implants . IMPRESSION: Dilated extrahepatic bile ducts as above. Common bile duct measures up to 1.8 centimeter in caliber. Nonobstructing filling defects along the mid to distal common bile duct largest measuring 7 millimete r suggestive of stones. Status post cholecystectomy. Incompletely characterized left adrenal 1.5 centimeter nodule, grossly stable since prior CT, and cou ld represent a small adenoma.
--- NOTE | 2022-08-05 18:36 | P.PN ---
Subjective Date of Service: 08/05/22 Primary Care Provider: Rossy Chief Complaint: Covid, Fever, COPD No acute events since admission. She reports that her breathing continues to improve. She denies any chest pain, abdominal pain, nausea, vomiting, or palpitations. Review of Systems 10-point ROS is otherwise unremarkable General: Malaise Physical Examination - Vital Signs Temperature: 97.7 F Blood Pressure: 143/83 Pulse: 71 Respirations: 17 Pulse Ox (%): 97 - Studies Microbiology Data (last 24 hrs): 08/03/22 14:30 Blood - Blood Blood Culture Gram Stain - Final Assessment And Plan - Plan - Physical Exam General: Alert, In no apparent distress, Oriented x3 HEENT: Atraumatic, Sclerae nonicteric Neck: JVD not distended Respiratory: Clear to auscultation bilaterally, Diminished Cardiovascular: No edema, Regular rate/rhythm, No gallops, No rubs, No murmurs Gastrointestinal: Normal bowel sounds, Soft, Non-distended, No tenderness Musculoskeletal: No clubbing Integumentary: No rashes. No jaundice Neurological: Normal speech, Normal affect # Possible Sepsis secondary to Gram-Negative Bacteremia - however, cannot ex clude Viral Sepsis due to COVID-19 Infection # Elevated Liver Enzymes - possible due to COVID-19? She meets sepsis criteria based on HR > 90 bpm and RR > 20 breaths/min and the suspected source is bacteremia. - Sepsis order set was initiated - Initial Lactate was 1.2, trend - Blood cultures drawn before antibiotics were given - Broad spectrum antibiotics started: Piperacillin-Tazobactam - In regards to fluids: - 30 mL/kg of IV fluids was not administered given SBP > 90, MAP > 65, lactic acid < 4 - Infectious Diseases consulted - recommendations appreciated - Chest x-ray = "no acute cardiopulmonary process." - Urinalysis = not suspicious for infection - CT abdomen/pelvis = "increased biliary duct dilatation compared with 03/24/2016. Pneumobilia is again identified. Correlate with LFTs. If abnormal or additional evaluation is required, suggest MRCP. Otherwise, no definite findings to explain a gram-negative bacteremia." - Abdominal ultrasound = "cholecystectomy with mildly prominent common bile duct." - MRCP = pending - PRN guaifenesin, benzonatate - Incentive spirometry # Chronic Obstructive Pulmonary Disease # Hypertension # Gastroesophageal Reflux Disease - Reconcile home medications once verified Clemente Yadav M.D.
--- NOTE | 2022-08-05 23:10 | P.DS ---
Admission Date: 08/03/22 Discharge Date: 08/06/22 Primary Care Provider: Rossy Disposition: TRANSFER TO [facility] Discharge Condition: FAIR Reason for Admission: Covid, Fever, COPD Procedures: Chest x-ray 08/03/2022 FINDINGS: The lungs are clear. The overlying soft tissues slightly limiting evaluation along the costophrenic angles. Heart size is normal and central vasculature is within normal limits. No plueral effusion or pneumothorax seen. No acute bony finding noted. IMPRESSION: No acute cardiopulmonary process. CT abdomen pelvis 08/04/2022 FINDINGS: Lower chest: Bilateral breast prostheses. Small hiatal hernia. Liver: No acute abnormality or suspicious lesions. Biliary: Pneumobilia. Cholecystectomy. Dilated common bile duct measuring 14 millimeters, previously 8 millimeters. Stomach: No significant focal abnormality. Duodenum: No significant focal abnormality. Pancreas: No significant abnormality. Spleen: No significant abnormality. Adrenal: Unchanged small bilateral adrenal nodules which are benign. Kidney/ureter: No hydronephrosis. No renal calculi. Retroperitoneum: No retroperitoneal adenopathy. Vascular: No aneurysm. Bowel: No significant focal abnormality. Diverticulosis. No evidence of acute diverticulitis. Peritoneum: No ascites or free air. Bladder: Grossly unremarkable. Reproductive: No adnexal masses. Hysterectomy. Bones: No acute fracture. Other: n/a IMPRESSION: Increased biliary duct dilatation compared with 03/24/2016. Pneumobilia is again identified. Correlate with LFTs. If abnormal or additional evaluation is required, suggest MRCP. Otherwise, no definite findings to explain a gram-negative bacteremia. Abdominal ultrasound 08/04/2022 FINDINGS: Cholecystectomy. The common bile duct is mildly prominent measuring 11-12 mm. The liver demonstrates no findings of intrahepatic biliary dilatation. Normal appearance to right kidney. IMPRESSION: Cholecystectomy with mildly prominent common bile duct. MRCP 08/05/2022 FINDINGS: Gallbladder has been surgically removed. The liver, spleen, and included aspects of the kidneys are unremarkable. A stable left adrenal ovoid 1.5 centimeter nodule, not well characterized on this exam, and could represent a small adenoma. No significant intrahepatic biliary ductal dilation. Moderate dilation of the common bile duct, as well as the common hepatic and right and left hepatic ducts, with the common bile duct measuring up to 1.8 centimeter in caliber. Filling defects noted along the mid to distal common bile duct, the largest measuring 7 millimeter suggestive of nonobstructing stones. No other suspicious masses in the abdomen or adenopathy. The included aspects of the lower lungs are unremarkable on MRI. Partially visualized breast implants. IMPRESSION: Dilated extrahepatic bile ducts as above. Common bile duct measures up to 1.8 centimeter in caliber. Nonobstructing filling defects along the mid to distal common bile duct largest measuring 7 millimeter suggestive of stones. Status post cholecystectomy. Incompletely characterized left adrenal 1.5 centimeter nodule, grossly stable since prior CT, and could represent a small adenoma. 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 Tylenol was given prior to arrival and temp was 99.8 upon arrival to emergency department. She was noted to be tachycardic and tachypneic as well. Patient reports fever, chills, mild shortness of breath, and diarrhea. She denies any abdominal pain, nausea, or vomiting. Her chest x-ray is negative. Labs are significant for sodium 133, AST 309, ALT 283, alk phos 193, BNP 513, COVID-positive. Urine negative. In the emergency department, she was treated with Solu-Medrol, breathing treatment, and 1 L of fluid. ED provider wishes to admit patient for further management. Hospital Course: Patient was admitted with COVID-19, fever. She is found to be bacteremic 1 out of 4 bottles with gram-negative rods, her urine was negative for signs of infection. She was also noted to have elevated LFTs. CT abdomen pelvis showed increasing biliary duct dilatation when compared to CT in 2016, pneumobilia is again identified. MRCP was then performed which showed dilated CBD, wagner docholithiasis. Case was discussed with GI services, in the setting of fever, gram-negative bacteremia, choledocholithiasis patient needs evaluation for cholangitis with ERCP. For this reason transfer was initiated evening of 08/05/[address] with [facility]. Parker graciously excepted the patient to the hospitalist service for further GI consultation/ERCP. Patient's daughter Tianna dodge. Patient stable at this time for transfer. Continue with care at [facility]. # Possible Sepsis secondary to Gram-Negative Bacteremia with possible cholangitis- however, cannot exclude Viral Sepsis due to COVID-19 Infection # Elevated Liver Enzymes - possible due vs cholangitis She meets sepsis criteria based on HR > 90 bpm and RR > 20 breaths/min and the suspected source is bacteremia. - Sepsis order set was initiated - Initial Lactate was 1.2, trend - Blood cultures drawn before antibiotics were given - Broad spectrum antibiotics started: Piperacillin-Tazobactam - In regards to fluids: - 30 mL/kg of IV fluids was not administered given SBP > 90, MAP > 65, lactic acid < 4 - Infectious Diseases consulted - recommendations appreciated - Chest x-ray = "no acute cardiopulmonary process." - Urinalysis = not suspicious for infection - CT abdomen/pelvis = "increased biliary duct dilatation compared with 03/24/2016. Pneumobilia is again identified. Correlate with LFTs. If abnormal or additional evaluation is required, suggest MRCP. Otherwise, no definite findings to explain a gram-negative bacteremia." - Abdominal ultrasound = "cholecystectomy with mildly prominent common bile duct." - MRCP = dilated CBD, choledocholithiasis - PRN guaifenesin, benzonatate - Incentive spirometry # Chronic Obstructive Pulmonary Disease # Hypertension # Gastroesophageal Reflux Disease - Reconcile home medications once verified Vital Signs/Physical Exam: Temp Pulse Resp BP Pulse Ox 97.2 F 80 17 130/72 98 08/05/22 20:43 08/05/22 20:43 08/05/22 20:43 08/05/22 20:43 08/05/22 20:43 General: Alert, In no apparent distress, Oriented x3 HEENT: Atraumatic, PERRLA, EOMI Neck: Supple, JVD not distended Respiratory: Clear to auscultation bilaterally, Normal air movement Cardiovascular: No edema, Regular rate/rhythm, Normal S1 S2 Capillary refill: <2 Seconds Gastrointestinal: Normal bowel sounds, No tenderness Musculoskeletal: No tenderness Integumentary: No rashes Neurological: Normal speech, Normal tone, Normal affect Laboratory Data at Discharge: WBC 8.00 K/uL (4.3-10.9) 08/05/22 08:31 Hgb 11.4 g/dL (12.0-15.0) L 08/05/22 08:31 Hct 34.1 % (36.0-45.0) L 08/05/22 08:31 Plt Count 300 K/uL (152-406) 08/05/22 08:31 PT 11.0 SECONDS (9.5-12.5) 08/03/22 14:43 INR 1.00 08/03/22 14:43 APTT 27.3 SECONDS (24.3-36.9) 08/03/22 14:43 Sodium 140 mmol/L (136-145) 08/05/22 08:31 Potassium 3.6 mmol/L (3.5-5.1) 08/05/22 08:31 BUN 11 mg/dL (7-18) 08/05/22 08:31 Creatinine 0.63 mg/dL (0.55-1.02) 08/05/22 08:31 Glucose 106 mg/dL (74-106) 08/05/22 08:31 Phosphorus 3.2 mg/dL (2.5-4.9) 08/04/22 05:04 Magnesium 2.1 mg/dL (1.6-2.4) 08/04/22 05:04 Total Bilirubin 0.8 mg/dL (0.2-1.0) 08/05/22 08:31 AST 68 U/L (15-37) H 08/05/22 08:31 ALT 161 U/L (13-56) H 08/05/22 08:31 Alkaline Phosphatase 151 U/L (45-117) H 08/05/22 08:31 Triglycerides 143 mg/dL (<150) 08/05/22 08:31 Cholesterol 236 mg/dL (<200) H 08/05/22 08:31 HDL Cholesterol 54 mg/dL (40-60) 08/05/22 08:31 Cholesterol/HDL Ratio 4.37 08/05/22 08:31 Home Medications: Brimonidine Tartrate [Lumify] 1 gtt EACH EYE DAILY 11/22/18 Esomeprazole Magnesium [Nexium] 20 mg PO DAILY 11/22/18 Hydrocodone Bit/Acetaminophen [Hydrocodon-Acetaminoph 7.5-325] 0.5 each PO Q6HP PRN 11/22/18 Promethazine HCl 25 mg PO TID PRN 11/24/18 Hydrocodone 7.5/APAP 325 [[place] 7.5/325 mg*] 1 tab PO Q4H PRN tab 11/26/18 Physician Discharge Instructions: Continue with care at [facility] Diet: NPO Followup: NONE,NONE [Primary Care Provider] - Time spent managing pt's care (in minutes): 35
[2022-08-06 00:41] VITALS: O2SAT 98
[2022-08-06 00:42] VITALS: BP 138/66; TEMP 97.9
== END 2022-08-06 01:28 | disposition short-term general hospital (02) | DRG 871 ==
LOC: ER 14:12 → ERHOLD 18:42 → 4TH 20:49
PROVIDERS: ADMIT Internal Medicine; ATTEND Internal Medicine
DX: A41.89 Other specified sepsis (principal); U07.1 COVID-19; K80.30 Calculus of bile duct with cholangitis, unspecified, without obstruction; K21.9 Gastro-esophageal reflux disease without esophagitis; E86.0 Dehydration; J44.9 Chronic obstructive pulmonary disease, unspecified; I10 Essential (primary) hypertension; A41.50 Gram-negative sepsis, unspecified; F03.90 Unspecified dementia, unspecified severity, without behavioral disturbance, psychotic disturbance, mood disturbance, and anxiety; R74.8 Abnormal levels of other serum enzymes; Z88.5 Allergy status to narcotic agent; Z87.891 Personal history of nicotine dependence; Z79.899 Other long term (current) drug therapy
CPT/HCPCS: 0240U; 36415; 71045; 74176; 74181; 76705; 80053; 80061; 81003; 81015; 83605; 83735; 83880; 84100; 85025; 85610; 85730; 86803; 87040; 87077; 87086; 87088; 87186; 87205; 92523; 93005; 94760; 96361; 96374; 99285; J2543; J2930; J7030; J7040; J7614

== ENCOUNTER 2022-08-30 05:09 | Emergency (ER) | payer OTHER ==
--- OUTSIDE RECORDS SUMMARY | 2022-08-30 05:15 | XMS REPORT | Continuity of Care Document ---
:1945 Author Organization [facility] t Address [address] [address] [place] [id number] Care Team Providers Name Role Phone ADRIAN DAVIS UNIQUE Attending Clinician Unavailable DAVIS POP Attending Clinician Unavailable DONALD KATZ Attending Clinician Unavailable TIERA ROCA Attending Clinician Unavailable Keith GUEVARA, Tiera Arceo Attending Clinician [phone] Leoncio Roach MD Attending Clinician [phone] Donald Katz MD Attending Clinician Verito Ralph MD Attending Clinician Polo Blancas Attending Clinician Davis Pop MD Attending Clinician Steven Elena MD Attending Clinician Gaby Hall Attending Clinician Sal Louis MD Attending Clinician SAL LOUIS Attending Clinician Unavailable Julian Mendez Attending Clinician FLORI LUKE Attending Clinician Unavailable Adrian Davis MD Attending Clinician Gio Harrison CRNA Attending Clinician 1, [facility] Attending Clinician Unavailable Doctor Unassigned, [place] Attending Clinician Unavailable ADRIAN DAVIS Admitting Clinician Unavailable LEONCIO ROACH Admitting Clinician Unavailable Adrian Davis MD Admitting Clinician Payers Payer Name Policy Type Policy Number Effective Date Expiration Date S noel [employer] MEDICARE [id number] 2018 00:00:00 [facility] [id number] 2022 2022 ADVANTAGE 00:00:00 00:00:00 HMO-POS-UHC UNITED MEDICARE [id number] 2022 HMO 00:00:00 Problems Condition Condition Condition Status Onset Resolution Last Treating Co mments Source Name Details Category Date Date Treatment Clinician Date Cholangiti Cholangiti Disease Active [facility] 00 [place] Gram-negat Gram-negat Disease Active [facility] miguel miguel 2-16 [facility] bacteremia bacteremia 00:00: Sd dical 00 [place] Choledocho Choledocho Disease Active [facility] lithiasis lithiasis 2-16 [facility] 00:[facility]: Medical 00 [place] COVID-19 COVID-19 Disease [facility] 00 [place] Snake bite Snake bite Disease Active 2014-06 U nivers 0-01 ity of 00:00: [address] Right hand Right hand Disease Active 2014-06 U nivers pain pain 0-01 ity of 00:00: [address] Branch Right Right Disease Active 2014-06 Univers wrist pain wrist pain 0-01 it y of 00:00: [address] [id number] Piriformis Problem Active Co mmon syndrome Spirit of right - [facility] side [facility] [id number] 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 [facility] [id number] Aftercare Problem Active Com wed Spirit joint - [facility] replacemen [facility] t [facility] [id number] Acute pain Problem Active Com wed of right Spirit shoulder - [facility] Amnesia Amnesia Problem Active 2022-01-30 Me moria (finding) (finding) 04:44:55 l Active Rigoberto Problem 01/30/2022 [facility] Ataxia Ataxia Problem Active 2022-01-30 Oj deshaun (finding) (finding) 04:44:55 l Active Rigoberto Problem 01/30/2022 [facility] Dysarthria Dysarthri Problem Active 2022-01-30 Memoria (finding) a 04:44:55 l (finding) Rigoberto Active Problem 01/30/2022 [facility] Pseudobulb Pseudobul Problem Active 2022-01-30 Memoria ar affect bar affect 04:44:55 l (finding) (finding) Herm narcisa Active Problem 01/30/2022 [facility] Anxiety Anxiety Problem Active 2022-01-30 Me moria (finding) (finding) 04:44:55 l Active [place] Problem 01/30/2022 [facility] Allergies, Adverse Reactions, Alerts Allergy Allergy Status Severity Reaction(s) Onset Inactive Treating Comm ents Source Name Type Date Date Clinician EGG Allergy Active Med [facility]ching [facility] MORPHINE Allergy Active Med Nausea [facility] Egg Propensi Active Itching [facility] to 2-16 [facility] adverse 00:00: Medical reaction 00 Center s Morphine Propensi Active Nausea Only [facility] ty to 2-16 [facility] adverse 00:00: Medical reaction 00 Center s Morphine Propensi Active Nausea 2014-06 Univer s ty to and/or 0-01 ity of adverse Vomiting 00:00: [place] reaction 00 Medical s Branch MORPHINE DRUG Active N/V 2014-06 [facility] ity of 00:00: [place] 00 [facility] morphine morphine Active Unknown Commo n Spirit - [facility] morphine morphine Active Albinoonesimo inman Rigoberto Social History Social Habit Start Date Stop Date Quantity Comments Source History of Common Spirit - Tobacco Use [facility] Social History 2021-02-28 2021-02-28 [facility] Job olsonnarcisa 15:56:29 15:56:29 Alcohol intake 2019-07-14 2019-07-14 [facility] 00:00:00 00:00:00 [facility] Tobacco Comment 2019-07-10 2019-07-10 Quit 21 years Univer sity of 00:00:00 00:00:00 ago [facility] Sex Ass[birth year] At [birth year] [facility] 00:00:00 00:00:00 [facility] Smoking Status Start Date Stop Date Source Former smoker 2022-08-06 00:00:00 2022-08-06 00:00:00 [facility] Never smoker [facility] Medications Ordered Filled Start Stop Current Ordering Indication Dosage Frequency Signature Comments Components Source Medication Medication Date Date Medication? Clinician (SIG) Name Name brimonidine Yes 1[drp] [id number] Place [address] (ALPHAGAN) 2- [id number] drop into [facility] 0.2 % 13:22: 3D both eyes Medical ophthalmic 20 3 (three) Cent er solution times daily. esomeprazol Yes 20mg QD Take [address] e (NexIUM) 2-19 by mouth [facility] 20 MG 13:22: daily. Medical capsule 20 Center promethazin Yes 25mg Take [address] e 2-19 by mouth [facility] (PHENERGAN) 13:22: every 8 Med ical 25 MG 20 (eight) Center tablet hours as needed for Nausea. acetaminoph 2023- Yes 650mg Take [address] en 2-14 tablets [facility] (TYLENOL) 00:00: 23:59 (650 mg Medi gretchen 325 MG 00 :00 total) by Center tablet mouth every 4 (four) hours as needed for up to 360 days. levoFLOXaci 2022- No 500mg QD Take [address] n 08-09 tablet [facility] (LEVAQUIN) 00:00: 23:59 (500 mg Med ical 500 MG 00 :00 total) by Center tablet mouth daily for 5 days. metroNIDAZO 2022- No 500mg [id number] Take [address] LE (FLAGYL) 08-09 [id number] tablet [facility] 500 MG 00:00: 23:59 3D (500 mg Medical tablet 00 :00 total) by Center mouth 3 (three) times daily for 5 days. nirmatrelvi 2022- No 3{tbl} Q.5D Take [address] r-ritonavir 08-09 tablets by CITLALI Mccray, 00:00: 23:59 mouth 2 Medical (Paxlovid) 00 :00 (two) Center 300 mg (150 times mg x 2)-100 daily for mg tablet 2 days therapy Each dose pack 3 contains 2 tablet nirmatrelv ir (pink) tablets 150 mg (Total dose 300 mg) and 1 ritonavir (white) tablet 00 mg. Take with or without food.. Bupivicaine Bupivicaine No 2.5mg Common Sarles Sarles 7- Spirit 00:00: - [facility] Kenalog Kenalog No 40mg Common (Triamcinol (Triamcinol 7-21 S pirit one) one) 00:00: - [facility] Lidocaine Lidocaine No 10mg Com 10-16 Spirit 00:00: - [facility] Kenalog Kenalog No 40mg Common (Triamcinol (Triamcinol 4-28 S pirit one) one) 00:00: - [facility] Lidocaine Lidocaine 0 No 10mg Com mon 10-16 Spirit 00:00: - [facility] Kenalog Kenalog No 40mg Common (Triamcinol (Triamcinol 4-28 S pirit one) one) 00:00: - [facility] Memantine Yes 10 mg = 1 Mem oria hydrochlori 2-01 tab, PO, l de 10 MG 16:31: BID, # 180 Her arndt Oral Tablet 00 tab, 1 [Namenda] Refill(s), [id number], 157.48, cm, 04/07/21 13:22:00 CDT, Height, 77.273, kg, 04/07/21 13:22:00 CDT, Weight Memantine 2-0 Yes 10 mg = 1 Mem oria hydrochlori 2-01 tab, PO, l de 10 MG 16:31: BID, # 180 Her arndt Oral Tablet 00 tab, 1 [Namenda] Refill(s), [id number], 157.48, cm, 04/07/21 13:22:00 CDT, Height, 77.273, kg, 04/07/21 13:22:00 CDT, Weight Memantine 2-0 Yes 10 mg = 1 Mem oria hydrochlori 2-01 tab, PO, l de 10 MG 16:31: BID, # 180 Her arndt Oral Tablet 00 tab, 1 [Namenda] Refill(s), Pharmacy: [facility] #[id number], 157.48, cm, 04/07/21 13:22:00 CDT, Height, 77.273, kg, 04/07/21 13:22:00 CDT, Weight Memantine 2-0 Yes 10 mg = 1 Mem oria hydrochlori 2-01 tab, PO, l de 10 MG 16:31: BID, # 180 Her arndt Oral Tablet 00 tab, 1 [Namenda] Refill(s), [id number], 157.48, cm, 04/07/21 13:22:00 CDT, Height, 77.273, kg, 04/07/21 13:22:00 CDT, Weight Memantine 2-0 Yes 10 mg = 1 Mem oria hydrochlori 2-01 tab, PO, l de 10 MG 16:31: BID, # 180 Her arndt Oral Tablet 00 tab, 1 [Namenda] Refill(s), Pharmacy: [facility] #[id number], 157.48, cm, 04/07/21 13:22:00 CDT, Height, 77.273, kg, 04/07/21 13:22:00 CDT, Weight Paroxetine 0 Yes 10 mg = 1 Me moria Hydrochlori 2-01 tab, PO, l de 10 MG 16:07: Daily, # Marla nn Oral Tablet 00 90 tab, 0 Refill(s) Paroxetine 2021-0 Yes 10 mg = 1 Me moria Hydrochlori 2-01 tab, PO, l de 10 MG 16:07: Daily, # Marla nn Oral Tablet 00 90 tab, 0 Refill(s) Paroxetine 2021-0 Yes 10 mg = 1 Me moria Hydrochlori 2-01 tab, PO, l de 10 MG 16:07: Daily, # Marla nn Oral Tablet 00 90 tab, 0 Refill(s) Paroxetine 2021-0 Yes 10 mg = 1 Me moria Hydrochlori 2-01 tab, PO, l de 10 MG 16:07: Daily, # Marla nn Oral Tablet 00 90 tab, 0 Refill(s) Paroxetine 2021-0 Yes 10 mg = 1 Me moria Hydrochlori 2-01 tab, PO, l de 10 MG 16:07: Daily, # Marla nn Oral Tablet 00 90 tab, 0 Refill(s) Memantine 2020-06 Yes 10 mg = 1 Mem oria hydrochlori 1-30 tab, PO, l de 10 MG 16:45: BID, # 180 Her arndt Oral Tablet 00 tab, 1 [Namenda] Refill(s), Pharmacy: [facility] #[id number], 157.48, cm, 04/07/21 13:22:00 CDT, Height, 77.273, kg, 04/07/21 13:22:00 CDT, Weight Memantine 2020-06 Yes 10 mg = 1 Mem oria hydrochlori 1-30 tab, PO, l de 10 MG 16:45: BID, # 180 Her arndt Oral Tablet 00 tab, 1 [Namenda] Refill(s), Pharmacy: [facility] #[id number], 157.48, cm, 04/07/21 13:22:00 CDT, Height, 77.273, kg, 04/07/21 13:22:00 CDT, Weight Memantine 2020-06 Yes 10 mg = 1 Mem oria hydrochlori 1-30 tab, PO, l de 10 MG 16:45: BID, # 180 Her arndt Oral Tablet 00 tab, 1 [Namenda] Refill(s), Pharmacy: [id number], 157.48, cm, 04/07/21 13:22:00 CDT, Height, 77.273, kg, 04/07/21 13:22:00 CDT, Weight Memantine 2020-06 Yes 10 mg = 1 Mem oria hydrochlori 1-30 tab, PO, l de 10 MG 16:45: BID, # 180 Her arndt Oral Tablet 00 tab, 1 [Namenda] Refill(s), Pharmacy: [id number], 157.48, cm, 04/07/21 13:22:00 CDT, Height, 77.273, kg, 04/07/21 13:22:00 CDT, Weight Memantine 2020-06 Yes 10 mg = 1 Mem oria hydrochlori 1-30 tab, PO, l de 10 MG 16:45: BID, # 180 Her arndt Oral Tablet 00 tab, 1 [Namenda] Refill(s), [id number], 157.48, cm, 04/07/21 13:22:00 CDT, Height, 77.273, kg, 04/07/21 13:22:00 CDT, Weight Memantine 2020-06 No 5 mg = 1 Oj deshaun hydrochlori 1-10 tab, PO, l de 5 MG 18:03: BID, # 180 Herm narcisa Oral Tablet 00 tab, 3 [Namenda] Refill(s), Pharmacy: [facility] #[id number], 157.48, cm, 04/07/21 13:22:00 CDT, Height, 77.273, kg, 04/07/21 13:22:00 CDT, Weight Memantine 2020-06 No 5 mg = 1 Oj deshaun hydrochlori 1-10 tab, PO, l de 5 MG 18:03: BID, # 180 Herm narcisa Oral Tablet 00 tab, 3 [Namenda] Refill(s), Pharmacy: [facility] #[id number], 157.48, cm, 04/07/21 13:22:00 CDT, Height, 77.273, kg, 04/07/21 13:22:00 CDT, Weight Memantine 2020-06 No 5 mg = 1 Oj deshaun hydrochlori 1-10 tab, PO, l de 5 MG 18:03: BID, # 180 Herm narcisa Oral Tablet 00 tab, 3 [Namenda] Refill(s), Pharmacy: [facility] #[id number], 157.48, cm, 04/07/21 13:22:00 CDT, Height, 77.273, kg, 04/07/21 13:22:00 CDT, Weight Memantine 2020-06 No 5 mg = 1 Oj deshaun hydrochlori 1-10 tab, PO, l de 5 MG 18:03: BID, # 180 Herm narcisa Oral Tablet 00 tab, 3 [Namenda] Refill(s), Pharmacy: [facility] #[id number], 157.48, cm, 04/07/21 13:22:00 CDT, Height, 77.273, kg, 04/07/21 13:22:00 CDT, Weight Memantine 2020-06 No 5 mg = 1 Oj deshaun hydrochlori 1-10 tab, PO, l de 5 MG 18:03: BID, # 180 Herm narcisa Oral Tablet 00 tab, 3 [Namenda] Refill(s), Pharmacy: [facility] #[id number], 157.48, cm, 04/07/21 13:22:00 CDT, Height, 77.273, kg, 04/07/21 13:22:00 CDT, Weight Memantine 2020-06 Yes 5 mg = 1 Oj deshaun hydrochlori 0-18 tab, PO, l de 5 MG 18:41: BID, # 60 Marla nn Oral Tablet 00 tab, 3 [Namenda] Refill(s), Pharmacy: [facility] #[id number], 157.48, cm, 04/07/21 13:22:00 CDT, Height, 77.273, kg, 04/07/21 13:22:00 CDT, Weight Memantine 2020-06 Yes 5 mg = 1 Oj deshaun hydrochlori 0-18 tab, PO, l de 5 MG 18:41: BID, # 60 Marla nn Oral Tablet 00 tab, 3 [Namenda] Refill(s), Pharmacy: [facility] #[id number], 157.48, cm, 04/07/21 13:22:00 CDT, Height, 77.273, kg, 04/07/21 13:22:00 CDT, Weight Memantine 2020-06 Yes 5 mg = 1 Oj deshaun hydrochlori 0-18 tab, PO, l de 5 MG 18:41: BID, # 60 Marla nn Oral Tablet 00 tab, 3 [Namenda] Refill(s), Pharmacy: [facility] #[id number], 157.48, cm, 04/07/21 13:22:00 CDT, Height, 77.273, kg, 04/07/21 13:22:00 CDT, Weight Memantine 2020-06 Yes 5 mg = 1 Oj deshaun hydrochlori 0-18 tab, PO, l de 5 MG 18:41: BID, # 60 Marla nn Oral Tablet 00 tab, 3 [Namenda] Refill(s), Pharmacy: [facility] #[id number], 157.48, cm, 04/07/21 13:22:00 CDT, Height, 77.273, kg, 04/07/21 13:22:00 CDT, Weight Memantine 2020-06 Yes 5 mg = 1 Oj deshaun hydrochlori 0-18 tab, PO, l de 5 MG 18:41: BID, # 60 Marla nn Oral Tablet 00 tab, 3 [Namenda] Refill(s), Pharmacy: [facility] #[id number], 157.48, cm, 04/07/21 13:22:00 CDT, Height, 77.273, kg, 04/07/21 13:22:00 CDT, Weight Symbicort Yes 2 puff, Memor ia 160/4.5 9-10 INHALER, l inhalation 15:45: BID, # 1 Her arndt aerosol 00 ea, 3 with Refill(s) adapter 24 HR Yes 25 mg = 1 Memoria mirabegron 9-10 tab, PO, l 25 MG 15:45: Daily, # [place] Extended 00 30 tab, 5 Release Refill(s) [...] PO, l 25 MG 15:45: Daily, # [place] Extended 00 30 tab, 5 Release Refill(s) [...] tab, 5 Release Refill(s) Tablet [Myrbetriq] esomeprazol 2019-0 Yes 40mg Take 40 mg Univers e (NEXIUM) 2-27 by mouth ity o f 40 mg 17:10: daily. [address] water for 2019-0 Yes PRN, Univers irrigation 2-27 Starting ity o f irrigation 16:18: Yuliya [place] solution 08/17/19 at Medic al [facility], [place] Until Discontinu ed, Routine, Intra-op tetracaine 2019-0 Yes PRN, Univers (PONTOCAINE 2-27 Starting ity of ) 0.5 % 16:18: Yuliya [place] ophthalmic 08/17/19 at Med ical drops 1018, Branch Until Discontinu ed, Routine, Intra-op neomycin-po 2020-0 Yes [facility]N, [facility]17 Starting ity of amethasone 16:18: Yuliya [place] (MAXITROL) 00 08/17/19 at [facility] 3.5 1018, Branch mg/g-10,000 Until unit/g-0.1 Discontinu % ed, ophthalmic Routine, ointment Intra-op lidocaine-e 2020-0 Yes PRN, [facility] s pinephrine 08-17 Starting ity o f (XYLOCAINE 16:18: Yuliya [place] W/EPINEPHRI 00 08/17/19 at Sd dical NE) 2 1018, Branch %-1:200,000 Until injection Discontinu ed, Routine, Intra-op gentamicin 2020-0 Yes PRN, [facility] injection 08-17 Starting ity of 16:18: Yuliya [place] 00 08/17/19 at [facility] 1018, Branch Until Discontinu ed, TOAN, Intra-op EPINEPHrine 2020-0 Yes PRN, [facility] (PF) 08-17 Starting ity of 1:1,000 (1 16:17: Yuliya [place] mg/mL) 08/17/19 at [facility] (ADRENALIN 1017, Branch (PF)) Until injection Discontinu ed, Routine, Intra-op DUOVISC 2020-0 Yes PRN, [facility] (DUOVISC 08-17 Starting ity of VISCO 16:17: Yuliya [place] ELASTIC) 3 08/17/19 at [facility] %-4 %(0.5 1017, Branch mL) 1 % Until (0.55 mL) Discontinu intraocular ed, injection Routine, Intra-op dexamethaso 2020-0 Yes PRN, [facility] ne 08-17 Starting ity of (DECADRON 16:17: Yuliya [place] PHOSPHATE) 00 08/17/19 at [facility] ical injection 1017, Branch Until Discontinu ed, Routine, Intra-op ceFAZolin 2020-0 Yes PRN, [facility] (ANCEF) 08-17 Starting ity of injection 16:16: Yuliya [place] 00 08/17/19 at [facility] 1016, Branch Until Discontinu ed, TOAN, Intra-op bupivacaine 2020-0 Yes PRN, [facility] s (preserv 08-17 Starting ity of free) 16:16: Yuliya [place] (SENSORCAIN 00 08/17/19 at Sd dical E MPF) 0.75 1016, Branch % (7.5 Until mg/mL) Discontinu injection ed, Routine, Intra-op balanced 2020-0 Yes PRN, Univers salt irrig 08-17 Starting ity o f soln comb1 16:16: Yuliya [place] (BSS PLUS) 00 08/17/19 at [facility] ophthalmic 1016, Branch solution Until 500 mL bag Discontinu ed, Routine, Intra-op mydriatic 2020-0 2020- No .5mL 0.5 mL, [facility] ers #5 08-17 Right Eye, ity of ophthalmic 15:00: 15:08 ONCE, 1 [place] as solution 00 :00 dose, Yuliya Medica l 0.5 mL 08/17/19 at [place] syringe 0900, Routine, DSU Pre-op lactated 2020-0 2020- No 500mL at 20 [facility] s ringers IV 08-17 mL/hr, 500 it y of infusion 15:00: 15:22 mL, IV [place] 500 mL 00 :00 Infusion, [facility] ONCE, 1 Branch dose, Yuliya 08/17/19 at 0900, Routine, DSU Pre-op esomeprazol 2020-0 Yes 40mg Take 40 mg Univers e (NEXIUM) -23 by mouth ity o f 40 mg 17:35: daily. [place] capsule 21 [facility] esomeprazol 2020-0 Yes 40mg Take 40 mg Univers e (NEXIUM) -23 by mouth ity o f 40 mg 17:03: daily. [place] capsule 40 [facility] tetracaine 2020-0 Yes PRN, Univers (PONTOCAINE 07-13 Starting ity of ) 0.5 % 16:53: Yulyia [place] ophthalmic 00 07/13/19 at [facility] ical drops 1053, Branch Until Discontinu ed, Routine, Intra-op water for 2020-0 Yes PRN, Univers irrigation - Starting ity o f irrigation 16:53: Yuliya [place] solution 07/13/19 at Medic al 1053, Branch Until Discontinu ed, Routine, Intra-op sodium 2020-0 Yes PRN, Univers chloride - Starting ity of (NS) 16:52: Yuliya [place] injection 00 07/13/19 at Medi gretchen 1052, Branch Until Discontinu ed, Routine, Intra-op neomycin-po 2020-0 Yes PRN, [facility] lymyxin-dex 07-13 Starting ity of amethasone 16:52: Yuliya [place] (MAXITROL) 07/13/19 at [facility] 3.5 1052, Branch mg/g-10,000 Until unit/g-0.1 Discontinu % ed, ophthalmic Routine, ointment Intra-op lidocaine-e 2020-0 Yes PRN, [facility] pinephrine 07-13 Starting ity o f (XYLOCAINE 16:52: Yuliya [place] W/EPINEPHRI 00 07/13/19 at Sd dicak NE) 2 1051, Branch %-1:200,000 Until injection Discontinu ed, Routine, Intra-op gentamicin 2020-0 Yes PRN, [facility] injection 07-13 Starting ity of 16:52: Yuliya [place] 00 07/13/19 at [place] [id number], Branch Until Discontinu ed, TOAN, Intra-op EPINEPHrine 2020-0 Yes PRN, [facility] s (PF) 07-13 Starting ity of 1:1,000 (1 16:51: Yuliya [place] mg/mL) 07/13/19 at [facility] (ADRENALIN 105, Branch (PF)) Until injection Discontinu ed, Routine, Intra-op DUOVISC 2020-0 Yes PRN, [facility] (DUOVISC 07-13 Starting ity of VISCO 16:51: Yuliya [place] ELASTIC) 3 07/13/19 at [facility] %-4 %(0.5 1051, Branch mL) 1 % Until (0.55 mL) Discontinu intraocular ed, injection Routine, Intra-op dexamethaso 2020-0 Yes PRN, [facility] ne 07-13 Starting ity of (DECADRON 16:51: Yuliya [place] PHOSPHATE) 07/13/19 at [facility] ica injection 1051, Branch Until Discontinu ed, Routine, Intra-op ceFAZolin 2020-0 Yes PRN, [facility] (ANCEF) 07-13 Starting ity of injection 16:51: Yuliya [place] 00 07/13/19 at [place] [id number], Branch Until Discontinu ed, TOAN, Intra-op bupivacaine 2020-0 Yes PRN, [facility] (preserv 07-13 Starting ity of free) 16:51: Yuliya [place] (SENSORCAIN 00 07/13/19 at Sd dical E MPF) 0.75 1051, Branch % (7.5 Until mg/mL) Discontinu injection ed, Routine, Intra-op balanced 2020-0 Yes PRN, Univers salt irrig 07-13 Starting ity o f soln comb1 16:50: Yuliya [place] (BSS PLUS) 00 07/13/19 at [facility] ical ophthalmic 1050, Branch solution Until 500 mL bag Discontinu ed, Routine, Intra-op eye block 2020- No CONTINUOUS U nivers syringe 11 07-13 PRN, ity of mL 16:45: 17:02 Starting [place] 00 :25 Yuliya Medical 07/13/19 at [place] 1045, Until Yuliya 07/13/19 at 1102, Intra-op propofol IV 2019- No ONCE INTRA Univers infusion 07-13 PROCEDURE, ity of 16:43: 17:02 Starting [place] 00 :25 Yuliya Medical 07/13/19 at [place] 1043, Until Yuliya 07/13/19 at 1102, Routine, Intra-op lidocaine 2019- No ONCE INTRA U nivers 1% 07-13 PROCEDURE, ity of (XYLOCAINE) 16:43: 17:02 Starting [place] 100 mg/10 00 :25 Yuliya Medical mL (1 %) 07/13/19 at [facility] h injection 1043, Until Yuliya [...] Spirit 00:00: 00:00 - CHI 00 :00 [facility] LIDOCAINE LIDOCAINE 2017- No 10mg Com mon HCL 10MG/ML HCL 10MG/ML 07-16 S pirit 00:00: - CHI 00 [facility] Betamethaso Betamethaso 2017-06 No 1mL Common ne Sodium ne Sodium 1-26 Spiri t Phosphate Phosphate 00:00: - C HI 00 [facility] [place] LIDOCAINE LIDOCAINE 2017-06 No 10mg Com mon HCL 10MG/ML HCL 10MG/ML 1-26 S pirit 00:00: - CHI 00 [facility] Betamethaso Betamethaso 2017- No 1mL Common ne Sodium ne Sodium 1-26 Spiri t Phosphate Phosphate 00:00: - C HI 00 [facility] Betamethaso Betamethaso 0 No 1mL Common ne Sodium ne Sodium 8-30 Spiri t Phosphate Phosphate 00:00: - C HI 00 [facility] LIDOCAINE LIDOCAINE No 10ug Com mon HCL 10MG/ML HCL 10MG/ML 8-30 S pirit 00:00: - CHI 00 [facility] LIDOCAINE LIDOCAINE No 10ug Com mon HCL 10MG/ML HCL 10MG/ML 8-30 S pirit 00:00: - CHI [facility] Betamethaso Betamethaso No 1mL Common ne Sodium ne Sodium 8-30 Spiri t Phosphate Phosphate 00:00: - C HI 00 [facility] esomeprazol 2014-06 Yes 40mg Take 40 mg Univers e (NEXIUM) 0-02 by mouth ity o f 40 mg 20:00: daily. [address] esomeprazol 2014-06 Yes 40mg Take 40 mg Univers e (NEXIUM) 0-02 by mouth ity o f 40 mg 20:00: daily. [address] esomeprazol 2014-06 Yes 40mg Take 40 mg Univers e (NEXIUM) 0-02 by mouth ity o f 40 mg 20:00: daily. [address] acetaminoph 2014-06 Yes 1{tbl} Take 1 Tab Univers en-codeine 0-02 by mouth ity o f (TYLENOL 00:00: every 4 [place] #3) 300-30 00 (four) Medical mg tablet hours as Branch needed for Pain (scale 4-6). acetaminoph 2014-06 Yes 1{tbl} Take 1 Tab Univers en-codeine 0-02 by mouth ity o f (TYLENOL 00:00: every 4 [place] #3) 300-30 00 (four) Medical mg tablet hours as Branch needed for Pain (scale 4-6). acetaminoph 2014-06 Yes 1{tbl} Take 1 Tab Univers en-codeine 0-02 by mouth ity o f (TYLENOL 00:00: every 4 [place] #3) 300-30 00 (four) Medical mg tablet hours as Branch needed for Pain (scale 4-6). acetaminoph 2014-06 2020- No 1{tbl} Take 1 Tab Univers en-codeine 0-02 01-22 by mouth ity of (TYLENOL 00:00: 00:00 every 4 [place] #3) 300-30 00 :00 (four) Medical mg tablet hours as Branch needed for Pain (scale 4-6). Nexium Nexium Yes Kamlesh 1 capsule Com mon Najera Spirit - [facility] [place] Symbicort Symbicort Yes Kamlesh GRUBBS 2 Common Najera PUFFS Spirit TWICE A - [facility] DAY [facility] [place] Methocarbam Methocarbam Yes Kamlesh TAKE 1 Common ol ol Najera TABLET BY Spirit MOUTH - [facility] EVERY [facility] MUSCLE Center SPASMS Ilevro Ilevro Yes Kamlesh LOCATION: Com mon Najera LEFT EYE. Spirit APPLY 1 - CHI DROP IN SURGERY [facility] EYE AT Medical BEDTIME Center FOR 2 WEEKS Xarelto Xarelto Yes Kamlesh TAKE 1 Comm on Najera TABLET BY Spirit MOUTH - CHI EVERY DAY St WITH FOOD [facility] Amoxicillin Amoxicillin Yes Kamlesh TAKE 4 Common Najera CAPS BY Spirit MOUTH 1 - CHI HOUR PRIOR St TO DENTAL [facility] Durezol Durezol Yes Kamlesh PLEASE SEE Common Najera ATTACHED Spirit FOR - CHI DETAILED [facility] Promethazin Promethazin Yes Kamlesh TAKE 1 Common e HCl e HCl Najera TABLET BY Spirit MOUTH - CHI EVERY DAY St NEEDED [facility] Ofloxacin Ofloxacin Yes Kamlesh APPLY 1 Common Najera DROP 3 Spirit TIMES A - CHI DAY FOR 1 St WEEK IN [facility] EYE [place] Hydrocodone Hydrocodone Yes Kamlesh (Schedule Common -Acetaminop -Acetaminop Najera II Drug) Spirit hen hen TAKE 1 - CHI TABLET BY St MOUTH [facility] EVERY DAY Medical X 28 [...] Name Observation Time Observation Value Comments Source HEIGHT 2022-08-06 14:57:00 162.6 cm WEIGHT 2022-08-06 14:57:00 76.2 kg WEIGHT 2022-08-06 02:43:00 76.2 kg HEIGHT 2022-08-06 14:57:00 162.6 cm WEIGHT 2022-08-06 14:57:00 76.2 kg WEIGHT 2022-08-06 02:43:00 76.2 kg HEIGHT 2022-08-06 14:57:00 162.6 cm WEIGHT 2022-08-06 14:57:00 76.2 kg WEIGHT 2022-08-06 02:43:00 76.2 kg height 2022-01-08 09:45:00 64 [in_i] Common [facility] weight 2022-01-08 09:45:00 162 [lb_av] Common [facility] bmi 2022-01-08 09:45:00 27.8 kg/m2 [facility] blood pressure 2022-01-08 09:45:00 124 mm[Hg] Common Spirit - systolic [facility] blood pressure 2022-01-08 09:45:00 82 mm[Hg] Common Spirit - diastolic [facility] height 2021-10-16 14:00:00 64 [in_i] Common [facility] weight 2021-10-16 14:00:00 162 [lb_av] Common [facility] bmi 2021-10-16 14:00:00 27.8 kg/m2 Common [facility] blood pressure 2021-10-16 14:00:00 126 mm[Hg] Common Spirit - systolic [facility] blood pressure 2021-10-16 14:00:00 84 mm[Hg] Common Spirit - diastolic [facility] Systolic blood 2019-08-17 16:37:00 120 mm[Hg] Univer sity of pressure [facility] Diastolic blood 2019-08-17 16:37:00 66 mm[Hg] Unive rsity of pressure [facility] Heart rate 2019-08-17 16:37:00 78 /min [facility] Respiratory rate 2019-08-17 16:37:00 16 /min Univ [facility] Oxygen saturation in 2019-08-17 16:37:00 100 /min [facility] of Arterial blood by [facility] gretcehn Pulse oximetry Branch Body temperature 2019-08-17 16:30:00 36.89 Teodora [facility] Body height 2019-08-15 02:23:00 162.6 cm [facility] Body weight 2019-08-15 02:23:00 77.111 kg [facility] BMI 2019-08-15 02:23:00 29.17 kg/m2 [facility] Systolic blood 2019-08-17 16:37:00 120 mm[Hg] Univer sity of pressure [facility] Diastolic blood 2019-08-17 16:37:00 66 mm[Hg] Unive rsity of pressure [facility] Heart rate 2019-08-17 16:37:00 78 /min [facility] Respiratory rate 2019-08-17 16:37:00 16 /min [facility] Oxygen saturation in 2019-08-17 16:37:00 100 /min [facility] Arterial blood by [facility] gretchen Pulse oximetry Branch Body temperature 2019-08-17 16:30:00 36.89 Teodora [facility] Body height 2019-08-15 02:23:00 162.6 cm [facility] Body weight 2019-08-15 02:23:00 77.111 kg [facility] BMI 2019-08-15 02:23:00 29.17 kg/m2 [facility] Systolic blood 2019-07-13 17:17:00 144 mm[Hg] Univer sity of pressure [facility] Diastolic blood 2019-07-13 17:17:00 94 mm[Hg] Unive rsity of pressure [facility] Heart rate 2019-07-13 17:17:00 79 /min [facility] Respiratory rate 2019-07-13 17:17:00 18 /min [facility] Oxygen saturation in 2019-07-13 17:17:00 100 /min University of Arterial blood by [facility] gretchen Pulse oximetry Branch Body temperature 2019-07-13 17:07:00 36.56 Teodora [facility] Body height 2019-07-12 18:00:00 162.6 cm Universi ty of [facility] [place] Body weight 2019-07-12 18:00:00 77.111 kg [facility] [place] [facility] [place] BMI 2019-07-12 18:00:00 29.18 kg/m2 Universi ty of [facility] Systolic blood 2019-07-13 17:17:00 144 mm[Hg] Univer sity of pressure [facility] Diastolic blood 2019-07-13 17:17:00 94 mm[Hg] Unive rsity of [facility] Heart rate 2019-07-13 17:17:00 79 /min Universi ty of [facility] Respiratory rate 2019-07-13 17:17:00 18 /min [facility] Oxygen saturation in 2019-07-13 17:17:00 100 /min [facility] Arterial blood by [facility] Pulse oximetry [place] Body temperature 2019-07-13 17:07:00 36.56 Teodora [facility] Body height 2019-07-12 18:00:00 162.6 cm Universi ty of [facility] Body weight 2019-07-12 18:00:00 77.111 kg Universi ty [facility] BMI 2019-07-12 18:00:00 29.18 kg/m2 [facility] Systolic blood 2022-08-09 10:33:00 139 mm[Hg] [facility] Diastolic blood 2022-08-09 10:33:00 77 mm[Hg] [facility] S [facility] Heart rate 2022-08-09 10:33:00 77 /min [facility] Body temperature 2022-08-09 10:33:00 36.33 Teodora [facility] Respiratory rate 2022-08-09 10:33:00 18 /min [facility] Oxygen saturation in 2022-08-09 10:33:00 96 /min [facility] Arterial blood by Medical nter Pulse oximetry Body height 2022-08-06 14:57:00 162.6 cm [facility] Body weight 2022-08-06 14:57:00 76.2 kg [facility] BMI 2022-08-06 14:57:00 28.84 kg/m2 [facility] Systolic (mm Hg) 2022-01-27 14:44:00 Oj rial [place] Diastolic (mm Hg) 2022-01-27 14:44:00 Mem orial [place] Heart Rate 2022-01-27 14:44:00 [facility] [place] Respitory Rate 2022-01-27 14:44:00 Memori al Rigoberto Systolic (mm Hg) 2021-07-22 15:41:00 Oj rial [place] Diastolic (mm Hg) 2021-07-22 15:41:00 Mem orial [place] Heart Rate 2021-07-22 15:41:00 [facility] [place] Respitory Rate 2021-07-22 15:41:00 Memori al Rigoberto Systolic (mm Hg) 2021-05-20 16:43:00 Oj rial [place] Diastolic (mm Hg) 2021-05-20 16:43:00 Mem orial [place] Systolic (mm Hg) 2021-05-20 16:22:00 Oj rial Rigoberto Diastolic (mm Hg) 2021-05-20 16:22:00 Mem orial Rigoberto Heart Rate 2021-05-20 16:22:00 [facility] [place] Respitory Rate 2021-05-20 16:22:00 Memori al Rigoberto Systolic (mm Hg) 2021-04-07 18:14:00 Oj rial Rigoberto Diastolic (mm Hg) 2021-04-07 18:14:00 Mem orial Rigoberto Heart Rate 2021-04-07 18:14:00 [facility] [place] Respitory Rate 2021-04-07 18:14:00 Memori al [place] Height 2021-04-07 18:14:00 157.48 cm [facility] Weight 2021-04-07 18:14:00 [facility] BMI Calculated 2021-04-07 18:14:00 Memori al Rigoberto Systolic (mm Hg) 2021-02-28 15:27:00 Oj rial Rigoberto Diastolic (mm Hg) 2021-02-28 15:27:00 Mem orial Rigoberto Heart Rate 2021-02-28 15:27:00 [facility] Rig[facility]to Respitory Rate 2021-02-28 15:27:00 Memori al [place] Height 2021-02-28 15:27:00 157.48 cm [facility] Rig[facility]to Weight 2021-02-28 15:27:00 [facility] BMI Calculated 2021-02-28 15:27:00 Carlos Sanchez Procedures Procedure Date / Time Performing Source Performed Clinician CBC (HEMOGRAM ONLY) 2022-08-08 03:55:00 [facility] COMPREHENSIVE METABOLIC 2022-08-08 03:55:[address] [facility] REPORT OF PROCEDURE - 2022-08-07 13:33:27 [facility] [place] ERCP 2022-08-07 12:10:00 Elsa [facility] ENDOSCOPIC RETROGRADE 2022-08-07 10:26:00 Elsa [facility] CHOLANGIOPANCREATOGRAPHY, [facility] WITH DIRECT DUCT VISUALIZATION, USING PANCREATICOBILIARY FIBEROPTIC PROBE PROCEDURE W/ C-ARM 2022-08-07 10:26:[address] [facility] ERCP, WITH BALLOON SWEEP OF 2022-08-07 10:26:00 Elsa [facility] BILE DUCTS [facility] BLOOD CULTURE 2022-08-07 05:17:[facility] 2022-08-07 05:07[facility] ([facility] ONLY[facility] 2022-08-07 05:07:00 [facility] COMPREHENSIVE METABOLIC 2022-08-07 05:07:00 [facility] REPORT OF PROCEDURE - 2022-08-06 14:02:57 [facility] ENDOS[facility] [place] ERCP 2022-08-06 13:30:00 [facility] ERCP, WITH SPHINCTEROTOMY 2022-08-06 12:48:00 [facility] PROCEDURE W/ C-ARM 2022-08-06 12:48:00 Missy [facility] ERCP, WITH BALLOON SWEEP OF 2022-08-06 12:48:00 Soraidacatalino Gunnarfawnandre [facility] BILE DUCTS [facility] COMPREHENSIVE METABOLIC 2022-08-06 03:37:00 Doc [facility] St [facility] PANEL [facility] MAGNESIUM 2022-08-06 03:37:00 [facility] CBC W/PLT COUNT & AUTO 2022-08-06 03:37:00 [facility] S t [facility] DIFFERENTIAL [facility] PT/APTT 2022-08-06 03:37:00 [facility] PHOSPHORUS 2022-08-06 03:37:00 [facility], [facility] CBC W/PLT COUNT & AUTO 2022-08-06 03:37:00 Doc [facility] S t [facility] CONSENT/REFUSAL FOR 2019-08-16 15:08:04 Doctor Unassigned, [facility] DIAGNOSIS AND TREATMENT [facility] ASSIGNMENT OF BENEFITS 2019-08-16 15:07:46 Doctor Unassigned, [facility] [facility] POTASSIUM SERUM 2019-07-13 15:55:00 [facility] COMP. METABOLIC PANEL 2019-07-06 22:51:00 Adrian Davis [facility] ([id number]) [facility] CONSENT/REFUSAL FOR 2019-07-06 22:29:03 Doctor Unassigned, [facility] DIAGNOSIS AND TREATMENT [facility] ASSIGNMENT OF BENEFITS 2019-07-06 22:28:43 Doctor Unassigned, [facility] Mastectomy [facility] Gallbladder operation [facility] ermann Hysterectomy [facility] Rigoberto Knee replacement [facility] n Plan of Care Planned Activity Planned Date Details Comments Source Future Scheduled 2022-06-[address] [facility] 00:00:00 (12+) [code = Medical Center DEPRESSION SCREENING (12+)] Future Scheduled 2022-06-21 FALLS RISK SCREENING [facility] Test 00:00:00 [code = FALLS RISK Medical C enter SCREENING] Future Scheduled 2022-06-21 Medicare IPPE (WELCOME [facility] 00:00:00 TO MEDICARE) [code = Medical Center Medicare IPPE (WELCOME TO MEDICARE)] Future Scheduled 2022-02-19 INFLUENZA VACCINE (#1) [facility] 00:00:00 [code = INFLUENZA Medical Ce nter VACCINE (#1)] Future Scheduled 2021-02-15 COVID-19 VACCINE (3 - [facility] 00:00:00 Booster for Moderna [facility] series) [code = COVID-19 VACCINE (3 - Booster for Moderna series)] Future Scheduled 2011 PNEUMOCOCCAL 65+ Y[facility] Test 00:00:00 (1 - PCV) [code = Medical Ce nter PNEUMOCOCCAL 65+ YRS (1 - PCV)] Future Scheduled 1996 SHINGLES VACCINES ([address] [facility] Test 00:00:00 of 2) [code = SHINGLES Medic al Center VACCINES (1 of 2)] Future Scheduled 1965 DTAP/TDAP/TD VACCINES [facility] Test 00:00:00 (1 - Tdap) [code = Medical C enter DTAP/TDAP/TD VACCINES (1 - Tdap)] Future Scheduled 1964 HEPATITIS C SCREENING [facility] 00:00:00 [code = HEPATITIS C Medical Center SCREENING] Future Scheduled [address] [facility] Test 00:00:00 Counseling and Medical Cente r Screening (12+) [code = Tobacco Cessation Counseling and Screening (12+)] Future Scheduled 1946 DXA SCAN [code = DXA [facility] Test 00:00:00 SCAN] Medical Center Encounters Start End Encounter Admission Attending Care Care Encounter Source Date/Time Date/Time Type Type Clinicians Facility Department ID 2022-08-20 [facility] [id number] Common 16:10:00 [id number] [facility] 2022-07-24 [facility] [id number] Common 10:18:00 [id number] [facility] 2022-01-09 Outpatient STLMLC STLC [id number] Common 08:35:01 [facility] 2021-07-16 [facility] [id number] Common 13:13:58 [id number] Spirit - [facility] 2021-04-17 Outpatient Thierry DAVIS WVARLEEN TON [id number] [facility] 10:47:31 ADRIAN perez [facility] 2022-10-20 2022-10-20 Outpatient MHJORGE L RAMOSIE [id number] Memoria 09:45:00 09:45:00 05 storm [place] 2022-10-20 2022-10-20 Outpatient MHJORGE L RICHARDIE [id number] Memoria 09:45:00 09:45:00 05 storm CamposRigoberto 2022-08-07 2022-08-11 Outpatient HARLAN POP [facility] [id number] [place] 10:13:16 10:33:16 DAVIS chandler of Medicin e 2022-08-06 2022-08-09 Inpatient UR PHIL KATZ [facility] [id number] [facility] 02:26:00 13:22:00 [facility] 2022-08-06 2022-08-09 [facility] Tiera Roca [facility] [id number] [facility] 02:26:00 13:22:00 Encounter Leoncio Roach [facility] 2022-08-07 2022-08-[address] [facility] [id number] 10:26:00 12:31:00 Event Polo [facility] 2022-08-07 2022-08-[address] [facility] [id number] 10:30:00 12:00:00 Davis Hameed [facility] 2022-08-06 2022-08-[address] [facility] [id number] 12:50:00 14:07:00 Event Gaby Avery [facility] 2022-08-06 2022-08-06 Surgery Missy, [facility] [id number] 11:55:00 13:10:00 [facility] 2022-08-06 2022-08-06 Outpatient HARLAN L[facility] [id number] [place] 07:53:56 07:53:56 SAL chandler of Medicin ramesh 2022-01-27 2022-01-28 Outpatient nullFlavo MNA [id number] Memoria 14:45:00 04:59:59 r Neurology 04 storm [place] 2022-01-27 2022-01-28 Outpatient nullFlavo MNA [id number] Memoria 14:45:00 04:59:59 r Neurology 04 l Dewayne Rigoberto 2022-01-27 2022-01-27 Outpatient RICHARD [facility] [id number] 09:45:00 23:59:59 Julian Mckayla Aniket 2022-01-27 2022-01-27 Outpatient MHIE MHIE [id number] Memoria 09:45:00 09:45:00 04 storm [place] 2022-01-08 2022-01-08 OFFICE STLMLC STLMLC [id number] Co mmon 00:00:00 00:00:00 VISIT EST Spir it PT LEVEL 3 - [facility] 2021-10-16 2021-10-16 OFFICE STLMLC STLMLC [id number] Co mmon 00:00:00 00:00:00 VISIT EST Spir it PT LEVEL 3 - [facility] 2021-07-22 2021-07-23 Outpatient nullFlavo MNA [id number] Memoria 15:45:00 05:59:59 r Neurology 03 storm [place] Rigoberto 2021-07-22 2021-07-23 Outpatient nullFlavo MNA [id number] Memoria 15:45:00 05:59:59 r Neurology 03 storm [place] Rigoberto 2021-07-22 2021-07-22 Outpatient Vanessa [facility] [id number] 09:45:00 23:59:59 Julian Danita Aniket 2021-07-22 2021-07-22 Outpatient MHIE MHIE [id number] Memoria 09:45:00 09:45:00 Danita [place] 2021-05-20 2021-05-21 Outpatient nullFlavo MNA [id number] Memoria 16:30:00 05:59:59 r Neurology 02 storm [place] Rigoberto 2021-05-20 2021-05-21 Outpatient nullFlavo MNA [id number] Memoria 16:30:00 05:59:59 r Neurology 02 l Dewayne [place] 2021-05-20 2021-05-20 Outpatient FROILAN MendezSCHER MHMISCHER [id number] 10:30:00 23:59:59 Julian 02 Aniket 2021-05-20 2021-05-20 Outpatient MHIE MHIE [id number] Memoria 10:30:00 10:30:00 02 storm [place] 2021-04-07 2021-04-08 Outpatient nullFlavo MNA [id number] Memoria 18:00:00 04:59:59 r Neurology 01 l Dewayne [place] 2021-04-07 2021-04-08 Outpatient nullFlavo MNA [id number] Memoria 18:00:00 04:59:59 r Neurology 01 l Dewayne [place] 2021-04-07 2021-04-07 Outpatient FROILAN MendezSCHER MISCHER [id number] 13:00:00 23:59:59 Julian 01 Aniket 2021-04-07 2021-04-07 Outpatient MHIE MHIE [id number] Memoria 13:00:00 13:00:00 01 storm [place] 2021-02-28 2021-03-01 Outpatient nullFlavo MNA [id number] Memoria 15:30:00 04:59:59 r Neurology 00 l Dewayne [place] 2021-02-28 2021-03-01 Outpatient nullFlavo MNA [id number] Memoria 15:30:00 04:59:59 r Neurology 00 l Dewayne [place] 2021-02-28 2021-02-28 Outpatient FROILAN MendezSCHER MISCHER [id number] 10:30:00 23:59:59 Julian 00 Aniket 2021-02-28 2021-02-28 Outpatient MHIE MHIE [id number] Memoria 10:30:00 10:30:00 00 storm [place] 2020-12-02 2020-12-02 Outpatient STLMLC STLMLC [id number] Common 00:00:00 00:00:00 [facility] 2020-09-15 2020-09-15 Outpatient [facility] [id number] Univers 12:25:00 12:25:00 ity of [facility] 2020-08-18 2020-08-18 Outpatient Thierry TI, [facility] [id number] Univers 12:15:00 12:15:00 [facility] 2019-11-16 2019-11-16 Outpatient Ryan Del Rosario [id number] Common 08:00:00 08:00:00 t Bone Bone and Spiri t and Joint [facility] - [facility] 2019-08-17 2019-08-17 [facility] [id number] Univers 08:50:00 11:10:00 Encounter Adrian Stein [id number] ity of [id number] [id number] Med ical Center [address] [place] [address] 2019-08-17 2019-08-17 [facility] [id number] 08:50:00 11:10:00 Encounter Adrian Stein [id number] Unique [place] [id number] Surgical [id number] [place] [address] 2019-07-13 2019-07-13 [facility] [id number] Univers 09:06:00 11:35:00 Encounter Adrian Stein [id number] ity of [place] [id number] [place] [id number] Med ical Center [address] [place] [address] 2019-07-13 2019-07-13 [facility] [id number] 09:06:00 11:35:00 Encounter Adrian Stein [id number] Unique [place] [id number] Surgical [id number] [place] [address] 2019-07-13 2019-07-13 Anesthesia [facility] [id number] Univers 10:38:00 11:02:00 Gio Stein [id number] ity of [id number] [place] [id number] Med ical Center 020 Branch 2019-07-13 2019-07-13 Anesthesia [place], [facility] [id number] 10:38:00 11:02:00 Gio Thierry Sarita [id number] [place] [id number] Surgical [id number] [place] 020 2019-07-06 2019-07-06 Wafer Abrading Machine Tender 1, Adc Lab [facility] [id number] [facility] 16:31:52 16:46:52 Visit Adrian Davis 350.1.1 3.10 ity of [place] [id number] [facility] [id number] [facility] 353 Branch 2019-07-06 2019-07-06 Wafer Abrading Machine Tender 1, Adc Lab [facility] [id number] 16:31:52 16:46:52 Visit Sarita [id number] [place] 4.[address].7.2.[id number] [facility] 2019-07-06 2019-07-06 Orders Doctor ALEXANDR [id number] Univers 00:00:00 00:00:00 Only Unassigned, JADA [id number] [facility] [id number] [place] [id number] [place] [address] Branch 2019-05-15 2019-05-15 Outpatient Ryan Del Rosario [id number] Common 08:00:00 08:00:00 t Bone Bone and Spiri t and Joint Joint - [facility] 2019-03-30 2019-03-30 Outpatient Ryan Del Rosario [id number] Common 11:09:00 11:09:00 t Bone Bone and Spiri t and Joint Joint - [facility] 2019-02-13 2019-02-13 Outpatient Ryan Del Rosario [id number] Common 08:00:00 08:00:00 t Bone Bone and Spiri t and Joint Joint - [facility] 2019-01-05 2019-01-05 Outpatient Ryan Del Rosario [id number] Common 09:30:00 09:30:00 t Bone Bone and Spiri t and Joint Joint - [facility] 2019-01-02 2019-01-02 [facility] [id number] Common 08:00:00 08:00:00 t Bone Bone and Spiri t and Joint Joint - [facility] 2018-12-19 2018-12-19 Outpatient [facility] [id number] Common 16:26:00 16:26:00 t Bone Bone and Spiri t and Joint Joint - [facility] 2018-12-19 2018-12-19 Outpatient [facility] [id number] Common 11:40:00 11:40:00 t Bone Bone and Spiri t and Joint Joint - [facility] 2018-12-15 2018-12-15 Outpatient [facility] [id number] Common 13:35:00 13:35:00 t Bone Bone and Spiri t and Joint Joint - [facility] 2018-12-12 2018-12-12 Outpatient [facility] [id number] Common 08:30:00 08:30:00 t Bone Bone and Spiri t and Joint Joint - [facility] 2018-12-08 2018-12-08 Outpatient [facility] [id number] Common 08:39:00 08:39:00 t Bone Bone and Spiri t and Joint Joint - [facility] 2018-12-07 2018-12-07 Outpatient [facility] [id number] Common 09:40:00 09:40:00 t Bone Bone and Spiri t and Joint Joint - [facility] 2018-12-07 2018-12-07 Outpatient [facility] [id number] Common 08:00:00 08:00:00 t Bone Bone and Spiri t and Joint Joint - [facility] 2018-11-03 2018-11-03 Outpatient [facility] [id number] Common 09:40:00 09:40:00 t Bone Bone and Spiri t and Joint Joint - [facility] 2018-10-25 2018-10-25 Outpatient [facility] [id number] Common 08:00:00 08:00:00 t Bone Bone and Spiri t and Joint Joint - [facility] 2018-10-24 2018-10-24 Outpatient [facility] [id number] Common 09:37:00 09:37:00 t Bone Bone and Spiri t and Joint Joint - [facility] 2018-10-24 2018-10-24 Outpatient [facility] [id number] Common 08:25:00 08:25:00 t Bone Bone and Spiri t and Joint Joint - [facility] 2018-10-20 2018-10-20 Outpatient [facility] [id number] Common 13:30:00 13:30:00 t Bone Bone and Spiri t and Joint Joint - [facility] 2018-08-22 2018-08-22 Outpatient [facility] [id number] Common 11:03:00 11:03:00 t Bone Bone and Spiri t and Joint Joint - [facility] 2018-08-18 2018-08-18 Outpatient [facility] [id number] Common 15:59:00 15:59:00 t Bone Bone and Spiri t and [facility] - [facility] 2018-08-15 2018-08-15 [id number] Common 08:00:00 08:00:00 t [facility] t [facility] - [facility] 2018-02-17 2018-02-17 [facility] 15 [id number] Common 09:00:00 09:00:00 t Bone Bone and Spiri t and Joint Joint - [facility] Results Test Description Test Time Test Comments Results Result Comments Source BLOOD CULTURE 2022-08-12 06:00:56 Test Item Value Reference Range Interpretation Comme nts CULTURE (BEAKER) (test code = 1095) No growth in 5 days BLOOD [id number] 06:00:55 Test Item Value Reference Range Interpretation Comments CULTURE (BEAKER) (test No growth in 5 days code = 1095) COMPREHENSIVE METABOLIC [id number] 05:53:50 Test Item Value Reference Range Interpretation Comments TOTAL PROTEIN 6.2 gm/dL 6.0-8.3 (BEAKER) (test code = 770) ALBUMIN (BEAKER) 3.3 g/dL 3.5-5.0 L (test code = 1145) ALKALINE 117 U/L 40-150 PHOSPHATASE (BEAKER) (test code = 346) BILIRUBIN TOTAL 0.7 mg/dL 0.2-1.2 (BEAKER) (test code = 377) SODIUM (BEAKER) 139 meq/L 136-145 (test code = 381) POTASSIUM (BEAKER) 4.0 meq/L 3.5-5.1 (test code = 379) CHLORIDE (BEAKER) 108 meq/L 98-107 H (test code = 382) CO2 (BEAKER) (test 20 meq/L 22-29 L code = 355) BLOOD UREA 6 mg/dL 7-21 L NITROGEN (BEAKER) (test code = 354) CREATININE 0.60 mg/dL 0.57-1.25 (BEAKER) (test code = 358) GLUCOSE RANDOM 146 mg/dL 70-105 H (BEAKER) (test code = 652) CALCIUM (BEAKER) 8.9 mg/dL 8.4-10.2 (test code = 697) AST (SGOT) 19 U/L 5-34 (BEAKER) (test code = 353) ALT (SGPT) 58 U/L 6-55 H (BEAKER) (test code = 347) EGFR (BEAKER) 93 Interpretatio n of eGFR (test code = 1092) mL/min/1.[address] age Description sq m Result G1 Nasra l or high >=90 G2 Mildly decreased 60-89 G3a Mildl y to moderately 45-5 9 G3b Moderately to s everely 30-44 G4 Severl y decreased 15-29 G5 Kidney failure <15Reported eGF R is based on the CKD-EPI 2020 equation that d oes not use a race coefficientEsti mated GFR is not as accur ate as Creatinine Negar deanne in predicting glom erular filtration rate . Estimated GFR is not appl icable for dialysis patien ts Security Risk Analyst ID - [id number] (HEMOGRAM ONLY)2022-08-08 05:21:44 Test Item Value Reference Range Interpretation Comments WHITE BLOOD CELL COUNT (BEAKER) 10.0 K/ L 3.5-10.5 (test code = 775) RED BLOOD CELL COUNT (BEAKER) 4.00 M/ L 3.93-5.22 (test code = 761) HEMOGLOBIN (BEAKER) (test code = 11.4 GM/DL 11.2-15.7 410) HEMATOCRIT (BEAKER) (test code = 35.0 % 34.1-44.9 411) MEAN CORPUSCULAR VOLUME (BEAKER) 88 fL 79-95 (test code = 753) MEAN CORPUSCULAR HEMOGLOBIN 28.5 pg 25.6-32.2 (BEAKER) (test code = 751) MEAN CORPUSCULAR HEMOGLOBIN CONC 32.6 GM/DL 32.2-35.5 (BEAKER) (test code = 752) RED CELL DISTRIBUTION WIDTH 13.8 % 11.7-14.4 (BEAKER) (test code = 412) PLATELET COUNT (BEAKER) (test 342 K/CU MM 150-450 code = 756) MEAN PLATELET VOLUME (BEAKER) 9.9 fL 9.4-12.3 (test code = 754) NUCLEATED RED BLOOD CELLS 0 /100 WBC 0-0 (BEAKER) (test code = 413) [place], [id number] 12:10:00Reason for exam:->Biliary stricture [facility]: SARINA BARROS KAMRON : 1945 Sex: FAn imaging unit was utilized for this procedure. No radiologist interpretation was requested. Refer to the EMR for findings. Refer to PACS for any patient radiation dose information.COMPREHENSIVE METABOLIC [id number] 06:14:00 Test Item Value Reference Range Interpretation Comments TOTAL PROTEIN 5.9 gm/dL 6.0-8.3 L (BEAKER) (test code = 770) ALBUMIN (BEAKER) 3.2 g/dL 3.5-5.0 L (test code = 1145) ALKALINE 132 U/L 40-150 PHOSPHATASE (BEAKER) (test code = 346) BILIRUBIN TOTAL 1.2 mg/dL 0.2-1.2 (BEAKER) (test code = 377) SODIUM (BEAKER) 139 meq/L 136-145 (test code = 381) POTASSIUM (BEAKER) 3.7 meq/L 3.5-5.1 (test code = 379) CHLORIDE (BEAKER) 110 meq/L 98-107 H (test code = 382) CO2 (BEAKER) (test 20 meq/L 22-29 L code = 355) BLOOD UREA 5 mg/dL 7-21 L NITROGEN (BEAKER) (test code = 354) CREATININE 0.63 mg/dL 0.57-1.25 (BEAKER) (test code = 358) GLUCOSE RANDOM 88 mg/dL 70-105 (BEAKER) (test code = 652) CALCIUM (BEAKER) 8.5 mg/dL 8.4-10.2 (test code = 697) AST (SGOT) 23 U/L 5-34 (BEAKER) (test code = 353) ALT (SGPT) 71 U/L 6-55 H (BEAKER) (test code = 347) EGFR (BEAKER) 92 Interpretatio n of eGFR (test code = 1092) mL/min/1.[address] age Description sq m Result G1 Nasra l or high >=90 G2 Mildly decreased 60-89 G3a Mildl y to moderately 45-5 9 G3b Moderately to s everely 30-44 G4 Severl y decreased 15-29 G5 Kidney failure <15Reported eGF R is based on the CKD-EPI 202 equation that d oes not use a race coefficientEsti mated GFR is not as accur ate as Creatinine Negar alicea in predicting glom erular filtration rate . Estimated GFR is not appl icable for dialysis patien ts Security Risk Analyst ID - PIAYA [id number] (HEMOGRAM ONLY)2022-08-07 05:51:08 Test Item Value Reference Range Interpretation Comments WHITE BLOOD CELL COUNT (BEAKER) 7.7 K/ L 3.5-10.5 (test code = 775) RED BLOOD CELL COUNT (BEAKER) 3.75 M/ L 3.93-5.22 L (test code = 761) HEMOGLOBIN (BEAKER) (test code = 11.0 GM/DL 11.2-15.7 L 410) HEMATOCRIT (BEAKER) (test code = 33.5 % 34.1-44.9 L 411) MEAN CORPUSCULAR VOLUME (BEAKER) 89 fL 79-95 (test code = 753) MEAN CORPUSCULAR HEMOGLOBIN 29.3 pg 25.6-32.2 (BEAKER) (test code = 751) MEAN CORPUSCULAR HEMOGLOBIN CONC 32.8 GM/DL 32.2-35.5 (BEAKER) (test code = 752) RED CELL DISTRIBUTION WIDTH 14.0 % 11.7-14.4 (BEAKER) (test code = 412) PLATELET COUNT (BEAKER) (test 305 K/CU MM 150-450 code = 756) MEAN PLATELET VOLUME (BEAKER) 9.6 fL 9.4-12.3 (test code = 754) NUCLEATED RED BLOOD CELLS 0 /100 WBC 0-0 (BEAKER) (test code = 413) [place], [id number] 13:30:00INTRA OP IMAGING Reason for exam:->ABNORMAL IMAGINGANDREEA [facility]ELISSAAMARA SARINAANDRE LUNDY : 1945 Sex: FAn imaging unit was utilized for this procedure. No radiologist interpretation was requested. Refer to the EMR for findings. Refer to PACS for any patient radiation dose information.[id number] 04:25:54 Test Item Value Reference Range Interpretation Comments MAGNESIUM (BEAKER) (test code = 1.7 mg/dL 1.6-2.6 627) Security Risk Analyst ID - [id number] 04:25:54 Test Item Value Reference Range Interpretation Comments PHOSPHORUS (BEAKER) (test code = 2.8 mg/dL 2.3-4.7 604) Security Risk Analyst ID - ADMINCOMPREHENSIVE METABOLIC [id number] 04:25:53 Test Item Value Reference Range Interpretation Comments TOTAL PROTEIN 6.7 gm/dL 6.0-8.3 (BEAKER) (test code = 770) ALBUMIN (BEAKER) 3.6 g/dL 3.5-5.0 (test code = 1145) ALKALINE 158 U/L 40-150 H PHOSPHATASE (BEAKER) (test code = 346) BILIRUBIN TOTAL 1.0 mg/dL 0.2-1.2 (BEAKER) (test code = 377) SODIUM (BEAKER) 139 meq/L 136-145 (test code = 381) POTASSIUM (BEAKER) 3.8 meq/L 3.5-5.1 (test code = 379) CHLORIDE (BEAKER) 107 meq/L 98-107 (test code = 382) CO2 (BEAKER) (test 21 meq/L 22-29 L code = 355) BLOOD UREA 7 mg/dL 7-21 NITROGEN (BEAKER) (test code = 354) CREATININE 0.60 mg/dL 0.57-1.25 (BEAKER) (test code = 358) GLUCOSE RANDOM 102 mg/dL 70-105 (BEAKER) (test code = 652) CALCIUM (BEAKER) 9.3 mg/dL 8.4-10.2 (test code = 697) AST (SGOT) 40 U/L 5-34 H (BEAKER) (test code = 353) ALT (SGPT) 114 U/L 6-55 H (BEAKER) (test code = 347) EGFR (BEAKER) 93 Interpretatio n of eGFR (test code = 1092) mL/min/1.[address] age Description sq m Result G1 Norm al or high >=90 G2 Mildly decreased 60-89 G3a Mildl y to moderately 45-5 9 G3b Moderately to s everely 30-44 G4 Severl y decreased 15-29 G5 Kidney failure <15Reported eGF R is based on the CKD-EPI 2020 equation that d oes not use a race coefficientEsti mated GFR is not as accur ate as Creatinine Negar deanne in predicting glom erular filtration rate . Estimated GFR is not appl icable for dialysis patien ts Security Risk Analyst ID - [id number] 04:17:10 Test Item Value Reference Range Interpretation Comments PROTIME (BEAKER) (test code = 13.0 seconds 11.9-14.2 759) INR (BEAKER) (test code = 370) 1.00 <=5.90 PARTIAL THROMBOPLASTIN TIME 26.2 seconds 22.5-36.0 (BEAKER) (test code = 760) RECOMMENDED COUMADIN/WARFARIN INR THERAPY RANGESSTANDARD DOSE: 2.0 - 3.0 Includes: PROPHYLAXIS for venous thrombosis, systemic embolization; TREATMENT for venous thrombosis and/or pulmonary embolus.HIGH RISK: Target INR is 2.5-3.5 for patients with mechanical heart valves.CBC W/PLT COUNT & AUTO [id number] 04:00:05 Test Item Value Reference Range Interpretation Comments WHITE BLOOD CELL COUNT (BEAKER) 8.0 K/ L 3.5-10.5 (test code = 775) RED BLOOD CELL COUNT (BEAKER) 4.32 M/ L 3.93-5.22 (test code = 761) HEMOGLOBIN (BEAKER) (test code = 12.2 GM/DL 11.2-15.7 410) HEMATOCRIT (BEAKER) (test code = 38.0 % 34.1-44.9 411) MEAN CORPUSCULAR VOLUME (BEAKER) 88 fL 79-95 (test code = 753) MEAN CORPUSCULAR HEMOGLOBIN 28.2 pg 25.6-32.2 (BEAKER) (test code = 751) MEAN CORPUSCULAR HEMOGLOBIN CONC 32.1 GM/DL 32.2-35.5 L (BEAKER) (test code = 752) RED CELL DISTRIBUTION WIDTH 13.9 % 11.7-14.4 (BEAKER) (test code = 412) PLATELET COUNT (BEAKER) (test 310 K/CU MM 150-450 code = 756) MEAN PLATELET VOLUME (BEAKER) 9.6 fL 9.4-12.3 (test code = 754) NUCLEATED RED BLOOD CELLS 0 /100 WBC 0-0 (BEAKER) (test code = 413) NEUTROPHILS RELATIVE PERCENT 64 % (BEAKER) (test code = 429) LYMPHOCYTES RELATIVE PERCENT 23 % (BEAKER) (test code = 430) MONOCYTES RELATIVE PERCENT 9 % (BEAKER) (test code = 431) EOSINOPHILS RELATIVE PERCENT 2 % (BEAKER) (test code = 432) BASOPHILS RELATIVE PERCENT 1 % (BEAKER) (test code = 437) NEUTROPHILS ABSOLUTE COUNT 5.13 K/ L 1.56-6.13 (BEAKER) (test code = 670) LYMPHOCYTES ABSOLUTE COUNT 1.85 K/ L 1.18-3.74 (BEAKER) (test code = 414) MONOCYTES ABSOLUTE COUNT (BEAKER) 0.72 K/ L 0.24-0.36 H (test code = 415) EOSINOPHILS ABSOLUTE COUNT 0.18 K/ L 0.04-0.36 (BEAKER) (test code = 416) BASOPHILS ABSOLUTE COUNT (BEAKER) 0.06 K/ L 0.01-0.08 (test code = 417) IMMATURE GRANULOCYTES-RELATIVE 0.60 % 0.00-1.00 PERCENT (BEAKER) (test code = 2801) [id number] 13:39:00 Test Item Value Reference Range Interpretation Comments Basophils (test code = Basophils) 1.1 [id number] 13:39:00 Test Item Value Reference Range Interpretation Comments Sed Rate (test code = Sed Rate) 22 [facility] [id number] 13:39:00 Test Item Value Reference Range Interpretation Comments Vitamin B12 Lvl (test code = Vitamin 787 491-6344 B12 Lvl) [facility]2021-09-11 13:39:00 Test Item Value Reference Range Interpretation Comments Glucose Lvl (test code = Glucose Lvl) 99 65-99 [facility]2021-09-11 13:39:00 Test Item Value Reference Range Interpretation Comments BUN (test code = BUN) 16 7-25 [facility]2021-09-11 13:39:00 Test Item Value Reference Range Interpretation Comments Creatinine Lvl (test code = Creatinine 0.65 0.60-0.93 Lvl) [place] 499261-09-11 13:39:00 Test Item Value Reference Range Interpretation Comments eGFR NON-AFR. ANGOLAN (test code = 87 eGFR NON-AFR. ANGOLAN) [place] 499261-09-11 13:39:00 Test Item Value Reference Range Interpretation Comments eGFR (test code = eGFR 101 ) [place] 499261-09-11 13:39:00 Test Item Value Reference Range Interpretation Comments B/C Ratio (test code = B/C NOT APPLICABLE 6-22 Ratio) [place] 499261-09-11 13:39:00 Test Item Value Reference Range Interpretation Comments Sodium Lvl (test code = Sodium Lvl) 137 135-146 [place] 499261-09-11 13:39:00 Test Item Value Reference Range Interpretation Comments Potassium Lvl (test code = Potassium 4.2 3.5-5.3 Lvl) [place] 499261-09-11 13:39:00 Test Item Value Reference Range Interpretation Comments Chloride Lvl (test code = Chloride Lvl) 102 98-110 [place] 499261-09-11 13:39:00 Test Item Value Reference Range Interpretation Comments CO2 (test code = CO2) 22 20-32 [place] 499261-09-11 13:39:00 Test Item Value Reference Range Interpretation Comments Calcium Lvl (test code = Calcium Lvl) 9.2 8.6-10.4 [place] 499261-09-11 13:39:00 Test Item Value Reference Range Interpretation Comments Total Protein (test code = Total 6.9 6.1-8.1 Protein) [place] 499261-09-11 13:39:00 Test Item Value Reference Range Interpretation Comments Albumin Lvl (test code = Albumin Lvl) 3.9 3.6-5.1 [place] 499261-09-11 13:39:00 Test Item Value Reference Range Interpretation Comments Globulin (test code = Globulin) 3.0 1.9-3.7 [place] 499261-09-11 13:39:00 Test Item Value Reference Range Interpretation Comments A/G Ratio (test code = A/G Ratio) 1.3 1.0-2.5 [facility]2021-09-11 13:39:00 Test Item Value Reference Range Interpretation Comments Bili Total (test code = Bili Total) 0.9 0.2-1.2 [facility]2021-09-11 13:39:00 Test Item Value Reference Range Interpretation Comments Alk Phos (test code = Alk Phos) 111 37-153 [facility]2021-09-11 13:39:00 Test Item Value Reference Range Interpretation Comments ASPARTATE TRANSAMINASE (test code = 23 10-35 ASPARTATE TRANSAMINASE) [facility]2021-09-11 13:39:00 Test Item Value Reference Range Interpretation Comments ALANINE AMINOTRANSFERASE (test code = 20 6-29 ALANINE AMINOTRANSFERASE) [facility]kywTLWSHLKFES0232-34-56 13:39:00 Test Item Value Reference Range Interpretation Comments WBC X 10x3 (test code = WBC X 10x3) 6.4 3.8-10.8 [facility]fieldHkblwalSGUIVHJAMK0176-86-20 13:39:00 Test Item Value Reference Range Interpretation Comments RBC X 10x6 (test code = RBC X 10x6) 4.32 3.80-5.10 [facility]fieldThubaufKFZSTDHQDK0961-63-13 13:39:00 Test Item Value Reference Range Interpretation Comments Hgb (test code = Hgb) 12.6 11.7-15.5 [facility]fieldFtcyjioZKIJAVJREL9380-03-36 13:39:00 Test Item Value Reference Range Interpretation Comments Hct (test code = Hct) 38.5 35.0-45.0 [facility]fieldGhdzjkoSTTUTLGIGI6759-95-25 13:39:00 Test Item Value Reference Range Interpretation Comments MCV (test code = MCV) 89.1 80.0-100.0 [facility]fieldPnpikikQSUHXWYMDP5405-85-44 13:39:00 Test Item Value Reference Range Interpretation Comments MCH (test code = MCH) 29.2 pg 27.0-33.0 [facility]fieldBooufglTXSDFQFSHE3399-28-89 13:39:00 Test Item Value Reference Range Interpretation Comments MCHC (test code = MCHC) 32.7 32.0-36.0 [facility]fieldRbprtrwNGYVDZQHQG4022-67-54 13:39:00 Test Item Value Reference Range Interpretation Comments RDW (test code = RDW) 13.1 11.0-15.0 [facility]fieldIjwoliuQOUPXJJBVC0751-40-76 13:39:00 Test Item Value Reference Range Interpretation Comments Platelet (test code = Platelet) 290 140-400 [facility]fieldTjbybxpLZOYMISWOV0851-75-99 13:39:00 Test Item Value Reference Range Interpretation Comments MPV (test code = MPV) 10.6 7.5-12.5 [facility]fieldFaflhbcDJDVRIVCAE3916-44-46 13:39:00 Test Item Value Reference Range Interpretation Comments Neutrophils # (test code = Neutrophils 3430 0494-9946 #) [facility]fieldEfafzrqFZDEIWAXKE0649-33-92 13:39:00 Test Item Value Reference Range Interpretation Comments Lymphocytes # (test code = Lymphocytes 2061 850-3900 #) [facility]fieldNcltktqIGXXSFOANL0960-06-87 13:39:00 Test Item Value Reference Range Interpretation Comments Monocytes # (test code = Monocytes #) 646 200-950 [facility]fieldTzgnotqZXLSTIEKTK2933-60-33 13:39:00 Test Item Value Reference Range Interpretation Comments Eosinophils # (test code = Eosinophils 192 15-500 #) [facility]fieldGnszoeiSWBAIFCVNU2631-24-97 13:39:00 Test Item Value Reference Range Interpretation Comments Basophils # (test code 70 See_Comment [Aut omated message] The = Basophils #) system which generated this result tra nsmitted reference range : <=200. The reference r sharon was not used to int erpret this result as normal/abnormal . [facility]fieldLbrvuybCLAGMKENQA2317-50-24 13:39:00 Test Item Value Reference Range Interpretation Comments Segs (test code = Segs) 53.6 [facility]fieldGifcpopJDHJQHQTSR1362-18-87 13:39:00 Test Item Value Reference Range Interpretation Comments Lymphocytes (test code = Lymphocytes) 32.2 [facility]fieldKihzcbaSUHFIWGHCJ2087-43-01 13:39:00 Test Item Value Reference Range Interpretation Comments Monocytes (test code = Monocytes) 10.1 [place] 324511-09-11 13:39:00 Test Item Value Reference Range Interpretation Comments Eosinophils (test code = Eosinophils) 3.0 [facility]fieldMiobsktQGITQHYCTK1853-74-05 13:39:00 Test Item Value Reference Range Interpretation Comments Basophils (test code = Basophils) 1.1 [facility]fieldYqyzzuuIDCYTFDKDX9541-68-80 13:39:00 Test Item Value Reference Range Interpretation Comments Sed Rate (test code = Sed Rate) 22 [facility]2021-09-11 13:39:00 Test Item Value Reference Range Interpretation Comments Vitamin B12 Lvl (test code = Vitamin 488 820-5819 B12 Lvl) [place] 499261-09-11 13:39:00 Test Item Value Reference Range Interpretation Comments Glucose Lvl (test code = Glucose Lvl) 99 65-99 [place] 499261-09-11 13:39:00 Test Item Value Reference Range Interpretation Comments BUN (test code = BUN) 16 7-25 [place] 499261-09-11 13:39:00 Test Item Value Reference Range Interpretation Comments Creatinine Lvl (test code = Creatinine 0.65 0.60-0.93 Lvl) [place] 499261-09-11 13:39:00 Test Item Value Reference Range Interpretation Comments eGFR NON-AFR. ANGOLAN (test code = 87 eGFR NON-AFR. ANGOLAN) [place] 499261-09-11 13:39:00 Test Item Value Reference Range Interpretation Comments eGFR (test code = eGFR 101 ) [place] 499261-09-11 13:39:00 Test Item Value Reference Range Interpretation Comments B/C Ratio (test code = B/C NOT APPLICABLE 6-22 Ratio) [place] 499261-09-11 13:39:00 Test Item Value Reference Range Interpretation Comments Sodium Lvl (test code = Sodium Lvl) 137 135-146 [place] 499261-09-11 13:39:00 Test Item Value Reference Range Interpretation Comments Potassium Lvl (test code = Potassium 4.2 3.5-5.3 Lvl) [place] 499261-09-11 13:39:00 Test Item Value Reference Range Interpretation Comments Chloride Lvl (test code = Chloride Lvl) 102 98-110 [place] 499261-09-11 13:39:00 Test Item Value Reference Range Interpretation Comments CO2 (test code = CO2) 22 20-32 [place] 499261-09-11 13:39:00 Test Item Value Reference Range Interpretation Comments Calcium Lvl (test code = Calcium Lvl) 9.2 8.6-10.4 [place] 499261-09-11 13:39:00 Test Item Value Reference Range Interpretation Comments Total Protein (test code = Total 6.9 6.1-8.1 Protein) [facility]2021-09-11 13:39:00 Test Item Value Reference Range Interpretation Comments Albumin Lvl (test code = Albumin Lvl) 3.9 3.6-5.1 [facility]2021-09-11 13:39:00 Test Item Value Reference Range Interpretation Comments Globulin (test code = Globulin) 3.0 1.9-3.7 [facility]2021-09-11 13:39:00 Test Item Value Reference Range Interpretation Comments A/G Ratio (test code = A/G Ratio) 1.3 1.0-2.5 [place] 499261-09-11 13:39:00 Test Item Value Reference Range Interpretation Comments Bili Total (test code = Bili Total) 0.9 0.2-1.2 [facility]2021-09-11 13:39:00 Test Item Value Reference Range Interpretation Comments Alk Phos (test code = Alk Phos) 111 37-153 [facility]2021-09-11 13:39:00 Test Item Value Reference Range Interpretation Comments ASPARTATE TRANSAMINASE (test code = 23 10-35 ASPARTATE TRANSAMINASE) [facility]2021-09-11 13:39:00 Test Item Value Reference Range Interpretation Comments ALANINE AMINOTRANSFERASE (test code = 20 6-29 ALANINE AMINOTRANSFERASE) [facility]fieldOihzdzoKIAVYOUIOK6600-91-75 13:39:00 Test Item Value Reference Range Interpretation Comments WBC X 10x3 (test code = WBC X 10x3) 6.4 3.8-10.8 [facility]fieldCqstynoAGMSYJVRCI5067-48-99 13:39:00 Test Item Value Reference Range Interpretation Comments RBC X 10x6 (test code = RBC X 10x6) 4.32 3.80-5.10 [facility]2021-09-11 13:39:00 Test Item Value Reference Range Interpretation Comments Vitamin B12 Lvl (test code = Vitamin [phone] B12 Lvl) [facility]fieldHskekkaQBCLDIHDLA9397-95-32 13:39:00 Test Item Value Reference Range Interpretation Comments Hgb (test code = Hgb) 12.6 11.7-15.5 [facility]fieldFqwdwlvKDNCDFDFKH9174-04-67 13:39:00 Test Item Value Reference Range Interpretation Comments Hct (test code = Hct) 38.5 35.0-45.0 [facility]fieldRurugpjRBPODMWXLJ3147-88-31 13:39:00 Test Item Value Reference Range Interpretation Comments MCV (test code = MCV) 89.1 80.0-100.0 [facility]fieldTwgqpseQXCMCTZSPO3548-76-33 13:39:00 Test Item Value Reference Range Interpretation Comments MCH (test code = MCH) 29.2 pg 27.0-33.0 [facility]fieldMysipcdPFKZWLFRLN0105-36-85 13:39:00 Test Item Value Reference Range Interpretation Comments MCHC (test code = MCHC) 32.7 32.0-36.0 [facility]fieldQoembpjOXWFHDAWJJ5902-62-07 13:39:00 Test Item Value Reference Range Interpretation Comments RDW (test code = RDW) 13.1 11.0-15.0 [facility]fieldAcopdruCWTZTPIHMP5191-93-80 13:39:00 Test Item Value Reference Range Interpretation Comments Platelet (test code = Platelet) 290 140-400 [facility]fieldGguuassVCRDNGBIZX8628-44-39 13:39:00 Test Item Value Reference Range Interpretation Comments MPV (test code = MPV) 10.6 7.5-12.5 [facility]fieldKkuxnnbYURBLWIWNQ6317-49-80 13:39:00 Test Item Value Reference Range Interpretation Comments Neutrophils # (test code = Neutrophils 3430 7948-7282 #) [facility]fieldQokvmilVZCMJDMULJ4965-56-99 13:39:00 Test Item Value Reference Range Interpretation Comments Lymphocytes # (test code = Lymphocytes 2061 850-3900 #) [facility]2021-09-11 13:39:00 Test Item Value Reference Range Interpretation Comments Glucose Lvl (test code = Glucose Lvl) 99 65-99 [facility]fieldTpjvvjfBQSYJZQJWK3788-79-19 13:39:00 Test Item Value Reference Range Interpretation Comments Monocytes # (test code = Monocytes #) 646 200-950 [facility]fieldMrcbdmqJTYZVFJLXU8054-43-97 13:39:00 Test Item Value Reference Range Interpretation Comments Eosinophils # (test code = Eosinophils 192 15-500 #) [facility]fieldNxjpivvUWKNSFEPZG6880-68-61 13:39:00 Test Item Value Reference Range Interpretation Comments Basophils # (test code 70 See_Comment [Aut omated message] The = Basophils #) system which generated this result tra nsmitted reference range : <=200. The reference r sharon was not used to int erpret this result as normal/abnormal . [facility]fieldBcwlmdlEYEMQXDRRH3116-72-70 13:39:00 Test Item Value Reference Range Interpretation Comments Segs (test code = Segs) 53.6 [place] 324511-09-11 13:39:00 Test Item Value Reference Range Interpretation Comments Lymphocytes (test code = Lymphocytes) 32.2 [place] 324511-09-11 13:39:00 Test Item Value Reference Range Interpretation Comments Monocytes (test code = Monocytes) 10.1 [place] 324511-09-11 13:39:00 Test Item Value Reference Range Interpretation Comments Eosinophils (test code = Eosinophils) 3.0 [place] 324511-09-11 13:39:00 Test Item Value Reference Range Interpretation Comments Basophils (test code = Basophils) 1.1 [place] 324511-09-11 13:39:00 Test Item Value Reference Range Interpretation Comments Sed Rate (test code = Sed Rate) 22 [facility]2021-09-11 13:39:00 Test Item Value Reference Range Interpretation Comments BUN (test code = BUN) 16 7-25 [facility]2021-09-11 13:39:00 Test Item Value Reference Range Interpretation Comments Creatinine Lvl (test code = Creatinine 0.65 0.60-0.93 Lvl) [facility]2021-09-11 13:39:00 Test Item Value Reference Range Interpretation Comments Vitamin B12 Lvl (test code = Vitamin [phone] B12 Lvl) [facility]2021-09-11 13:39:00 Test Item Value Reference Range Interpretation Comments eGFR NON-AFR. ANGOLAN (test code = 87 eGFR NON-AFR. ANGOLAN) [facility]2021-09-11 13:39:00 Test Item Value Reference Range Interpretation Comments eGFR (test code = eGFR 101 ) [facility]2021-09-11 13:39:00 Test Item Value Reference Range Interpretation Comments B/C Ratio (test code = B/C NOT APPLICABLE 6-22 Ratio) [facility]2021-09-11 13:39:00 Test Item Value Reference Range Interpretation Comments Sodium Lvl (test code = Sodium Lvl) 137 135-146 [place] 499261-09-11 13:39:00 Test Item Value Reference Range Interpretation Comments Glucose Lvl (test code = Glucose Lvl) 99 65-99 [place] 499261-09-11 13:39:00 Test Item Value Reference Range Interpretation Comments Potassium Lvl (test code = Potassium 4.2 3.5-5.3 Lvl) [place] 499261-09-11 13:39:00 Test Item Value Reference Range Interpretation Comments Chloride Lvl (test code = Chloride Lvl) 102 98-110 [place] 499261-09-11 13:39:00 Test Item Value Reference Range Interpretation Comments CO2 (test code = CO2) 22 20-32 [place] 499261-09-11 13:39:00 Test Item Value Reference Range Interpretation Comments BUN (test code = BUN) 16 7-25 [place] 499261-09-11 13:39:00 Test Item Value Reference Range Interpretation Comments Calcium Lvl (test code = Calcium Lvl) 9.2 8.6-10.4 [place] 499261-09-11 13:39:00 Test Item Value Reference Range Interpretation Comments Total Protein (test code = Total 6.9 6.1-8.1 Protein) [facility]2021-09-11 13:39:00 Test Item Value Reference Range Interpretation Comments Albumin Lvl (test code = Albumin Lvl) 3.9 3.6-5.1 [facility]2021-09-11 13:39:00 Test Item Value Reference Range Interpretation Comments Globulin (test code = Globulin) 3.0 1.9-3.7 [place] 499261-09-11 13:39:00 Test Item Value Reference Range Interpretation Comments A/G Ratio (test code = A/G Ratio) 1.3 1.0-2.5 [place] 499261-09-11 13:39:00 Test Item Value Reference Range Interpretation Comments Bili Total (test code = Bili Total) 0.9 0.2-1.2 [place] 499261-09-11 13:39:00 Test Item Value Reference Range Interpretation Comments Alk Phos (test code = Alk Phos) 111 37-153 [place] 499261-09-11 13:39:00 Test Item Value Reference Range Interpretation Comments Creatinine Lvl (test code = Creatinine 0.65 0.60-0.93 Lvl) [facility]2021-09-11 13:39:00 Test Item Value Reference Range Interpretation Comments ASPARTATE TRANSAMINASE (test code = 23 10-35 ASPARTATE TRANSAMINASE) [place] 499261-09-11 13:39:00 Test Item Value Reference Range Interpretation Comments ALANINE AMINOTRANSFERASE (test code = 20 6-29 ALANINE AMINOTRANSFERASE) [facility] 13:39:00 Test Item Value Reference Range Interpretation Comments WBC X 10x3 (test code = WBC X 10x3) 6.4 3.8-10.8 [place] 324511-09-11 13:39:00 Test Item Value Reference Range Interpretation Comments RBC X 10x6 (test code = RBC X 10x6) 4.32 3.80-5.10 [facility]UrlfdajEWMDHKRYIP7071-83-60 13:39:00 Test Item Value Reference Range Interpretation Comments Hgb (test code = Hgb) 12.6 11.7-15.5 [facility]GzjeibqVLAKPNGFSL7644-02-19 13:39:00 Test Item Value Reference Range Interpretation Comments Hct (test code = Hct) 38.5 35.0-45.0 [facility]2021-09-11 13:39:00 Test Item Value Reference Range Interpretation Comments eGFR NON-AFR. ANGOLAN (test code = 87 eGFR NON-AFR. ANGOLAN) [facility]fieldAzoxiqwFSWWUHIIJV6172-64-31 13:39:00 Test Item Value Reference Range Interpretation Comments MCV (test code = MCV) 89.1 80.0-100.0 [facility]fieldDnxpuyqLUHCUVVOWV8259-94-92 13:39:00 Test Item Value Reference Range Interpretation Comments MCH (test code = MCH) 29.2 pg 27.0-33.0 [place] 324511-09-11 13:39:00 Test Item Value Reference Range Interpretation Comments MCHC (test code = MCHC) 32.7 32.0-36.0 [place] 324511-09-11 13:39:00 Test Item Value Reference Range Interpretation Comments RDW (test code = RDW) 13.1 11.0-15.0 [place] 324511-09-11 13:39:00 Test Item Value Reference Range Interpretation Comments Platelet (test code = Platelet) 290 140-400 [facility]fieldUqoczmzPLQAERZSNC1893-30-41 13:39:00 Test Item Value Reference Range Interpretation Comments MPV (test code = MPV) 10.6 7.5-12.5 [facility]fieldWhwoszxMRNWAFNKBE3801-81-92 13:39:00 Test Item Value Reference Range Interpretation Comments Neutrophils # (test code = Neutrophils 3430 7052-7785 #) [facility]fieldPjgpeyvQRCEIRKPBQ9176-11-99 13:39:00 Test Item Value Reference Range Interpretation Comments Lymphocytes # (test code = Lymphocytes 2061 850-3900 #) [facility]fieldBjofdsuJLZJIHVUZI2096-20-13 13:39:00 Test Item Value Reference Range Interpretation Comments Monocytes # (test code = Monocytes #) 646 200-950 [facility]2021-09-11 13:39:00 Test Item Value Reference Range Interpretation Comments eGFR (test code = eGFR 101 ) [facility]fieldHtlcawrRNMFKDCNML5660-18-01 13:39:00 Test Item Value Reference Range Interpretation Comments Eosinophils # (test code = Eosinophils 192 15-500 #) [facility]fieldKfayrbuTCVXRSKCLT1159-78-86 13:39:00 Test Item Value Reference Range Interpretation Comments Basophils # (test code 70 See_Comment [Aut omated message] The = Basophils #) system which generated this result tra nsmitted reference range : <=200. The reference r sharon was not used to int erpret this result as normal/abnormal . [facility]fieldOccxdexSERWHIPQVX3489-89-36 13:39:00 Test Item Value Reference Range Interpretation Comments Segs (test code = Segs) 53.6 [facility]fieldEzuxxfcPVVPPYQBXJ3103-72-24 13:39:00 Test Item Value Reference Range Interpretation Comments Lymphocytes (test code = Lymphocytes) 32.2 [facility]fieldIpzwoqfRAZAWYRICL1531-41-35 13:39:00 Test Item Value Reference Range Interpretation Comments Monocytes (test code = Monocytes) 10.1 [facility]fieldTkyypczNGROTFSABO2340-22-50 13:39:00 Test Item Value Reference Range Interpretation Comments Eosinophils (test code = Eosinophils) 3.0 [facility]fieldOygaxnsRGKSDOGGEH6233-92-30 13:39:00 Test Item Value Reference Range Interpretation Comments Basophils (test code = Basophils) 1.1 [facility]fieldWeycznqAZBFKYPQPN4812-19-10 13:39:00 Test Item Value Reference Range Interpretation Comments Sed Rate (test code = Sed Rate) 22 [place] 499261-09-11 13:39:00 Test Item Value Reference Range Interpretation Comments B/C Ratio (test code = B/C NOT APPLICABLE 622 Ratio) [facility]2021-09-11 13:39:00 Test Item Value Reference Range Interpretation Comments Sodium Lvl (test code = Sodium Lvl) 137 135-146 [facility]2021-09-11 13:39:00 Test Item Value Reference Range Interpretation Comments Potassium Lvl (test code = Potassium 4.2 3.5-5.3 Lvl) [facility]2021-09-11 13:39:00 Test Item Value Reference Range Interpretation Comments Chloride Lvl (test code = Chloride Lvl) 102 98-110 [facility]2021-09-11 13:39:00 Test Item Value Reference Range Interpretation Comments CO2 (test code = CO2) 22 20-32 [facility]2021-09-11 13:39:00 Test Item Value Reference Range Interpretation Comments Calcium Lvl (test code = Calcium Lvl) 9.2 8.6-10.4 [facility]2021-09-11 13:39:00 Test Item Value Reference Range Interpretation Comments Total Protein (test code = Total 6.9 6.1-8.1 Protein) [facility]2021-09-11 13:39:00 Test Item Value Reference Range Interpretation Comments Albumin Lvl (test code = Albumin Lvl) 3.9 3.6-5.1 [facility]2021-09-11 13:39:00 Test Item Value Reference Range Interpretation Comments Globulin (test code = Globulin) 3.0 1.9-3.7 [facility] 13:39:00 Test Item Value Reference Range Interpretation Comments Vitamin B12 Lvl (test code = Vitamin [phone] B12 Lvl) [facility]2021-09-11 13:39:00 Test Item Value Reference Range Interpretation Comments Glucose Lvl (test code = Glucose Lvl) 99 65-99 [place] 499261-09-11 13:39:00 Test Item Value Reference Range Interpretation Comments BUN (test code = BUN) 16 7-25 [place] 499261-09-11 13:39:00 Test Item Value Reference Range Interpretation Comments Creatinine Lvl (test code = Creatinine 0.65 0.60-0.93 Lvl) [place] 499261-09-11 13:39:00 Test Item Value Reference Range Interpretation Comments eGFR NON-AFR. ANGOLAN (test code = 87 eGFR NON-AFR. ANGOLAN) [place] 499261-09-11 13:39:00 Test Item Value Reference Range Interpretation Comments eGFR (test code = eGFR 101 ) [place] 499261-09-11 13:39:00 Test Item Value Reference Range Interpretation Comments B/C Ratio (test code = B/C NOT APPLICABLE 6-22 Ratio) [place] 499261-09-11 13:39:00 Test Item Value Reference Range Interpretation Comments Sodium Lvl (test code = Sodium Lvl) 137 135-146 [place] 499261-09-11 13:39:00 Test Item Value Reference Range Interpretation Comments Potassium Lvl (test code = Potassium 4.2 3.5-5.3 Lvl) [place] 499261-09-11 13:39:00 Test Item Value Reference Range Interpretation Comments Chloride Lvl (test code = Chloride Lvl) 102 98-110 [place] 499261-09-11 13:39:00 Test Item Value Reference Range Interpretation Comments CO2 (test code = CO2) 22 20-32 [place] 499261-09-11 13:39:00 Test Item Value Reference Range Interpretation Comments Calcium Lvl (test code = Calcium Lvl) 9.2 8.6-10.4 [place] 499261-09-11 13:39:00 Test Item Value Reference Range Interpretation Comments Total Protein (test code = Total 6.9 6.1-8.1 Protein) [place] 499261-09-11 13:39:00 Test Item Value Reference Range Interpretation Comments Albumin Lvl (test code = Albumin Lvl) 3.9 3.6-5.1 [place] 499261-09-11 13:39:00 Test Item Value Reference Range Interpretation Comments Globulin (test code = Globulin) 3.0 1.9-3.7 [place] 499261-09-11 13:39:00 Test Item Value Reference Range Interpretation Comments A/G Ratio (test code = A/G Ratio) 1.3 1.0-2.5 [place] 499261-09-11 13:39:00 Test Item Value Reference Range Interpretation Comments Bili Total (test code = Bili Total) 0.9 0.2-1.2 [place] 499261-09-11 13:39:00 Test Item Value Reference Range Interpretation Comments Alk Phos (test code = Alk Phos) 111 37-153 [place] 499261-09-11 13:39:00 Test Item Value Reference Range Interpretation Comments ASPARTATE TRANSAMINASE (test code = 23 10-35 ASPARTATE TRANSAMINASE) [place] 499261-09-11 13:39:00 Test Item Value Reference Range Interpretation Comments ALANINE AMINOTRANSFERASE (test code = 20 6-29 ALANINE AMINOTRANSFERASE) [place] 499261-09-11 13:39:00 Test Item Value Reference Range Interpretation Comments A/G Ratio (test code = A/G Ratio) 1.3 1.0-2.5 [place] 324511-09-11 13:39:00 Test Item Value Reference Range Interpretation Comments WBC X 10x3 (test code = WBC X 10x3) 6.4 3.8-10.8 [place] 324511-09-11 13:39:00 Test Item Value Reference Range Interpretation Comments RBC X 10x6 (test code = RBC X 10x6) 4.32 3.80-5.10 [place] 324511-09-11 13:39:00 Test Item Value Reference Range Interpretation Comments Hgb (test code = Hgb) 12.6 11.7-15.5 [place] 324511-09-11 13:39:00 Test Item Value Reference Range Interpretation Comments Hct (test code = Hct) 38.5 35.0-45.0 [place] 324511-09-11 13:39:00 Test Item Value Reference Range Interpretation Comments MCV (test code = MCV) 89.1 80.0-100.0 [place] 324511-09-11 13:39:00 Test Item Value Reference Range Interpretation Comments MCH (test code = MCH) 29.2 pg 27.0-33.0 [place] [address]-09-11 13:39:00 Test Item Value Reference Range Interpretation Comments MCHC (test code = MCHC) 32.7 32.0-36.0 [facility]HlvzifuZHJHAXBDQS4477-90-55 13:39:00 Test Item Value Reference Range Interpretation Comments RDW (test code = RDW) 13.1 11.0-15.0 [facility]fieldOpnxgwwYQFUDPZHBX2016-10-76 13:39:00 Test Item Value Reference Range Interpretation Comments Platelet (test code = Platelet) 290 140-400 [facility]fieldBnmdkhjHMDVOAKDFQ7128-55-62 13:39:00 Test Item Value Reference Range Interpretation Comments MPV (test code = MPV) 10.6 7.5-12.5 [facility]fieldTygptnsHEROKTMJGH0227-74-83 13:39:00 Test Item Value Reference Range Interpretation Comments Neutrophils # (test code = Neutrophils 3430 6761-7587 #) [facility]fieldVmfueqdNIKZCDZRQV2108-99-94 13:39:00 Test Item Value Reference Range Interpretation Comments Lymphocytes # (test code = Lymphocytes 2061 850-3900 #) [facility]fieldWuqkhvwHRFHWFLFFT2620-59-22 13:39:00 Test Item Value Reference Range Interpretation Comments Monocytes # (test code = Monocytes #) 646 200-950 [facility]fieldXujyijzPOLEZBBSCP7173-17-02 13:39:00 Test Item Value Reference Range Interpretation Comments Eosinophils # (test code = Eosinophils 192 15-500 #) [facility]fieldIbnithhHYKNIGLIHS4365-22-40 13:39:00 Test Item Value Reference Range Interpretation Comments Basophils # (test code 70 See_Comment [Aut omated message] The = Basophils #) system which generated this result tra nsmitted reference range : <=200. The reference r sharon was not used to int erpret this result as normal/abnormal . [facility]fieldAwmpqvtIGBRHQKZXQ1554-99-61 13:39:00 Test Item Value Reference Range Interpretation Comments Segs (test code = Segs) 53.6 [facility]fieldKagrzdeXNXRTLPBHK4071-23-64 13:39:00 Test Item Value Reference Range Interpretation Comments Lymphocytes (test code = Lymphocytes) 32.2 [place] 324511-09-11 13:39:00 Test Item Value Reference Range Interpretation Comments Monocytes (test code = Monocytes) 10.1 [facility]fieldWucodleDWRCDJUULK2002-89-38 13:39:00 Test Item Value Reference Range Interpretation Comments Eosinophils (test code = Eosinophils) 3.0 [facility]fieldWhhpkcyXTXFWSTJIC1043-46-93 13:39:00 Test Item Value Reference Range Interpretation Comments Basophils (test code = Basophils) 1.1 [facility]2021-09-11 13:39:00 Test Item Value Reference Range Interpretation Comments Bili Total (test code = Bili Total) 0.9 0.2-1.2 [place] 324511-09-11 13:39:00 Test Item Value Reference Range Interpretation Comments Sed Rate (test code = Sed Rate) 22 [facility]2021-09-11 13:39:00 Test Item Value Reference Range Interpretation Comments Alk Phos (test code = Alk Phos) 111 37-153 [place] 499261-09-11 13:39:00 Test Item Value Reference Range Interpretation Comments ASPARTATE TRANSAMINASE (test code = 23 10-35 ASPARTATE TRANSAMINASE) [place] 499261-09-11 13:39:00 Test Item Value Reference Range Interpretation Comments ALANINE AMINOTRANSFERASE (test code = 20 6-29 ALANINE AMINOTRANSFERASE) [place] 324511-09-11 13:39:00 Test Item Value Reference Range Interpretation Comments WBC X 10x3 (test code = WBC X 10x3) 6.4 3.8-10.8 [place] 324511-09-11 13:39:00 Test Item Value Reference Range Interpretation Comments RBC X 10x6 (test code = RBC X 10x6) 4.32 3.80-5.10 [place] 324511-09-11 13:39:00 Test Item Value Reference Range Interpretation Comments Hgb (test code = Hgb) 12.6 11.7-15.5 [facility]fieldJzpsvacGTNFLOKOLE2519-84-89 13:39:00 Test Item Value Reference Range Interpretation Comments Hct (test code = Hct) 38.5 35.0-45.0 [place] 324511-09-11 13:39:00 Test Item Value Reference Range Interpretation Comments MCV (test code = MCV) 89.1 80.0-100.0 [place] 324511-09-11 13:39:00 Test Item Value Reference Range Interpretation Comments MCH (test code = MCH) 29.2 pg 27.0-33.0 [place] 324511-09-11 13:39:00 Test Item Value Reference Range Interpretation Comments MCHC (test code = MCHC) 32.7 32.0-36.0 [facility]fieldLabensnCJZURZUZZG7278-64-07 13:39:00 Test Item Value Reference Range Interpretation Comments RDW (test code = RDW) 13.1 11.0-15.0 [place] 324511-09-11 13:39:00 Test Item Value Reference Range Interpretation Comments Platelet (test code = Platelet) 290 140-400 [facility]fieldYtnhmviONSRLUYCNV2176-92-90 13:39:00 Test Item Value Reference Range Interpretation Comments MPV (test code = MPV) 10.6 7.5-12.5 [facility]fieldZsnynqnGIYUAVIFHM1364-83-46 13:39:00 Test Item Value Reference Range Interpretation Comments Neutrophils # (test code = Neutrophils 3430 1806-0650 #) [facility]fieldVcdcqwbCBQIKMABMU0360-18-10 13:39:00 Test Item Value Reference Range Interpretation Comments Lymphocytes # (test code = Lymphocytes 2061 850-3900 #) [facility]fieldSlcckasWGAWHKRNZD7837-27-55 13:39:00 Test Item Value Reference Range Interpretation Comments Monocytes # (test code = Monocytes #) 646 200-950 [facility]fieldZtysehyQCHUCMNPOZ1401-00-01 13:39:00 Test Item Value Reference Range Interpretation Comments Eosinophils # (test code = Eosinophils 192 15-500 #) [facility]fieldUipmummYSRPAXHJXF5918-46-30 13:39:00 Test Item Value Reference Range Interpretation Comments Basophils # (test code 70 See_Comment [Aut omated message] The = Basophils #) system which generated this result tra nsmitted reference range : <=200. The reference r sharon was not used to int erpret this result as normal/abnormal . [facility]fieldQkugkrlRVANPQAZKZ1381-31-60 13:39:00 Test Item Value Reference Range Interpretation Comments Segs (test code = Segs) 53.6 [place] 324511-09-11 13:39:00 Test Item Value Reference Range Interpretation Comments Lymphocytes (test code = Lymphocytes) 32.2 [place] 324511-09-11 13:39:00 Test Item Value Reference Range Interpretation Comments Monocytes (test code = Monocytes) 10.1 [facility]fieldUhilxweTKYFEKRHFM2303-69-69 13:39:00 Test Item Value Reference Range Interpretation Comments Eosinophils (test code = Eosinophils) 3.0 [facility] LZOZM6022-58-02 16:41:00 Test Item Value Reference Range Interpretation Comments K (test code = 0469518510) 4.7 mmol/L 3.5-5 S light hemolysis Lab Interpretation (test Normal code = 73900-6) [facility]. METABOLIC PANEL (92825)2019-07-07 00:03:00 Test Item Value Reference Range Interpretation Comments NA (test code = 139 mmol/L 135-145 0365925744) K (test code = 5.7 mmol/L 3.5-5 H 6866126438) CL (test code = 102 mmol/L 98-108 1289380255) CO2 TOTAL (test code = 22 mmol/L 23-31 L 0348556465) AGAP (test code = 2-16 4045831834) BUN (test code = 24 mg/dL 7-23 H 9286463422) GLUCOSE (test code = 89 mg/dL 70-110 0377983187) CREATININE (test code = 0.64 mg/dL 0.5-1.04 5896770261) TOTAL BILI (test code = 0.4 mg/dL 0.1-1.0 1430048666) CALCIUM (test code = 10.4 mg/dL 8.6-10.6 3686008168) T PROTEIN (test code = 8.3 g/dL 6.3-8.2 H 0548605051) ALBUMIN (test code = 4.8 g/dL 3.5-5 6950768317) ALK PHOS (test code = 137 U/L 34-122 H 4850854971) ALTv (test code = 34 U/L 5-35 1742-6) AST(SGOT) (test code = 45 U/L 13-40 H 9434572097) eGFR Calculation mL/min/1.73m2 (Non-) (test code = 4640350625) eGFR Calculation mL/min/1.73m2 () (test code = 3016608183) MAGALI (test code = MAGALI) Association of [...] tests). Lab Interpretation Abnormal (test code = 76861-6) [facility]"
[2022-08-30 06:26] LABS: Hematocrit 39.3 % (36.0-45.0); Lymphocytes % 16.5 % (15.3-44.8); MCV 88.4 fL (80-100); MPV 8.3 fL (7.6-11.3); RBC Red Blood Cell Count 4.45 M/uL (3.86-4.86)
[2022-08-30 06:54] LABS: Albumin 3.5 g/dL (3.4-5.0); Bilirubin Direct 0.2 mg/dL (0-0.2); Bilirubin Total 0.9 mg/dL (0.2-1.0); Protein, Total 7.5 g/dL (6.4-8.2)
[2022-08-30 06:56] LABS: Potassium 4.1 mmol/L (3.5-5.1)
[2022-08-30 11:48] VITALS: TEMP 98.1; O2SAT 99
[2022-08-30 11:49] VITALS: BP 132/89
--- NOTE | 2022-08-31 09:16 | RAD REPORT ---
EXAM DESCRIPTION: Chest Single View CLINICAL HISTORY: Pain;Swelling;Trauma COMPARISON: None. FINDINGS: Single frontal radiograph view of the chest. Cardiomediastinal silhouette: Normal size and contour. Lungs: No consolidation, pneumothorax, or pleural effusion. Bones: Degenerative change of the spine and shoulders. Bilateral breast implants. Upper abdomen: No abnormality identified. IMPRESSION: 1. No acute pulmonary process identified. Electronically signed by: Nuno Mcclendon 08/30/2022 6:28 AM CDT Due to temporary technical issues with the PACS/Fluency reporting system, reports are being signed by the in house radiologists without review as a courtesy to insure prompt reporting. The interpreting radiologist is fully responsible for the content of the report.
--- NOTE | 2022-08-31 09:18 | RAD REPORT ---
EXAM DESCRIPTION: Forearm Left CLINICAL HISTORY: PAIN COMPARISON: None. FINDINGS: 2 views of the left forearm. Acute fracture distal left radial metaphysis with mild dorsal angulation. Remote fracture of the proximal ulnar diaphysis. Degenerative change of the elbow. Osteo penia. IMPRESSION: 1. Acute fracture of the distal left radial metaphysis mild dorsal angulation. Electronically signed by: Nuno Mcclendon 08/30/2022 6:29 AM CDT Due to temporary technical issues with the PACS/Fluency reporting system, reports are being signed by the in house radiologists without review as a courtesy to insure prompt reporting. The interpreting radiologist is fully responsible for the content of the report.
--- NOTE | 2022-08-31 09:22 | RAD REPORT ---
EXAM DESCRIPTION: Wrist Left 3 View CLINICAL HISTORY: PAIN COMPARISON: None. FINDINGS: 3 views of the left wrist. Acute fractures of distal left radial metaphysis with mild dors al angulation. Likely minimally displaced ulnar styloid fracture. Osteopenia. Soft tissue edema. IMPRESSION: 1. Acute fractures of the distal left radial metaphysis with mild dorsal angulation. 2. Likely minimally displaced ulnar styloid fracture. Electronically signed by: Nuno Mcclendon 08/30/2022 6:25 AM CDT Due to temporary technical issues with the PACS/Fluency reporting system, reports are being signed by the in house radiologists without review as a courtesy to insure prompt reporting. The interpreting radiologist is fully responsible for the content of the report.
--- NOTE | 2022-08-31 09:30 | RAD REPORT ---
EXAM DESCRIPTION: 1. CT of the head without contrast 2. CT of the cervical spine without contrast. CLINICAL HISTORY: Fall COMPARISON: 06/21/2022 and 08/04/2022 TECHNIQUE: Axial CT of the head obtained from the skull apex to the skull base without contrast. Axi al CT images of the cervical spine obtained from the skull base through the thoracic inlet. CT of the chest, abdomen, and pelvis obtained without contrast. This exam was performed according to our depar tmental dose-optimization program, which includes automated exposure control, adjustment of the mA an d/or kV according to patient size and/or use of iterative reconstruction technique. FINDINGS: CT head: No acute intracranial hemorrhage identified. No mass, mass effect, shift of the midline, abnormal ext ra-axial fluid collection or CT evidence of acute ischemic change identified. The ventricular system and sulcal spaces are mildly enlarged compatible with mild cerebral atrophy. Scattered areas of hyp odensity throughout the supratentorial white matter are nonspecific and may be related to chronic sma ll vessel ischemic change. Mild mucosal thickening of paranasal sinuses. Mastoid air cells are relatively well aerated. No skull fracture identified. Visualized orbits and globes are unremarkable. Atherosclerotic calcification of the intracranial internal carotid arteries. Osteoarthritic change of the temporomandibular joints. Cervical CT: Alignment of the cervical spine is maintained without evidence of subluxation. The atlantoaxial, at lantodental, and occipitoatlantal intervals are preserved. No fracture identified. Vertebral body h eight preserved. Prevertebral soft tissues are unremarkable. Mild to moderate multilevel loss of disc and endplate spondylosis, facet arthropathy, and uncovertebr al spurring. Osteopenia. Visualized skull base is intact. No fracture of the visualized facial bones. Visualized mastoid air c ells and paranasal sinuses are well aerated. No cervical lymphadenopathy. Chest: Thyroid: No abnormalities of the visualized thyroid. Great Vessels: Great vessels have normal anatomic configuration. Thoracic Aorta: Atherosclerotic calcification of the thoracic aorta. Pulmonary arteries: The main pulmonary artery is not dilated. Heart: No cardiomegaly, significant pericardial effusion, or coronary artery atherosclerosis Lymph Nodes: No enlarged mediastinal lymph nodes identified. Esophagus: No abnormalities of the esophagus identified Other: Bilateral breast implants. Lungs: No airspace opacities identified. Pleura: No pleural effusion or pneumothorax. Trachea/Airways: No abnormalities of the visualized trachea or airways. Abdomen: Liver: The liver has normal size and density. Interval increase in pneumobilia. Dilation of common bi le duct measuring 2.4 cm. Gallbladder: Prior cholecystectomy. Spleen, Pancreas, and Adrenal Glands: The spleen, pancreas, and adrenal glands are unremarkable. Kidneys: No hydronephrosis or obstructing ureteral calculus. Vasculature: Aortoiliac atherosclerosis. IVC is unremarkable. Stomach: Small hiatal hernia. Other: No free intraperitoneal air. No free fluid or lymphadenopathy. Pelvis: Bladder: Urinary bladder is unremarkable. Bowel: No dilated loops of large or small bowel. Scattered diverticula colon. Appendix: Not identified. Pelvis: Prior hysterectomy. Bones: No acute fractures identified. Osteopenia. Multilevel endplate spondylosis. IMPRESSION: 1. No acute intracranial abnormality by CT criteria. 2. No acute fracture or subluxation of the cervical spine. 3. No acute traumatic process identified in the chest, abdomen, or pelvis. 4. Dilation of the common bile duct measuring 2.4 cm. Interval increase in pneumobilia. This may be related to previous cholecystectomy. If there is concern for biliary obstruction MRCP could provide additional characterization. 5. Diverticulosis without evidence of acute diverticulitis. Electronically signed by: Nuno Mcclendon 08/30/2022 6:24 AM CDT Due to temporary technical issues with the PACS/Fluency reporting system, reports are being signed by the in house radiologists without review as a courtesy to insure prompt reporting. The interpreting radiologist is fully responsible for the content of the report.
--- NOTE | 2022-08-31 13:05 | EKG ---
Test Date: 2022-08-30 Test Time: 06:11:16 Neuroscientist: MEASUREMENT RESULTS: Intervals: Rate: 94 SD: 176 QRSD: 64 QT: 346 QTc: 432 Yeso: P: 57 SD: 176 QRS: 122 T: 51 INTERPRETIVE STATEMENTS: Normal sinus rhythm Possible Right ventricular hypertrophy Nonspecific ST and T wave abnormality Abnormal ECG Compared to ECG 08/03/2022 15:25:32 ST (T wave) deviation now present Sinus tachycardia no longer present Myocardial infarct finding no longer present Myocardial infarct finding no longer present Electronically Signed On 08-31-22 13:02:45 CDT by Joselo Taylor
--- NOTE | 2022-09-11 17:04 | EDPHYS ---
Physician Documentation [facility] Name: Dennis Dawn Age: 77 yrs Sex: Female : 1945 Arrival Date: 08/30/2022 Time: 05:12 Bed 4 Private MD: BENSON Physician Albert Echavarria HPI: 08/30 05:20 This 77 yrs old Female presents to ER via Unassigned with complaints of fall albert to left elbow. 05:20 The patient or guardian complains of decreased range of motion, pain, that is acute. albert The complaints affect the left wrist. Context: The problem was sustained at home. Onset: The symptoms/episode began/occurred just prior to arrival. Treatment prior to arrival includes: no previous treatment. Associated signs and symptoms: The patient has no apparent associated signs or symptoms. The patient has not experienced similar symptoms in the past. Historical: - Allergies: 05:21 Morphine; ll3 - Home Meds: 05:21 losartan 50 mg Oral tab [Active]; memantine 10 mg Oral tab [Active]; Myrbetriq 25 mg ll3 Oral Tb24 [Active]; omeprazole 40 mg Oral cpDR [Active]; paroxetine 10mg [Active]; promethazine 25 mg Oral tab [Active]; sucralfate 1 gram Oral tab [Active]; Aspirin Oral [Active]; - PMHx: 05:21 Anxiety; Chronic obstructive lung disease; Gastroesophageal reflux disease; GERD; ll3 herniated disc in neck; hiatal hernia; Hypertensive disorder; osteomyelitis; - Immunization history:: Client reports receiving the 2nd dose of the Covid vaccine. - Social history:: Smoking status: Patient denies any tobacco usage or history of. - Family history:: not pertinent. ROS: 05:20 Constitutional: Negative for fever, chills, and weight loss, Eyes: Negative for injury, albert pain, redness, and discharge, ENT: Negative for injury, pain, and discharge, Neck: Negative for injury, pain, and swelling, Cardiovascular: Negative for chest pain, palpitations, and edema, Respiratory: Negative for shortness of breath, cough, wheezing, and pleuritic chest pain, Abdomen/GI: Negative for abdominal pain, nausea, vomiting, diarrhea, and constipation, Back: Negative for injury and pain, : Negative for injury, bleeding, discharge, and swelling, Skin: Negative for injury, rash, and discoloration, Neuro: Negative for headache, weakness, numbness, tingling, and seizure, Psych: Negative for depression, anxiety, suicide ideation, homicidal ideation, and hallucinations, Allergy/Immunology: Negative for hives, rash, and allergies, Endocrine: Negative for neck swelling, polydipsia, polyuria, polyphagia, and marked weight changes, Hematologic/Lymphatic: Negative for swollen nodes, abnormal bleeding, and unusual bruising. 05:20 MS/extremity: Positive for injury or acute deformity, decreased range of motion, pain, swelling, tenderness, of the left arm. Exam: 05:20 Constitutional: This is a well developed, well nourished patient who is awake, alert, albert and in no acute distress. Head/Face: Normocephalic, atraumatic. Eyes: Pupils equal round and reactive to light, extra-ocular motions intact. Lids and lashes normal. Conjunctiva and sclera are non-icteric and not injected. Cornea within normal limits. Periorbital areas with no swelling, redness, or edema. ENT: Nares patent. No nasal discharge, no septal abnormalities noted. Tympanic membranes are normal and external auditory canals are clear. Oropharynx with no redness, swelling, or masses, exudates, or evidence of obstruction, uvula midline. Mucous membranes moist. Neck: Trachea midline, no thyromegaly or masses palpated, and no cervical lymphadenopathy. Supple, full range of motion without nuchal rigidity, or vertebral point tenderness. No Meningismus. Chest/axilla: Normal chest wall appearance and motion. Nontender with no deformity. No lesions are appreciated. Cardiovascular: Regular rate and rhythm with a normal S1 and S2. No gallops, murmurs, or rubs. Normal PMI, no JVD. No pulse deficits. Respiratory: Lungs have equal breath sounds bilaterally, clear to auscultation and percussion. No rales, rhonchi or wheezes noted. No increased work of breathing, no retractions or nasal flaring. Abdomen/GI: Soft, non-tender, with normal bowel sounds. No distension or tympany. No guarding or rebound. No evidence of tenderness throughout. Back: No spinal tenderness. No costovertebral tenderness. Full range of motion. Female : Normal external genitalia. Skin: Warm, dry with normal turgor. Normal color with no rashes, no lesions, and no evidence of cellulitis. Neuro: Awake and alert, GCS 15, oriented to person, place, time, and situation. Cranial nerves II-XII grossly intact. Motor strength 5/5 in all extremities. Sensory grossly intact. Cerebellar exam normal. Normal gait. Psych: Awake, alert, with orientation to person, place and time. Behavior, mood, and affect are within normal limits. 05:20 Musculoskeletal/extremity: Extremities: noted in the dorsal aspect of left forearm, left wrist and palmar aspect of left forearm: decreased ROM, pain. Vital Signs: 05:18 BP 130 / 94; Pulse 73; Resp 18; Temp 98.1(O); Pulse Ox 99% on R/A; Weight 64.86 kg (R); ll3 Height 5 ft. 4 in. (R); Pain 8/10; 07:59 BP 132 / 89; Pulse 77; Resp 18; Pulse Ox 99% ; ko1 05:18 Body Mass Index 24.55 (64.86 kg, 162.56 cm) ll3 05:18 Pain Scale: Adult ll3 MDM: 05:12 Patient medically screened. [facility] 05:23 Data reviewed: vital signs, nurses notes, lab test result(s), EKG, radiologic studies, [facility] CT scan, plain films. Consideration of Admission/Observation Patient was admitted/placed on observation. Escalation of care including admission/observation considered. I considered the following discharge prescriptions or medication management in the emergency department Medications were administered in the Emergency Department. See MAR. Test considered but Not performed: MRI: mri forearm. Care significantly affected by the following chronic conditions: Obesity. 08/30 05:19 Order name: Basic Metabolic Panel; Complete Time: 06:57 [facility] 08/30 05:19 Order name: CBC with Diff; Complete Time: 06:52 [facility] 08/30 05:19 Order name: LFT's; Complete Time: 06:57 [facility] 08/30 05:19 Order name: Magnesium; Complete Time: 06:57 [facility] 08/30 05:19 Order name: NT PRO-BNP; Complete Time: 06:57 [facility] 08/30 05:19 Order name: Troponin HS; Complete Time: 06:57 [facility] 08/30 05:19 Order name: Forearm Left XRAY [facility] 08/30 05:19 Order name: Wrist Left (3 View) XRAY [facility] 08/30 05:19 Order name: XRAY Chest (1 view) [facility] 08/30 05:19 Order name: CT Traumagram (Head C Spine CAP wo con) [facility] 08/30 05:19 Order name: EKG; Complete Time: 05:20 [facility] 08/30 05:19 Order name: Labs collected and sent; Complete Time: 07:06 [facility] 08/30 05:19 Order name: O2 Per Protocol; Complete Time: 05:35 [facility] 08/30 05:19 Order name: O2 Sat Monitoring; Complete Time: 05:35 [facility] 08/30 06:05 Order name: Sling; Complete Time: 07:05 [facility] 08/30 06:05 Order name: Ice pack; Complete Time: 07:14 [facility] 08/30 06:54 Order name: Sugar Tong Forearm Splint; Complete Time: 07:00 albert Administered Medications: 07:15 Not Given (Physician Discretion): Ondansetron IVP 4 mg IVP once; over 2 minutes ld1 07:15 Not Given (Physician Discretion): fentaNYL (PF) IVP 50 mcg IVP once ld1 Disposition Summary: 08/30/22 06:58 Discharge Ordered Location: Home albert Problem: new albert Symptoms: have improved albert Condition: Fair albert Diagnosis - Fall on same level, unspecified albert - Colles' fracture of right radius albert Followup: albert - With: - When: 2 - 3 days - Reason: Recheck today's complaints, Continuance of care, Re-evaluation by your physician Followup: albert - With: Private Physician - When: 2 - 3 days - Reason: Recheck today's complaints, Re-evaluation by your physician Discharge Instructions: - Discharge Summary Sheet albert - Fall Prevention in the Home, Adult albert - Radial Fracture albert - Fall Prevention in the Home, Adult, [id number] albert Forms: - Medication Reconciliation Form albert - Thank You Letter albert - Antibiotic Education albert - Prescription Opioid Use albert Prescriptions: - Tramadol 50 mg Oral Tablet - take 1 tablet by ORAL route every 8 hours as needed; 20 tablet; Refills: 0, albert Product Selection Permitted Signatures: Dispatcher [employer] Albert Reina MD MD cha Loubet, Lynsea, RN RN ll3 Eladia Ramon RN ld1 Corrections: (The following items were deleted from the chart) 05:53 05:19 Elbow Left 3 View+[id number].[email or web address] ordered. EDMS EDMS 06:54 06:05 Splint - Elbow - Posterior ordered. [facility] 07:00 06:58 Nondisplaced transverse fracture of shaft of right ulna, initial encounter for [facility] closed fracture - nonunion ulna shaft, old [facility]
--- NOTE | 2022-09-11 17:04 | ER ---
Nurse's Notes [facility] Name: Dennis Dawn Age: 77 yrs Sex: Female : 1945 Arrival Date: 08/30/2022 Time: 05:12 Bed 4 Private MD: Diagnosis: Fall on same level, unspecified;Colles' fracture of right radius Presentation: 08/30 05:18 Chief complaint: EMS states: Toned out for fall, pt states she lost her balance, c/o ll3 pain to left arm and hip 01/28, obvious deformity noted to left forearm, bruise noted to right forehead. Coronavirus screen: Vaccine status: Patient reports receiving the 2nd dose of the covid vaccine. At this time, the client does not indicate any symptoms associated with coronavirus-19. Ebola Screen: No symptoms or risks identified at this time. Initial Sepsis Screen: Does the patient meet any 2 criteria? No. Patient's initial sepsis screen is negative. Does the patient have a suspected source of infection? No. Patient's initial sepsis screen is negative. Risk Assessment: Do you want to hurt yourself or someone else? Patient reports no desire to harm self or others. Onset of symptoms was August 30, 2022. 05:18 Method Of Arrival: EMS: [facility] 3 05:18 Acuity: ZAYNAB 3 ll3 Triage Assessment: 05:21 General: Appears uncomfortable, Behavior is calm, cooperative. Pain: Complains of pain ll3 in left hip and left arm and left wrist Pain currently is 8 out of 10 on a pain scale. Neuro: Level of Consciousness is awake, alert, obeys commands, Oriented to person, place, time, situation. Derm: Skin is pink, warm \T\ dry. Musculoskeletal: Bony deformity noted of left arm Reports pain in left hip and left arm. Historical: - Allergies: 05:21 Morphine; ll3 - Home Meds: 05:21 losartan 50 mg Oral tab [Active]; memantine 10 mg Oral tab [Active]; Myrbetriq 25 mg ll3 Oral Tb24 [Active]; omeprazole 40 mg Oral cpDR [Active]; paroxetine 10mg [Active]; promethazine 25 mg Oral tab [Active]; sucralfate 1 gram Oral tab [Active]; Aspirin Oral [Active]; - PMHx: 05:21 Anxiety; Chronic obstructive lung disease; Gastroesophageal reflux disease; GERD; ll3 herniated disc in neck; hiatal hernia; Hypertensive disorder; osteomyelitis; - Immunization history:: Client reports receiving the 2nd dose of the Covid vaccine. - Social history:: Smoking status: Patient denies any tobacco usage or history of. - Family history:: not pertinent. Screenin:59 [facility] ED Fall Risk Assessment (Adult) History of falling in the last 3 months, ko1 including since admission Yes- single mechanical fall (1 pt) Confusion or Disorientation No (0 pts) Intoxicated or Sedated No (0 pts) Impaired Gait Yes (1 pt) Mobility Assist Device Used Yes (1 pt) Altered Elimination No (0 pt) Score/Fall Risk Level 3 or more points = High Risk Oriented to surroundings, Maintained a safe environment, Educated pt \T\ family on fall prevention, incl call for assistance when getting out of bed, Assessed \T\ reinforced patient's understanding of fall precautions, Provided non-skid footwear, Hourly rounding (assess needs \T\ fall precautionary measures) done, Used ambulatory aids as needed (educated on \T\ assisted with), Used gait belt as appropriate Implemented a Fall Risk Plan of Care, Apply high fall risk patient identification: yellow non skid footwear/ fall signage, Remained w/in arm's length of patient and in sight while toileting, Offered frequent toileting (1:1 observation), Remained with patient while ambulating, Utilized family, sitter, or virtual trailhead maintenance worker as indicated. Abuse screen: Denies threats or abuse. Denies injuries from another. Nutritional screening: No deficits noted. Tuberculosis screening: No symptoms or risk factors identified. Assessment: 05:24 General: See triage assessment. ll3 Vital Signs: 05:18 BP 130 / 94; Pulse 73; Resp 18; Temp 98.1(O); Pulse Ox 99% on R/A; Weight 64.86 kg (R); ll3 Height 5 ft. 4 in. (R); Pain 8/10; 07:59 BP 132 / 89; Pulse 77; Resp 18; Pulse Ox 99% ; ko1 05:18 Body Mass Index 24.55 (64.86 kg, 162.56 cm) 3 05:18 Pain Scale: Adult ll3 ED Course: 05:12 Patient arrived in ED. sb4 05:12 Albert Echavarria MD is Attending Physician. albert 05:21 Triage completed. ll3 05:21 Arm band placed on Patient placed in an exam room, on a stretcher, on pulse oximetry. ll3 05:45 CT Traumagram (Head C Spine CAP wo con) In Process Unspecified. EDMS 05:53 Forearm Left XRAY In Process Unspecified. EDMS 05:55 Wrist Left (3 View) XRAY In Process Unspecified. EDMS 05:55 XRAY Chest (1 view) In Process Unspecified. EDMS 06:58 Kamlesh Najera MD is Referral Physician. albert 06:59 Orthoglass splint: Sugar tong splint applied on left arm. Shoulder immobilizer applied wm on left shoulder. 07:58 Cynthia Tineo, RN is Primary Nurse. ko1 07:59 Patient has correct armband on for positive identification. Fall risk band placed. Bed ko1 in low position. Call light in reach. Side rails up X2. Client placed on continuous cardiac and pulse oximetry monitoring. NIBP monitoring applied. quality assurance monitor on. 07:59 No provider procedures requiring assistance completed. Patient did not have IV access ko1 during this emergency room visit. Administered Medications: 07:15 Not Given (Physician Discretion): Ondansetron IVP 4 mg IVP once; over 2 minutes ld1 07:15 Not Given (Physician Discretion): fentaNYL (PF) IVP 50 mcg IVP once ld1 Medication: 07:59 VIS not applicable for this client. ko1 Outcome: 06:58 Discharge ordered by . [facility] 07:59 Discharged to home via wheelchair, with family. ko1 07:59 Condition: stable 07:59 Discharge instructions given to patient, family, Instructed on discharge instructions, follow up and referral plans. medication usage, Demonstrated understanding of instructions, follow-up care, medications, Prescriptions given X 1. 08:01 Patient left the ED. ko1 Signatures: Dispatcher [employer] EDNM Albert Echavarria MD MD cha Marsh, Wendy Graham Weinstein RN RN ll3 Cynthia Tineo, WINSOME RN ko1 Lisseth Chandler, PAHiramC PAHiramC sb4 Eladia Ramon RN ld1
== END 2022-08-30 08:01 | disposition home or self-care (01) ==
LOC: ER 05:09
PROC: 2W3DX1Z Immobilization of Left Lower Arm using Splint (ICD-10-PCS; principal; 2022-08-30)
DX: S52.532A Colles' fracture of left radius, initial encounter for closed fracture (principal); W18.30XA Fall on same level, unspecified, initial encounter; Z88.5 Allergy status to narcotic agent; Z79.82 Long term (current) use of aspirin
CPT/HCPCS: 36415; 70450; 71045; 71250; 72125; 80048; 80076; 83735; 83880; 84484; 85025; 93005; 99284

== ENCOUNTER 2022-10-15 15:47 | Emergency (ER) | payer OTHER ==
--- OUTSIDE RECORDS SUMMARY | 2022-10-15 16:04 | XMS REPORT | Continuity of Care Document ---
:1945 Author Organization [facility] t Address [address] [place] [address] [place] [id number] Care Team Providers Name Role Phone AGATHABEVERLYDACIA CORAZON Guadarrama Primary Care Physician Unavailable ADRIAN DAVIS Attending Clinician Unavailable MARY HUDSON Attending Clinician Unavailable Mary Hudson MD Attending Clinician SAL LOUIS Attending Clinician Unavailable DAVSI POP Attending Clinician Unavailable DONALD KATZ Attending Clinician Unavailable Keith GUEVARA, Tiera Arceo Attending Clinician [phone] Leoncio Roach MD Attending Clinician [phone] Donald Katz MD Attending Clinician Verito Ralph MD Attending Clinician Polo Blancas Attending Clinician Davis Pop MD Attending Clinician Steven Elena MD Attending Clinician Gaby Hall Attending Clinician Sal Louis MD Attending Clinician Julian Mendez Attending Clinician FLORI LUKE Attending Clinician Unavailable Adrian Davis MD Attending Clinician Gio Harrison CRNA Attending Clinician 1, [facility] Attending Clinician Unavailable Doctor Unassigned, [place] Attending Clinician Unavailable ADRIAN DAVIS Admitting Clinician Unavailable LEONCIO ROACH Admitting Clinician Unavailable Adrian Davis MD Admitting Clinician Payers Payer Name Policy Type Policy Number Effective Date Expiration Date Nory ROWE MEDICARE [id number] 2018 00:00:00 [facility] [id number] 2022 [facility] 00:00:00 PPO AARP [facility] [id number] 2022 2022 HMO-POS-UHC 00:00:00 00:00:00 UNITED MEDICARE [id number] 2022 [facility] [place]:00 Problems Condition Condition Condition Status Onset Resolution Last Treating Co mments Source Name Details Category Date Date Treatment Clinician Date Cholangiti Cholangiti Disease Active [facility] [place] Gram-negat Gram-negat Disease Active [facility] miguel miguel 2-16 [facility] bacteremia bacteremia 00:00: Ut dical 00 [place] Choledocho Choledocho Disease Active [facility] lithiasis lithiasis 2-16 [facility] 00:00: Medical 00 [place] COVID-19 COVID-19 Disease [facility] [place] Snake bite Snake bite Disease Active 2014-06 U nivers 0-01 ity of 00:00: [place] [facility] Right hand Right hand Disease Active 2014-06 U nivers pain pain 0-01 ity of 00:00: Medical Branch Right Right Disease Active 2014-06 Univers wrist pain wrist pain 0-01 it y of 00:00: Medical Branch Amnesia Amnesia Problem Active 2022-01-30 Me moria (finding) (finding) 04:44:55 l Active [facility] Problem 01/30/2022 [facility] Ataxia Ataxia Problem Active 2022-01-30 Oj deshaun (finding) (finding) 04:44:55 l Active [facility] Problem 01/30/2022 [facility] Dysarthria Dysarthri Problem Active 2022-01-30 Memoria (finding) a 04:44:55 l (finding) Rigoberto Active Problem 01/30/2022 [facility] Pseudobulb Problem Active 2022-01-30 M emoria ar affect Pseudobulb 04:44:55 l (finding) ar affect Herm narcisa (finding) Active Problem 01/30/2022 [facility] Anxiety Anxiety Problem Active 2022-01-30 Me moria (finding) (finding) 04:44:55 l Active Rigoberto Problem 01/30/2022 [facility] [id number] Piriformis Problem Active Co mmon syndrome Spirit of right - [facility]I side [facility] [id number] Status Problem Active Commo n 105 post total [id number] Pain, Problem Active Commo n [id number] joint, [facility] shoulder, - [facility] right [facility] [id number] Piriformis Problem Active C ommon syndrome Spirit of left - [facility] side [facility] [id number] Primary Problem Active Comm on osteoarthr Spirit itis of - [facility] right knee 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 [id number] Aftercare Problem Active Com wed [facility] joint - [facility] replacemen [facility] [id number] Acute pain Problem Active Com mon of right [facility] shoulder - [facility] Allergies, Adverse Reactions, Alerts Allergy Allergy Status Severity Reaction(s) Onset Inactive Treating Comm ents Source Name Type Date Date Clinician CODEINE DRUG Active Unknown-Cmnt Uni vers INGREDI 3-30 ity of 00:00: [place] 00 [facility] Branch Codeine Propensi Active Unknown - Univ ers ty to See comments 3-30 ity of adverse 00:00: [place] reaction 00 Medical s Branch EGG Allergy Active Med Itching [facility] 2-16 [facility] 00:00: Medical 00 Center MORPHINE [...] of adverse Vomiting 00:00: [place] reaction 00 [facility] MORPHINE DRUG Active N/V 2014-06 Univers INGREDI 0-01 ity of 00:00: [place] 00 [facility] morphine morphine Active Unknown Commo n Spirit - CHI [facility] morphine morphine Active Carlos Franklin Social History Social Habit Start Date Stop Date Quantity Comments Source History of Current smoker [facility] tobacco use Medical Cente r Exposure to 2022-09-07 2022-09-17 Unable to assess Univers ity of SARS-CoV-2 00:00:00 03:51:00 [facility] (event) [place] Alcohol intake 2022-09-17 2022-09-17 Ex-drinker University 00:00:00 00:00:00 (finding) [facility] Social History 2021-02-28 2021-02-28 Pawan sanchez 15:56:29 15:56:29 Tobacco use and 2019-07-10 2019-07-10 Smokeless tobacco Un iversity of exposure 00:00:00 00:00:00 non-user [facility] Tobacco Comment 2019-07-10 2019-07-10 Quit 21 years ago Un iversity of 00:00:00 00:00:00 [facility] Sex Ass[birth year] [facility] kes 00:00:00 00:00:00 Medical Center Smoking Status Start Date Stop Date Source Former smoker 2022-08-06 00:00:00 2022-08-06 00:00:00 [facility] Never smoker [facility] Medications Ordered Filled Start Stop Current Ordering Indication Dosage Frequency Signature Comments Components Source Medication Medication Date Date Medication? Clinician (SIG) Name Name brimonidine Yes 1[drp] [id number] Place [address] (ALPHAGAN) 2-19 [id number] drop into [facility] 0.2 % 13:22: 3D both eyes Medical ophthalmic 20 3 (three) Cent er solution times daily. esomeprazol 3-0 Yes 20mg QD Take [address] [facility] (NexIUM) 2-19 by mouth [facility] 20 MG 13:22: daily. Medical capsule 20 Center promethazin 2022-0 Yes 25mg Take [address] [facility] 2-19 by mouth [facility] (PHENERGAN) 13:22: every 8 Med ical 25 MG 20 (eight) Center tablet hours as needed for Nausea. brimonidine 2022-0 Yes 1[drp] [id number] Place [address] (ALPHAGAN) 2-19 [id number] drop into [facility] 0.2 % 13:22: 3D both eyes Medical ophthalmic 20 3 (three) Cent er solution times daily. esomeprazol 2022-0 Yes 20mg QD Take [address] [facility] (NexIUM) 2-19 by mouth [facility] 20 MG 13:22: daily. Medical capsule 20 Center promethazin 2022-0 Yes 25mg Take [address] e 2-19 by mouth [facility] (PHENERGAN) 13:22: every 8 Med ical 25 MG 20 (eight) Center tablet hours as needed for Nausea. acetaminoph 2023- Yes 650mg Take [address] en 08-09-14 tablets [facility] (TYLENOL) 00:00: 23:59 (650 mg Medi gretchen 325 MG 00 :00 total) by Center tablet mouth every 4 (four) hours as needed for up to 360 days. acetaminoph 0 2023- Yes 650mg Take [address] en 08-09-14 tablets [facility] (TYLENOL) 00:00: 23:59 (650 mg Medi gretchen 325 MG 00 :00 total) by Center tablet mouth every 4 (four) hours as needed for up to 360 days. levoFLOXaci 2022-0 2022- No 500mg QD Take [address] n -09 08-24 tablet [facility] (LEVAQUIN) 00:00: 23:59 (500 mg Med ical 500 MG 00 :00 total) by Center tablet mouth daily for 5 days. metroNIDAZO 0 2022- No 500mg [id number] Take [address] [facility] (FLAGYL) 08-09 [id number] tablet [facility] 500 MG 00:00: 23:59 3D (500 mg Medical tablet 00 :00 total) by Center mouth 3 (three) times daily for 5 days. levoFLOXaci 2022- No 500mg QD Take [address] n 08-09 tablet [facility] (LEVAQUIN) 00:00: 23:59 (500 mg Med ical 500 MG 00 :00 total) by Center tablet mouth daily for 5 days. metroNIDAZO 2022-0 2022- No 500mg [id number] Take [address] [facility] (FLAGYL) 08-09 [id number] tablet [facility] 500 MG 00:00: 23:59 3D [...] 00 mg. Take with or without food.. nirmatrelvi 2022- No 3{tbl} Q.5D Take 3 [...] without food.. Bupivicaine Bupivicaine No 2.5mg Common [place]ess Euless 01-08 [facility] 00:00: [facility] Kenalog Kenalog 2021-0 No 40mg Common (Triamcinol (Triamcinol 7-21 S pirit one) one) 00:00: - CHI [facility] Lidocaine Lidocaine 2-0 No 10mg Com 10-16 Spirit 00:00: - [facility] Kenalog Kenalog 2-0 No 40mg Common (Triamcinol (Triamcinol 4-28 S pirit one) one) 00:00: - [facility]I [facility] Lidocaine Lidocaine 2-0 No 10mg Com 10-16 Spirit 00:00: - [facility] Kenalog Kenalog 2021-0 No 40mg Common (Triamcinol (Triamcinol 4-28 S pirit one) one) 00:00: - [facility] Memantine 2-0 Yes 10 mg = 1 Mem oria hydrochlori 2-01 tab, PO, l de 10 MG 16:31: BID, # 180 Her arndt Oral Tablet 00 tab, 1 [Namenda] Refill(s), Pharmacy: [facility] #[id number], 157.48, cm, 04/07/21 13:22:00 CDT, Height, 77.273, kg, 04/07/21 13:22:00 CDT, Weight Memantine 2021-0 Yes 10 mg = 1 Mem oria hydrochlori 2-01 tab, PO, l de 10 MG 16:31: BID, # 180 Her arndt Oral Tablet 00 tab, 1 [Namenda] Refill(s), Pharmacy: [facility] #[id number], 157.48, cm, 04/07/21 13:22:00 CDT, Height, 77.273, kg, 04/07/21 13:22:00 CDT, Weight Memantine 2021-0 Yes 10 mg = 1 Mem oria hydrochlori 2-01 tab, PO, l de 10 MG 16:31: BID, # 180 Her arndt Oral Tablet 00 tab, 1 [Namenda] Refill(s), Pharmacy: [facility] #[id number], 157.48, cm, 04/07/21 13:22:00 CDT, Height, 77.273, kg, 04/07/21 13:22:00 CDT, Weight Memantine 2021-0 Yes 10 mg = 1 Mem oria hydrochlori 2-01 tab, PO, l de 10 MG 16:31: BID, # 180 Her arndt Oral Tablet 00 tab, 1 [Namenda] Refill(s), Pharmacy: [id number] #[id number], 157.48, cm, 04/07/21 13:22:00 CDT, Height, 77.273, kg, 04/07/21 13:22:00 CDT, Weight Memantine 2021-0 Yes 10 mg = 1 Mem oria hydrochlori 2-01 tab, PO, l de 10 MG 16:31: BID, # 180 Her arndt Oral Tablet 00 tab, 1 [Namenda] Refill(s), Pharmacy: [id number] #[id number], 157.48, cm, 04/07/21 13:22:00 CDT, Height, 77.273, kg, 04/07/21 13:22:00 CDT, Weight Memantine 2021-0 Yes 10 mg = 1 Mem oria hydrochlori 2-01 tab, PO, l de 10 MG 16:31: BID, # 180 Her arndt Oral Tablet 00 tab, 1 [Namenda] Refill(s), Pharmacy: [id number] #[id number], 157.48, cm, 04/07/21 13:22:00 CDT, Height, 77.273, kg, 04/07/21 13:22:00 CDT, Weight Paroxetine 2021-0 Yes 10 mg = 1 Me moria Hydrochlori 2-01 tab, PO, l de 10 MG 16:07: Daily, # Marla nn Oral Tablet 00 90 tab, 0 Refill(s) Paroxetine 2-0 Yes 10 mg = 1 Me moria Hydrochlori 2-01 tab, PO, l de 10 MG 16:07: Daily, # Marla nn Oral Tablet 00 90 tab, 0 Refill(s) Paroxetine 2022-0 Yes 10 mg = 1 Me moria Hydrochlori 2-01 tab, PO, l de 10 MG 16:07: Daily, # Marla nn Oral Tablet 00 90 tab, 0 Refill(s) Paroxetine 2-0 Yes 10 mg = 1 Me moria [...] Tablet 00 tab, 1 [Namenda] Refill(s), Pharmacy: [facility] #[id number], 157.48, cm, 04/07/21 13:22:00 CDT, Height, 77.273, kg, 04/07/21 13:22:00 CDT, Weight Memantine 2020-06 Yes 10 mg = 1 Mem oria hydrochlori 1-30 tab, PO, l de 10 MG 16:45: BID, # 180 Her arndt Oral Tablet 00 tab, 1 [Namenda] Refill(s), Pharmacy: [facility] #[id number], 157.48, cm, 04/07/21 13:22:00 CDT, Height, 77.273, kg, 04/07/21 13:22:00 CDT, Weight Memantine 2020-06 Yes 10 mg = 1 Mem oria hydrochlori 1-30 tab, PO, l de 10 MG 16:45: BID, # 180 Her arndt Oral Tablet 00 tab, 1 [Namenda] Refill(s), Pharmacy: [facility] #[id number], 157.48, cm, 04/07/21 13:22:00 CDT, Height, 77.273, kg, 04/07/21 13:22:00 CDT, Weight Memantine 2020-06 Yes 10 mg = 1 Mem oria hydrochlori 1-30 tab, PO, l de 10 MG 16:45: BID, # 180 Her arndt Oral Tablet 00 tab, 1 [Namenda] Refill(s), Pharmacy: [facility] #[id number], 157.48, cm, 04/07/21 13:22:00 CDT, Height, 77.273, kg, 04/07/21 13:22:00 CDT, Weight Memantine 2020-06 Yes 10 mg = 1 Mem oria hydrochlori 1-30 tab, PO, l de 10 MG 16:45: BID, # 180 Her arndt Oral Tablet 00 tab, 1 [Namenda] Refill(s), Pharmacy: [facility] #[id number], 157.48, cm, 04/07/21 13:22:00 CDT, Height, 77.273, kg, 04/07/21 13:22:00 CDT, Weight Memantine 2020-06 Yes 10 mg = 1 Mem oria hydrochlori 1-30 tab, PO, l de 10 MG 16:45: BID, # 180 Her arndt Oral Tablet 00 tab, 1 [Namenda] Refill(s), Pharmacy: [facility] #[id number], 157.48, cm, 04/07/21 13:22:00 CDT, Height, 77.273, kg, 04/07/21 13:22:00 CDT, Weight Memantine 2020-06 No 5 mg = 1 Oj deshaun hydrochlori 1-10 tab, PO, l de 5 MG 18:03: BID, # 180 Herm narcisa Oral Tablet 00 tab, 3 [Namenda] Refill(s), Pharmacy: [facility] #[id number], 157.48, cm, 04/07/21 13:22:00 CDT, Height, 77.273, kg, 04/07/21 13:22:00 CDT, Weight Memantine 2020-06 No 5 mg = 1 Oj deshaun hydrochlori 1-10 tab, PO, l de 5 MG 18:03: BID, # 180 Herm narcisa Oral Tablet 00 tab, 3 [Namenda] Refill(s), Pharmacy: [facility] #[id number], 157.48, cm, 04/07/21 13:22:00 CDT, Height, 77.273, kg, 04/07/21 13:22:00 CDT, Weight Memantine 2020-06 No 5 mg = 1 Oj deshaun hydrochlori 1-10 tab, PO, l de 5 MG 18:03: BID, # 180 Herm narcisa Oral Tablet 00 tab, 3 [Namenda] Refill(s), Pharmacy: [facility] #[id number], 157.48, cm, 04/07/21 13:22:00 CDT, Height, 77.273, kg, 04/07/21 13:22:00 CDT, Weight Memantine 2020-06 No 5 mg = 1 Oj deshaun hydrochlori 1-10 tab, PO, l de 5 MG 18:03: BID, # 180 Herm narcisa Oral Tablet 00 tab, 3 [Namenda] Refill(s), Pharmacy: [id number], 157.48, cm, 04/07/21 13:22:00 CDT, Height, 77.273, kg, 04/07/21 13:22:00 CDT, Weight Memantine 2020-06 No 5 mg = 1 Oj deshaun hydrochlori 1-10 tab, PO, l de 5 MG 18:03: BID, # 180 Herm narcisa Oral Tablet 00 tab, 3 [Namenda] Refill(s), Pharmacy: [facility] #[id number], 157.48, cm, 04/07/21 13:22:00 CDT, Height, 77.273, kg, 04/07/21 13:22:00 CDT, Weight Memantine 2020-06 No 5 mg = 1 Oj deshaun hydrochlori 1-10 tab, PO, l de 5 MG 18:03: BID, # 180 Herm narcisa Oral Tablet 00 tab, 3 [Namenda] Refill(s), [id number], 157.48, cm, 04/07/21 13:22:00 CDT, Height, 77.273, kg, 04/07/21 13:22:00 CDT, Weight Memantine 2020-06 Yes 5 mg = 1 Oj deshaun hydrochlori 0-18 tab, PO, l de 5 MG 18:41: BID, # 60 Marla nn Oral Tablet 00 tab, 3 [Namenda] Refill(s), Pharmacy: [facility] #[id number], 157.48, cm, 04/07/21 13:22:00 CDT, Height, 77.273, kg, 04/07/21 13:22:00 CDT, Weight Memantine 2020-06 Yes 5 mg = 1 Oj deshaun hydrochlori 0-18 tab, PO, l de 5 MG 18:41: BID, # 60 Marla nn Oral Tablet 00 tab, 3 [Namenda] Refill(s), Pharmacy: [id number], 157.48, cm, 04/07/21 13:22:00 CDT, Height, 77.273, kg, 04/07/21 13:22:00 CDT, Weight Memantine 2020-06 Yes 5 mg = 1 Oj deshaun hydrochlori 0-18 tab, PO, l de 5 MG 18:41: BID, # 60 Marla nn Oral Tablet 00 tab, 3 [Namenda] Refill(s), Pharmacy: [id number], 157.48, cm, 04/07/21 13:22:00 CDT, Height, 77.273, kg, 04/07/21 13:22:00 CDT, Weight Memantine 2020-06 Yes 5 mg = 1 Oj deshaun hydrochlori 0-18 tab, PO, l de 5 MG 18:41: BID, # 60 Marla nn Oral Tablet 00 tab, 3 [Namenda] Refill(s), Pharmacy: [facility] #[id number], 157.48, cm, 04/07/21 13:22:00 CDT, Height, 77.273, kg, 04/07/21 13:22:00 CDT, Weight Memantine 2020-06 Yes 5 mg = 1 Oj deshaun hydrochlori 0-18 tab, PO, l de 5 MG 18:41: BID, # 60 Marla nn Oral Tablet 00 tab, 3 [Namenda] Refill(s), Pharmacy: [facility] #[id number], 157.48, cm, 04/07/21 13:22:00 CDT, Height, 77.273, kg, 04/07/21 13:22:00 CDT, Weight Memantine 2020-06 Yes 5 mg = 1 Oj deshaun hydrochlori 0-18 tab, PO, l de 5 MG 18:41: BID, # 60 Marla nn Oral Tablet 00 tab, 3 [Namenda] Refill(s), Pharmacy: [id number], 157.48, cm, 04/07/21 13:22:00 CDT, Height, 77.273, kg, 04/07/21 13:22:00 CDT, Weight Symbicort Yes 2 puff, Memor ia 160/4.5 9-10 INHALER, l inhalation 15:45: BID, # 1 Her arndt aerosol 00 ea, 3 with Refill(s) adapter 24 HR Yes 25 mg = 1 Memoria mirabegron 9-10 tab, PO, l 25 MG 15:45: Daily, # [facility] Extended 00 30 tab, 5 Release Refill(s) [...] PO, l 25 MG 15:45: Daily, # [facility] Extended 00 30 tab, 5 Release Refill(s) [...] ity o f 40 mg 17:10: daily. [address] water for 0 Yes PRN, Univers irrigation 08-17 Starting ity o f irrigation 16:18: Yuliya [place] solution 08/17/19 at [place] [address], [place] Until Discontinu ed, Routine, Intra-op tetracaine 2019-0 Yes PRN, Univers (PONTOCAINE 08-17 Starting ity of ) 0.5 % 16:18: [facility] [place] [facility] [address] [place] [address] Until Discontinu ed, Routine, Intra-op neomycin-po 2019-0 Yes PRN, [facility] lymyxin-dex 08-17 Starting ity of amethasone 16:18: [facility] (MAXITROL) 08/17/19 at [facility] [address] [place] [address] mg/g-10,000 Until unit/g-0.1 Discontinu % ed, ophthalmic Routine, ointment Intra-op lidocaine-e 2019-0 Yes PRN, [facility] pinephrine 08-17 Starting ity o f (XYLOCAINE 16:18: Yuliya [place] W/EPINEPHRI [facility]17/[facility], [place] %-1:200,000 Until injection Discontinu ed, Routine, Intra-op gentamicin 2019-0 Yes PRN, Univers injection 08-17 Starting ity of 16:18: Yuliya [place] 08/17/[address] Until Discontinu ed, TOAN, Intra-op EPINEPHrine 2020-0 Yes PRN, Univer s (PF) - Starting ity of 1:1,000 (1 16:17: Yuliya [place] mg/mL) 00 08/17/19 at [facility] (ADRENALIN 1017, Branch (PF)) Until injection Discontinu ed, Routine, Intra-op DUOVISC 2020-0 Yes PRN, Univers (DUOVISC 08-17 Starting ity of VISCO 16:17: Yuliya [place] ELASTIC) 3 00 08/17/19 at [facility] %-4 %(0.5 1017, Branch mL) 1 % Until (0.55 mL) Discontinu intraocular ed, injection Routine, Intra-op dexamethaso 2020-0 Yes PRN, Univer s ne 08-17 Starting ity of (DECADRON 16:17: Yuliya [place] PHOSPHATE) 08/17/19 at [facility] injection 1017, [place] Until Discontinu ed, Routine, Intra-op ceFAZolin 2020-0 Yes PRN, Univers (ANCEF) 08-17 Starting ity of injection 16:16: Yuliya [place] 00 08/17/19 at [facility] 1016, Branch Until Discontinu ed, TOAN, Intra-op bupivacaine 2020-0 Yes PRN, Univer s (preserv 08-17 Starting ity of free) 16:16: Yuliya (SENSORCAIN 00 08/17/19 at [facility] MP[facility]) 0.75 1016, Branch % (7.5 Until mg/mL) Discontinu injection ed, Routine, Intra-op balanced 2020-0 Yes PRN, Univers salt irrig 08-17 Starting ity o f soln comb1 16:16: Yuliya (BSS PLUS) 00 08/17/19 at [facility] ophthalmic 1016, Branch solution Until 500 mL bag Discontinu ed, Routine, Intra-op mydriatic 2020-0 2020- No .5mL 0.5 mL, Univ ers #5 08-17 Right Eye, ity of ophthalmic 15:00: 15:08 ONCE, 1 [place] as solution 00 :00 dose, Yuliya Medica l 0.5 mL 08/17/19 at [place] syringe 0900, Routine, DSU Pre-op lactated 2020-0 2020- No 500mL at 20 Univer s ringers IV 2-27 02-27 mL/hr, 500 it y of infusion 15:00: 15:22 mL, IV [place] 500 mL 00 :00 Infusion, [facility] ONCE, 1 [place] dose, Yuliya 08/17/19 at 0900, Routine, DSU Pre-op esomeprazol 2020-0 Yes 40mg Take 40 mg Univers e (NEXIUM) 08-17 by mouth ity o f 40 mg 11:10: daily. [place] capsule 11 [facility] esomeprazol 2020-0 Yes 40mg Take 40 mg Univers e (NEXIUM) 07-13 by mouth ity o f 40 mg 17:35: daily. [place] capsule 21 [facility] esomeprazol 2020-0 Yes 40mg Take 40 mg Univers e (NEXIUM) 07-13 by mouth ity o f 40 mg 17:03: daily. [place] capsule 40 [facility] tetracaine 2020-0 Yes PRN, Univers (PONTOCAINE 07-13 Starting ity of ) 0.5 % 16:53: Yuliya [place] ophthalmic 07/13/19 at [facility] ical drops 1053, [place] Until Discontinu ed, Routine, Intra-op water for 2019-0 Yes PRN, Univers irrigation 07-13 Starting ity o f irrigation 16:53: Yuliya [place] solution 07/13/19 at Medic al 1053, [place] Until Discontinu ed, Routine, Intra-op sodium 2020-0 Yes PRN, Univers chloride 07-13 Starting ity of (NS) 16:52: Yuliya [place] injection 07/13/19 at Medi gretchen 1052, [place] Until Discontinu ed, Routine, Intra-op neomycin-po 2020-0 Yes PRN, [facility] s lymyxin-dex 07-13 Starting ity of amethasone 16:52: Yuliya [place] (MAXITROL) 00 07/13/19 at [facility] ical 3.5 1052, [place] mg/g-10,000 Until unit/g-0.1 Discontinu % ed, ophthalmic Routine, ointment Intra-op lidocaine-e 2020-0 Yes [facility]-13 Starting ity o f (XYLOCAINE 16:52: Yuliya [place] W/EPINEPHRI 00 07/13/19 at [facility]) 2 1052, Branch %-1:200,000 Until injection Discontinu ed, Routine, Intra-op gentamicin 2020-0 Yes PRN, Univers injection 07-13 Starting ity of 16:52: Yuliya [place] 07/13/19 at [facility] 1052, [place] Until Discontinu ed, TOAN, Intra-op EPINEPHrine 2020-0 Yes PRN, Univer s (PF) 07-13 Starting ity of 1:1,000 (1 16:51: Yuliya [place] mg/mL) 07/13/19 at [facility] (ADRENALIN 1051, Branch (PF)) Until injection Discontinu ed, Routine, Intra-op DUOVISC 2020-0 Yes PRN, Univers (DUOVISC 07-13 Starting ity of VISCO 16:51: Yuliya [place] ELASTIC) 3 07/13/19 at [facility] %-4 %(0.5 1051, [place] mL) 1 % Until (0.55 mL) Discontinu intraocular ed, injection Routine, Intra-op dexamethaso 2020-0 Yes PRN, Univer s ne 07-13 Starting ity of (DECADRON 16:51: Yuliya [place] PHOSPHATE) 07/13/19 at [facility] ica injection 1051, [place] Until Discontinu ed, Routine, Intra-op ceFAZolin 2020-0 Yes PRN, Univers (ANCEF) 07-13 Starting ity of injection 16:51: Yuliya [place] 07/13/19 at [facility] 1051, [place] Until Discontinu ed, TOAN, Intra-op bupivacaine 2020-0 Yes PRN, Univer s (preserv 07-13 Starting ity of free) 16:51: Yuliya [place] (SENSORCAIN 07/13/19 at [facility]dc E MPF) 0.75 1051, [place] % (7.5 Until mg/mL) Discontinu injection ed, Routine, Intra-op balanced 2020-0 Yes PRN, Univers salt irrig 07-13 Starting ity o f soln comb1 16:50: Yuliya [place] (BSS PLUS) 07/13/19 at [facility] ophthalmic 1050, [place] solution Until 500 mL bag Discontinu ed, Routine, Intra-op eye block 2020-0 2020- No CONTINUOUS U nivers syringe 11 07-13 PRN, ity of mL 16:45: 17:02 Starting [place] 00 :25 Yuliya Medical 07/13/19 at [place] 1045, Until Yuliya 07/13/19 at 1102, Intra-op propofol IV 2020- No ONCE INTRA Univers infusion 07-13 [...] Spirit 00:00: 00:00 - [facility]I 00 :00 [facility] LIDOCAINE LIDOCAINE 2017- No 10mg Com mon HCL 10MG/ML HCL 10MG/ML 1-26 S pirit 00:00: - [facility]I [facility] Betamethaso Betamethaso 2018-1 No 1mL Common ne Sodium ne Sodium 1-26 Spiri t Phosphate Phosphate 00:00: - C HI [facility] LIDOCAINE LIDOCAINE 2017- No 10mg Com mon HCL 10MG/ML HCL 10MG/ML 1-26 S pirit 00:00: - CHI 00 [facility] Betamethaso Betamethaso 2018-1 No 1mL Common ne Sodium ne Sodium 1-26 Spiri t Phosphate Phosphate 00:00: - C HI [facility] Betamethaso Betamethaso 2017-0 No 1mL Common ne Sodium ne Sodium 8-30 Spiri t Phosphate Phosphate 00:00: - C HI [facility] LIDOCAINE LIDOCAINE 2017-0 No 10ug Com mon HCL 10MG/ML HCL 10MG/ML 8-30 S pirit 00:00: - CHI 00 [facility] LIDOCAINE LIDOCAINE No 10ug Com mon HCL 10MG/ML HCL 10MG/ML 8-30 S pirit 00:00: - CHI 00 [facility] Betamethaso Betamethaso No 1mL Common ne Sodium ne Sodium 8-30 Spiri t Phosphate Phosphate 00:00: - C HI 00 [facility] esomeprazol 2014-06 Yes 40mg Take 40 mg [facility] (NEXIUM) 0-02 by mouth ity o f 40 mg 20:00: daily. [address] esomeprazol 2014-06 Yes 40mg Take 40 mg [facility] (NEXIUM) 0-02 by mouth ity o f 40 mg 20:00: daily. [address] esomeprazol 2014-06 Yes 40mg Take 40 mg [facility] (NEXIUM) 0-02 by mouth ity o f 40 mg 20:00: daily. [address] acetaminoph 2014-06 Yes 1{tbl} Take 1 Tab Univers en-codeine 0-02 by mouth ity o f (TYLENOL 00:00: every 4 [place] #3) 300-30 00 (four) Medical mg tablet [...] ity o f (TYLENOL 00:00: every 4 [place] #3) 300-30 00 (four) Medical mg tablet hours as Branch needed for Pain (scale 4-6). acetaminoph 2014-06 2020- No 1{tbl} Take 1 Tab Univers en-codeine 0-02 -22 by mouth ity of (TYLENOL 00:00: 00:00 every 4 [place] #3) 300-30 00 :00 (four) Medical mg tablet hours as Branch needed for Pain (scale 4-6). Nexium Nexium Yes Kamlesh 1 capsule Com mon [place] Spirit - [facility] Symbicort Symbicort Yes Kamlesh INAHLE 2 Common [place] PUFFS Spirit TWICE A - CHI DAY [facility] Methocarbam Methocarbam Yes Kamlesh TAKE 1 Common ol ol [place] TABLET BY Spirit MOUTH - [facility] EVERY [facility] NEEDED FOR Medical MUSCLE Center SPASMS Ilevro Ilevro Yes Kamlesh LOCATION: Com mon [place] LEFT EYE. Spirit APPLY 1 - CHI DROP IN SURGERY [facility] EYE AT Medical BEDTIME Center FOR 2 WEEKS Xarelto Xarelto Yes Kamlesh TAKE 1 Comm on [place]aj[place] TABLET BY Spirit MOUTH - CHI EVERY DAY St WITH FOOD [facility] Amoxicillin Amoxicillin Yes Kamlesh TAKE 4 Common [place] CAPS BY Spirit MOUTH 1 - CHI HOUR PRIOR St TO DENTAL [facility] Durezol Durezol Yes Kamlesh PLEASE SEE Common Najera ATTACHED Spirit FOR - CHI DETAILED [facility] Promethazin Promethazin Yes Kamlesh TAKE 1 Common e HCl e HCl Najera TABLET BY Spirit MOUTH - CHI EVERY DAY St NEEDED [facility] Ofloxacin Ofloxacin Yes Kamlesh APPLY 1 Common [place]ajera DROP 3 Spirit TIMES A - CHI DAY FOR [address] [facility] Hydrocodone Hydrocodone Yes Kamlesh (Schedule Common -Acetaminop -Acetaminop Najera II Drug) Spirit hen hen TAKE 1 - CHI TABLET BY MOUTH [facility] EVERY DAY Medical X 28 [...] Meloxicam No Meloxicam Myrbetriq Myrbetriq No Myrbetriq Immunizations Ordered Filled Immunization Date Status Comments Sour e Immunization Name Name SARS-COV-2 COVID-19 2020-09-15 Completed Unive rsity of MODERNA 12+ YRS 00:00:00 [facility] VACCINE Wilbur SARS-COV-2 COVID-19 2020-08-18 Completed Unive rsity of MODERNA 12+ YRS 00:00:00 [facility] Vital Signs Vital Name Observation Time Observation Value Comments Source Systolic blood 2022-09-17 10:00:00 122 mm[Hg] Univer sity of pressure [facility] Diastolic blood 2022-09-17 10:00:00 76 mm[Hg] Unive rsity of pressure [facility] Heart rate 2022-09-17 10:00:00 72 /min [facility] Oxygen saturation in 2022-09-17 10:00:00 98 /min [facility] blood by [facility] Pulse oximetry Branch Body temperature 2022-09-17 08:55:00 35.89 Teodora [facility] Respiratory rate 2022-09-17 08:55:00 22 /min [facility] Body height 2022-09-17 08:55:00 165.1 cm [facility] Body weight 2022-09-17 08:55:00 79.379 kg [facility] BMI 2022-09-17 08:55:00 29.12 kg/m2 [facility] HEIGHT 2022-08-06 14:57:00 162.6 cm WEIGHT 2022-08-06 14:57:00 76.2 kg WEIGHT 2022-08-06 02:43:00 76.2 kg HEIGHT 2022-08-06 14:57:00 162.6 cm WEIGHT 2022-08-06 14:57:00 76.2 kg WEIGHT 2022-08-06 02:43:00 76.2 kg HEIGHT 2022-08-06 14:57:00 162.6 cm WEIGHT 2022-08-06 14:57:00 76.2 kg WEIGHT 2022-08-06 02:43:00 76.2 kg height 2022-01-08 09:45:00 64 [in_i] Common [facility] weight 2022-01-08 09:45:00 162 [lb_av] [facility] bmi 2022-01-08 09:45:00 27.8 kg/m2 [facility] blood pressure 2022-01-08 09:45:00 124 mm[Hg] Common Spirit - systolic [facility] blood pressure 2022-01-08 09:45:00 82 mm[Hg] Common Spirit - diastolic [facility] height 2021-10-16 14:00:00 64 [in_i] Common [facility] weight 2021-10-16 14:00:00 162 [lb_av] [facility] bmi 2021-10-16 14:00:00 27.8 kg/m2 [facility] blood pressure 2021-10-16 14:00:00 126 mm[Hg] Common Spirit - systolic [facility] blood pressure 2021-10-16 14:00:00 84 mm[Hg] Common Spirit - diastolic [facility] Systolic blood 2019-08-17 16:37:00 120 mm[Hg] Univer sity of pressure [facility] Branch Diastolic blood 2019-08-17 16:37:00 66 mm[Hg] Unive rsity of pressure [facility] Heart rate 2019-08-17 16:37:00 78 /min Universi ty of [facility] Branch Respiratory rate 2019-08-17 16:37:00 16 /min Univ ersity of [facility] Branch Oxygen saturation in 2019-08-17 16:37:00 100 /min University of Arterial blood by [place] [employer] gretchen Pulse oximetry Branch Body temperature 2019-08-17 16:30:00 36.89 Teodora Univ ersity of [facility] Body height 2019-08-15 02:23:00 162.6 cm Universi ty of [place] [facility] Body weight 2019-08-15 02:23:00 77.111 kg [facility] [place] [facility] BMI 2019-08-15 02:23:00 29.17 kg/m2 Universi ty of [facility] Systolic blood 2019-08-17 16:37:00 120 mm[Hg] Univer sity of pressure [facility] Diastolic blood 2019-08-17 16:37:00 66 mm[Hg] Unive rsity of pressure [facility] Heart rate 2019-08-17 16:37:00 78 /min Universi ty of [facility] Branch Respiratory rate 2019-08-17 16:37:00 16 /min Univ ersity of [place] [facility] Oxygen saturation in 2019-08-17 16:37:00 100 /min University of Arterial blood by [place] [employer] gretchen Pulse oximetry Branch Body temperature 2019-08-17 16:30:00 36.89 Teodora Univ ersity of [facility] Body height 2019-08-15 02:23:00 162.6 cm [facility] [place] [facility] Body weight 2019-08-15 02:23:00 77.111 kg [facility] [place] [facility] BMI 2019-08-15 02:23:00 29.17 kg/m2 Universi ty of [facility] Systolic blood 2019-07-13 17:17:00 144 mm[Hg] Univer sity of pressure [facility] Diastolic blood 2019-07-13 17:17:00 94 mm[Hg] Unive rsity of pressure [place] [facility] Heart rate 2019-07-13 17:17:00 79 /min [facility] [place] [facility] Respiratory rate 2019-07-13 17:17:00 18 /min Univ ersity of [facility] Branch Oxygen saturation in 2019-07-13 17:17:00 100 /min University of Arterial blood by [facility] gretchen Pulse oximetry Branch Body temperature 2019-07-13 17:07:00 36.56 Teodora Univ ersity of [place] [facility] [place] Body height 2019-07-12 18:00:00 162.6 cm [facility] [place] [facility] [place] Body weight 2019-07-12 18:00:00 77.111 kg Universi ty of [facility] BMI 2019-07-12 18:00:00 29.18 kg/m2 Universi ty of [facility] Systolic blood 2019-07-13 17:17:00 144 mm[Hg] Univer sity of pressure [facility] Diastolic blood 2019-07-13 17:17:00 94 mm[Hg] Unive rsity of pressure [facility] Heart rate 2019-07-13 17:17:00 79 /min [facility] [place] [facility] Respiratory rate 2019-07-13 17:17:00 18 /min Univ ersity [facility] [place] [facility] Oxygen saturation in 2019-07-13 17:17:00 100 /min University of Arterial blood by [facility] gretchen Pulse oximetry Branch Body temperature 2019-07-13 17:07:00 36.56 Teodora Univ ersity of [facility] Body height 2019-07-12 18:00:00 162.6 cm [facility]i ty [facility] [place] [facility] [place] Body weight 2019-07-12 18:00:00 77.111 kg Universi ty of [facility] BMI 2019-07-12 18:00:00 29.18 kg/m2 Universi ty of [facility] Branch Systolic blood 2022-08-09 10:33:00 139 mm[Hg] [facility] Diastolic blood 2022-08-09 10:33:00 77 mm[Hg] [facility] Heart rate 2022-08-09 10:33:00 77 /min [facility] [place] Body temperature 2022-08-09 10:33:[address] [facility] Respiratory rate 2022-08-09 10:33:00 18 /min [facility] Oxygen saturation in 2022-08-09 10:33:00 96 /min [facility] Arterial blood by Medical Ce nter Pulse oximetry Body height 2022-08-06 14:57:00 162.6 cm [facility] Body weight 2022-08-06 14:57:00 76.2 kg [facility] BMI 2022-08-06 14:57:00 28.84 kg/m2 [facility] Systolic (mm Hg) 2022-01-27 14:44:00 Oj rial [facility] Diastolic (mm Hg) 2022-01-27 14:44:00 Mem orial [facility]to Heart Rate 2022-01-27 14:44:00 Memorial [facility] Respitory Rate 2022-01-27 14:44:00 Memori al [facility] Systolic (mm Hg) 2021-07-22 15:41:00 Oj rial [facility] Diastolic (mm Hg) 2021-07-22 15:41:00 Mem orial [facility] Heart Rate 2021-07-22 15:41:00 Memorial [place] Respitory Rate 2021-07-22 15:41:00 Memori al [facility] Systolic (mm Hg) 2021-05-20 16:43:00 Oj rial [facility] Diastolic (mm Hg) 2021-05-20 16:43:00 Mem orial [place] Systolic (mm Hg) 2021-05-20 16:22:00 Oj rial [facility] Diastolic (mm Hg) 2021-05-20 16:22:00 Mem orial [place] Heart Rate 2021-05-20 16:22:00 [facility] Respitory Rate 2021-05-20 16:22:00 Memori al [facility] Systolic (mm Hg) 2021-04-07 18:14:00 Oj rial [facility] Diastolic (mm Hg) 2021-04-07 18:14:00 Mem orial [facility] Heart Rate 2021-04-07 18:14:00 [facility] Respitory Rate 2021-04-07 18:14:00 Memori al [place] Height 2021-04-07 18:14:00 157.48 cm [facility] Weight 2021-04-07 18:14:00 [facility] BMI Calculated 2021-04-07 18:14:00 Carlos deleon [facility] Systolic (mm Hg) 2021-02-28 15:27:00 Oj mendez [facility] Diastolic (mm Hg) 2021-02-28 15:27:00 Mem marylou [facility] Heart Rate 2021-02-28 15:27:00 [facility] [place] Respitory Rate 2021-02-28 15:27:00 Carlos al [facility] Height 2021-02-28 15:27:00 157.48 cm [facility] Rigoberto Weight 2021-02-28 15:27:00 [facility] Rig[facility]to BMI Calculated 2021-02-28 15:27:00 Carlos Cormierann Procedures Procedure Date / Time Performing Source Performed Clinician COMP. METABOLIC PANEL 2022-09-17 09:02:[address] [facility] ([id number]) [facility] CBC WITH DIFF 2022-09-17 09:02:00 Mary Hudson [facility] URINALYSIS 2022-09-17 09:02:00 Mary Hudson [facility] CBC (HEMOGRAM ONLY) 2022-08-08 03:55:00 Tima Donald [facility] COMPREHENSIVE METABOLIC 2022-08-08 03:55:[address] [facility] REPORT OF PROCEDURE - 2022-08-07 13:33:27 Davis Pop [facility] ENDOSCOPY URL [facility] [place] ERCP 2022-08-07 12:10:00 [facility]ROGRADE 2022-08-07 10:26:[address] [facility] CHOLANGIOPANCREATOGRAPHY, [facility] WITH DIRECT DUCT VISUALIZATION, USING PANCREATICOBILIARY FIBEROPTIC PROBE PROCEDURE W/ C-ARM 2022-08-07 10:26:00 Davis Pop [facility] ERCP, WITH BALLOON SWEEP OF 2022-08-07 10:26:00 Elsa Davis [facility] BLOOD CULTURE 2022-08-07 05:17:00 Tima [facility] BLOOD CULTURE 2022-08-07 05:07:00 Tima [facility] CBC (HEMOGRAM ONLY) 2022-08-07 05:07:00 Tima [facility] COMPREHENSIVE METABOLIC 2022-08-07 05:07:00 [facility] - 2022-08-06 14:02:57 Sal Louis [facility] ENDOSCOPY [facility] [place] ERCP 2022-08-06 13:30:[address] [facility] ERCP, WITH SPHINCTEROTOMY 2022-08-06 12:48:00 Sal Louis [facility] PROCEDURE W/ C-ARM 2022-08-06 12:48:[address] [facility] ERCP, WITH BALLOON SWEEP OF 2022-08-06 12:48:00 Sal Louis [facility] BILE [facility] COMPREHENSIVE METABOLIC 2022-08-06 03:37:00 Doc [facility] MAGNESIUM 2022-08-06 03:37:[address] [facility] CBC W/PLT COUNT & AUTO 2022-08-06 03:37:00 Doc [facility] PT/APTT 2022-08-06 03:37:[address] [facility] PHOSPHORUS 2022-08-06 03:37:[address] [facility] CBC W/PLT COUNT & AUTO 2022-08-06 03:37:00 Doc [facility] Nory guevara [facility] CONSENT/REFUSAL FOR 2019-08-16 15:08:04 Doctor Unassigned, [facility] DIAGNOSIS AND TREATMENT [facility] ASSIGNMENT OF BENEFITS 2019-08-16 15:07:46 Doctor Unassigned, [facility] POTASSIUM SERUM 2019-07-13 15:55:00 [facility] [place] [facility] COMP. METABOLIC PANEL 2019-07-06 22:51:00 Adrian Davis [facility] ([id number]) [facility] CONSENT/REFUSAL FOR 2019-07-06 22:29:03 Doctor Unassigned, Iveth [facility] DIAGNOSIS AND TREATMENT [facility] ASSIGNMENT OF BENEFITS 2019-07-06 22:28:43 Doctor [facility]assigned, [facility] Mastectomy [facility] Gallbladder operation [facility] ermann Hysterectomy [facility] Rigoberto Knee replacement [facility] Plan of Care Planned Activity Planned Date Details Comments Source Future Scheduled 2023-02-[address] [facility] Test 00:00:00 (Season Ended) [code = Medic al Center INFLUENZA VACCINE (Season Ended)] Future Scheduled 2022-06-[address] [facility] Test 00:00:00 (12+) [code = Medical Center DEPRESSION SCREENING (12+)] Future Scheduled 2022-06-21 FALLS RISK SCREENING [facility] Test 00:00:00 [code = FALLS RISK Medical C enter SCREENING] Future Scheduled 2022-06-21 Medicare IPPE (WELCOME [facility] 00:00:00 TO MEDICARE) [code = Medical Center Medicare IPPE (WELCOME TO MEDICARE)] Future Scheduled 2022-06-[address] [...] - Booster for Moderna series)] Future Scheduled 2020-11-10 COVID-19 VACCINE (3 - [facility] 00:00:00 Booster for Moderna Medical Center series) [code = COVID-19 VACCINE (3 - Booster for Moderna series)] Future Scheduled 2011 PNEUMOCOCCAL 65+ Y[facility] Test 00:00:00 (1 - PCV) [code = Medical Ce nter PNEUMOCOCCAL 65+ YRS (1 - PCV)] Future Scheduled 2011 PNEUMOCOCCAL 65+ Y[facility] Test 00:00:00 (1 - PCV) [code = Medical Ce nter PNEUMOCOCCAL 65+ YRS (1 - PCV)] Future Scheduled 1996 SHINGLES VACCINES ([address] [facility] Test 00:00:00 of 2) [code = SHINGLES Medic al Center VACCINES (1 of 2)] Future Scheduled 1996 SHINGLES VACCINES ([address] [facility] Test 00:00:00 of 2) [code = SHINGLES Medic al Center VACCINES (1 of 2)] Future Scheduled 1965 DTAP/TDAP/TD VACCINES [facility] 00:00:00 (1 - Tdap) [code = Medical C enter DTAP/TDAP/TD VACCINES (1 - Tdap)] Future Scheduled 1965 DTAP/TDAP/TD VACCINES [facility] 00:00:00 (1 - Tdap) [code = Medical C enter DTAP/TDAP/TD VACCINES (1 - Tdap)] Future Scheduled 1964 HEPATITIS C SCREENING [facility] 00:00:00 [code = HEPATITIS C Medical Center SCREENING] Future Scheduled 1964 HEPATITIS C SCREENING [facility] 00:00:00 [code = HEPATITIS C Medical Center SCREENING] Future Scheduled [address] [facility] Test 00:00:00 Counseling and Medical Cente r Screening (12+) [code = Tobacco Cessation Counseling and Screening (12+)] Future Scheduled [address] [facility] Test 00:00:00 Counseling and Medical Cente r Screening (12+) [code = Tobacco Cessation Counseling and Screening (12+)] Future Scheduled 1946 DXA SCAN [code = DXA [facility] Test 00:00:00 SCAN] Medical Center Future Scheduled 1946 DXA SCAN [code = DXA [facility] Test 00:00:00 SCAN] Medical [place] Encounters Start End Encounter Admission Attending Care Care Encounter Source Date/Time Date/Time Type Type Clinicians Facility Department ID 2022-08-20 [facility] [id number] Common 16:10:00 [id number] [facility] 2022-07-24 [facility] [id number] Common 10:18:00 [id number] [facility] 2022-01-09 [facility] [id number] Common 08:35:01 [facility] 2021-07-16 [facility] [id number] Common 13:13:58 [id number] [facility] 2021-04-17 Outpatient Thierry DAVIS [facility] TON [id number] Univers 10:47:31 ADRIAN [facility] 2022-10-20 2022-10-20 Outpatient IE IE [id number] Memoria 09:45:00 09:45:00 05 storm [place] 2022-10-20 2022-10-20 Outpatient MHIE MHIE [id number] Memoria 09:45:00 09:45:00 05 storm [place] 2022-09-17 2022-09-17 Emergency X [facility] ERT [id number] Univers 04:03:00 05:25:00 MARY [facility] 2022-09-17 2022-09-17 Emergency [facility] [id number] Univers 04:03:00 05:25:00 Mary Cueto [place] [id number] [facility] [id number] [facility] [id number] [place] [id number] Branch 2022-08-06 2022-09-01 Outpatient HARLAN [facility] [id number] [facility] 07:53:56 16:46:47 SAL chandler of Medicin ramesh 2022-08-07 2022-08-11 Outpatient HARLAN POP [facility] [id number] [facility] 10:13:16 10:33:16 DAVIS Jewell e of Medicin e 2022-08-06 2022-08-09 Inpatient UR TIMA, [facility] [id number] [facility] 02:26:00 13:22:00 DONALD 2022-08-06 2022-08-09 [facility] Tiera Parker [facility] [id number] [facility] 02:26:00 13:22:00 [facility] 2022-08-06 2022-08-09 [facility] Tiera Parkert [facility] [id number] [facility] 02:26:00 13:22:00 [facility] 2022-08-07 2022-08-[address] [facility] [id number] 10:26:00 12:31:00 Event Derian Polo [facility] 2022-08-07 2022-08-[address] [facility] [id number] 10:26:00 12:31:00 Event Polo Menard [facility] 2022-08-07 2022-08-[address] [facility] [id number] 10:30:00 12:00:00 Davis [facility] 2022-08-07 2022-08-[address] [facility] [id number] 10:30:00 12:00:00 Davis [facility] 2022-08-06 2022-08-06 Anesthesia Ani, Steven [facility] [id number] 12:50:00 14:07:00 Event [facility] 2022-08-06 2022-08-06 Anesthesia Ani, [facility] [id number] 12:50:00 14:07:00 Event [facility] 2022-08-06 2022-08-06 [facility] [id number] 11:55:00 13:10:00 [facility] 2022-08-06 2022-08-06 Surgery Missy, [facility] [id number] 11:55:00 13:10:00 [facility] 2022-01-27 2022-01-28 Outpatient nullFlavo MNA [id number] Memoria 14:45:00 04:59:59 r Neurology 04 storm [place] 2022-01-27 2022-01-28 Outpatient nullFlavo MNA [id number] Memoria 14:45:00 04:59:59 r Neurology 04 l Dewayne Camposann 2022-01-27 2022-01-27 Outpatient FROILAN MendezSCHHERIBERTO MISCHER [id number] 09:45:00 23:59:59 Julian Mckayla Marcial 2022-01-27 2022-01-27 Outpatient MHIE MHIE [id number] Memoria 09:45:00 09:45:00 04 storm [place] 2022-01-08 2022-01-08 OFFICE STLMLC STLMLC [id number] Co mmon 00:00:00 00:00:00 VISIT EST Spir it PT LEVEL 3 - [facility] 2021-10-16 2021-10-16 OFFICE STLMLC STLMLC [id number] Co mmon 00:00:00 00:00:00 VISIT EST Spir it PT LEVEL 3 - [facility] 2021-07-22 2021-07-23 Outpatient nullFlavo MNA [id number] Memoria 15:45:00 05:59:59 r Neurology 03 storm [place] Rigoberto 2021-07-22 2021-07-23 Outpatient nullFlavo MNA [id number] Memoria 15:45:00 05:59:59 r Neurology 03 storm [place] Rigoberto 2021-07-22 2021-07-22 Outpatient FROILAN MendezSCHER MISCHER [id number] 09:45:00 23:59:59 Julian Danita Marcial 2021-07-22 2021-07-22 Outpatient MHIE MHIE [id number] Memoria 09:45:00 09:45:00 03 storm [place] 2021-05-20 2021-05-21 Outpatient nullFlavo MNA [id number] Memoria 16:30:00 05:59:59 r Neurology 02 l Dewayne [place] 2021-05-20 2021-05-21 Outpatient nullFlavo MNA [id number] Memoria 16:30:00 05:59:59 r Neurology 02 l Dewayne [place] 2021-05-20 2021-05-20 Outpatient [facility] [id number] 10:30:00 23:59:59 Julian 02 Aniket 2021-05-20 2021-05-20 Outpatient MHIE MHIE [id number] Memoria 10:30:00 10:30:00 02 storm [place] 2021-04-07 2021-04-08 Outpatient nullFlavo MNA [id number] Memoria 18:00:00 04:59:59 r Neurology 01 l Dewayne [place] 2021-04-07 2021-04-08 Outpatient nullFlavo MNA [id number] Memoria 18:00:00 04:59:59 r Neurology 01 l Dewayne [place] 2021-04-07 2021-04-07 Outpatient Vanessa [facility] [id number] 13:00:00 23:59:59 Julian Aniket 2021-04-07 2021-04-07 Outpatient MHIE MHIE [id number] Memoria 13:00:00 13:00:00 01 storm [place] 2021-02-28 2021-03-01 Outpatient nullFlavo MNA [id number] Memoria 15:30:00 04:59:59 r Neurology 00 l Dewayne [place] 2021-02-28 2021-03-01 Outpatient nullFlavo MNA [id number] Memoria 15:30:00 04:59:59 r Neurology 00 l Dewayne [place] 2021-02-28 2021-02-28 Outpatient RICHARD MendezMESCHER MHMISCHER [id number] 10:30:00 23:59:59 Julian 00 Aniket 2021-02-28 2021-02-28 Outpatient MHIE MHIE [id number] Memoria 10:30:00 10:30:00 00 storm [place] 2020-12-02 2020-12-02 Outpatient STLMLC STLMLC [id number] Common 00:00:00 00:00:00 Spirit - [facility] 2020-09-15 2020-09-15 Outpatient [facility] [id number] Univers 12:25:00 12:[facility] 2020-08-18 2020-08-18 Outpatient Thierry LUKE, [facility] [id number] Univers 12:15:00 12:15:00 [facility] 2019-11-16 2019-11-16 [facility] [id number] Common 08:00:00 08:00:00 t [facility] Bone [facility] Sp[facility] t and Joint [facility] - [facility] 2019-08-17 2019-08-17 [facility] [id number] [facility] 08:50:00 11:10:00 Encounter Adrian Stein [id number] [place] [id number] [place] [id number] Med [address] 2019-08-17 2019-08-17 [facility] [id number] 08:50:00 11:10:00 Encounter Adrian Stein [id number] [place] [id number] Surgical [id number] [place] [address] 2019-07-13 2019-07-13 [facility] [id number] Univers 09:06:00 11:35:00 Encounter Adrian Stein [id number] [place] [id number] [place] [id number] [facility] [address] 2019-07-13 2019-07-13 [facility] [id number] 09:06:00 11:35:00 Encounter Adrian Stein [id number] [place] [id number] Surgical [id number] [place] [address] 2019-07-13 2019-07-13 Anesthesia Harrison, [facility] [id number] [facility] 10:38:00 11:02:00 Gio Stein [id number] [place] [id number] [place] [id number] [facility] 020 Branch 2019-07-13 2019-07-13 Anesthesia Harrison, [facility] [id number] 10:38:00 11:02:00 Gio Stein [id number] [place] [id number] Surgical [id number] [place] [address] 2019-07-06 2019-07-06 Weight Count Operator 1, [facility] [id number] [facility] 16:31:52 16:46:52 Visit Adrian Davis 350.1.1 3.10 ity of [place] 4.2.7.2.686 [facility] [phone] [facility] [address] 2019-07-06 2019-07-06 Weight Count Operator 1, [facility] [id number] 16:31:52 16:46:52 Visit Sarita 350.1.13.10 [place] 4.2.7.2.686 [place] [phone] [facility] 2019-07-06 2019-07-06 Orders Doctor ALEXANDR [id number] Univers 00:00:00 00:00:00 Only Unassigned, JADA 350.1.13.10 ity of [facility] 4.2.7.2.686 [place] [id number] [facility] [address] 2019-05-15 2019-05-15 [facility] [id number] Common 08:00:00 08:00:00 t Bone Bone and Spiri t and Joint [facility] - [facility] 2019-03-30 2019-03-30 [facility] [id number] Common 11:09:00 11:09:00 t Bone Bone and Spiri t and Joint Joint - [facility] 2019-02-13 2019-02-13 [facility] [id number] Common 08:00:00 08:00:00 t Bone Bone and Spiri t and Joint [facility] - [facility] 2019-01-05 2019-01-05 [facility] [id number] Common 09:30:00 09:30:00 t Bone Bone and Spiri t and Joint Joint - [facility] 2019-01-02 2019-01-02 [facility] [id number] Common 08:00:00 08:00:00 t Bone Bone and Spiri t and Joint Joint - [facility] 2018-12-19 2018-12-19 [facility] 26 [id number] Common 16:26:00 16:26:00 t Bone Bone and Spiri t and Joint Joint - [facility] 2018-12-19 2018-12-19 [facility] [id number] Common 11:40:00 11:40:00 t Bone Bone and Spiri t and Joint Joint - [facility] 2018-12-15 2018-12-15 [facility] 26 [id number] Common 13:35:00 13:35:00 t Bone Bone and Spiri t and Joint Joint - [facility] 2018-12-12 2018-12-12 [facility] [id number] Common 08:30:00 08:30:00 t Bone Bone and Spiri t and Joint [facility] - [facility] 2018-12-08 2018-12-08 [facility] [id number] Common 08:39:00 08:39:00 t Bone Bone and Spiri t and Joint Joint - [facility] 2018-12-07 2018-12-07 [facility] [id number] Common 09:40:00 09:40:00 t Bone Bone and Spiri t and Joint Joint - [facility] 2018-12-07 2018-12-07 [facility] [id number] Common 08:00:00 08:00:00 t Bone Bone and Spiri t and Joint Joint - [facility] 2018-11-03 2018-11-03 [facility] [id number] Common 09:40:00 09:40:00 t Bone Bone and Spiri t and Joint Joint - [facility] 2018-10-25 2018-10-25 [facility] 24 [id number] Common 08:00:00 08:00:00 t Bone Bone and Spiri t and Joint Joint - [facility] 2018-10-24 2018-10-24 [facility] 25 [id number] Common 09:37:00 09:37:00 t Bone Bone and Spiri t and Joint Joint - [facility] 2018-10-24 2018-10-24 [facility] 25 [id number] Common 08:25:00 08:25:00 t Bone Bone and Spiri t and Joint Joint - [facility] 2018-10-20 2018-10-20 [facility] 25 [id number] Common 13:30:00 13:30:00 t Bone Bone and Spiri t and Joint Joint - [facility] 2018-08-22 2018-08-22 [facility] [id number] Common 11:03:00 11:03:00 t Bone Bone and Spiri t and Joint [facility] - [facility] 2018-08-18 2018-08-18 [facility] [id number] Common 15:59:00 15:59:00 t Bone Bone and Spiri t and Joint Joint - [facility] 2018-08-15 2018-08-15 [facility] [id number] Common 08:00:00 08:00:00 t Bone Bone and Spiri t and Joint Joint - [facility] 2018-02-17 2018-02-17 [facility] [id number] Common 09:00:00 09:00:00 t Bone Bone and Spiri t and Joint Joint - [facility] Results Test Description Test Time Test Comments Results Result Comments Source COMP. METABOLIC PANEL (64420) 2022-09-17 09:35:03 Test Item Value Reference Range Interpretation Comme nts NA (test code = 5356390065) 137 mmol/L 135-145 K (test code = 0802239972) 3.5 mmol/L 3.5-5.0 CL (test code = 4259870512) 109 mmol/L 98-108 H CO2 TOTAL (test code = 9418031450) 20 mmol/L 23-31 L AGAP (test code = 3453037856) 8 2-16 BUN (test code = 2165453084) 14 mg/dL 7-23 GLUCOSE (test code = 3293052520) 94 mg/dL 70-110 CREATININE (test code = 0.49 mg/dL 0.50-1.04 L 8115498764) TOTAL BILI (test code = 0.7 mg/dL 0.1-1.8 6936058016) CALCIUM (test code = 9030939350) 8.2 mg/dL 8.6-10.6 L T PROTEIN (test code = 4842527835) 5.5 g/dL 6.3-8.2 L ALBUMIN (test code = 2208877377) 3.0 g/dL 3.5-5.0 L ALK PHOS (test code = 2060507624) 115 U/L 34-122 ALTv (test code = 1742-6) 32 U/L 5-35 AST(SGOT) (test code = 5197993770) 25 U/L 13-40 eGFR (test code = 5098835643) 122.8 mL/min/1.73m2 MAGALI (test code = MAGALI) Association of Glomerular Filtration Rate (GFR) and Staging of Kidney Disease* + +-------- + ------+| GFR (mL/min/1.73 m2) ?| With Kidney Damage ?| ?Without Kidney Damage+ +-- + +| ?>90 ?| ?Stage one ?| ? Normal ?+ +------- + -------+| ?60-89 ?| ?Stage two ?| ? Decreased GFR ? + +-------- + ------+| ?30-59 ?| ?Stage three ?| ? Stage three ? + +-------- + ------+| ?15-29 ?| ?Stage four ? | ? Stage four ?+ +------- + -------+| ?<15 (or dialysis) ? ?| ?Stage five ? | ? Stage five ?+ +------- + -------+ *Each stage assumes the associated GFR [...] or abnormalities in imaging tests). Lab Interpretation (test code = Abnormal 93622-3) [facility] WITH [id number] 09:22:25 Test Item Value Reference Range Interpretation Comments WBC (test code = 9.92 See_Comment [Automated 0522-2) message] The sy stem which generated this result transmitted reference range : 4.30 - 11.10 10*3/?L. The reference range was not used to interpret this result as normal/abnormal . RBC (test code = 3.98 See_Comment [Automated 120-8) message] The sy stem which generated this result transmitted reference range : 3.93 - 5.25 10*6/?L. The reference range was not used to interpret this result as normal/abnormal . HGB (test code = 11.8 g/dL 11.6-15.0 718-7) HCT (test code = 36.3 % 35.7-45.2 4544-3) MCV (test code = 91.2 fL 80.6-95.5 787-2) MCH (test code = 29.6 pg 25.9-32.8 785-6) MCHC (test code = 32.5 g/dL 31.6-35.1 786-4) RDW-SD (test code = 49.1 fL 39.0-49.9 17298-9) RDW-CV (test code = 14.6 % 12.0-15.5 788-0) PLT (test code = 252 See_Comment [Automated 777-3) message] The sy stem which generated this result transmitted reference range : 166 - 358 10*3/ ?L. The reference r sharon was not used to interpret this result as normal/abnormal . MPV (test code = 10.2 fL 9.5-12.9 45023-2) NRBC/100 WBC (test 0.0 See_Comment [Automat ed code = 1291376166) message] The system which generated this result transmitted reference range : 0.0 - 10.0 /100 WBCs. The refer ence range was not u sed to interpret th is result as normal/abnormal . NRBC x10^3 (test code See_Comment [Auto mated = 9323010560) message] The s ystem which generated this result transmitted reference range : 10*3/?L. The reference range was not used to interpret this result as normal/abnormal . GRAN MAT (NEUT) % 70.3 % (test code = 770-8) IMM GRAN % (test code 0.90 % = 6207557348) LYMPH % (test code = 18.1 % 736-9) MONO % (test code = 9.2 % 5905-5) EOS % (test code = 1.0 % 713-8) BASO % (test code = 0.5 % 706-2) GRAN MAT x10^3(ANC) 6.97 10*3/uL 1.88-7.09 (test code = 0577724893) IMM GRAN x10^3 (test 0.09 10*3/uL 0.00-0.06 H code = 7741376863) LYMPH x10^3 (test code 1.80 10*3/uL 1.32-3.29 = 731-0) MONO x10^3 (test code 0.91 10*3/uL 0.33-0.92 = 742-7) EOS x10^3 (test code = 0.10 10*3/uL 0.03-0.39 711-2) BASO x10^3 (test code 0.05 10*3/uL 0.01-0.07 = 704-7) Lab Interpretation Abnormal (test code = 03311-2) [facility] [id number] 06:00:56 Test Item Value Reference Range Interpretation Comments CULTURE (BEAKER) (test No growth in 5 days code = 1095) BLOOD [id number] 06:00:55 Test Item Value Reference Range Interpretation Comments CULTURE (BEAKER) (test No growth in 5 days code = 1095) COMPREHENSIVE METABOLIC [id number] 05:53:50 Test Item Value Reference Range Interpretation [...] not appl icable for dialysis patien ts Insulation Blower ID - MARCOCBC (HEMOGRAM ONLY)2022-08-08 05:21:44 Test [...] 0-0 (BEAKER) (test code = 413) [place], [id number] 12:10:00Reason for exam:->[facility] 1945 Sex: FAn imaging unit was utilized for this procedure. No radiologist interpretation was requested. Refer to the EMR for findings. Refer to PACS for any patient radiation dose information.COMPREHENSIVE METABOLIC [id number] 06:14:00 Test Item Value Reference Range Interpretation [...] not appl icable for dialysis patien ts Insulation Blower ID - PIAYA LCBC (HEMOGRAM ONLY)2022-08-07 05:51:08 [...] 0-0 (BEAKER) (test code = 413) [place], JDYZ2818-33-77 13:30:00INTRA OP IMAGING Reason for exam:->[facility] : 1945 Sex: FAnimaging unit was utilized for this procedure. No radiologist interpretation was requested. Refer to the EMR for findings. Refer to PACS for any patient radiation dose information.FWEUWZKYF8055-93-06 04:25:54 Test Item Value Reference Range Interpretation Comments MAGNESIUM (BEAKER) (test code = 1.7 mg/dL 1.6-2.6 627) Insulation Blower ID - CAEWQEDPXTJMZNR8387-54-67 04:25:54 Test Item Value Reference Range Interpretation Comments PHOSPHORUS (BEAKER) (test code = 2.8 mg/dL 2.3-4.7 604) Insulation Blower ID - ADMINCOMPREHENSIVE METABOLIC [id number] 04:25:53 Test Item Value Reference Range Interpretation [...] not appl icable for dialysis patien ts Insulation Blower ID - ADMINPT/SFTM9588-56-31 04:17:10 Test Item Value Reference Range Interpretation [...] mechanical heart valves.CBC W/PLT COUNT & AUTO LKSPXDBJEGMH6240-83-53 04:00:05 Test Item Value Reference Range Interpretation [...] 0.00-1.00 PERCENT (BEAKER) (test code = 2801) [id number] 13:39:00 Test Item Value Reference Range Interpretation Comments Platelet (test code = Platelet) 290 140-400 [facility]8802[facility]-37 13:39:00 Test Item Value Reference Range Interpretation Comments MPV (test code = MPV) 10.6 7.5-12.5 [facility]JhoeacwAPBQMSTBIG9496-35-98 13:39:00 Test Item Value Reference Range Interpretation Comments Neutrophils # (test code = Neutrophils 3430 3777-3794 #) [facility]NdijbpbVGHZKLVZVZ6185-14-29 13:39:00 Test Item Value Reference Range Interpretation Comments Lymphocytes # (test code = Lymphocytes 2061 850-3900 #) [facility]YfwciazVOMQYYXHUI7447-59-54 13:39:00 Test Item Value Reference Range Interpretation Comments Monocytes # (test code = Monocytes #) 646 200-950 [place] 214141-09-11 13:39:00 Test Item Value Reference Range Interpretation Comments Eosinophils # (test code = Eosinophils 192 15-500 #) [facility] CypressBtpbpaoXQXJFZUTLY0435-64-84 13:39:00 Test Item Value Reference Range Interpretation Comments Basophils # (test code 70 See_Comment [Aut omated message] The = Basophils #) system which generated this result tra nsmitted reference range : <=200. The reference r sharon was not used to int erpret this result as normal/abnormal . [facility] CypressVhtwwfrYISSEOBAKH5720-37-53 13:39:00 Test Item Value Reference Range Interpretation Comments Segs (test code = Segs) 53.6 [facility] CypressVcrenoiTBNNYUPBYJ9752-14-26 13:39:00 Test Item Value Reference Range Interpretation Comments Lymphocytes (test code = Lymphocytes) 32.2 [place] 214141-09-11 13:39:00 Test Item Value Reference Range Interpretation Comments Monocytes (test code = Monocytes) 10.1 [facility] CypressVtphgllDUTQLFNBMS8993-26-08 13:39:00 Test Item Value Reference Range Interpretation Comments Eosinophils (test code = Eosinophils) 3.0 [facility] CypressSambuuuKMOSKDPENH7904-19-61 13:39:00 Test Item Value Reference Range Interpretation Comments Basophils (test code = Basophils) 1.1 [facility] CypressSvlzrnbGDMDZISPZA2529-96-75 13:39:00 Test Item Value Reference Range Interpretation Comments Sed Rate (test code = Sed Rate) 22 [facility]2021-09-11 13:39:00 Test Item Value Reference Range Interpretation Comments Vitamin B12 Lvl (test code = Vitamin 592 782-1801 B12 Lvl) [facility]2021-09-11 13:39:00 Test Item Value Reference Range Interpretation Comments Glucose Lvl (test code = Glucose Lvl) 99 65-99 [facility]2021-09-11 13:39:00 Test Item Value Reference Range Interpretation Comments BUN (test code = BUN) 16 7-25 [facility]2021-09-11 13:39:00 Test Item Value Reference Range Interpretation Comments Creatinine Lvl (test code = Creatinine 0.65 0.60-0.93 Lvl) [place] 849061-09-11 13:39:00 Test Item Value Reference Range Interpretation Comments eGFR NON-AFR. CANADIAN (test code = 87 eGFR NON-AFR. CANADIAN) [place] 849061-09-11 13:39:00 Test Item Value Reference Range Interpretation Comments eGFR (test code = eGFR 101 ) [place] 849061-09-11 13:39:00 Test Item Value Reference Range Interpretation Comments B/C Ratio (test code = B/C NOT APPLICABLE 6-22 Ratio) [place] 849061-09-11 13:39:00 Test Item Value Reference Range Interpretation Comments Sodium Lvl (test code = Sodium Lvl) 137 135-146 [place] 849061-09-11 13:39:00 Test Item Value Reference Range Interpretation Comments Potassium Lvl (test code = Potassium 4.2 3.5-5.3 Lvl) [place] 849061-09-11 13:39:00 Test Item Value Reference Range Interpretation Comments Chloride Lvl (test code = Chloride Lvl) 102 98-110 [place] 849061-09-11 13:39:00 Test Item Value Reference Range Interpretation Comments CO2 (test code = CO2) 22 20-32 [place] 849061-09-11 13:39:00 Test Item Value Reference Range Interpretation Comments Calcium Lvl (test code = Calcium Lvl) 9.2 8.6-10.4 [place] 849061-09-11 13:39:00 Test Item Value Reference Range Interpretation Comments Total Protein (test code = Total 6.9 6.1-8.1 Protein) [place] 849061-09-11 13:39:00 Test Item Value Reference Range Interpretation Comments Albumin Lvl (test code = Albumin Lvl) 3.9 3.6-5.1 [place] 849061-09-11 13:39:00 Test Item Value Reference Range Interpretation Comments Globulin (test code = Globulin) 3.0 1.9-3.7 [place] 849061-09-11 13:39:00 Test Item Value Reference Range Interpretation Comments A/G Ratio (test code = A/G Ratio) 1.3 1.0-2.5 [place] 849061-09-11 13:39:00 Test Item Value Reference Range Interpretation Comments Bili Total (test code = Bili Total) 0.9 0.2-1.2 [facility]2021-09-11 13:39:00 Test Item Value Reference Range Interpretation Comments Alk Phos (test code = Alk Phos) 111 37-153 [facility]2021-09-11 13:39:00 Test Item Value Reference Range Interpretation Comments ASPARTATE TRANSAMINASE (test code = 23 10-35 ASPARTATE TRANSAMINASE) [place] 849061-09-11 13:39:00 Test Item Value Reference Range Interpretation Comments ALANINE AMINOTRANSFERASE (test code = 20 6-29 ALANINE AMINOTRANSFERASE) [facility] CypressKoilfzdJLOKDIDSOQ1886-22-76 13:39:00 Test Item Value Reference Range Interpretation Comments WBC X 10x3 (test code = WBC X 10x3) 6.4 3.8-10.8 [place] 214141-09-11 13:39:00 Test Item Value Reference Range Interpretation Comments RBC X 10x6 (test code = RBC X 10x6) 4.32 3.80-5.10 [facility] CypressRhngowsDHRZMBMJLB1952-15-31 13:39:00 Test Item Value Reference Range Interpretation Comments Hgb (test code = Hgb) 12.6 11.7-15.5 [facility] CypressGuogaanNXSSDCXNLD5474-86-14 13:39:00 Test Item Value Reference Range Interpretation Comments Hct (test code = Hct) 38.5 35.0-45.0 [facility] CypressYomlrhfCIQBZGZMOL9748-96-45 13:39:00 Test Item Value Reference Range Interpretation Comments MCV (test code = MCV) 89.1 80.0-100.0 [place] 214141-09-11 13:39:00 Test Item Value Reference Range Interpretation Comments MCH (test code = MCH) 29.2 pg 27.0-33.0 [place] 214141-09-11 13:39:00 Test Item Value Reference Range Interpretation Comments MCHC (test code = MCHC) 32.7 32.0-36.0 [place] 214141-09-11 13:39:00 Test Item Value Reference Range Interpretation Comments RDW (test code = RDW) 13.1 11.0-15.0 [place] 214141-09-11 13:39:00 Test Item Value Reference Range Interpretation Comments Platelet (test code = Platelet) 290 140-400 [facility] CypressHfekpkwRDEWIYKCCI5686-57-76 13:39:00 Test Item Value Reference Range Interpretation Comments MPV (test code = MPV) 10.6 7.5-12.5 [facility] CypressSbrnxysQHTTQEYXGU6762-17-35 13:39:00 Test Item Value Reference Range Interpretation Comments Neutrophils # (test code = Neutrophils 3430 5146-2411 #) [facility] CypressSzpvjtdPMMITVAARC1636-79-23 13:39:00 Test Item Value Reference Range Interpretation Comments Lymphocytes # (test code = Lymphocytes 2061 850-3900 #) [facility] CypressWvyqituWISOTGPENK8484-33-25 13:39:00 Test Item Value Reference Range Interpretation Comments Monocytes # (test code = Monocytes #) 646 200-950 [facility] CypressDsasrniVXXRGVAKNO9843-99-10 13:39:00 Test Item Value Reference Range Interpretation Comments Eosinophils # (test code = Eosinophils 192 15-500 #) [facility] CypressMyulpitJOZBOBIWGO2304-93-38 13:39:00 Test Item Value Reference Range Interpretation Comments Basophils # (test code 70 See_Comment [Aut omated message] The = Basophils #) system which generated this result tra nsmitted reference range : <=200. The reference r sharon was not used to int erpret this result as normal/abnormal . [facility] CypressAnjzhudPMWOCRBLNV5630-11-94 13:39:00 Test Item Value Reference Range Interpretation Comments Segs (test code = Segs) 53.6 [facility] CypressNvkyjepQVRWIVCBLM0491-02-85 13:39:00 Test Item Value Reference Range Interpretation Comments Lymphocytes (test code = Lymphocytes) 32.2 [facility] CypressDbicbxrADYXUCVAEW7790-68-61 13:39:00 Test Item Value Reference Range Interpretation Comments Monocytes (test code = Monocytes) 10.1 [facility] CypressTithesdZXLSIGUNYB6180-52-70 13:39:00 Test Item Value Reference Range Interpretation Comments Eosinophils (test code = Eosinophils) 3.0 [facility] CypressDlfkxuiCIUPZBCQBQ9274-78-47 13:39:00 Test Item Value Reference Range Interpretation Comments Basophils (test code = Basophils) 1.1 [facility] CypressArgqtjzIIZNRQZSPL8301-79-84 13:39:00 Test Item Value Reference Range Interpretation Comments Sed Rate (test code = Sed Rate) 22 [facility]2021-09-11 13:39:00 Test Item Value Reference Range Interpretation Comments Vitamin B12 Lvl (test code = Vitamin 364 715-2893 B12 Lvl) [place] 849061-09-11 13:39:00 Test Item Value Reference Range Interpretation Comments Glucose Lvl (test code = Glucose Lvl) 99 65-99 [place] 849061-09-11 13:39:00 Test Item Value Reference Range Interpretation Comments BUN (test code = BUN) 16 7-25 [place] 849061-09-11 13:39:00 Test Item Value Reference Range Interpretation Comments Creatinine Lvl (test code = Creatinine 0.65 0.60-0.93 Lvl) [place] 849061-09-11 13:39:00 Test Item Value Reference Range Interpretation Comments eGFR NON-AFR. CANADIAN (test code = 87 eGFR NON-AFR. CANADIAN) [place] 849061-09-11 13:39:00 Test Item Value Reference Range Interpretation Comments eGFR (test code = eGFR 101 ) [place] 849061-09-11 13:39:00 Test Item Value Reference Range Interpretation Comments B/C Ratio (test code = B/C NOT APPLICABLE 6-22 Ratio) [place] 849061-09-11 13:39:00 Test Item Value Reference Range Interpretation Comments Sodium Lvl (test code = Sodium Lvl) 137 135-146 [place] 849061-09-11 13:39:00 Test Item Value Reference Range Interpretation Comments Potassium Lvl (test code = Potassium 4.2 3.5-5.3 Lvl) [place] 849061-09-11 13:39:00 Test Item Value Reference Range Interpretation Comments Chloride Lvl (test code = Chloride Lvl) 102 98-110 [place] 849061-09-11 13:39:00 Test Item Value Reference Range Interpretation Comments CO2 (test code = CO2) 22 20-32 [place] 849061-09-11 13:39:00 Test Item Value Reference Range Interpretation Comments Calcium Lvl (test code = Calcium Lvl) 9.2 8.6-10.4 [place] 849061-09-11 13:39:00 Test Item Value Reference Range Interpretation Comments Total Protein (test code = Total 6.9 6.1-8.1 Protein) [facility]2021-09-11 13:39:00 Test Item Value Reference Range Interpretation Comments Albumin Lvl (test code = Albumin Lvl) 3.9 3.6-5.1 [facility]2021-09-11 13:39:00 Test Item Value Reference Range Interpretation Comments Globulin (test code = Globulin) 3.0 1.9-3.7 [facility]2021-09-11 13:39:00 Test Item Value Reference Range Interpretation Comments A/G Ratio (test code = A/G Ratio) 1.3 1.0-2.5 [facility]2021-09-11 13:39:00 Test Item Value Reference Range Interpretation Comments Bili Total (test code = Bili Total) 0.9 0.2-1.2 [facility]2021-09-11 13:39:00 Test Item Value Reference Range Interpretation Comments Alk Phos (test code = Alk Phos) 111 37-153 [facility]2021-09-11 13:39:00 Test Item Value Reference Range Interpretation Comments ASPARTATE TRANSAMINASE (test code = 23 10-35 ASPARTATE TRANSAMINASE) [facility]2021-09-11 13:39:00 Test Item Value Reference Range Interpretation Comments ALANINE AMINOTRANSFERASE (test code = 20 6-29 ALANINE AMINOTRANSFERASE) [facility] CypressCjcemqbPYRAZLEYOH8754-20-87 13:39:00 Test Item Value Reference Range Interpretation Comments WBC X 10x3 (test code = WBC X 10x3) 6.4 3.8-10.8 [facility] CypressNngtejuEUULKUEUSG9691-18-79 13:39:00 Test Item Value Reference Range Interpretation Comments RBC X 10x6 (test code = RBC X 10x6) 4.32 3.80-5.10 [facility]2021-09-11 13:39:00 Test Item Value Reference Range Interpretation Comments Vitamin B12 Lvl (test code = Vitamin 054 385-3262 B12 Lvl) [facility] CypressFiyyycsIMUQWBACEP4026-95-19 13:39:00 Test Item Value Reference Range Interpretation Comments Hgb (test code = Hgb) 12.6 11.7-15.5 [facility] CypressUalywgoRAFLZLDSDA4956-28-20 13:39:00 Test Item Value Reference Range Interpretation Comments Hct (test code = Hct) 38.5 35.0-45.0 [facility] CypressAeoupxjGVJTEVSYCQ7743-89-76 13:39:00 Test Item Value Reference Range Interpretation Comments MCV (test code = MCV) 89.1 80.0-100.0 [facility] CypressXnetesxBHQTANFVWS4541-51-33 13:39:00 Test Item Value Reference Range Interpretation Comments MCH (test code = MCH) 29.2 pg 27.0-33.0 [facility] CypressJrvsmpaMMSBRVTBXO6673-51-52 13:39:00 Test Item Value Reference Range Interpretation Comments MCHC (test code = MCHC) 32.7 32.0-36.0 [facility] CypressAplomlmBIADWXSXVZ8900-14-58 13:39:00 Test Item Value Reference Range Interpretation Comments RDW (test code = RDW) 13.1 11.0-15.0 [facility] CypressNfxwtpmOAMXJGSQZP8599-90-92 13:39:00 Test Item Value Reference Range Interpretation Comments Platelet (test code = Platelet) 290 140-400 [facility] CypressMldacocNNYGHAQCFA7861-06-56 13:39:00 Test Item Value Reference Range Interpretation Comments MPV (test code = MPV) 10.6 7.5-12.5 [facility] CypressSahloljNCILCIBDMV9800-17-50 13:39:00 Test Item Value Reference Range Interpretation Comments Neutrophils # (test code = Neutrophils 3430 7261-9044 #) [facility] CypressSsfahxhQEQGPLZMHL5285-51-22 13:39:00 Test Item Value Reference Range Interpretation Comments Lymphocytes # (test code = Lymphocytes 2061 850-3900 #) [facility]2021-09-11 13:39:00 Test Item Value Reference Range Interpretation Comments Glucose Lvl (test code = Glucose Lvl) 99 65-99 [facility] CypressJdhkuwxYOHUIUMNCO5962-73-90 13:39:00 Test Item Value Reference Range Interpretation Comments Monocytes # (test code = Monocytes #) 646 200-950 [facility] CypressZlcaeniBWKTXGQHVH0665-31-80 13:39:00 Test Item Value Reference Range Interpretation Comments Eosinophils # (test code = Eosinophils 192 15-500 #) [facility] CypressHnvnhteYYQHITWAMU9500-05-00 13:39:00 Test Item Value Reference Range Interpretation Comments Basophils # (test code 70 See_Comment [Aut omated message] The = Basophils #) system which generated this result tra nsmitted reference range : <=200. The reference r sharon was not used to int erpret this result as normal/abnormal . [facility] CypressQolescoISLBYPOBGJ5704-50-80 13:39:00 Test Item Value Reference Range Interpretation Comments Segs (test code = Segs) 53.6 [place] 214141-09-11 13:39:00 Test Item Value Reference Range Interpretation Comments Lymphocytes (test code = Lymphocytes) 32.2 [place] 214141-09-11 13:39:00 Test Item Value Reference Range Interpretation Comments Monocytes (test code = Monocytes) 10.1 [place] 214141-09-11 13:39:00 Test Item Value Reference Range Interpretation Comments Eosinophils (test code = Eosinophils) 3.0 [place] 214141-09-11 13:39:00 Test Item Value Reference Range Interpretation Comments Basophils (test code = Basophils) 1.1 [place] 214141-09-11 13:39:00 Test Item Value Reference Range Interpretation Comments Sed Rate (test code = Sed Rate) 22 [facility]2021-09-11 13:39:00 Test Item Value Reference Range Interpretation Comments BUN (test code = BUN) 16 01-12 [facility]2021-09-11 13:39:00 Test Item Value Reference Range Interpretation Comments Vitamin B12 Lvl (test code = Vitamin 030 041-3834 B12 Lvl) [facility]2021-09-11 13:39:00 Test Item Value Reference Range Interpretation Comments Glucose Lvl (test code = Glucose Lvl) 99 65-99 [facility]2021-09-11 13:39:00 Test Item Value Reference Range Interpretation Comments BUN (test code = BUN) 16 01-12 [facility]2021-09-11 13:39:00 Test Item Value Reference Range Interpretation Comments Creatinine Lvl (test code = Creatinine 0.65 0.60-0.93 Lvl) [facility]2021-09-11 13:39:00 Test Item Value Reference Range Interpretation Comments Creatinine Lvl (test code = Creatinine 0.65 0.60-0.93 Lvl) [facility]2021-09-11 13:39:00 Test Item Value Reference Range Interpretation Comments eGFR NON-AFR. CANADIAN (test code = 87 eGFR NON-AFR. CANADIAN) [facility]2021-09-11 13:39:00 Test Item Value Reference Range Interpretation Comments eGFR (test code = eGFR 101 ) [place] 849061-09-11 13:39:00 Test Item Value Reference Range Interpretation Comments B/C Ratio (test code = B/C NOT APPLICABLE 6-22 Ratio) [place] 849061-09-11 13:39:00 Test Item Value Reference Range Interpretation Comments Sodium Lvl (test code = Sodium Lvl) 137 135-146 [place] 849061-09-11 13:39:00 Test Item Value Reference Range Interpretation Comments Potassium Lvl (test code = Potassium 4.2 3.5-5.3 Lvl) [place] 849061-09-11 13:39:00 Test Item Value Reference Range Interpretation Comments Chloride Lvl (test code = Chloride Lvl) 102 98-110 [place] 849061-09-11 13:39:00 Test Item Value Reference Range Interpretation Comments CO2 (test code = CO2) 22 20-32 [place] 849061-09-11 13:39:00 Test Item Value Reference Range Interpretation Comments Calcium Lvl (test code = Calcium Lvl) 9.2 8.6-10.4 [place] 849061-09-11 13:39:00 Test Item Value Reference Range Interpretation Comments Total Protein (test code = Total 6.9 6.1-8.1 Protein) [facility]2021-09-11 13:39:00 Test Item Value Reference Range Interpretation Comments Albumin Lvl (test code = Albumin Lvl) 3.9 3.6-5.1 [place] 849061-09-11 13:39:00 Test Item Value Reference Range Interpretation Comments eGFR NON-AFR. CANADIAN (test code = 87 eGFR NON-AFR. CANADIAN) [place] 849061-09-11 13:39:00 Test Item Value Reference Range Interpretation Comments Globulin (test code = Globulin) 3.0 1.9-3.7 [place] 849061-09-11 13:39:00 Test Item Value Reference Range Interpretation Comments A/G Ratio (test code = A/G Ratio) 1.3 1.0-2.5 [place] 849061-09-11 13:39:00 Test Item Value Reference Range Interpretation Comments Bili Total (test code = Bili Total) 0.9 0.2-1.2 [facility]2021-09-11 13:39:00 Test Item Value Reference Range Interpretation Comments Alk Phos (test code = Alk Phos) 111 37-153 [facility]2021-09-11 13:39:00 Test Item Value Reference Range Interpretation Comments ASPARTATE TRANSAMINASE (test code = 23 10-35 ASPARTATE TRANSAMINASE) [facility]2021-09-11 13:39:00 Test Item Value Reference Range Interpretation Comments ALANINE AMINOTRANSFERASE (test code = 20 6-29 ALANINE AMINOTRANSFERASE) [facility] CypressGfmyqyjOQWKXJYDEB3741-55-92 13:39:00 Test Item Value Reference Range Interpretation Comments WBC X 10x3 (test code = WBC X 10x3) 6.4 3.8-10.8 [facility] CypressYykubeqDTVQFCPWPE2985-81-10 13:39:00 Test Item Value Reference Range Interpretation Comments RBC X 10x6 (test code = RBC X 10x6) 4.32 3.80-5.10 [place] 214141-09-11 13:39:00 Test Item Value Reference Range Interpretation Comments Hgb (test code = Hgb) 12.6 11.7-15.5 [place] 214141-09-11 13:39:00 Test Item Value Reference Range Interpretation Comments Hct (test code = Hct) 38.5 35.0-45.0 [facility]2021-09-11 13:39:00 Test Item Value Reference Range Interpretation Comments eGFR (test code = eGFR 101 ) [facility] CypressFdhkhiaYCODURGGIB3737-93-50 13:39:00 Test Item Value Reference Range Interpretation Comments MCV (test code = MCV) 89.1 80.0-100.0 [place] 214141-09-11 13:39:00 Test Item Value Reference Range Interpretation Comments MCH (test code = MCH) 29.2 pg 27.0-33.0 [place] 214141-09-11 13:39:00 Test Item Value Reference Range Interpretation Comments MCHC (test code = MCHC) 32.7 32.0-36.0 [place] 214141-09-11 13:39:00 Test Item Value Reference Range Interpretation Comments RDW (test code = RDW) 13.1 11.0-15.0 [facility] CypressXvkqxtkYIUFHZQUTO8101-63-13 13:39:00 Test Item Value Reference Range Interpretation Comments Platelet (test code = Platelet) 290 140-400 [facility] CypressQmjzcakYUBNDUTWOX4297-66-36 13:39:00 Test Item Value Reference Range Interpretation Comments MPV (test code = MPV) 10.6 7.5-12.5 [facility] CypressHxjoxauDJCOKUYZDK9310-81-05 13:39:00 Test Item Value Reference Range Interpretation Comments Neutrophils # (test code = Neutrophils 3430 8394-7360 #) [facility] CypressQiheiafZZMWOBKKHJ7649-03-45 13:39:00 Test Item Value Reference Range Interpretation Comments Lymphocytes # (test code = Lymphocytes 2061 850-3900 #) [facility] CypressZqcqmbbDUAQNUXYJW3280-90-06 13:39:00 Test Item Value Reference Range Interpretation Comments Monocytes # (test code = Monocytes #) 646 200-950 [facility] CypressCqnddqgWEGXYENUPU0206-00-74 13:39:00 Test Item Value Reference Range Interpretation Comments Eosinophils # (test code = Eosinophils 192 15-500 #) [facility]2021-09-11 13:39:00 Test Item Value Reference Range Interpretation Comments B/C Ratio (test code = B/C NOT APPLICABLE 6-22 Ratio) [facility] CypressWaabvlrBXMLPFRUPI3787-86-58 13:39:00 Test Item Value Reference Range Interpretation Comments Basophils # (test code 70 See_Comment [Aut omated message] The = Basophils #) system which generated this result tra nsmitted reference range : <=200. The reference r sharon was not used to int erpret this result as normal/abnormal . [facility] CypressRysmylzRWETSZMWPQ6586-96-00 13:39:00 Test Item Value Reference Range Interpretation Comments Segs (test code = Segs) 53.6 [facility] CypressCovzjojCBOQDEDWTR0026-12-98 13:39:00 Test Item Value Reference Range Interpretation Comments Lymphocytes (test code = Lymphocytes) 32.2 [facility] CypressSnjpipeKXQRLYCGHA2860-05-72 13:39:00 Test Item Value Reference Range Interpretation Comments Monocytes (test code = Monocytes) 10.1 [facility] CypressUagfhadJGGLAFTMKJ4085-17-31 13:39:00 Test Item Value Reference Range Interpretation Comments Eosinophils (test code = Eosinophils) 3.0 [facility] CypressUmigvoiZUYMMURYNE5053-99-24 13:39:00 Test Item Value Reference Range Interpretation Comments Basophils (test code = Basophils) 1.1 [facility]RSJTTSNV6042[facility]-10 13:39:00 Test Item Value Reference Range Interpretation Comments Sed Rate (test code = Sed Rate) 22 [facility]2021-09-11 13:39:00 Test Item Value Reference Range Interpretation Comments Sodium Lvl (test code = Sodium Lvl) 137 135-146 [facility]2021-09-11 13:39:00 Test Item Value Reference Range Interpretation Comments Potassium Lvl (test code = Potassium 4.2 3.5-5.3 Lvl) [facility]2021-09-11 13:39:00 Test Item Value Reference Range Interpretation Comments Chloride Lvl (test code = Chloride Lvl) 102 98-110 [facility]2021-09-11 13:39:00 Test Item Value Reference Range Interpretation Comments CO2 (test code = CO2) 22 20-32 [facility]2021-09-11 13:39:00 Test Item Value Reference Range Interpretation Comments Calcium Lvl (test code = Calcium Lvl) 9.2 8.6-10.4 [facility]2021-09-11 13:39:00 Test Item Value Reference Range Interpretation Comments Total Protein (test code = Total 6.9 6.1-8.1 Protein) [facility]2021-09-11 13:39:00 Test Item Value Reference Range Interpretation Comments Albumin Lvl (test code = Albumin Lvl) 3.9 3.6-5.1 [facility]2021-09-11 13:39:00 Test Item Value Reference Range Interpretation Comments Globulin (test code = Globulin) 3.0 1.9-3.7 [facility]2021-09-11 13:39:00 Test Item Value Reference Range Interpretation Comments A/G Ratio (test code = A/G Ratio) 1.3 1.0-2.5 [facility]2021-09-11 13:39:00 Test Item Value Reference Range Interpretation Comments Bili Total (test code = Bili Total) 0.9 0.2-1.2 [facility]2021-09-11 13:39:00 Test Item Value Reference Range Interpretation Comments Alk Phos (test code = Alk Phos) 111 37-153 [place] 849061-09-11 13:39:00 Test Item Value Reference Range Interpretation Comments ASPARTATE TRANSAMINASE (test code = 23 10-35 ASPARTATE TRANSAMINASE) [facility]2021-09-11 13:39:00 Test Item Value Reference Range Interpretation Comments ALANINE AMINOTRANSFERASE (test code = 20 6-29 ALANINE AMINOTRANSFERASE) [facility] CypressWsekbavIEQKTWAPTL6164-22-28 13:39:00 Test Item Value Reference Range Interpretation Comments WBC X 10x3 (test code = WBC X 10x3) 6.4 3.8-10.8 [facility] CypressOckkuzvWFRRRRCMUW2748-04-78 13:39:00 Test Item Value Reference Range Interpretation Comments RBC X 10x6 (test code = RBC X 10x6) 4.32 3.80-5.10 [facility] CypressNvfhllqPFQEKQLPVG3543-60-66 13:39:00 Test Item Value Reference Range Interpretation Comments Hgb (test code = Hgb) 12.6 11.7-15.5 [facility] CypressAqxjiuqWIREMZRAWZ7421-26-38 13:39:00 Test Item Value Reference Range Interpretation Comments Hct (test code = Hct) 38.5 35.0-45.0 [facility] CypressOpcjohxNBLLSMYDED4927-74-14 13:39:00 Test Item Value Reference Range Interpretation Comments MCV (test code = MCV) 89.1 80.0-100.0 [facility] CypressGgdbwgtQXLAVGIKOV2481-33-57 13:39:00 Test Item Value Reference Range Interpretation Comments MCH (test code = MCH) 29.2 pg 27.0-33.0 [facility] CypressZqwaymqNKMHONURET9268-50-82 13:39:00 Test Item Value Reference Range Interpretation Comments MCHC (test code = MCHC) 32.7 32.0-36.0 [facility] CypressNzacnvpNVLZGQJOUQ7295-83-68 13:39:00 Test Item Value Reference Range Interpretation Comments RDW (test code = RDW) 13.1 11.0-15.0 [place] 214141-09-11 13:39:00 Test Item Value Reference Range Interpretation Comments Platelet (test code = Platelet) 290 140-400 [place] 214141-09-11 13:39:00 Test Item Value Reference Range Interpretation Comments MPV (test code = MPV) 10.6 7.5-12.5 [facility] CypressOcaniosUJNKRKNYVX9794-33-56 13:39:00 Test Item Value Reference Range Interpretation Comments Neutrophils # (test code = Neutrophils 3430 5225-4155 #) [facility] CypressMlzjfncOOSWYCPRCE0945-68-28 13:39:00 Test Item Value Reference Range Interpretation Comments Lymphocytes # (test code = Lymphocytes 2061 850-3900 #) [facility] CypressPcvbqvjPRRRXIFLWX9816-56-72 13:39:00 Test Item Value Reference Range Interpretation Comments Monocytes # (test code = Monocytes #) 646 200-950 [facility] CypressZadkugsYGOOZTRJUA9512-51-35 13:39:00 Test Item Value Reference Range Interpretation Comments Eosinophils # (test code = Eosinophils 192 15-500 #) [facility] CypressVpgephhEROESICLXS0408-83-08 13:39:00 Test Item Value Reference Range Interpretation Comments Basophils # (test code 70 See_Comment [Aut omated message] The = Basophils #) system which generated this result tra nsmitted reference range : <=200. The reference r sharon was not used to int erpret this result as normal/abnormal . [facility] CypressRdfhyvsSUNNGKXFSV1365-08-98 13:39:00 Test Item Value Reference Range Interpretation Comments Segs (test code = Segs) 53.6 [facility] CypressApezqscLMUYBCXJGG6405-87-49 13:39:00 Test Item Value Reference Range Interpretation Comments Lymphocytes (test code = Lymphocytes) 32.2 [facility] CypressAwyonybPRIIOCTXKB4068-17-16 13:39:00 Test Item Value Reference Range Interpretation Comments Monocytes (test code = Monocytes) 10.1 [facility] CypressEjwbvsrRLDLEBEJJM8565-67-73 13:39:00 Test Item Value Reference Range Interpretation Comments Eosinophils (test code = Eosinophils) 3.0 [facility] CypressXzgsxdqMXCNACPZWD8471-85-83 13:39:00 Test Item Value Reference Range Interpretation Comments Basophils (test code = Basophils) 1.1 [facility] CypressNwjrntpXMXQIIUKJV9578-08-98 13:39:00 Test Item Value Reference Range Interpretation Comments Sed Rate (test code = Sed Rate) 22 [facility]2021-09-11 13:39:00 Test Item Value Reference Range Interpretation Comments Vitamin B12 Lvl (test code = Vitamin 315 783-7359 B12 Lvl) [facility]2021-09-11 13:39:00 Test Item Value Reference Range Interpretation Comments Glucose Lvl (test code = Glucose Lvl) 99 65-99 [facility]2021-09-11 13:39:00 Test Item Value Reference Range Interpretation Comments BUN (test code = BUN) 16 01-12 [facility]2021-09-11 13:39:00 Test Item Value Reference Range Interpretation Comments Creatinine Lvl (test code = Creatinine 0.65 0.60-0.93 Lvl) [facility]2021-09-11 13:39:00 Test Item Value Reference Range Interpretation Comments eGFR NON-AFR. CANADIAN (test code = 87 eGFR NON-AFR. CANADIAN) [facility]2021-09-11 13:39:00 Test Item Value Reference Range Interpretation Comments eGFR (test code = eGFR 101 ) [place] 849061-09-11 13:39:00 Test Item Value Reference Range Interpretation Comments B/C Ratio (test code = B/C NOT APPLICABLE 12-10 Ratio) [facility]2021-09-11 13:39:00 Test Item Value Reference Range Interpretation Comments Sodium Lvl (test code = Sodium Lvl) 137 135-146 [facility]2021-09-11 13:39:00 Test Item Value Reference Range Interpretation Comments Vitamin B12 Lvl (test code = Vitamin [phone] B12 Lvl) [facility]2021-09-11 13:39:00 Test Item Value Reference Range Interpretation Comments Glucose Lvl (test code = Glucose Lvl) 99 65-99 [facility]2021-09-11 13:39:00 Test Item Value Reference Range Interpretation Comments BUN (test code = BUN) 16 01-12 [facility]2021-09-11 13:39:00 Test Item Value Reference Range Interpretation Comments Creatinine Lvl (test code = Creatinine 0.65 0.60-0.93 Lvl) [facility]2021-09-11 13:39:00 Test Item Value Reference Range Interpretation Comments eGFR NON-AFR. CANADIAN (test code = 87 eGFR NON-AFR. CANADIAN) [facility]2021-09-11 13:39:00 Test Item Value Reference Range Interpretation Comments eGFR (test code = eGFR 101 ) [facility]2021-09-11 13:39:00 Test Item Value Reference Range Interpretation Comments B/C Ratio (test code = B/C NOT APPLICABLE 12-10 Ratio) [place] 849061-09-11 13:39:00 Test Item Value Reference Range Interpretation Comments Sodium Lvl (test code = Sodium Lvl) 137 135-146 [place] 849061-09-11 13:39:00 Test Item Value Reference Range Interpretation Comments Potassium Lvl (test code = Potassium 4.2 3.5-5.3 Lvl) [place] 849061-09-11 13:39:00 Test Item Value Reference Range Interpretation Comments Chloride Lvl (test code = Chloride Lvl) 102 98-110 [place] 849061-09-11 13:39:00 Test Item Value Reference Range Interpretation Comments CO2 (test code = CO2) 22 20-32 [place] 849061-09-11 13:39:00 Test Item Value Reference Range Interpretation Comments Calcium Lvl (test code = Calcium Lvl) 9.2 8.6-10.4 [place] 849061-09-11 13:39:00 Test Item Value Reference Range Interpretation Comments Total Protein (test code = Total 6.9 6.1-8.1 Protein) [facility]2021-09-11 13:39:00 Test Item Value Reference Range Interpretation Comments Albumin Lvl (test code = Albumin Lvl) 3.9 3.6-5.1 [place] 849061-09-11 13:39:00 Test Item Value Reference Range Interpretation Comments Globulin (test code = Globulin) 3.0 1.9-3.7 [place] 849061-09-11 13:39:00 Test Item Value Reference Range Interpretation Comments A/G Ratio (test code = A/G Ratio) 1.3 1.0-2.5 [place] 849061-09-11 13:39:00 Test Item Value Reference Range Interpretation Comments Bili Total (test code = Bili Total) 0.9 0.2-1.2 [place] 849061-09-11 13:39:00 Test Item Value Reference Range Interpretation Comments Alk Phos (test code = Alk Phos) 111 37-153 [facility]2021-09-11 13:39:00 Test Item Value Reference Range Interpretation Comments ASPARTATE TRANSAMINASE (test code = 23 10-35 ASPARTATE TRANSAMINASE) [place] 849061-09-11 13:39:00 Test Item Value Reference Range Interpretation Comments ALANINE AMINOTRANSFERASE (test code = 20 6-29 ALANINE AMINOTRANSFERASE) [facility]2021-09-11 13:39:00 Test Item Value Reference Range Interpretation Comments Potassium Lvl (test code = Potassium 4.2 3.5-5.3 Lvl) [facility] CypressYaaclqcZUPGGRDTSP9232-54-94 13:39:00 Test Item Value Reference Range Interpretation Comments WBC X 10x3 (test code = WBC X 10x3) 6.4 3.8-10.8 [facility] CypressZcxzzoeGGDTVFXIAB5669-40-05 13:39:00 Test Item Value Reference Range Interpretation Comments RBC X 10x6 (test code = RBC X 10x6) 4.32 3.80-5.10 [place] 214141-09-11 13:39:00 Test Item Value Reference Range Interpretation Comments Hgb (test code = Hgb) 12.6 11.7-15.5 [facility] CypressGicxfgsXJYIMQUFYX8671-82-09 13:39:00 Test Item Value Reference Range Interpretation Comments Hct (test code = Hct) 38.5 35.0-45.0 [facility] CypressQpdysilFLSGSVDBFU6172-92-55 13:39:00 Test Item Value Reference Range Interpretation Comments MCV (test code = MCV) 89.1 80.0-100.0 [facility] CypressAexkhqwYHPTNIQHRB8120-87-80 13:39:00 Test Item Value Reference Range Interpretation Comments MCH (test code = MCH) 29.2 pg 27.0-33.0 [place] 214141-09-11 13:39:00 Test Item Value Reference Range Interpretation Comments MCHC (test code = MCHC) 32.7 32.0-36.0 [facility] CypressKcjkumpXAGOHHCAFV8897-40-29 13:39:00 Test Item Value Reference Range Interpretation Comments RDW (test code = RDW) 13.1 11.0-15.0 [place] 214141-09-11 13:39:00 Test Item Value Reference Range Interpretation Comments Platelet (test code = Platelet) 290 140-400 [place] 214141-09-11 13:39:00 Test Item Value Reference Range Interpretation Comments MPV (test code = MPV) 10.6 7.5-12.5 [facility]2021-09-11 13:39:00 Test Item Value Reference Range Interpretation Comments Chloride Lvl (test code = Chloride Lvl) 102 98-110 [facility] CypressEhnrgvpVMAJWXYGCI8553-28-20 13:39:00 Test Item Value Reference Range Interpretation Comments Neutrophils # (test code = Neutrophils 3430 8466-4478 #) [facility] CypressMsdtyteCQZPKOGWQD6860-94-30 13:39:00 Test Item Value Reference Range Interpretation Comments Lymphocytes # (test code = Lymphocytes 2061 850-3900 #) [facility] CypressHcljqvcBVWZDMAWJA1632-65-49 13:39:00 Test Item Value Reference Range Interpretation Comments Monocytes # (test code = Monocytes #) 646 200-950 [facility] CypressMhrbitlEEPAZOVJKB2530-97-45 13:39:00 Test Item Value Reference Range Interpretation Comments Eosinophils # (test code = Eosinophils 192 15-500 #) [facility] CypressCuaiekpOMHAWHEGNC6875-75-38 13:39:00 Test Item Value Reference Range Interpretation Comments Basophils # (test code 70 See_Comment [Aut omated message] The = Basophils #) system which generated this result tra nsmitted reference range : <=200. The reference r sharon was not used to int erpret this result as normal/abnormal . [facility] CypressYfwphxfLXIDMALIPX6845-97-56 13:39:00 Test Item Value Reference Range Interpretation Comments Segs (test code = Segs) 53.6 [facility] CypressZedlmoxRVOFGIRUWS2356-90-56 13:39:00 Test Item Value Reference Range Interpretation Comments Lymphocytes (test code = Lymphocytes) 32.2 [facility] CypressKjlxckrWMMFSRHBIU9390-74-47 13:39:00 Test Item Value Reference Range Interpretation Comments Monocytes (test code = Monocytes) 10.1 [facility] CypressLqcymxnSJBUUTRRLK5676-09-11 13:39:00 Test Item Value Reference Range Interpretation Comments Eosinophils (test code = Eosinophils) 3.0 [facility] CypressWojgbzgDHSIVMRHHW3438-58-39 13:39:00 Test Item Value Reference Range Interpretation Comments Basophils (test code = Basophils) 1.1 [facility]2021-09-11 13:39:00 Test Item Value Reference Range Interpretation Comments CO2 (test code = CO2) 22 20-32 [facility] CypressRufbomdEPDMRAIMDS5862-68-76 13:39:00 Test Item Value Reference Range Interpretation Comments Sed Rate (test code = Sed Rate) 22 [facility]2021-09-11 13:39:00 Test Item Value Reference Range Interpretation Comments Calcium Lvl (test code = Calcium Lvl) 9.2 8.6-10.4 [place] 849061-09-11 13:39:00 Test Item Value Reference Range Interpretation Comments Total Protein (test code = Total 6.9 6.1-8.1 Protein) [place] [id number] 13:39:00 Test Item Value Reference Range Interpretation Comments Albumin Lvl (test code = Albumin Lvl) 3.9 3.6-5.1 [place] [id number] 13:39:00 Test Item Value Reference Range Interpretation Comments Globulin (test code = Globulin) 3.0 1.9-3.7 [place] 849061-09-11 13:39:00 Test Item Value Reference Range Interpretation Comments A/G Ratio (test code = A/G Ratio) 1.3 1.0-2.5 [place] 849061-09-11 13:39:00 Test Item Value Reference Range Interpretation Comments Bili Total (test code = Bili Total) 0.9 0.2-1.2 [place] 849061-09-11 13:39:00 Test Item Value Reference Range Interpretation Comments Alk Phos (test code = Alk Phos) 111 37-153 [facility]2021-09-11 13:39:00 Test Item Value Reference Range Interpretation Comments ASPARTATE TRANSAMINASE (test code = 23 10-35 ASPARTATE TRANSAMINASE) [facility]2021-09-11 13:39:00 Test Item Value Reference Range Interpretation Comments ALANINE AMINOTRANSFERASE (test code = 20 6-29 ALANINE AMINOTRANSFERASE) [place] [id number] 13:39:00 Test Item Value Reference Range Interpretation Comments WBC X 10x3 (test code = WBC X 10x3) 6.4 3.8-10.8 [place] 214141-09-11 13:39:00 Test Item Value Reference Range Interpretation Comments RBC X 10x6 (test code = RBC X 10x6) 4.32 3.80-5.10 [place] 214141-09-11 13:39:00 Test Item Value Reference Range Interpretation Comments Hgb (test code = Hgb) 12.6 11.7-15.5 [place] 214141-09-11 13:39:00 Test Item Value Reference Range Interpretation Comments Hct (test code = Hct) 38.5 35.0-45.0 [facility] 13:39:00 Test Item Value Reference Range Interpretation Comments MCV (test code = MCV) 89.1 80.0-100.0 [facility] 13:39:00 Test Item Value Reference Range Interpretation Comments MCH (test code = MCH) 29.2 pg 27.0-33.0 [facility]254[facility]37-92 13:39:00 Test Item Value Reference Range Interpretation Comments MCHC (test code = MCHC) 32.7 32.0-36.0 [facility]47-79-60 13:39:00 Test Item Value Reference Range Interpretation Comments RDW (test code = RDW) 13.1 11.0-15.0 [facility] [id number] 16:41:00 Test Item Value Reference Range Interpretation Comments K (test code = 2959310534) 4.7 mmol/L 3.5-5 S light hemolysis Lab Interpretation (test Normal code = 34459-8) [facility] ([id number])2019-07-07 00:03:00 Test Item Value Reference Range Interpretation Comments NA (test code = 139 mmol/L 135-145 8749813157) K (test code = 5.7 mmol/L 3.5-5 H 7886711571) CL (test code = 102 mmol/L 98-108 2312462114) CO2 TOTAL (test code = 22 mmol/L 23-31 L 8294430976) AGAP (test code = 2-16 1056173708) BUN (test code = 24 mg/dL 7-23 H 3380724428) GLUCOSE (test code = 89 mg/dL 70-110 1432261996) CREATININE (test code = 0.64 mg/dL 0.5-1.04 2530947870) TOTAL BILI (test code = 0.4 mg/dL 0.1-1.1 9647427316) CALCIUM (test code = 10.4 mg/dL 8.6-10.6 4847506270) T PROTEIN (test code = 8.3 g/dL 6.3-8.2 H 6881396367) ALBUMIN (test code = 4.8 g/dL 3.5-5 5138745025) ALK PHOS (test code = 137 U/L 34-122 H 2375016647) ALTv (test code = 34 U/L 5-35 1742-6) AST(SGOT) (test code = 45 U/L 13-40 H 6714992649) eGFR Calculation mL/min/1.73m2 (Non-) (test code = 3676947293) eGFR Calculation mL/min/1.73m2 () (test code = 3621343187) MAGALI (test code = MAGALI) Association of [...] tests). Lab Interpretation Abnormal (test code = 51054-4) [facility]"
[2022-10-15] MEDS ORDERED: FENTANYL CITR 100 MCG/2 ML ONE (16:13)
--- NOTE | 2022-10-15 17:34 | RAD REPORT ---
EXAM DESCRIPTION: RAD - Pelvis - 10/15/2022 4:27 pm CLINICAL HISTORY: fall COMPARISON: No comparisons TECHNIQUE: Single AP view of the pelvis. FINDINGS: The visualized pelvic ring is intact. No suspicious osseous lesions. Mild lef right t hip degenerative changes. No erosions of the hip joints. Other pelvic joints are unremarkable. Visualized aspects of the abdomen and soft tissues are unremarkable. IMPRESSION: No acute osseous abnormality of the bony pelvis. Mild right hip joint degenerative stone ges.
--- NOTE | 2022-10-15 17:35 | RAD REPORT ---
EXAM DESCRIPTION: RAD - Femur Left - 10/15/2022 4:28 pm CLINICAL HISTORY: fall COMPARISON: No comparisons TECHNIQUE: Left femur, 2 views. FINDINGS: No fracture is identified. There is no dislocation or periosteal reaction noted. No acute or suspicious bony finding. IMPRESSION: No acute osseous abnormality of the left femur.
--- NOTE | 2022-10-15 17:58 | RAD REPORT ---
EXAM DESCRIPTION: CT - Abdomen Pelvis Wo Contrast - 10/15/2022 5:21 pm CLINICAL HISTORY: fall, left pelvic pain COMPARISON: Abdomen Pelvis Wo Contrast dated 08/04/2022; Abdomen Pelvis W Contrast dated TECHNIQUE: Thin cut axial CT imaging of the abdomen and pelvis was performed without IV contrast. Mu ltiplanar reformats were generated and reviewed. All CT scans are performed using dose optimization technique as appropriate and may include automated exposure control or mA/KV adjustment according to patient size. FINDINGS: No suspicious findings in the lung bases. The liver, spleen, and pancreas show no suspicious findings. Small hypoattenuating adrenal lesions, m easuring 1.7 centimeter on the left and 1.5 centimeter on the right, stable. Gallbladder was surgically removed. Prominent central pneumobilia. Symmetric renal contour, without suspicious parenchymal findings within limits of noncontrast techniq ue. No evidence of radiopaque calculi or hydroureteronephrosis. No dilated bowel loops or bowel wall thickening. Colonic diverticulosis. No free air, free fluid or i nflammatory stranding. No hernia, mass or bulky lymphadenopathy. The urinary bladder is without signi ficant finding. Moderate to advanced compression deformity at L5, new since the prior exam. Degree of compression is approximately 50%. 6 millimeter buckling or retropulsion along the posterior vertebral body cortex. M ild adjacent prevertebral soft tissue edema. Diffuse osteopenia. IMPRESSION: New compression fracture deformity at L5 with 6 millimeter of buckling or retropulsion a long the posterior vertebral body cortex. No other acute findings. Incidental findings as above. The findings were communicated to Albert Page on 10/15/2022 at 17:54 hours.
--- NOTE | 2022-10-15 18:14 | EDPHYS ---
Physician Documentation [facility] Name: Dennis Dawn Age: 77 yrs Sex: Female : 1945 Arrival Date: 10/15/2022 Time: 15:47 Bed 11 Private MD: ED Physician Emery Mena HPI: 10/15 16:10 This 77 yrs old Female presents to ER via Ambulatory with complaints of Hip Pain, Fall cp Injury. 16:10 The patient or guardian reports an injury, pain. sustained from a fall, while being cp transferred, There is no obvious deformity. The complaints affect the left pelvis and left hip. Onset: The symptoms/episode began/occurred 3 day(s) ago. Associated signs and symptoms: Pertinent negatives: abdominal pain, chest pain, diarrhea, fever, headache. Severity of symptoms: in the emergency department the symptoms have improved, mildly. Historical: - Allergies: 16:11 Morphine; ss - PMHx: 16:11 Anxiety; Chronic obstructive lung disease; Gastroesophageal reflux disease; GERD; ss herniated disc in neck; hiatal hernia; Hypertensive disorder; osteomyelitis; - Immunization history:: Adult Immunizations unknown. - Social history:: Smoking status: Patient denies any tobacco usage or history of. ROS: 16:15 Constitutional: Negative for body aches, chills, fever, poor PO intake. cp 16:15 Neck: Negative for pain with movement, pain at rest, stiffness. cp 16:15 Abdomen/GI: Negative for abdominal pain, vomiting, diarrhea, constipation. 16:15 Back: Negative for pain at rest, pain with movement. 16:15 MS/extremity: Positive for pain, tenderness, of the left hip and left pelvis, Negative for decreased range of motion, deformity, paresthesias. 16:15 Eyes: Negative for injury, pain, redness, and discharge. cp 16:15 ENT: Negative for drainage from ear(s), ear pain, sore throat, difficulty swallowing, cp difficulty handling secretions. 16:15 Cardiovascular: Negative for chest pain. 16:15 Respiratory: Negative for cough, shortness of breath, wheezing. 16:15 : Negative for urinary symptoms. 16:15 Neuro: Negative for altered mental status, headache, loss of consciousness, syncope. 16:15 All other systems are negative. Exam: 16:20 Constitutional: The patient appears in no acute distress, alert, awake, cp non-diaphoretic, non-toxic, well developed, well nourished, uncomfortable. 16:20 Head/Face: Normocephalic, atraumatic. cp 16:20 Eyes: Periorbital structures: appear normal, Conjunctiva: normal, no exudate, no injection, Sclera: no appreciated abnormality, Lids and lashes: appear normal, bilaterally. 16:20 ENT: External ear(s): are unremarkable, Nose: is normal, Mouth: Lips: moist, Oral mucosa: moist, Posterior pharynx: is normal, airway is patent, no erythema, no exudate. 16:20 Neck: ROM/movement: is normal, is supple, without pain, no range of motions limitations. 16:20 Chest/axilla: Inspection: normal, Palpation: is normal, no crepitus, no tenderness. 16:20 Cardiovascular: Rate: bradycardic, Edema: is not appreciated, JVD: is not appreciated. 16:20 Respiratory: the patient does not display signs of respiratory distress, Respirations: normal, no use of accessory muscles, no retractions, labored breathing, is not present, Breath sounds: are clear throughout, no decreased breath sounds, no stridor, no wheezing. 16:20 Abdomen/GI: Inspection: abdomen appears normal, Bowel sounds: active, all quadrants, Palpation: abdomen is soft and non-tender, in all quadrants. 16:20 Back: vertebral tenderness, is not appreciated. 16:20 Musculoskeletal/extremity: Extremities: grossly normal except: noted in the left forearm: deformity, noted in the left hip: pain, tenderness, no evidence of decreased ROM, deformity. Vital Signs: 16:00 BP 122 / 100; Pulse 55; Resp 18; Temp 98(O); Pulse Ox 97% on R/A; Weight 72.57 kg; db Height 5 ft. 4 in. (R); 17:18 BP 138 / 85; Pulse 56; Resp 16; Pulse Ox 99% on R/A; db 16:00 Body Mass Index 27.46 (72.57 kg, 162.56 cm) db MDM: 16:06 Patient medically screened. cp 17:30 Differential diagnosis: hip fracture, intertrochanteric fracture, femoral neck cp fracture, femoral shaft fracture, pelvic fracture, lumbar spine fracture. 18:58 Data reviewed: vital signs, nurses notes, radiologic studies, CT scan, plain films. ED cp course: consult with neurosurgery, DR Fernandez \T\367, will accept to ED as transfer at [facility]. 19:00 Care significantly affected by the following chronic conditions: Chronic Obstructive cp Pulmonary Disease. 19:00 Historians other than the Patient: EMS: provides HPI. Counseling: I had a detailed cp discussion with the patient and/or guardian regarding: the historical points, exam findings, and any diagnostic results supporting the discharge/admit diagnosis, lab results, radiology results. 10/15 17:00 Order name: CBC with Diff; Complete Time: 20:14 10/15 20:14 Interpretation: Normal except: RDW 15.3; MN% 13.1. 10/15 17:00 Order name: CMP; Complete Time: 20:14 10/15 20:15 Interpretation: Normal except: ALK 209; ALB 3.0; A/G 0.9. 10/15 17:00 Order name: Lipase; Complete Time: 20:14 10/15 17:00 Order name: PT-INR; Complete Time: 20:14 10/15 17:00 Order name: Urinalysis W/Microscopic; Complete Time: 18:56 10/15 16:05 Order name: XRAY Pelvis; Complete Time: 17:57 10/15 17:58 Interpretation: Report reviewed. 10/15 16:05 Order name: XRAY Femur LEFT; Complete Time: 17:57 10/15 17:58 Interpretation: Reviewed. 10/15 17:00 Order name: CT Abd/Pelvis - Without Contrast; Complete Time: 18:10 10/15 17:00 Order name: IV Saline Lock; Complete Time: 17:21 10/15 17:00 Order name: Labs collected and sent; Complete Time: 18:01 10/15 20:15 Order name: Lexie cp Administered Medications: 16:09 Drug: fentaNYL (PF) IVP 25 mcg Route: IVP; Site: right wrist; db 17:22 Follow up: Response: No adverse reaction db Disposition: 16:44 Co-signature as Attending Physician, Emery GUZMAN was immediately available on-site ms3 in the Emergency Department for consultation in the care of the patient. Disposition Summary: 10/15/22 18:13 Transfer Ordered Transfer Location: [facility] cp Reason: Higher level of care cp Condition: Stable cp Problem: new cp Symptoms: have improved cp Accepting Physician: DR Sinan Fernandez(10/15/22 20:26) nj1 Diagnosis - Fracture of fifth lumbar vertebra - compression type with retropulsion cp Forms: - Medication Reconciliation Form cp - SBAR form cp Signatures: Dispatcher [employer] EDMS Jenae Parekh RN RN Albert Simon PA PA cp Emery Mena, DO ms3 Lucia Soriano RN RN db Nasra Donaldson RN RN nj1 Corrections: (The following items were deleted from the chart) 17:22 17:14 Constitutional: The patient appears in no acute distress, alert, awake, cp non-diaphoretic, non-toxic, well developed, well nourished, cp 17:22 17:14 Head/Face: Normocephalic, atraumatic. cp cp 17:22 17:14 Eyes: Periorbital structures: appear normal, Pupils: equal, round, and reactive cp to light and accomodation, Extraocular movements: intact throughout, Conjunctiva: normal, no exudate, no injection, Sclera: no appreciated abnormality, Lids and lashes: appear normal, bilaterally, Nystagmus: nystagmus with fast component noted, bilaterally, cp 17:22 17:14 ENT: External ear(s): are unremarkable, Nose: is normal, Mouth: Lips: moist, Oral cp mucosa: pink and intact, moist, Posterior pharynx: is normal, airway is patent, no erythema, no exudate, cp 17:22 17:14 Neck: ROM/movement: is normal, is supple, without pain, no range of motions cp limitations, cp 17:22 17:14 Chest/axilla: Inspection: normal, cp cp 17:22 17:14 Cardiovascular: Rate: normal, bradycardic, tachycardic, Rhythm: regular, Edema: cp is not appreciated, JVD: is not appreciated, cp 17:22 17:14 Respiratory: the patient does not display signs of respiratory distress, cp Respirations: normal, no use of accessory muscles, no retractions, labored breathing, is not present, Breath sounds: are clear throughout, no decreased breath sounds, no stridor, no wheezing, cp 17:22 17:14 Abdomen/GI: Inspection: distension, that is moderate, Bowel sounds: active, all cp quadrants, Palpation: abdomen is soft and non-tender, in all quadrants, cp 17:22 17:14 Back: pain, is absent, ROM is normal, cp cp 17:22 17:14 Neuro: Orientation: to person, Mentation: able to follow commands, slow to cp respond, confused, Motor: moves all fours, general weakness with no focal deficits, Gait: is unsteady, cp 18:58 18:13 Doctor cp cp 20:26 18:58 DR Sinan Fernandez cp nj1
--- NOTE | 2022-10-15 18:14 | ER ---
Nurse's Notes [facility] Name: Dennis Dawn Age: 77 yrs Sex: Female : 1945 Arrival Date: 10/15/2022 Time: 15:47 Bed 11 Private MD: Diagnosis: Fracture of fifth lumbar vertebra-compression type with retropulsion Presentation: 10/15 16:00 Chief complaint: Chief complaint: Patient states: L hip pain that has been ongoing ss since Wednesday. Pt reports she fell 3 times while at the correction recently. 16:09 Coronavirus screen: Client denies travel out of the [place] in the last 14 days. Ebola ss Screen: Patient denies exposure to infectious person. Patient denies travel to an Ebola-affected area in the 21 days before illness onset. Initial Sepsis Screen: Does the patient meet any 2 criteria? No. Patient's initial sepsis screen is negative. Does the patient have a suspected source of infection? No. Patient's initial sepsis screen is negative. Risk Assessment: Do you want to hurt yourself or someone else? Patient reports no desire to harm self or others. Onset of symptoms was October 12, 2022. 16:09 Method Of Arrival: Ambulatory ss 16:09 Acuity: ZAYNAB 3 ss Historical: - Allergies: 16:11 Morphine; ss - PMHx: 16:11 Anxiety; Chronic obstructive lung disease; Gastroesophageal reflux disease; GERD; ss herniated disc in neck; hiatal hernia; Hypertensive disorder; osteomyelitis; - Immunization history:: Adult Immunizations unknown. - Social history:: Smoking status: Patient denies any tobacco usage or history of. Screenin:15 [facility] ED Fall Risk Assessment (Adult) History of falling in the last 3 months, db including since admission Yes- fall prone (multiple falls) (3 pts) Confusion or Disorientation No (0 pts) Intoxicated or Sedated No (0 pts) Impaired Gait Yes (1 pt) Mobility Assist Device Used Yes (1 pt) Altered Elimination No (0 pt) Score/Fall Risk Level 3 or more points = High Risk Oriented to surroundings, Maintained a safe environment, Hourly rounding (assess needs \T\ fall precautionary measures) done. Abuse screen: Denies threats or abuse. Denies injuries from another. Nutritional screening: No deficits noted. Tuberculosis screening: No symptoms or risk factors identified. Assessment: 16:15 Reassessment: Patient appears in no apparent distress at this time. Patient and/or db family updated on plan of care and expected duration. Pain level reassessed. Patient is alert, oriented x 3, equal unlabored respirations, skin warm/dry/pink. left hip pain from recent fall. General: Appears in no apparent distress. comfortable, Behavior is calm, cooperative. Pain: Complains of pain in left hip. Neuro: Level of Consciousness is awake, alert, obeys commands, Oriented to person, place, time, situation. Respiratory: Airway is patent Respiratory effort is even, unlabored, Respiratory pattern is regular, symmetrical. GI: Abdomen is flat. 16:20 Reassessment: patient in xray. db 17:18 Reassessment: patient to CT. db 17:30 Reassessment: Patient appears in no apparent distress at this time. Patient and/or db family updated on plan of care and expected duration. Pain level reassessed. Patient is alert, oriented x 3, equal unlabored respirations, skin warm/dry/pink. General: Appears in no apparent distress. comfortable. 18:53 Reassessment: mattress spring encaser at patient bedside. db 19:18 Reassessment: Report given to WINSOME Vance at [facility] in [place]. db 20:24 Reassessment: [facility] here, report given to irrigation teacher. nj1 Vital Signs: 16:00 BP 122 / 100; Pulse 55; Resp 18; Temp 98(O); Pulse Ox 97% on R/A; Weight 72.57 kg; db Height 5 ft. 4 in. (R); 17:18 BP 138 / 85; Pulse 56; Resp 16; Pulse Ox 99% on R/A; db 16:00 Body Mass Index 27.46 (72.57 kg, 162.56 cm) db ED Course: 15:59 Patient arrived in ED. ss 15:59 Lucia Soriano, WINSOME is Primary Nurse. db 16:00 Albert Castillo PA is PHCP. cp 16:00 Emery Mena DO is Attending Physician. cp 16:11 Triage completed. ss 16:11 Arm band placed on right wrist. ss 16:21 Maintain EMS IV. Dressing intact. Good blood return noted. Site clean \T\ dry. Gauge \T\ db site: 22g right wrist. 16:28 XRAY Pelvis In Process Unspecified. EDMS 16:28 XRAY Femur LEFT In Process Unspecified. EDMS 17:23 CT Abd/Pelvis - Without Contrast In Process Unspecified. EDMS 18:30 Owen cath inserted, using sterile technique, 16 Fr., by community health education coordinator, balloon inflated, to db gravity drainage, urine specimen collected. 18:54 Patient has correct armband on for positive identification. Bed in low position. Call db light in reach. Side rails up X2. Client placed on continuous cardiac and pulse oximetry monitoring. NIBP monitoring applied. Warm blanket given. 19:19 transfer transportation to receiving facility. db 20:26 Patient transferred, IV remains in place. nj1 20:26 No provider procedures requiring assistance completed. nj1 Administered Medications: 16:09 Drug: fentaNYL (PF) IVP 25 mcg Route: IVP; Site: right wrist; db 17:22 Follow up: Response: No adverse reaction db Medication: 16:15 VIS not applicable for this client. db Outcome: 18:13 ER care complete, transfer ordered by . cp 20:25 Transferred by ground EMS to [facility], Transfer form completed. nj1 20:25 Condition: stable 20:25 Instructed on the need for transfer. 20:26 Patient left the ED. nj1 Signatures: Dispatcher [employer] Jenae Broderick, RN RN Albert Simon PA PA cp Benton, Danielle, WINSOME RN db Nasra Donaldson, RN RN nj1 Corrections: (The following items were deleted from the chart) 16:11 16:00 Chief complaint: ss ss
[2022-10-15 18:55] LABS: Specific Gravity 1.013 (1.005-1.030); Urine Bacteria None Seen /HPF (<20); Urine Bilirubin NEGATIVE (Negative); Urine Blood Negative (Negative); Urine Clarity Clear (Clear); Urine Color Colorless (Yellow); Urine Glucose NEGATIVE (Negative); Urine Protein NEGATIVE (Negative); Urine RBC <5 /HPF (None Seen); Urine Urobilinogen Normal (Normal); Urine pH 6.5 (5.0-7.0)
[2022-10-15 19:53] LABS: Protime INR 0.91
[2022-10-15 20:03] LABS: Absolute Lymphocytes (CBC) 2.6 K/uL (0.7-4.9); Bilirubin Total 0.4 mg/dL (0.2-1.0); Hematocrit 38.8 % (36.0-45.0); Lymphocytes % 29.4 % (15.3-44.8); MCV 89.9 fL (80-100); MPV 8.3 fL (7.6-11.3); Protein, Total 6.5 g/dL (6.4-8.2); RBC Red Blood Cell Count 4.32 M/uL (3.86-4.86)
[2022-10-15 20:42] VITALS: TEMP 98
[2022-10-15 20:43] VITALS: BP 138/85; O2SAT 99
== END 2022-10-15 20:26 | disposition short-term general hospital (02) ==
LOC: ER 15:47
DX: S32.058A Other fracture of fifth lumbar vertebra, initial encounter for closed fracture (principal); I10 Essential (primary) hypertension; Z88.5 Allergy status to narcotic agent
CPT/HCPCS: 85025; 81001; 36415; 85610; 83690; 80053; 74176; 72170; 73552; J3010

== ENCOUNTER 2023-08-24 01:30 | Observation (INO) | payer OTHER ==
[2023-08-24] MEDS ORDERED: NA CHLORIDE 0.9% 500 ML ONE (02:15)
[2023-08-24 02:50] LABS: Protime INR 1.04
[2023-08-24 02:51] LABS: Absolute Basophils 0.1 K/uL (0-0.5); Absolute Lymphocytes (CBC) 1.8 K/uL (0.7-4.9); Basophils % 0.4 % (0-1.3); Eosinophils % 0.2 % (0-4.4); Hematocrit 40.6 % (36.0-45.0); Hemoglobin 13.5 g/dL (12.0-15.0); Lymphocytes % 12.8 % (15.3-44.8); MCV 87.4 fL (80-100); MPV 7.7 fL (7.6-11.3); Platelets 373 thou/uL (152-406); RBC Red Blood Cell Count 4.64 M/uL (3.86-4.86)
[2023-08-24] MEDS ORDERED: ONDANSETRON 4 MG/2 ML VIAL ONE ×2 (02:58→08:47)
[2023-08-24 03:00] LABS: Albumin 3.2 g/dL (3.4-5.0); Albumin/Globulin Ratio 0.8 (1.1-1.8); Anion Gap 13.1 mEq/L (5.0-15.0); Bilirubin Direct 0.2 mg/dL (0-0.2); Bilirubin Indirect, Calculated 0.3 mg/dL (0.2-0.8); Bilirubin Total 0.5 mg/dL (0.2-1.0); Magnesium 1.9 mg/dL (1.6-2.4); Potassium 4.1 mEq/L (3.5-5.1); Protein, Total 7.2 g/dL (6.4-8.2); Troponin High Sensitivity 3.2 pg/mL (<58.9)
[2023-08-24] MEDS ORDERED: METRONIDAZOLE 500mg IVPB 500 MG/100 ML BAG IV ONE ×3 (03:42→17:23)
[2023-08-24] MEDS ORDERED: Ciprofloxacin 200mg IV 200 MG/100 ML IV.SOLN. IV ONE (03:42)
[2023-08-24] MEDS ORDERED: ACETAMINOPHEN 325 MG TABLET PO PRN (03:46)
--- NOTE | 2023-08-24 03:50 | P.HP ---
Certification for Inpatient Patient admitted to: Observation With expected LOS: <2 Midnights Practitioner: I am a practitioner with admitting privileges, knowledge of patient current condition, hospital course, and medical plan of care. Services: Services provided to patient in accordance with Admission requirements found in Title 42 Section 412.3 of the Code of Federal Regulations Patient History Date of Service: 08/24/23 Reason for admission: Diarrhea, abdominal pain. History of Present Illness: 78-year-old female patient with medical history significant for COPD, dementia, hypertension was evaluated for episode of abdominal pain and diarrhea. She reported she been having diarrhea for a couple of days and she has abdominal pain rated 5 out of 10 in intensity. No nausea vomiting episode reported. She had a CT of the abdomen/pelvis that showed no significant acute intra-abdominal pathology however her white cell count was elevated. She was started on empiric antibiotic therapy with ciprofloxacin and Flagyl and was admitted for care in the hospital. Allergies morphine Allergy (Verified 11/23/18 07:01) severe n/v Home Medications: Brimonidine Tartrate [Lumify] 1 gtt EACH EYE DAILY 11/22/18 Esomeprazole Magnesium [Nexium] 20 mg PO DAILY 11/22/18 Hydrocodone Bit/Acetaminophen [Hydrocodon-Acetaminoph 7.5-325] 0.5 each PO Q6HP PRN 11/22/18 Promethazine HCl 25 mg PO TID PRN 11/24/18 Hydrocodone 7.5/APAP 325 [[place] 7.5/325 mg*] 1 tab PO Q4H PRN tab 11/26/18 - Past Medical/Surgical History Diabetic: No -: Hypertension -: COPD -: GERD -: Dementia -: Right total knee -: Left forearm Psychosocial/ Personal History: Patient is . - Social History Alcohol use: No CD- Drugs: No Caffeine use: No Review of Systems General: Weakness, Malaise Eyes: Unremarkable ENT: Unremarkable Respiratory: Unremarkable Cardiovascular: Unremarkable Gastrointestinal: Abdominal Pain, Diarrhea Genitourinary: Unremarkable Musculoskeletal: Unremarkable Integumentary: Unremarkable Neurological: Unremarkable Lymphatics: Unremarkable Physical Examination - Physical Exam General: Alert, Oriented x3 HEENT: Atraumatic Neck: Supple Respiratory: Normal air movement Cardiovascular: Regular rate/rhythm, Normal S1 S2 Gastrointestinal: Tenderness Musculoskeletal: No swelling Neurological: Normal speech, Normal strength at 5/5 x4 extr - Studies Laboratory Data (last 24 hrs) 08/24/23 08/24/23 08/24/23 02:30 02:30 02:30 WBC 13.90 H Hgb 13.5 Hct 40.6 Plt Count 373 PT 11.4 INR 1.04 Sodium 139 Potassium 4.1 BUN 26 H Creatinine 0.96 Glucose 173 H Magnesium 1.9 Total Bilirubin 0.5 AST 28 ALT 35 Alkaline Phosphatase 121 H Lipase 26 Assessment and Plan - Plan Gastroenteritis: Deemed infectious in etiology. She also does have elevated lactic acid. Empiric antibiotic therapy with Flagyl and ciprofloxacin has been started. Will continue IV hydration and keep her on liquid diet. Will follow clinical symptomatology. Will continue on Tylenol for pain control. Hypertension: Will monitor vitals per unit protocol and follow trend of vitals for administration of antihypertensive. COPD: Will continue breathing treatment Dementia: Will continue antidepression meds Prophylaxis: Lovenox for DVT prophylaxis CODE STATUS: Full code Disposition: We will treat her acute gastroenteritis episode and she will be discharged once deemed clinically stable. - Advance Directives Does patient have a Living Will: No Does patient have a Durable POA for Healthcare: No
[2023-08-24] MEDS: NA CHLORIDE 0.9% 1,000 ML IV SCH (04:00)
[2023-08-24 04:33] LABS: Specific Gravity > 1.030 (1.005-1.030); Urine Bacteria None Seen /HPF (<20); Urine Bilirubin NEGATIVE (Negative); Urine Blood Negative (Negative); Urine Clarity Clear (Clear); Urine Color Yellow (Yellow); Urine Glucose NEGATIVE (Negative); Urine Mucus 3+ /HPF (None Seen); Urine Protein 1+ (Negative); Urine RBC <5 /HPF (None Seen); Urine Urobilinogen 1+ (Normal)
--- NOTE | 2023-08-24 04:33 | ER ---
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 Patient C/O nausea, diarrhea with abdominal pain of 5,onset 1700 yesterday. EMS stated patient did not fall or have any head injury, that assisted patient to the floor when patient passed out. 01:31 Coronavirus screen:. Ebola Screen: Patient negative for fever greater than or equal to pf1 101.5 degrees Fahrenheit, and additional compatible Ebola Virus Disease symptoms. Initial Sepsis Screen: Does the patient meet any 2 criteria? HR > 90 bpm. No. Patient's initial sepsis screen is negative. Does the patient have a suspected source of infection? No. Patient's initial sepsis screen is negative. Risk Assessment: Do you want to hurt yourself or someone else? Patient reports no desire to harm self or others. 01:31 Method Of Arrival: EMS: [facility] pf1 01:31 Acuity: ZAYNAB 3 pf1 06:31 Onset of symptoms is unknown. rv Historical: - Allergies: 03:55 Morphine; pf1 - Home Meds: 04:31 losartan 50 mg Oral tab 1 tab daily [Active]; memantine 10 mg Oral tab 1 tab 2 times pf1 per day [Active]; buspirone 15 mg oral tablet 1 tab 3 times per day [Active]; trazodone 50 mg Oral tablet 1 tabs every day at bedtime [Active]; metoprolol succinate 25 mg oral Tablet, Extended Release 24 hr 1 tab daily [Active]; tizanidine 4 mg oral tablet 1 tabs once daily at bedtime [Active]; dicyclomine 20 mg Oral tablet 1 tab 3 times per day [Active]; duloxetine 20 mg oral Capsule, Delayed Release Sprinkle 1 cap daily [Active]; rosuvastatin 40 mg oral tablet 1 tab daily [Active]; Myrbetriq 25 mg oral Tablet, Extended Release 24 hr 1 tab daily [Active]; PreserVision AREDS oral 2 tabs daily [Active]; - PMHx: 03:55 Anxiety; Chronic obstructive lung disease; Gastroesophageal reflux disease; GERD; pf1 herniated disc in neck; hiatal hernia; Hypertensive disorder; osteomyelitis; 04:30 Hypercholesterolemia; Depressive disorder; pf1 - Immunization history:: Adult Immunizations up to date. - Social history:: Smoking status: Patient denies any tobacco usage or history of. Screenin:35 [facility] ED Fall Risk Assessment (Adult) History of falling in the last 3 months, pf1 including since admission Yes- single mechanical fall (1 pt) Confusion or Disorientation No (0 pts) Intoxicated or Sedated No (0 pts) Impaired Gait Yes (1 pt) Mobility Assist Device Used Yes (1 pt) Altered Elimination Yes (1 pt) Score/Fall Risk Level 3 or more points = High Risk Oriented to surroundings, Maintained a safe environment, Educated pt \T\ family on fall prevention, incl call for assistance when getting out of bed, Assessed \T\ reinforced patient's understanding of fall precautions, Provided non-skid footwear, Hourly rounding (assess needs \T\ fall precautionary measures) done, Used ambulatory aids as needed (educated on \T\ assisted with), Used gait belt as appropriate Implemented a Fall Risk Plan of Care, Apply high fall risk patient identification: yellow non skid footwear/ fall signage, Placed fall mat w/ non beveled edge next to bed, Activated bed/chair alarm, Remained w/in arm's length of patient and in sight while toileting, Offered frequent toileting (1:1 observation), Remained with patient while ambulating, Utilized family, sitter, or virtual building maintenance custodian as indicated. 01:35 Abuse screen: Denies threats or abuse. Nutritional screening: No deficits noted. pf1 Tuberculosis screening: No symptoms or risk factors identified. Assessment: 01:35 General: Appears in no apparent distress. comfortable, well developed, Behavior is pf1 calm, cooperative, appropriate for age, quiet. 01:35 Pain: Complains of pain in abdomen Pain currently is 5 out of 10 on a pain scale. Pain pf1 began 1 day ago. Neuro: No deficits noted. Level of Consciousness is awake, alert, obeys commands, Oriented to Appropriate for age. Cardiovascular: No deficits noted. Capillary refill < 3 seconds Patient's skin is warm and dry. Respiratory: Airway is patent Respiratory effort is even, unlabored, Respiratory pattern is regular, symmetrical. GI: Abdomen is round non-distended, Reports diarrhea, nausea, with abdominal pain. : No deficits noted. No signs and/or symptoms were reported regarding the genitourinary system. EENT: No deficits noted. No signs and/or symptoms were reported regarding the EENT system. 02:30 Reassessment: Patient appears in no apparent distress at this time. Patient and/or pf1 family updated on plan of care and expected duration. Pain level reassessed. Patient is alert, oriented x 3, equal unlabored respirations, skin warm/dry/pink. 03:30 Reassessment: Patient appears in no apparent distress at this time. Patient and/or pf1 family updated on plan of care and expected duration. Pain level reassessed. Patient is alert, oriented x 3, equal unlabored respirations, skin warm/dry/pink. Vital Signs: 01:31 Temp 97.6(O); pf1 01:46 BP 105 / 57; Pulse 115; Resp 18; Pulse Ox 96% on R/A; rv1 02:30 BP 104 / 62; Pulse 110; Resp 18; Pulse Ox 95% on R/A; pf1 04:22 Weight 65.77 kg; Height 5 ft. 4 in. ; rv 04:22 Body Mass Index 24.89 (65.77 kg, 162.56 cm) rv ED Course: 01:31 Patient arrived in ED. pf1 01:31 Patient has correct armband on for positive identification. Placed in gown. Bed in low pf1 position. Call light in reach. Side rails up X2. 01:31 Arm band placed on. pf1 01:35 Fabio Barrientos MD is Attending Physician. sp3 02:30 No provider procedures requiring assistance completed. pf1 02:30 Inserted saline lock: 20 gauge in right antecubital area, using aseptic technique. pf1 Blood collected. 02:32 Basic Metabolic Panel Sent. pf1 02:32 CBC with Diff Sent. pf1 02:32 LFT's Sent. pf1 02:32 Magnesium Sent. pf1 02:32 NT PRO-BNP Sent. pf1 02:32 PT-INR Sent. pf1 02:33 Troponin HS Sent. pf1 02:34 Lactate w/ 2H reflex if indic. Sent. pf1 03:15 IV discontinued, intact, bleeding controlled, No redness/swelling at site. Pressure pf1 dressing applied, 20 gauge IV removed from [facility] due to IV infiltration. 03:20 Inserted saline lock: 20 gauge in right upper arm, using aseptic technique. pf1 03:28 CT Abd/Pelvis - IV Contrast Only In Process Unspecified. EDMS 03:55 Triage completed. pf1 04:32 Toño Yang MD is Hospitalizing Provider. sp3 07:36 Shayy Alexis RN is Primary Nurse. ph Administered Medications: 02:32 Drug: NS 0.9% IV 500 ml IV at bolus once Route: IV; Rate: bolus; Site: right pf1 antecubital; 06:30 Follow up: IV Status: Completed infusion; IV Intake: 500ml rv 03:02 Drug: Ondansetron IVP 4 mg IVP once; over 2 minutes Route: IVP; Site: right antecubital;pf1 06:29 Follow up: Response: No adverse reaction; Marked relief of symptoms rv 03:45 Drug: metroNIDAZOLE IVPB 500 mg 100 ml IVPB at 200 ml/hr once over 30 mins Volume: 100 rv ml; Route: IVPB; Rate: 200 ml/hr; Infused Over: 30 mins; Site: right upper arm; 06:29 Follow up: Response: No adverse reaction; Marked relief of symptoms; IV Status: rv Completed infusion; IV Intake: 100ml 04:22 Drug: Ciprofloxacin IVPB 400 mg 200 ml IVPB once over 60 mins Volume: 200 ml; Route: rv IVPB; Infused Over: 60 mins; Site: right upper arm; 06:29 Follow up: Response: No adverse reaction; Marked relief of symptoms; IV Status: rv Completed infusion; IV Intake: 200ml 05:00 Drug: NS 0.9% IV 1000 ml IV at 1 bolus Per protocol; 1000 mL bolus Route: IV; Rate: 1 rv bolus; Site: right upper arm; 06:29 Follow up: IV Status: Completed infusion; IV Intake: 1000ml rv Medication: 06:31 VIS not applicable for this client. rv Intake: 06:29 IV: 1000ml; Total: 1000ml. rv 06:29 IV: 100ml; Total: 1100ml. rv 06:29 IV: 200ml; Total: 1300ml. rv 06:30 IV: 500ml; Total: 1800ml. rv Outcome: 04:32 Decision to Hospitalize by Provider. sp3 06:31 Admitted to ER Hold. Please see [facility] for further documentation. rv 06:31 Condition: good 06:31 Instructed on the need for admit, 08:33 Patient left the ED. bd Signatures: Dispatcher [employer] EDMS Aileen Cruz Patricia, RN RN Richard Millard RN RN rv Fabio Barrientos MD MD sp3 Marielena Xavier RN RN pf1 Arlen Silverio rv1 Corrections: (The following items were deleted from the chart) 01:47 01:46 BP 105 / 57; rv1 rv1 01:47 01:46 BP 105 / 57; Pulse 115bpm; Pulse Ox 96% RA; rv1 rv1
--- NOTE | 2023-08-24 04:33 | EDPHYS ---
Physician Documentation [facility] Name: Dennis Dawn Age: 78 yrs Sex: Female : 1945 Arrival Date: 08/24/2023 Time: 01:30 Bed 15 Private MD: ED Physician Fabio Barrientos HPI: 08/23 01:58 This 78 yrs old Female presents to ER via Unassigned with complaints of diarrhea and sp3 abdominal pain. 01:59 78-year-old female with history of COPD, anxiety, GERD, herniated disks, hiatal hernia, sp3 hypertension presents to the ED with chief complaint diarrhea and diffuse abdominal pain since yesterday. Patient states she is having watery diarrhea without emesis. No blood or mucus reported. Review of systems otherwise negative for fever, URI symptoms, headache, neck pain, chest pain, shortness of breath, back pain, syncope, near syncope, rash, known sick contacts, travel history, prolonged immobilization, or any other signs or symptoms on ROS at this time.. Historical: - Allergies: 03:55 Morphine; pf1 - Home Meds: 04:31 losartan 50 mg Oral tab 1 tab daily [Active]; memantine 10 mg Oral tab 1 tab 2 times pf1 per day [Active]; buspirone 15 mg oral tablet 1 tab 3 times per day [Active]; trazodone 50 mg Oral tablet 1 tabs every day at bedtime [Active]; metoprolol succinate 25 mg oral Tablet, Extended Release 24 hr 1 tab daily [Active]; tizanidine 4 mg oral tablet 1 tabs once daily at bedtime [Active]; dicyclomine 20 mg Oral tablet 1 tab 3 times per day [Active]; duloxetine 20 mg oral Capsule, Delayed Release Sprinkle 1 cap daily [Active]; rosuvastatin 40 mg oral tablet 1 tab daily [Active]; Myrbetriq 25 mg oral Tablet, Extended Release 24 hr 1 tab daily [Active]; PreserVision AREDS oral 2 tabs daily [Active]; - PMHx: 03:55 Anxiety; Chronic obstructive lung disease; Gastroesophageal reflux disease; GERD; pf1 herniated disc in neck; hiatal hernia; Hypertensive disorder; osteomyelitis; 04:30 Hypercholesterolemia; Depressive disorder; pf1 - Immunization history:: Adult Immunizations up to date. - Social history:: Smoking status: Patient denies any tobacco usage or history of. ROS: 02:00 Constitutional: Negative for fever, chills, and weight loss, Eyes: Negative for injury, sp3 pain, redness, and discharge, ENT: Negative for injury, pain, and discharge, Neck: Negative for injury, pain, and swelling, Cardiovascular: Negative for chest pain, palpitations, and edema, Respiratory: Negative for shortness of breath, cough, wheezing, and pleuritic chest pain, Back: Negative for injury and pain, MS/Extremity: Negative for injury and deformity, Skin: Negative for injury, rash, and discoloration, Neuro: Negative for headache, weakness, numbness, tingling, and seizure, Psych: Negative for depression, anxiety, suicide ideation, homicidal ideation, and hallucinations, Allergy/Immunology: Negative for hives, rash, and allergies, Endocrine: Negative for neck swelling, polydipsia, polyuria, polyphagia, and marked weight changes, Hematologic/Lymphatic: Negative for swollen nodes, abnormal bleeding, and unusual bruising, 02:00 All other systems are negative, Exam: 02:01 Constitutional: This is a well developed, well nourished patient who is awake, alert, sp3 and in no acute distress. Head/Face: Normocephalic, atraumatic. Eyes: Pupils equal round and reactive to light, extra-ocular motions intact. Lids and lashes normal. Conjunctiva and sclera are non-icteric and not injected. Cornea within normal limits. Periorbital areas with no swelling, redness, or edema. ENT: Nares patent. No nasal discharge, no septal abnormalities noted. External auditory canals are clear. Oropharynx with no redness, swelling, or masses, exudates, or evidence of obstruction, uvula midline. Mucous membranes moist. Neck: Trachea midline, no thyromegaly or masses palpated, and no cervical lymphadenopathy. Supple, full range of motion without nuchal rigidity, or vertebral point tenderness. No Meningismus. Chest/axilla: Normal chest wall appearance and motion. Nontender with no deformity. No lesions are appreciated. Respiratory: Lungs have equal breath sounds bilaterally, clear to auscultation and percussion. No rales, rhonchi or wheezes noted. No increased work of breathing, no retractions or nasal flaring. Back: No spinal tenderness. No costovertebral tenderness. Full range of motion. Skin: Warm, dry with normal turgor. Normal color with no rashes, no lesions, and no evidence of cellulitis. MS/ Extremity: Pulses equal, no cyanosis. Neurovascular intact. Full, normal range of motion. Neuro: Awake and alert, GCS 15, oriented to person, place, time, and situation. Cranial nerves II-XII grossly intact. Motor strength 5/5 in all extremities. Sensory grossly intact. Cerebellar exam normal. Normal gait. Psych: Awake, alert, with orientation to person, place and time. Behavior, mood, and affect are within normal limits. 02:01 Abdomen/GI: Diffuse mild abdominal pain without peritoneal signs, rebound or guarding. Patient is tachycardic at 115. Dry mucous membranes also noted., Vital Signs: 01:31 Temp 97.6(O); pf1 01:46 BP 105 / 57; Pulse 115; Resp 18; Pulse Ox 96% on R/A; rv1 02:30 BP 104 / 62; Pulse 110; Resp 18; Pulse Ox 95% on R/A; pf1 04:22 Weight 65.77 kg; Height 5 ft. 4 in. ; rv 04:22 Body Mass Index 24.89 (65.77 kg, 162.56 cm) rv MDM: 01:43 Patient medically screened. sp3 02:01 Data reviewed: vital signs, nurses notes, old medical records, lab test result(s), EKG, sp3 radiologic studies. ED course: 78-year-old female with abdominal pain and diarrhea with probable overlying dehydration secondary to current process. Patient is also mildly tachycardic. Workup will include laboratory values, lactate, CT scan of the abdomen pelvis, IV fluids, and general observation with probable admission for hydration. Final disposition pending workup and patient course. Differential diagnosis includes viral or bacterial gastroenteritis, electrolyte abnormality, other GI pathology, among others. 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 03:16 ED course: Lactate comes back at 3.8 further supporting dehydration and sp3 gastroenteritis. We will gently hydrate patient so for a total of 1.5 L of normal saline has been ordered. Will not do standard 30 mL/kg bolus secondary to concerns of overhydration and CHF. Cipro and Flagyl also started. Patient will be admitted to hospital medicine for further workup. CT abdomen pelvis is still pending.. 08/23 01:46 Order name: Basic Metabolic Panel sp3 08/23 01:46 Order name: CBC with Diff sp3 08/23 01:46 Order name: LFT's sp3 08/23 01:46 Order name: Magnesium sp3 08/23 01:46 Order name: NT PRO-BNP sp3 08/23 01:46 Order name: PT-INR; Complete Time: 02:55 sp3 08/23 01:46 Order name: Troponin HS sp3 08/23 01:46 Order name: Lipase sp3 08/23 01:46 Order name: UAM sp3 08/23 02:03 Order name: Lactate w/ 2H reflex if indic. sp3 08/23 03:50 Order name: Basic Metabolic Panel EDMS 08/23 03:50 Order name: Basic Metabolic Panel EDMS 08/23 03:50 Order name: Basic Metabolic Panel EDMS 08/23 03:50 Order name: Basic Metabolic Panel EDMS / 03:50 Order name: CBC with Automated Diff EDMS / 03:50 Order name: CBC with Automated Diff EDMS / 03:50 Order name: CBC with Automated Diff EDMS /05 03:50 Order name: CBC with Automated Diff EDMS 03/05 06:49 Order name: Lactate Sepsis 2 HR Follow-up EDMS / 01:46 Order name: CT Abd/Pelvis - IV Contrast Only sp3 08/23 01:46 Order name: EKG; Complete Time: 01:47 sp3 08/23 01:46 Order name: Cardiac monitoring; Complete Time: 04:04 sp3 08/23 01:46 Order name: EKG - Nurse/Tech; Complete Time: 04:04 sp3 08/23 01:46 Order name: IV Saline Lock; Complete Time: 02:32 sp3 08/23 01:46 Order name: Labs collected and sent; Complete Time: 02:32 sp3 08/23 01:46 Order name: O2 Per Protocol; Complete Time: 02:32 sp3 08/23 01:46 Order name: O2 Sat Monitoring; Complete Time: 02:32 sp3 08/23 01:46 Order name: Owen; Complete Time: 04:04 sp3 Administered Medications: 02:32 Drug: NS 0.9% IV 500 ml IV at bolus once Route: IV; Rate: bolus; Site: right pf1 antecubital; 06:30 Follow up: IV Status: Completed infusion; IV Intake: 500ml rv 03:02 Drug: Ondansetron IVP 4 mg IVP once; over 2 minutes Route: IVP; Site: right antecubital;pf1 06:29 Follow up: Response: No adverse reaction; Marked relief of symptoms rv 03:45 Drug: metroNIDAZOLE IVPB 500 mg 100 ml IVPB at 200 ml/hr once over 30 mins Volume: 100 rv ml; Route: IVPB; Rate: 200 ml/hr; Infused Over: 30 mins; Site: right upper arm; 06:29 Follow up: Response: No adverse reaction; Marked relief of symptoms; IV Status: rv Completed infusion; IV Intake: 100ml 04:22 Drug: Ciprofloxacin IVPB 400 mg 200 ml IVPB once over 60 mins Volume: 200 ml; Route: rv IVPB; Infused Over: 60 mins; Site: right upper arm; 06:29 Follow up: Response: No adverse reaction; Marked relief of symptoms; IV Status: rv Completed infusion; IV Intake: 200ml 05:00 Drug: NS 0.9% IV 1000 ml IV at 1 bolus Per protocol; 1000 mL bolus Route: IV; Rate: 1 rv bolus; Site: right upper arm; 06:29 Follow up: IV Status: Completed infusion; IV Intake: 1000ml rv Disposition Summary: 08/24/23 04:32 Hospitalization Ordered Notes: Hospitalization Status: Inpatient Admission sp3 Provider: Toño Yang sp3 Condition: Stable sp3 Problem: new sp3 Symptoms: have worsened sp3 Bed/Room Type: Standard sp3 Location: Intensive Care Unit(08/24/23 07:16) ja Room Assignment: 3-(08/24/23 07:16) ja Diagnosis - Gastroenteritis, dehydration sp3 Forms: - Medication Reconciliation Form sp3 - SBAR form sp3 - Leadership Thank You Letter sp3 Signatures: Dispatcher [employer] Nadja Schaeffer, RN WINSOME Ruddy Hernández RN RN ja1 Richard Millard RN RN rv Patel, Setul, MD MD sp3 Marielena Xavier RN RN pf1 Corrections: (The following items were deleted from the chart) 04:47 04:32 Telemetry/MedSurg (Inpatient) sp3 cg 04:47 04:32 sp3 cg 07:16 04:47 [facility] cg ja1 07:16 04:47 [facility] ja1
[2023-08-24] MEDS ORDERED: NA CHLORIDE 0.9% 1,000 ML ONE ×2 (05:51→21:37)
[2023-08-24] MEDS: INSULIN REGULAR (HUMAN) 100 UNIT/ML SQ SCH (07:30)
[2023-08-24] MEDS: PNEUMOCOCCAL VACCINE 0.5 ML IMVAC ONE (08:00)
[2023-08-24] MEDS: ONDANSETRON 4 MG/2 ML VIAL IV PRN (08:48)
[2023-08-24 09:06] VITALS: O2SAT 95
[2023-08-24] MEDS ORDERED: PROMETHAZINE INJ 25 MG/ML AMP ONE (09:23)
[2023-08-24] MEDS: PROMETHAZINE INJ 25 MG/ML AMP IV ONE (09:36)
[2023-08-24] MEDS: METRONIDAZOLE 500mg IVPB 500 MG/100 ML BAG IV SCH (09:37)
[2023-08-24] MEDS ORDERED: ENOXAPARIN 40 MG/0.4 ML SQ ONE (09:39)
[2023-08-24] MEDS: ENOXAPARIN 40 MG/0.4 ML SQ SCH (09:40)
--- NOTE | 2023-08-24 12:37 | RAD REPORT ---
EXAM DESCRIPTION: CT - Abdomen Pelvis W Contrast - 08/24/2023 6:15 am CLINICAL HISTORY: Female, 78 years old, ABD PAIN COMPARISON: 10/15/2022 TECHNIQUE: CT acquisition of the abdomen and pelvis following the administration of IV contrast. Cor onal and sagittal reformatted images provided. This exam was performed according to departmental dose -optimization program which includes automated exposure control, adjustment of the mA and/or kV accor ding to patient size, and/or use of iterative reconstruction technique. FINDINGS: SUPPORTIVE DEVICES: None. LOWER CHEST: Similar scarring/atelectasis in the lung bases. Normal imaged heart size. Bilateral kai st implants. ABDOMEN AND PELVIS: Liver: Normal. Gallbladder and bile ducts: Postcholecystectomy changes with extensive ductal prominence and pneumobi vikas similar to prior. Pancreas: Normal. Spleen: Normal. Adrenal glands: Unchanged adrenal nodules measuring 1.5 cm bilaterally. Kidneys and ureters: Normal. Bladder: Nondistended without evident abnormality. Reproductive organs: Absent uterus. No identified pelvic mass. GI tract: Normal caliber without wall thickening. No evidence of appendicitis. Colonic diverticulosis without diverticulitis. Moderate rectal stool burden. Lymph nodes: No evident adenopathy. Peritoneum: No evidence of ascites, fluid collection, or free air. Abdominal wall: No significant hernia. Vessels: Atherosclerosis without evidence of aneurysm. MUSCULOSKELETAL: No acute osseous abnormality. Subacute/chronic L5 compression fracture. Osteopenia a nd multilevel thoracolumbar spondylosis. Several pelvic bone islands. IMPRESSION: 1. No acute abdominopelvic finding. 2. Uncomplicated colonic diverticulosis. Additional chronic and incidental findings above. Electronically signed by: Coleman Galvan MD 08/24/2023 04:22 AM MANAGER [employer]AF[employer] Due to temporary technical issues with the PACS/Fluency reporting system, reports are being signed by the in house radiologists without review as a courtesy to insure prompt reporting. The interpreting radiologist is fully responsible for the content of the report.
--- NOTE | 2023-08-24 17:04 | EKG ---
Test Date: 2023-08-24 Test Time: 02:41:23 Panelbeater: ELLEN MEASUREMENT RESULTS: Intervals: Rate: 110 RI: 184 QRSD: 92 QT: 342 QTc: 462 [place]: P: 48 RI: 184 QRS: 169 T: 44 INTERPRETIVE STATEMENTS: Sinus tachycardia Otherwise normal ECG Compared to ECG 08/30/2022 06:11:16 Sinus rhythm no longer present ST (T wave) deviation no longer present Electronically Signed On 08-24-23 17:02:26 RECORDIST CHIEF by Joselo Taylor
--- NOTE | 2023-08-24 17:14 | P.PN ---
Date of Service: 08/24/23 Patient seen and examined. She is complaining of abdominal discomfort. She is also complaining of nausea. She reported few episodes of 4 loose bowel movement. She also reported symptoms began after he ate in a restaurant, states that she ate some almonds which she feels is allergic to. Diagnosis: Acute gastroenteritis-allergic versus food poisoning. Continue supportive measures with IV hydration. Advance diet as tolerated.
[2023-08-25 05:14] LABS: Anion Gap 8.5 mEq/L (5.0-15.0); Potassium 4.5 mEq/L (3.5-5.1)
[2023-08-25 05:21] LABS: Absolute Basophils 0.1 K/uL (0-0.5); Absolute Eosinophils 0.3 K/uL (0-0.5); Absolute Lymphocytes (CBC) 2.4 K/uL (0.7-4.9); Basophils % 0.8 % (0-1.3); Eosinophils % 3.3 % (0-4.4); Hematocrit 34.2 % (36.0-45.0); Hemoglobin 11.2 g/dL (12.0-15.0); Lymphocytes % 23.1 % (15.3-44.8); MCV 88.7 fL (80-100); MPV 7.9 fL (7.6-11.3); Platelets 219 thou/uL (152-406); RBC Red Blood Cell Count 3.86 M/uL (3.86-4.86)
[2023-08-25 06:23] VITALS: BMI 29.7
[2023-08-25] MEDS: INFLUENZA VACCINE (for 6+ mo) 0.5 ML DOSE IMVAC ONE (08:00)
--- NOTE | 2023-08-25 08:45 | P.DS ---
Admission Date: 08/24/23 Discharge Date: 08/25/23 Disposition: [facility] HOME/HOME HEALTH CARE Discharge Condition: FAIR Reason for Admission: Diarrhea, abdominal pain. - Problems (1) Acute infective gastroenteritis Status: Acute (2) Hypertension Status: Chronic Qualifiers: Hypertension type: primary hypertension Qualified Code(s): I10 - Essential (primary) hypertension Brief History of Present Illness: 78-year-old female patient with medical history significant for COPD, dementia, hypertension was evaluated for episode of abdominal pain and diarrhea. She reported she been having diarrhea for a couple of days and she has abdominal pain rated 5 out of 10 in intensity. No nausea vomiting episode reported. She had a CT of the abdomen/pelvis that showed no significant acute intra-abdominal pathology however her white cell count was elevated. She was started on empiric antibiotic therapy with ciprofloxacin and Flagyl and was admitted for care in the hospital. Hospital Course: Patient admitted to the medical floor and treated with supportive measures including IV hydration, antiemetics and IV antibiotics. She reported few episodes of 4 loose bowel movement. She also reported symptoms began after he ate in a restaurant, states that she ate some almonds which she feels is allergic to. Patient's symptoms likely related to acute gastroenteritis secondary to allergies versus food poisoning. Patient's symptoms resolved by the following day after hospitalization. She tolerated diet, no nausea or vomiting or diarrhea. Patient is deemed clinically stable for discharge. She is discharged with oral ciprofloxacin and Flagyl to continue treatment for possible acute bacterial gastroenteritis Vital Signs/Physical Exam: Temp Pulse Resp BP Pulse Ox 97.4 F 78 17 78/60 L 98 08/25/23 04:00 08/25/23 04:00 08/25/23 04:00 08/25/23 04:00 08/25/23 04:00 General: Alert, In no apparent distress, Oriented x3 HEENT: Mucous membr. moist/pink Neck: JVD not distended Respiratory: Clear to auscultation bilaterally, Normal air movement Cardiovascular: No edema, Regular rate/rhythm, Normal S1 S2 Gastrointestinal: Soft and benign, Non-distended Musculoskeletal: No swelling Integumentary: No cyanosis Neurological: Normal strength at 5/5 x4 extr Laboratory Data at Discharge: WBC 10.30 thou/uL (4.3-10.9) 08/25/23 04:46 Hgb 11.2 g/dL (12.0-15.0) L D 08/25/23 04:46 Hct 34.2 % (36.0-45.0) L 08/25/23 04:46 Plt Count 219 thou/uL (152-406) D 08/25/23 04:46 PT 11.4 SECONDS (9.5-12.5) 08/24/23 02:30 INR 1.04 08/24/23 02:30 Sodium 139 mEq/L (136-145) 08/25/23 04:46 Potassium 4.5 mEq/L (3.5-5.1) 08/25/23 04:46 BUN 17 mg/dL (7-18) 08/25/23 04:46 Creatinine 0.59 mg/dL (0.55-1.02) 08/25/23 04:46 Glucose 114 mg/dL (74-106) H 08/25/23 04:46 Magnesium 1.9 mg/dL (1.6-2.4) 08/24/23 02:30 Total Bilirubin 0.5 mg/dL (0.2-1.0) 08/24/23 02:30 AST 28 U/L (15-37) 08/24/23 02:30 ALT 35 U/L (13-56) 08/24/23 02:30 Alkaline Phosphatase 121 U/L (45-117) H 08/24/23 02:30 Lipase 26 U/L (13-75) 08/24/23 02:30 Home Medications: Buspirone HCl [Buspar] 15 mg PO TID 08/24/23 Duloxetine [Cymbalta *] 20 mg PO DAILY 08/24/23 Ergocalciferol (Vitamin D2) [Vitamin D 50,000 Unit Cap] 1 cap PO Q7D 08/24/23 Memantine HCl [Namenda*] 10 mg PO BEDTIME 08/24/23 Mirabegron [Myrbetriq] 25 mg PO DAILY 08/24/23 Rosuvastatin Calcium [Crestor] 40 mg PO DAILY 08/24/23 Tizanidine [Zanaflex*] 4 mg PO BEDTIME PRN 08/24/23 Trazodone [Desyrel*] 50 mg PO BEDTIME 08/24/23 Ciprofloxacin HCl [Cipro 500 MG Tablet] 500 mg PO BID #10 tab 08/25/23 Losartan Potassium 50 mg PO DAILY #30 tab 08/25/23 Metoprolol Succinate [Toprol Xl*] 25 mg PO DAILY #30 tab 08/25/23 metroNIDAZOLE [Flagyl] 500 mg PO Q8H #15 tab 08/25/23 New Medications: Ciprofloxacin HCl [Cipro 500 MG Tablet] 500 mg PO BID #10 tab metroNIDAZOLE [Flagyl] 500 mg PO Q8H #15 tab Losartan Potassium 50 mg PO DAILY #30 tab Metoprolol Succinate [Toprol Xl*] 25 mg PO DAILY #30 tab Physician Discharge Instructions: PROBLEM: Gastroenteritis, Dehydration GOAL: Clear understanding of disease process INSTRUCTIONS: Please follow up with PCP as directed. If you have any questions regarding hospital stay, feel free to call [phone]. If symptoms worsen, please go to the ER. Diet: 1800 ADA Activity: As tolerated DME DME: Date Ordered: Name of Company: [employer] Services Needed: Home Health Name of Company: [employer] ([place]) Date or Referral: 08/24/23 IMMUNIZATION Influenza Vaccine Indicated: Yes Influenza Vaccine Given: No Date Given: Pneumonia Vaccine Indicated: Yes Pneumonia Vaccine Given: No Date Given: Followup: NONE,NONE [Primary Care Provider] - Time spent managing pt's care (in minutes): 24
[2023-08-25] MEDS ORDERED: PNEUMOCOCCAL VACCINE 0.5 ML IMVAC ONE (08:59)
[2023-08-25 13:22] VITALS: BP 118/68; TEMP 97.7
== END 2023-08-25 13:00 | disposition home health service (06) ==
LOC: ER 01:30 → ERHOLD 03:46 → 3RD-ICU 07:58
PROVIDERS: ADMIT Internal Medicine Nephrology; ATTEND Internal Medicine
DX: A09 Infectious gastroenteritis and colitis, unspecified (principal); R10.9 Unspecified abdominal pain; J44.9 Chronic obstructive pulmonary disease, unspecified; I10 Essential (primary) hypertension; F03.90 Unspecified dementia, unspecified severity, without behavioral disturbance, psychotic disturbance, mood disturbance, and anxiety
CPT/HCPCS: 93005; 85025 ×2; 81001; 80048 ×2; 36415 ×2; 83735; 85610; 82947 ×5; 80076; 83605 ×2; 84484; 83690; 83880; 74177; Q9967; J2550; J1650 ×2; J0744; J2405 ×2; J7040; J7030 ×2; 90732; 96361; 96365; 96366; 96375; 99285; G0378

== ENCOUNTER 2024-04-23 05:22 | Emergency (ER) | payer OTHER ==
[2024-04-23] MEDS ORDERED: LIDOCAINE 2% W/EPI 1:200,000 MPF 20 ML VIAL IM ONE (05:44)
--- NOTE | 2024-04-23 06:28 | EDPHYS ---
Physician Documentation [facility] Name: Dennis Dawn Age: 78 yrs Sex: Female : 1945 Arrival Date: 04/23/2024 Time: 05:22 Bed 16 Private MD: ED Physician Albert Echavarria HPI: 04/23 06:00 This 78 yrs old Female presents to ER via Wheelchair with complaints of Fall Injury, cp Facial Injury. 06:00 Details of fall: The patient fell from an upright position, while standing, getting up cp out of chair, fell forward striking face against floor, and struck a tile surface. Onset: The symptoms/episode began/occurred just prior to arrival. Associated injuries: The patient sustained injury to the head, laceration, of the nose and right infraorbital, swelling, tenderness. Severity of symptoms: in the emergency department the symptoms are unchanged. Historical: - Allergies: 05:49 Morphine; ha1 05:49 Codeine; ha1 05:49 ANTIHISTAMINES; ha1 - PMHx: 05:49 Anxiety; Chronic obstructive lung disease; depressive disorder; Gastroesophageal reflux ha1 disease; GERD; herniated disc in neck; hiatal hernia; Hypercholesterolemia; Hypertensive disorder; osteomyelitis; - Immunization history:: Adult Immunizations up to date. - Infectious Disease History:: Denies. - Immunization history: Last tetanus immunization: - up to date. - Social history:: Smoking status: Patient/guardian denies using tobacco, the patient reports quitting approximately 20 years ago. ROS: 06:05 Skin: Positive for laceration(s), of the face, cp 06:05 Constitutional: HX per HPI cp 06:05 Cardiovascular: Negative for chest pain, 06:05 Respiratory: Negative for cough, shortness of breath, 06:05 Abdomen/GI: Negative for abdominal pain, vomiting, diarrhea, constipation, 06:05 Neuro: Negative for altered mental status, loss of consciousness, 06:05 All other systems are negative, Exam: 06:10 Constitutional: The patient appears in no acute distress, alert, awake, non-toxic, well cp developed, well nourished, uncomfortable, 06:10 Head/face: Noted is ecchymosis, that is mild, of the right cheek and nose, a laceration(s), that is deep, that is linear, of the nose and right infraorbital, swelling, that is mild, of the forehead, right cheek and nose, 06:10 Eyes: Pupils: equal, round, and reactive to light and accomodation, Extraocular movements: intact throughout, Conjunctiva: normal, no exudate, no injection, Lids and lashes: appear normal, bilaterally, 06:10 ENT: External ear(s): are unremarkable, Mouth: Lips: moist, Oral mucosa: moist, Posterior pharynx: Airway: no evidence of obstruction, patent, 06:10 Neck: C-spine: vertebral tenderness, is not appreciated, crepitus, is not appreciated, 06:10 Chest/axilla: Inspection: normal, Palpation: crepitus, is not appreciated, tenderness, is not appreciated, 06:10 Cardiovascular: Rate: normal, 06:10 Respiratory: the patient does not display signs of respiratory distress, Respirations: normal, Breath sounds: are clear throughout, no decreased breath sounds, no stridor, no wheezing, 06:10 Abdomen/GI: Inspection: abdomen appears normal, Palpation: abdomen is soft and non-tender, in all quadrants, 06:10 Neuro: Orientation: no acute changes, per family, Mentation: no acute changes, per family, Vital Signs: 05:27 BP 139 / 79; Pulse 57; Resp 17 S; Temp 97.6(T); Pulse Ox 99% on R/A; Weight 70.31 kg; ha1 Height 5 ft. 5 in. ; 05:53 BP 145 / 75; Pulse 69; Resp 18; Pulse Ox 100% on R/A; rg5 05:27 Body Mass Index 25.79 (70.31 kg, 165.1 cm) ha1 Haresh Coma Score: 05:30 Eye Response: spontaneous(4). Motor Response: obeys commands(6). Verbal Response: rg5 oriented(5). Total: 15. Trauma Score (Adult): 05:30 Eye Response: spontaneous(1); Verbal Response: oriented(1); Motor Response: obeys rg5 commands(2); Systolic BP: > 89 mm Hg(4); Respiratory Rate: 10 to 29 per min(4); Rowe Score: 15; Trauma Score: 12 Laceration: 06:18 Wound Repair of 6cm ( 2.4in ) subcutaneous laceration to bridge of nose and right cp infraorbital area and right lateral side of nose. Linear shaped.. Distal neuro/vascular/tendon intact. Anesthesia: Local anesthetic administered with 5 mls of 2% lidocaine. Wound prep: Simple cleansing by nurse. Skin closed with 10 5-0 Prolene using simple sutures and sterile technique. Dressed with Bacitracin. Patient tolerated well. MDM: 05:33 Medical Screening Exam initiated [facility] 04/23 05:37 Order name: Dressing - Wound; Complete Time: 05:45 cp 04/23 05:37 Order name: Gloves, Sterile; Complete Time: 05:45 cp 04/23 05:37 Order name: Setup Suture Tray; Complete Time: :45 cp Administered Medications: :45 Drug: Lidocaine Infiltration (2 %) 10 ml 5 ml Infiltration once; to bedside {Note: rg5 injected by provider.} Volume: 5 ml; Route: Infiltration; Disposition Summary: 04/23/24 06:28 Discharge Ordered Notes: Location: Home cp Problem: new cp Symptoms: have improved cp Condition: Stable cp Diagnosis - Fall on same level, unspecified cp - Laceration without foreign body of unspecified part of head cp Followup: cp - With: Private Physician - When: 7 - 10 days - Reason: Staple/Suture removal Discharge Instructions: - Discharge Summary Sheet cp - Head Injury, Adult cp - Facial Laceration cp - Sutured Wound Care cp Forms: - Medication Reconciliation Form cp - Antibiotic Education cp - Prescription Opioid Use cp - Patient Portal Instructions cp - Leadership Thank You Letter cp Signatures: Albert Echavarria MD MD cha Page, Corey, MIKEY PA cp Tawana Toscano, RN RN ha1 Rober Kumar, RN RN rg5
--- NOTE | 2024-04-23 06:28 | ER ---
Nurse's Notes [facility] Name: Dennis Dawn Age: 78 yrs Sex: Female : 1945 Arrival Date: 04/23/2024 Time: 05:22 Bed 16 Private MD: Diagnosis: Fall on same level, unspecified;Laceration without foreign body of unspecified part of head Presentation: 04/23 05:27 Chief complaint: Spouse and/or significant other states: SHE WAS IN HER RECLINER AND ha1 FELL FORWARD , LACERATION ON FOREHEAD. NO LOC. NO BLOOD THINNERS. 05:27 Coronavirus screen: Vaccine status: Patient reports being unvaccinated. Ebola Screen: ha1 No symptoms or risks identified at this time. Initial Sepsis Screen: Does the patient meet any 2 criteria? No. Patient's initial sepsis screen is negative. Does the patient have a suspected source of infection? No. Patient's initial sepsis screen is negative. Risk Assessment: Do you want to hurt yourself or someone else? Patient reports no desire to harm self or others. Onset of symptoms was April 23, 2024. 05:27 Method Of Arrival: Wheelchair [facility] 05:27 Acuity: ZAYNAB 3 ha1 05:30 Care prior to arrival: None. Mechanism of Injury: Fall out of chair. 5 05:30 Trauma event details: Injury occurred in the [facility]. Activity prior to [facility] arrival: None. Triage Assessment: 05:27 General: Appears uncomfortable, Behavior is cooperative. Pain: Complains of pain in ha1 face Pain does not radiate. Pain currently is 5 out of 10 on a pain scale. Quality of pain is described as aching. Neuro: Level of Consciousness is awake, alert, Oriented to person, situation. Cardiovascular: Patient's skin is warm and dry. Respiratory: Airway is patent Respiratory effort is even, unlabored, Respiratory pattern is regular, symmetrical. 05:27 Derm: Skin is pink, warm \T\ dry. Musculoskeletal: Circulation, motion, and sensation ha1 intact. Range of motion: intact in all extremities. Injury Description: Laceration sustained to forehead is 2.6 to 7.5 cm long, bleeding moderately, moderate bleeding noted at this time. A dressing was applied. Historical: - Allergies: 05:49 Morphine; ha1 05:49 Codeine; ha1 05:49 ANTIHISTAMINES; ha1 - PMHx: 05:49 Anxiety; Chronic obstructive lung disease; depressive disorder; Gastroesophageal reflux ha1 disease; GERD; herniated disc in neck; hiatal hernia; Hypercholesterolemia; Hypertensive disorder; osteomyelitis; - Immunization history:: Adult Immunizations up to date. - Infectious Disease History:: Denies. - Immunization history: Last tetanus immunization: - up to date. - Social history:: Smoking status: Patient/guardian denies using tobacco, the patient reports quitting approximately 20 years ago. Screenin:46 [facility] ED Fall Risk Assessment (Adult) History of falling in the last 3 months, rg5 including since admission Yes- single mechanical fall (1 pt) Confusion or Disorientation No (0 pts) Intoxicated or Sedated No (0 pts) Impaired Gait Yes (1 pt) Mobility Assist Device Used Yes (1 pt) Altered Elimination Yes (1 pt) Score/Fall Risk Level 3 or more points = High Risk. Abuse screen: Denies threats or abuse. Nutritional screening: No deficits noted. Tuberculosis screening: No symptoms or risk factors identified. Primary Survey: 05:30 NO uncontrolled hemorrhage observed. rg5 05:30 A: The client is awake and alert. The airway is patent. Breathing/Chest: Spontaneous rg5 respiratory effort, equal unlabored respirations, breath sounds clear bilaterally, regular pattern, symmetrical chest rise and fall. Circulation: No external hemorrhage present. Regular and strong central pulse, skin warm/dry/normal color. Disability Pupils are equal, round, reactive to light and accommodation. Exposure/Environment: All clothing and personal items were removed. Forensic evidence collection is not deemed to be indicated at this time. Items placed in patient belonging bag. There is no evidence of uncontrolled external bleeding. Obvious injury(ies) are noted at this time: laceration on right eye \T\ nose. 06:00 Reassessment Alertness and Airway: Awake and alert. The airway is patent. Breathing: rg5 Circulation: No external hemorrhage noted. Regular and strong central pulse, skin warm/dry/normal color. Disability: Pupils Pupils are equal, round, reactive to light and accomodation. Assessment: 05:46 General: Appears in no apparent distress. Behavior is calm, cooperative, appropriate rg5 for age. Pain: Complains of pain in right eye and nose Pain currently is 5 out of 10 on a pain scale. Quality of pain is described as aching. Neuro: Level of Consciousness is alert, obeys commands, Oriented to person, place. Cardiovascular: Patient's skin is warm and dry. Respiratory: Airway is patent Trachea midline Respiratory effort is even, unlabored, Respiratory pattern is regular, symmetrical. GI: Abdomen is round Bowel sounds present X 4 quads. Abd is soft and non tender X 4 quads. : No signs and/or symptoms were reported regarding the genitourinary system. EENT: Eyes are tearing on right eye. Derm: Skin is fragile, Skin is dry, Skin is normal. Musculoskeletal: Circulation, motion, and sensation intact. Range of motion: intact in all extremities. Injury Description: Laceration sustained to right eye is clean, 0.5 to 2.5 cm long, was sustained 2-4 hours ago. Vital Signs: 05:27 BP 139 / 79; Pulse 57; Resp 17 S; Temp 97.6(T); Pulse Ox 99% on R/A; Weight 70.31 kg; ha1 Height 5 ft. 5 in. ; 05:53 BP 145 / 75; Pulse 69; Resp 18; Pulse Ox 100% on R/A; rg5 05:27 Body Mass Index 25.79 (70.31 kg, 165.1 cm) ha1 Haresh Coma Score: 05:30 Eye Response: spontaneous(4). Motor Response: obeys commands(6). Verbal Response: rg5 oriented(5). Total: 15. Trauma Score (Adult): 05:30 Eye Response: spontaneous(1); Verbal Response: oriented(1); Motor Response: obeys rg5 commands(2); Systolic BP: > 89 mm Hg(4); Respiratory Rate: 10 to 29 per min(4); [place] Score: 15; Trauma Score: 12 ED Course: 05:26 Patient arrived in ED. [id number] 05:27 Rober Kumar, WINSOME is Primary Nurse. rg5 05:30 Patient maintains SpO2 saturation greater than 95% on room air. rg5 05:33 Albert Echavarria MD is Attending Physician. [facility] 05:46 Patient has correct armband on for positive identification. rg5 05:46 No provider procedures requiring assistance completed. Patient did not have IV access rg5 during this emergency room visit. 05:49 Triage completed. ha1 06:00 Provided Education on: post er care. rg5 Administered Medications: 05:45 Drug: Lidocaine Infiltration (2 %) 10 ml 5 ml Infiltration once; to bedside {Note: rg5 injected by provider.} Volume: 5 ml; Route: Infiltration; Medication: 05:46 VIS not applicable for this client. rg5 Intake: 05:30 PO: 0ml; Total: 0ml. rg5 Outcome: 06:28 Discharge ordered by . cp 06:40 Discharged to home via wheelchair, rg5 06:40 Condition: stable rg5 06:40 Discharge instructions given to patient, family, 06:40 Patient's length of stay was not longer than 2 hours. 06:40 Instructed on discharge instructions, follow up and referral plans. Demonstrated rg5 understanding of instructions, follow-up care, medications, :45 Patient left the ED. rg5 Signatures: Albert Echavarria MD MD cha Page, Corey, PA PA cp Jeffries, Jennifer [id number] Tawana Toscano, RN RN [facility] Rober Kumar RN RN rg5
[2024-04-23 06:50] VITALS: TEMP 97.6
[2024-04-23 06:51] VITALS: BP 145/75; O2SAT 100
== END 2024-04-23 06:45 | disposition home or self-care (01) ==
LOC: ER 05:22
DX: S01.21XA Laceration without foreign body of nose, initial encounter (principal); W18.30XA Fall on same level, unspecified, initial encounter
CPT/HCPCS: 99283